=== PATIENT | male | born 1955 | race Caucasian/White ===

== ENCOUNTER 2017-02-26 03:13 | Inpatient (IN) | payer MEDICARE ==
[2017-02-26] VITALS (17 sets, daily range): BP systolic 105–153; BP diastolic 67–83; PULSE 65–83; RESP 16–42; TEMP 97.5–98.9; O2SAT 90–100
[~2017-02-26] VITALS: Ht 172.7 cm; Wt 62.6 kg
[~2017-02-26 03:13] MED LIST: ALBU0.086 INH; COMBAER INH; LEVA750T PO; PRED20 PO; VENTAER INH
[2017-02-26] MEDS ORDERED: AZITHROMYCIN INJ 500 MG in SODIUM CHLOR 0.9% 250 ML INJ 250 ML IV ONE (03:30)
[2017-02-26] MEDS ORDERED: SODIUM CHLOR 0.9% 1000 ML INJ 1,000 ML IV ONE (03:30)
[2017-02-26] MEDS ORDERED: SODIUM CHLORIDE 0.9% FLUSH 10 ML FLUSH IVF PRN (03:30)
[2017-02-26] MEDS ORDERED: LORazepam 2 MG/ML VIAL IV PUSH ONE (03:30)
--- NOTE | 2017-02-26 03:34 | PD ---
HPI Chief Complaint: Respiratory Distress Time Seen by Provider: 03:21 Travel History International Travel<30 days: No Contact w/Intl Traveler<30days: No Traveled to known affect area: No History of Present Illness HPI This 61-year-old man who presents to the emergency department complaining of increased shortness of breath. He has a history of COPD. Worse for the past couple days. He reports significant functional limitations at baseline from generalized debility and shortness of breath. He has some increased cough and congestion. No chest pain. No abdominal pain. Symptoms been constant for the past 2 days. He took some treatments at home that didn't really help. He received more treatments as well as IV Solu-Medrol in route. History Past Medical History Narrative Medical COPD Anxiety Influenza Vaccination: Yes Past Surgical History Surgical History: No Previous Surgery Social History Alcohol Use: Yes Tobacco Use: Yes (3 cigars per day) Allergies-Medications (Allergen,Severity, Reaction): Coded Allergies: No Known Allergies (Verified , 10/05/14) Reported Meds & Prescriptions Reported Meds & Active Scripts Active Levaquin 750 Mg Tab (Levofloxacin) 750 Mg Tab 750 Mg PO DAILY Deltasone 20 Mg Tab (Prednisone) 20 Mg Tab 20 Mg PO DIRECTED Take 2 tabs twice daily x5 days, then take 2 tabs daily x4 days Reported Combivent (Albuterol/Ipratropium) 14.7 Gm Aer 2 Puff INH Q4HPRN FOR WHEEZING Deltasone (Prednisone) Unknown Strength Tab Unknown Dose PO DAILY Proventil Ud 0.083% (2.5 Mg/3 Ml) (Albuterol Sulfate) 2.5 Mg/3 Ml Inha 2.5 Mg INH PRN Ventolin Hfa (Albuterol Sulfate) 18 Gm Aero 2 Puff INH Q4HPRN * SHAKE WELL BEFORE USE * Review of Systems Except as stated in HPI: all other systems reviewed are Neg Physical Exam Narrative GENERAL: Well-appearing 61-year-old man, no acute distress. SKIN: Focused skin assessment warm/dry. NECK: Trachea midline. No JVD. CARDIOVASCULAR: Regular rate and rhythm. No murmur appreciated. RESPIRATORY: Moderate respiratory distress. Able to speak in short sentences. Diminished breath sounds in the posterior lung bliss with prolonged expiratory phase and expiratory wheezing. GASTROINTESTINAL: Abdomen soft, non-tender, nondistended. Hepatic and splenic margins not palpable. MUSCULOSKELETAL: No obvious deformities. No edema. NEUROLOGICAL: Awake and alert. No obvious cranial nerve deficits. Motor grossly within normal limits. Normal speech. PSYCHIATRIC: Appropriate mood and affect; insight and judgment normal. Data Data Last Documented VS Vital Signs Date Time Temp Pulse Resp B/P Pulse Ox O2 Delivery O2 Flow Rate FiO2 02/26/17 04:40 99 40 02/26/17 04:19 Venturi Mask 6.00 02/26/17 03:41 28 02/26/17 03:21 77 02/26/17 03:19 98.9 108/82 Orders Complete Blood Count With Diff (02/26/17 03:21) Comprehensive Metabolic Panel (02/26/17 03:21) Magnesium (Mg) (02/26/17 03:21) Iv Access Insert/Monitor (02/26/17 03:21) Electrocardiogram (02/26/17 03:21) Ecg Monitoring (02/26/17 03:21) Oximetry (02/26/17 03:21) Oxygen Administration (02/26/17 03:21) Chest, Single Ap (02/26/17 03:21) Sodium Chloride 0.9% Flush (Ns Flush) (02/26/17 03:30) Albuterol-Ipratropium Neb (Duoneb Neb) (02/26/17 03:30) Lorazepam Inj (Ativan Inj) (02/26/17 03:30) Azithromycin Inj (Zithromax Inj) (02/26/17 03:30) Sodium Chlor 0.9% 1000 Ml Inj (Ns 1000 M (02/26/17 03:30) Resp Bipap / Cpap Non Invas Vt (02/26/17 ) Arterial Blood Gas (Abg) (02/26/17 ) Admit Order (Ed Use Only) (02/26/17 ) Labs Laboratory Tests Test 02/26/17 03:40 White Blood Count 9.0 TH/MM3 Red Blood Count 4.20 MIL/MM3 Hemoglobin 14.7 GM/DL Hematocrit 41.2 % Mean Corpuscular Volume 98.1 FL Mean Corpuscular Hemoglobin 35.1 PG Mean Corpuscular Hemoglobin 35.7 % Concent Red Cell Distribution Width 12.8 % Platelet Count 152 TH/MM3 Mean Platelet Volume 8.1 FL Neutrophils (%) (Auto) 86.2 % Lymphocytes (%) (Auto) 7.6 % Monocytes (%) (Auto) 5.6 % Eosinophils (%) (Auto) 0.2 % Basophils (%) (Auto) 0.4 % Neutrophils # (Auto) 7.8 TH/MM3 Lymphocytes # (Auto) 0.7 TH/MM3 Monocytes # (Auto) 0.5 TH/MM3 Eosinophils # (Auto) 0.0 TH/MM3 Basophils # (Auto) 0.0 TH/MM3 CBC Comment DIFF FINAL Differential Comment Sodium Level 118 MEQ/L Potassium Level 4.9 MEQ/L Chloride Level 83 MEQ/L Carbon Dioxide Level 22.9 MEQ/L Anion Gap 12 MEQ/L Blood Urea Nitrogen 7 MG/DL Creatinine 1.00 MG/DL Estimat Glomerular Filtration 76 ML/MIN Rate Random Glucose 110 MG/DL Calcium Level 9.0 MG/DL Magnesium Level 1.6 MG/DL Total Bilirubin 1.5 MG/DL Aspartate Amino Transf 44 U/L (AST/SGOT) Alanine Aminotransferase 25 U/L (ALT/SGPT) Alkaline Phosphatase 88 U/L Total Protein 8.1 GM/DL Albumin 3.4 GM/DL [facility] Medical Decision Making Medical Screen Exam Complete: Yes Emergency Medical Condition: Yes Interpretation(s) LABS: CBC unremarkable. CMP remarkable for sodium of 118. Chest x-ray: Small pleural effusion. Questionable hairline fracture right seventh rib. Differential Diagnosis COPD exacerbation, pneumonia, URI, ACS, PE other Narrative Course Medical decision making INITIAL: This is a 61-year-old man who presents to the emergency department complaining of increased shortness of breath. He was hypoxic on EMS arrival. He still appears pretty labored. We'll check labs, EKG, chest x-ray, reassess. FINAL: 61 year-old woman, daily alcohol drinker, hyponatremia with COPD exacerbation. Hypernatremia likely chronic. Placed on BiPAP for worsening respiratory distress despite initial treatment for COPD exacerbation. Patient will be admitted to the ICU. Critical Care Narrative Aggregate critical care time was 25 minutes. Time to perform other separately billable procedures was not included in the critical care time. My time did not include minutes spent treating any other patients simultaneously or on activities that did not directly contribute to the patient's treatment. The services I provided to this patient were to treat and/or prevent clinically significant deterioration that could result in: , disability, worsening respiratory disease, unrecognized hyponatremia. I provided critical care services requiring my management, as noted below: Chart data review, documentation time, medication orders and management, vital sign assessments/reviewing monitor data, ordering and reviewing lab tests, ordering and interpreting/reviewing x-rays and diagnostic studies, care of the patient and discussion of the patient with the admitting physicians. Diagnosis Primary Impression: COPD exacerbation Additional Impressions: Hyponatremia Alcohol abuse Admitting Information Admitting Physician Requests: Admit Suhail Murphy MD Feb 26, 2017 03:34
[2017-02-26 03:54] LABS: AUTOMATED NEUTROPHIL # 7.8 TH/MM3 (1.8-7.7); BASOPHIL % 0.4 % (0.0-2.0); EOSINOPHIL % 0.2 % (0.0-4.0); HEMATOCRIT 41.2 % (39.0-51.0); HEMO FLAGS DIFF FINAL; LYMPH % 7.6 % (9.0-44.0); LYMPHOCYTE # 0.7 TH/MM3 (1.0-4.8); MEAN CELL VOLUME 98.1 FL (80.0-100.0); MEAN CORPUSCULAR HEMOGLOBIN 35.1 PG (27.0-34.0); MEAN CORPUSCULAR HGB CONC 35.7 % (32.0-36.0); MONO % 5.6 % (0.0-8.0); NEUT % 86.2 % (16.0-70.0); PLATELET COUNT 152 TH/MM3 (150-450); RED CELL DISTRIBUTION WIDTH 12.8 % (11.6-17.2)
[2017-02-26] MEDS: RESP: ALBUTEROL 2.5 MG/IPRATROPIUM 0.5 MG NEB (SCH) INH ×4 (03:57→21:10)
[2017-02-26 04:18] LABS: ALKALINE PHOSPHATASE 88 U/L (45-117); ALT (GPT) 25 U/L (12-78); ANION GAP 12 MEQ/L (5-15); AST (GOT) 44 U/L (15-37); BICARBONATE 22.9 MEQ/L (21.0-32.0); BLOOD UREA NITROGEN 7 MG/DL (7-18); CHLORIDE 83 MEQ/L (98-107); GLOMERULAR FILTRATION RATE 76 ML/MIN (>89); MAGNESIUM 1.6 MG/DL (1.5-2.5); TOTAL BILIRUBIN ADULT 1.5 MG/DL (0.2-1.0)
[2017-02-26 04:20] LABS: POTASSIUM 4.9 MEQ/L (3.5-5.1)
[2017-02-26 04:24] LABS: SODIUM (NA) 118 MEQ/L (136-145)
--- NOTE | 2017-02-26 04:38 | RADRPT ---
EXAM DATE/TIME: 02/26/2017 04:07 [facility] COMPARISON: CHEST SINGLE AP, November 04, 2010, 19:30. INDICATIONS : Shortness of breath. MEDICAL HISTORY : None. SURGICAL HISTORY : None. ENCOUNTER: Initial ACUITY: 1 day PAIN SCORE: 0/10 LOCATION: Bilateral chest FINDINGS: A single view of the chest demonstrates the lungs to be symmetrically aerated without evidence of mas s, or infiltrate. Blunting of the left lateral costophrenic angle suspicious for small pleural effus ion The cardiomediastinal contours are unremarkable. Questionable hairline fracture of the right sev enth rib. Wedging throughout the mid thoracic spine similar to 2011 CONCLUSION: Small left pleural effusion. Questionable hairline fracture right seventh rib. Suhail Banerjee MD on February 26, 2017 at 4:36 Board Certified Radiologist. This report was verified electronically.
[2017-02-26] MEDS ORDERED: LACTULOSE SYRUP 20 GM/30 ML CUP PO PRN (05:15)
[2017-02-26] MEDS ORDERED: MISCELLANEOUS NURSING INFORMATION XX SCH (05:15)
[2017-02-26] MEDS ORDERED: SODIUM CHLORIDE 0.9% FLUSH 10 ML FLUSH PRN (05:15)
[2017-02-26] MEDS ORDERED: SENNOSIDES 8.6 MG TAB PO PRN (05:15)
[2017-02-26] MEDS ORDERED: RESP: ALBUTEROL 2.5 MG/IPRATROPIUM 0.5 MG NEB (PRN) INH (05:15)
[2017-02-26] MEDS ORDERED: ACETAMINOPHEN 325 MG TAB PO PRN (05:15)
[2017-02-26] MEDS ORDERED: ONDANSETRON HCL 4 MG/2 ML VIAL IV PRN (05:15)
[2017-02-26] MEDS ORDERED: MORPHINE SULFATE 4 MG/ML INJ IV PRN (05:15)
[2017-02-26] MEDS ORDERED: LORazepam 2 MG/ML VIAL IV PRN (05:15)
[2017-02-26] MEDS ORDERED: CHLORHEXIDINE GLUCONATE 2 % 1 PACK (2 CLOTHS) TOP PRN (05:15)
[2017-02-26] MEDS ORDERED: BISACODYL 10 MG SUPP RECTAL PRN (05:15)
--- NOTE | 2017-02-26 05:15 | HHI.HP ---
HPI Service Critical Care Medicine Primary Care Physician Agata Sullivan MD Admission Diagnosis hyponatremia, COPD exacerbation Diagnosis: Travel History International Travel<30 Days: No Contact w/Intl Traveler <30 Da: No Traveled to Known Affected Are: No History of Present Illness 61-year-old man presents complaining of increased shortness of breath. He has a history of COPD. Worse for the past couple days. He reports significant functional limitations at baseline from generalized debility and shortness of breath. He has some increased cough and congestion. No chest pain. No abdominal pain. Symptoms been constant for the past 2 days. He took some treatments at home that didn't really help. Review of Systems ROS Unobtainable patient on facemask BiPAP in respiratory distress Past Family Social History Allergies: Coded Allergies: No Known Allergies (Verified , 10/05/14) Past Medical History COPD Tobacco Use Alcohol Abuse Past Surgical History Denies Reported Medications Reported Meds & Active Scripts Active Levaquin 750 Mg Tab (Levofloxacin) 750 Mg Tab 750 Mg PO DAILY Deltasone 20 Mg Tab (Prednisone) 20 Mg Tab 20 Mg PO DIRECTED Take 2 tabs twice daily x5 days, then take 2 tabs daily x4 days Reported Combivent (Albuterol/Ipratropium) 14.7 Gm Aer 2 Puff INH Q4HPRN FOR WHEEZING Deltasone (Prednisone) Unknown Strength Tab Unknown Dose PO DAILY Proventil Ud 0.083% (2.5 Mg/3 Ml) (Albuterol Sulfate) 2.5 Mg/3 Ml Inha 2.5 Mg INH PRN Ventolin Hfa (Albuterol Sulfate) 18 Gm Aero 2 Puff INH Q4HPRN * SHAKE WELL BEFORE USE * Active Ordered Medications Current Medications Medications (Trade) Dose Ordered Sig/Mala Route PRN Reason Start Time Stop Time Status Last Admin Dose Admin Sodium Chloride (NS Flush) 2 ml UNSCH PRN IVF FLUSH AFTER USING IV ACCESS 02/26/17 03:30 02/26/17 03:41 Family History Reported Medications Combivent (Albuterol/Ipratropium) 14.7 Gm Aer 2 Puff INH Q4H PRN Deltasone (Prednisone) Unknown Strength Tab Unknown Dose PO DAILY Proventil Ud 0.083% (2.5 Mg/3 Ml) (Albuterol Sulfate) 2.5 Mg/3 Ml Inha 2.5 Mg INH PRN Ventolin Hfa (Albuterol Sulfate) 18 Gm Aero 2 Puff INH Q4H PRN Allergies: Coded Allergies: No Known Allergies (Verified , 10/05/14) Father - unknown Mother - unknown 11 Siblings - 1 of cancer of unknown cause Children - denies Social History Lives in [place] with a roommate EtOH - 6 beers per day Tobacco - quit smoking cigarettes 2009. Still smoking 7 cigars daily. Illicit Drugs - denies Physical Exam Vital Signs Vital Signs Date Time Temp Pulse Resp B/P Pulse Ox O2 Delivery O2 Flow Rate FiO2 02/26/17 04:40 99 40 02/26/17 04:19 92 Venturi Mask 6.00 50 02/26/17 03:59 92 Nasal Cannula 5.00 02/26/17 03:41 96 Aerosol Mask 8 02/26/17 03:41 28 96 Aerosol Mask 8 02/26/17 03:21 77 20 95 Aerosol Mask 02/26/17 03:19 98.9 77 20 108/82 95 Physical Exam GENERAL: Elderly appearing man on facemask BiPAP. SKIN: Warm and dry. HEAD: Normocephalic. EYES: No scleral icterus. No injection or drainage. NECK: Supple, trachea midline. No JVD or lymphadenopathy. CARDIOVASCULAR: Regular rate and rhythm without murmurs, gallops, or rubs. RESPIRATORY: Breath sounds decreased bilaterally. Some accessory muscle use. GASTROINTESTINAL: Abdomen soft, non-tender, nondistended. MUSCULOSKELETAL: No cyanosis, or edema. BACK: Nontender without obvious deformity. No CVA tenderness. EXTREMITIES: No clubbing or cyanosis Laboratory Laboratory Tests Test 02/26/17 03:40 White Blood Count 9.0 Red Blood Count 4.20 Hemoglobin 14.7 Hematocrit 41.2 Mean Corpuscular Volume 98.1 Mean Corpuscular Hemoglobin 35.1 Mean Corpuscular Hemoglobin 35.7 Concent Red Cell Distribution Width 12.8 Platelet Count 152 Mean Platelet Volume 8.1 Neutrophils (%) (Auto) 86.2 Lymphocytes (%) (Auto) 7.6 Monocytes (%) (Auto) 5.6 Eosinophils (%) (Auto) 0.2 Basophils (%) (Auto) 0.4 Neutrophils # (Auto) 7.8 Lymphocytes # (Auto) 0.7 Monocytes # (Auto) 0.5 Eosinophils # (Auto) 0.0 Basophils # (Auto) 0.0 CBC Comment DIFF FINAL Differential Comment Sodium Level 118 Potassium Level 4.9 Chloride Level 83 Carbon Dioxide Level 22.9 Anion Gap 12 Blood Urea Nitrogen 7 Creatinine 1.00 Estimat Glomerular Filtration 76 Rate Random Glucose 110 Calcium Level 9.0 Magnesium Level 1.6 Total Bilirubin 1.5 Aspartate Amino Transf 44 (AST/SGOT) Alanine Aminotransferase 25 (ALT/SGPT) Alkaline Phosphatase 88 Total Protein 8.1 Albumin 3.4 Result Diagram: 02/26/1733902/26/17339 Assessment and Plan Assessment and Plan Respiratory failure COPD exacerbation - IV steroids - Empiric antibiotic - BiPAP when necessary - Frequent ABGs - DuoNeb scheduled and when necessary Hyponatremia - Due to alcohol abuse - Continue IV hydration was normal saline - Monitor sodium trend Alcohol abuse - CIWA protocol - Monitor closely for withdrawal Tobacco use disorder - [place] patch when necessary DVT GI prophylaxis - Teds SCDs - Early aggressive mobilization - Pepcid Critical Care: The total critical care time was 35 minutes. Time to perform other separately billable procedures was not included in the critical care time. Dread Hawkins MD Feb 26, 2017 05:15
[2017-02-26 05:22] LABS: BLOOD GAS BASE EXCESS -6.1 mmol/L (-2-2); BLOOD GAS CARBOXYHEMOGLOBIN 1.2 % (0-4); BLOOD GAS HCO3 18 mmol/L (22-26); BLOOD GAS METHEMOGLOBIN 0.6 % (0-2); BLOOD GAS O2 HGB SATURATION 96 % (90-100); BLOOD GAS PCO2 33 mmHg (38-42); BLOOD GAS PO2 104 mmHG (61-120); BLOOD GAS TOTAL HGB 13.3 G/DL (12.0-16.0); CRITICAL VALUE NO; TEMP CORR TO 98.6
[2017-02-26 05:23] LABS: DRAW SITE RT RADIAL; FIO2 40 %; NUMBER OF ARTERIAL PUNCTURES 2; OXYGEN DEVICE BiPAP; STAT YES; ULNAR PULSE PRESENT; VENT SETTINGS IPAP15/EPAP5
[2017-02-26] MEDS ORDERED: LORazepam 2 MG/ML VIAL IV PUSH PRN ×7 (05:30)
[2017-02-26] MEDS ORDERED: FLUMAZENIL 0.5 MG/5 ML VIAL IV PUSH PRN ×2 (05:30)
[2017-02-26] MEDS ORDERED: LORazepam 2 MG TAB PO PRN ×2 (05:30)
[2017-02-26] MEDS ORDERED: LORazepam 1 MG TAB PO PRN ×2 (05:30)
[2017-02-26] MEDS: SODIUM CHLOR 0.9% 1000 ML INJ 1,000 ML IV SCH ×2 (05:47→21:16)
[2017-02-26] MEDS: LEVOFLOXACIN 750 MG PREMIX INJ 150 ML IV SCH (06:47)
[2017-02-26] MEDS: LORazepam 2 MG/ML VIAL IV PUSH PRN ×2 (10:04→13:57)
[2017-02-26] MEDS: methylPREDNISolone SOD SUCC 125 MG/2 ML VIAL IV PUSH SCH ×2 (10:39→21:17)
[2017-02-26] MEDS: FAMOTIDINE 20 MG/2 ML VIAL IV PUSH SCH ×2 (10:39→21:17)
[2017-02-26] MEDS: DOCUSATE SODIUM 50 MG/SENNA 8.6 MG TAB PO SCH ×2 (10:39→21:00)
[2017-02-26] MEDS: SODIUM CHLORIDE 0.9% FLUSH 10 ML FLUSH SCH ×2 (13:58→21:16)
[2017-02-27] VITALS (11 sets, daily range): BP systolic 99–159; BP diastolic 69–93; PULSE 67–95; RESP 18–25; TEMP 96.4–98.4; O2SAT 92–99
--- NOTE | 2017-02-27 02:31 | RADRPT ---
EXAM DATE/TIME: 02/27/2017 01:56 [facility] COMPARISON: CHEST SINGLE AP, February 26, 2017, 4:07. INDICATIONS : Shortness of breath MEDICAL HISTORY : None. SURGICAL HISTORY : None. ENCOUNTER: Subsequent ACUITY: 2 days PAIN SCORE: 8/10 LOCATION: Bilateral chest FINDINGS: A single view of the chest demonstrates the lungs to be symmetrically aerated without evidence of mas s, infiltrate or effusion. The heart size is at the upper limits of normal. There is a questionable nondisplaced fracture involving the right posterior lateral seventh rib again noted. CONCLUSION: 1. No acute cardiopulmonary disease. 2. Questionable fracture of the right posterior lateral seventh rib again noted of indeterminate age. Earl Anguiano MD on February 27, 2017 at 2:28 Board Certified Radiologist. This report was verified electronically.
[2017-02-27] MEDS: RESP: ALBUTEROL 2.5 MG/IPRATROPIUM 0.5 MG NEB (SCH) INH ×4 (03:43→21:28)
[2017-02-27] MEDS: CHLORHEXIDINE GLUCONATE 2 % 1 PACK (2 CLOTHS) TOP SCH ×2 (04:00→18:56)
[2017-02-27 04:38] LABS: AUTOMATED NEUTROPHIL # 4.8 TH/MM3 (1.8-7.7); BASOPHIL % 0.1 % (0.0-2.0); HEMATOCRIT 37.6 % (39.0-51.0); HEMO FLAGS DIFF FINAL; LYMPH % 2.9 % (9.0-44.0); LYMPHOCYTE # 0.1 TH/MM3 (1.0-4.8); MEAN CELL VOLUME 100.7 FL (80.0-100.0); MEAN CORPUSCULAR HEMOGLOBIN 33.9 PG (27.0-34.0); MEAN CORPUSCULAR HGB CONC 33.6 % (32.0-36.0); MONO % 3.2 % (0.0-8.0); NEUT % 93.8 % (16.0-70.0); PLATELET COUNT 111 TH/MM3 (150-450); RED BLOOD COUNT 3.73 MIL/MM3 (4.50-5.90); RED CELL DISTRIBUTION WIDTH 12.9 % (11.6-17.2); WHITE BLOOD COUNT 5.2 TH/MM3 (4.0-11.0)
[2017-02-27 05:04] LABS: ALT (GPT) 23 U/L (12-78); ANION GAP 10 MEQ/L (5-15); AST (GOT) 31 U/L (15-37); BICARBONATE 24.5 MEQ/L (21.0-32.0); BLOOD UREA NITROGEN 8 MG/DL (7-18); CHLORIDE 94 MEQ/L (98-107); GLOMERULAR FILTRATION RATE 104 ML/MIN (>89); MAGNESIUM 1.8 MG/DL (1.5-2.5); POTASSIUM 4.1 MEQ/L (3.5-5.1); SODIUM (NA) 128 MEQ/L (136-145)
[2017-02-27 05:06] LABS: ALKALINE PHOSPHATASE 69 U/L (45-117); TOTAL BILIRUBIN ADULT 0.8 MG/DL (0.2-1.0)
[2017-02-27] MEDS: LEVOFLOXACIN 750 MG PREMIX INJ 150 ML IV SCH (05:16)
[2017-02-27] MEDS: SODIUM CHLOR 0.9% 1000 ML INJ 1,000 ML IV SCH ×3 (05:16→19:12)
[2017-02-27] MEDS: DOCUSATE SODIUM 50 MG/SENNA 8.6 MG TAB PO SCH ×2 (09:00→19:11)
[2017-02-27] MEDS: methylPREDNISolone SOD SUCC 125 MG/2 ML VIAL IV PUSH SCH ×2 (09:24→19:11)
[2017-02-27] MEDS: FAMOTIDINE 20 MG/2 ML VIAL IV PUSH SCH ×2 (09:25→19:11)
[2017-02-27] MEDS: SODIUM CHLORIDE 0.9% FLUSH 10 ML FLUSH SCH ×2 (09:25→19:12)
[2017-02-27] MEDS ORDERED: INFLUENZA VIRUS VACCINE (QUADRIVALENT) 0.5 ML SYR IM ONE (10:00)
--- NOTE | 2017-02-27 10:04 | HHI.PR ---
Subjective Remarks Follow-up for COPD exacerbation Patient stated that breathing has improved. Denies any cough. Patient asking to eat. His nurses is at the bedside. Per patient's nurse they suspected that he aspirated so kept him nothing by mouth. Speech therapist was already consulted pending recommendation. Otherwise patient has no other complaints. Dealt with patient's nurse. Objective Vitals Vital Signs Date Time Temp Pulse Resp B/P Pulse Ox O2 Delivery O2 Flow Rate FiO2 02/27/17 08:28 95 Nasal Cannula 6.00 02/27/17 06:00 81 02/27/17 04:00 98.2 85 25 159/88 93 02/27/17 04:00 78 02/27/17 02:00 78 02/27/17 00:00 98.4 74 18 156/85 96 02/27/17 00:00 74 02/26/17 22:00 83 02/26/17 21:10 96 Nasal Cannula 2.00 02/26/17 20:00 98.0 73 16 134/83 95 02/26/17 20:00 73 02/26/17 16:00 72 18 142/83 91 02/26/17 12:00 73 42 153/77 90 I/O 02/26/17 02/26/17 02/26/17 02/27/17 02/27/17 02/27/17 07:00 15:00 23:00 07:00 15:00 23:00 Intake Total 624 ml 584 ml Output Total 250 ml 500 ml Balance 374 ml 84 ml Intake IV Total 624 ml 584 ml Output Urine Total 250 ml 500 ml # Voids 1 2 Result Diagram: 02/27/17 0402 02/27/17 0402 Imaging Last Impressions Chest X-Ray 02/27/17 0000 Signed Impressions: Service Date/Time: Monday, February 27, 2017 01:56 - CONCLUSION: 1. No acute cardiopulmonary disease. 2. Questionable fracture of the right posterior lateral seventh rib again noted of indeterminate age. Earl Anguiano MD Objective Remarks GENERAL: A chronically ill looking frail male in no acute distress.. CARDIOVASCULAR: Regular rate and rhythm without murmurs, gallops, or rubs. RESPIRATORY: Lung sounds are distant with mild diffuse wheezing. Patient just received nebulizer treatment 40 minutes ago. No accessory muscle use. No cough noted on exam. GASTROINTESTINAL: Abdomen soft, non-tender, nondistended. MUSCULOSKELETAL: No cyanosis, or edema. Medications and IVs Current Medications Sodium Chloride (NS Flush) 2 ml UNSCH PRN IVF FLUSH AFTER USING IV ACCESS Last administered on 02/26/17 03:41; Start 02/26/17 at 03:30; Stop 02/26/17 at 05:40 ; Status DC Albuterol/ Ipratropium (Duoneb Neb) 1 ampule Q15M INH Last administered on 02/26 03:57; Start 02/26/17 at 03:30; Stop 02/26/17 at 03:46; Status DC Lorazepam 1 mg 1 mg ONCE ONCE IV PUSH Last administered on 02/26/17 03:41; Start 02/26/17 at 03:30; Stop 02/26/17 at 03:31; Status DC Azithromycin 500 mg/Sodium Chloride 250 ml @ 250 mls/hr ONCE ONCE IV Last administered on 02/26/17 03:40; Start 02/26/17 at 03:30; Stop 02/26/17 at 04:29 ; Status DC Sodium Chloride 1,000 ml @ 2,000 mls/hr Q30M ONCE IV Last administered on 02/26 03:40; Start 02/26/17 at 03:30; Stop 02/26/17 at 03:59; Status DC Sodium Chloride (NS 1000 ml Inj) 1,000 ml @ 84 mls/hr [id number] IV Last administered on 02/27/17 05:16; Start 02/26/17 at 05:06 Sodium Chloride (NS Flush) 2 ml UNSCH PRN .XX FLUSH AFTER USING IV ACCESS; Start 02/26/17 at 05:15 Sodium Chloride (NS Flush) 2 ml BID .XX Last administered on 02/27/17 09:25; Start 02/26/17 at 09:00 Acetaminophen (Tylenol) 650 mg Q6H PRN PO PAIN 1-5 AND/OR FEVER >101F; Start at 05:15 Morphine Sulfate (Morphine Inj) 2 mg Q2H PRN IV PAIN SCALE 6 TO 10; Start 02/26 at 05:15 Famotidine (Pepcid Inj) 20 mg Q12HR IV PUSH Last administered on 02/27/17 09: 25; Start 02/26/17 at 09:00 Lorazepam (Ativan Inj) 1 mg Q1H PRN IV Agitation/Sedation; Start 02/26/17 at 05 :15 Ondansetron HCl (Zofran Inj) 4 mg Q6H PRN IV NAUSEA OR VOMITING; Start at 05:15 Albuterol/ Ipratropium (Duoneb Neb) 1 ampule Q6HR NEB INH Last administered on 02/27/17 08:27; Start 02/26/17 at 10:00 Albuterol/ Ipratropium (Duoneb Neb) 1 ampule Q2HR NEB PRN INH WHEEZING Last administered on 02/26/17 05:44; Start 02/26/17 at 05:15; Stop 02/26/17 at 16:45 ; Status DC Miscellaneous Information 1 [id number] Last administered on 02/26/17 05:15; Start 02/26/17 at 05:15 Chlorhexidine Gluconate (Chlorhexidine 2% Cloth) 3 pack Taper DAILY@04 TOP Last administered on 02/27/17 04:00; Start 02/27/17 at 04:00; Stop 02/23/18 at 03:59 Chlorhexidine Gluconate (Chlorhexidine 2% Cloth) 3 pack UNSCH PRN TOP HYGIENIC CARE; Start 02/26/17 at 05:15 Senna/Docusate Sodium (Anay-Colace) 1 tab BID PO Last administered on 10:39; Start 02/26/17 at 09:00 Magnesium Hydroxide (Milk Of Magnesia Liq) 30 ml Q12H PRN PO MILD - MODERATE CONSTIPATION; Start 02/26/17 at 05:15 Sennosides (Senokot) 17.2 mg Q12H PRN PO MODERATE - SEVERE CONSTIPATION; Start 02/26/17 at 05:15 Bisacodyl (Dulcolax Supp) 10 mg DAILY PRN RECTAL SEVERE CONSITIPATION; Start at 05:15 Lactulose 30 ml 30 ml DAILY PRN PO SEVERE CONSITIPATION; Start 02/26/17 at 05: 15 Levofloxacin/ Dextrose (Levaquin 750 Mg Premix Inj) 150 ml @ 100 mls/hr Q24H IV Last administered on 02/27/17 05:16; Start 02/26/17 at 06:00 Methylprednisolone Sodium Succinate (SoluMEDROL INJ) 60 mg Q12HR IV PUSH Last administered on 02/27/17 09:24; Start 02/26/17 at 09:00 Flumazenil (Romazicon Inj) 0.2 mg Q1M PRN IV PUSH SEE LABEL COMMENTS; Start at 05:30 Lorazepam (Ativan) 1 mg Q4H PRN PO CIWA 8 - 10; Start 02/26/17 at 05:30; Stop 02/26/17 at 05:38; Status DC Lorazepam (Ativan Inj) 1 mg Q4H PRN IV PUSH CIWA 8 - 10; Start 02/26/17 at 05: 30; Stop 02/26/17 at 05:39; Status DC Lorazepam (Ativan) 2 mg Q2H PRN PO CIWA 11-14; Start 02/26/17 at 05:30; Stop at 05:38; Status DC Lorazepam (Ativan Inj) 2 mg Q2H PRN IV PUSH CIWA 11-14; Start 02/26/17 at 05:30 ; Stop 02/26/17 at 05:39; Status DC Lorazepam (Ativan Inj) 2 mg Q1H PRN IV PUSH CIWA 15-20; Start 02/26/17 at 05:30 ; Stop 02/26/17 at 05:39; Status DC Lorazepam (Ativan Inj) 2 mg Q15M PRN IV PUSH CIWA > 20; Start 02/26/17 at 05:30 ; Stop 02/26/17 at 05:39; Status DC Flumazenil (Romazicon Inj) 0.2 mg Q1M PRN IV PUSH SEE LABEL COMMENTS; Start at 05:30; Stop 02/26/17 at 05:39; Status DC Lorazepam (Ativan) 1 mg Q4H PRN PO CIWA 8 - 10; Start 02/26/17 at 05:30 Lorazepam (Ativan Inj) 1 mg Q4H PRN IV PUSH CIWA 8 - 10; Start 02/26/17 at 05: 30 Lorazepam (Ativan) 2 mg Q2H PRN PO CIWA 11-14; Start 02/26/17 at 05:30 Lorazepam (Ativan Inj) 2 mg Q2H PRN IV PUSH CIWA 11-14 Last administered on t 13:57; Start 02/26/17 at 05:30 Lorazepam (Ativan Inj) 2 mg Q1H PRN IV PUSH CIWA 15-20; Start 02/26/17 at 05:30 Lorazepam (Ativan Inj) 2 mg Q15M PRN IV PUSH CIWA > 20; Start 02/26/17 at 05:30 Influenza Virus Vaccine (Flu (Quadrivalent) Vaccine Inj) 0.5 ml ONCE ONCE IM ; Start 02/27/17 at 10:00; Stop 02/27/17 at 10:00; Status DC Albuterol/ Ipratropium (Duoneb Neb) 1 ampule Q2HR NEB PRN NEB wheezing/ SOB; Start 02/26/17 at 17:00 A/P Assessment and Plan Acute Respiratory failure -Secondary to COPD exacerbation. -See treatment as below. COPD exacerbation -Patient is on IV Levaquin, Solu-Medrol, scheduled DuoNeb's and albuterol when necessary. -Respiratory status is improving with treatment. -Continue with current treatment. Hyponatremia, asymptomatic. - Due to alcohol abuse - Improving with IV fluids. -Continue to monitor. Alcohol abuse - [facility] protocol - Monitor closely for withdrawal but at the moment patient has no signs of withdrawals. Tobacco use disorder - Nicotine patch when necessary DVT GI prophylaxis - Teds SCDs - Early aggressive mobilization - Pepcid Discharge Planning Patient is medically stable to be transferred out of the ICU. Pat Paulson MD Feb 27, 2017 10:04
[2017-02-27] MEDS: RESP: ALBUTEROL 2.5 MG/IPRATROPIUM 0.5 MG NEB (PRN) NEB (18:30)
[2017-02-27] MEDS: MAGNESIUM HYDROXIDE SUSP 30 ML CUP PO PRN (19:10)
[2017-02-28] VITALS (10 sets, daily range): BP systolic 108–147; BP diastolic 65–90; PULSE 62–153; RESP 17–19; TEMP 95.9–97.1; O2SAT 93–98
[2017-02-28] MEDS: RESP: ALBUTEROL 2.5 MG/IPRATROPIUM 0.5 MG NEB (SCH) INH ×4 (02:51→19:35)
[2017-02-28] MEDS: LEVOFLOXACIN 750 MG PREMIX INJ 150 ML IV SCH (05:28)
[2017-02-28 08:07] LABS: HEMATOCRIT 37.5 % (39.0-51.0); MEAN CELL VOLUME 101.4 FL (80.0-100.0); MEAN CORPUSCULAR HEMOGLOBIN 34.2 PG (27.0-34.0); MEAN CORPUSCULAR HGB CONC 33.7 % (32.0-36.0); PLATELET COUNT 100 TH/MM3 (150-450); RED CELL DISTRIBUTION WIDTH 12.9 % (11.6-17.2); REVIEW FLAG FINAL; WHITE BLOOD COUNT 7.7 TH/MM3 (4.0-11.0)
[2017-02-28 08:10] LABS: BICARBONATE 24.4 MEQ/L (21.0-32.0)
[2017-02-28] MEDS: DOCUSATE SODIUM 50 MG/SENNA 8.6 MG TAB PO SCH ×2 (08:43→19:59)
[2017-02-28] MEDS: methylPREDNISolone SOD SUCC 125 MG/2 ML VIAL IV PUSH SCH (08:43)
[2017-02-28] MEDS: MAGNESIUM HYDROXIDE SUSP 30 ML CUP PO PRN (08:43)
[2017-02-28] MEDS: FAMOTIDINE 20 MG/2 ML VIAL IV PUSH SCH ×2 (08:44→19:59)
[2017-02-28] MEDS: SODIUM CHLORIDE 0.9% FLUSH 10 ML FLUSH SCH ×2 (08:44→19:59)
--- NOTE | 2017-02-28 15:53 | HHI.PR ---
Subjective Remarks sob improving wants to go home denies cp on 4 liters nasal canula Objective Vitals Vital Signs Date Time Temp Pulse Resp B/P Pulse Ox O2 Delivery O2 Flow Rate FiO2 02/28/17 12:00 95.9 85 19 121/65 95 02/28/17 09:26 96 Nasal Cannula 3.00 02/28/17 07:45 97.1 82 18 143/83 96 02/28/17 04:28 96.7 89 18 128/77 94 02/27/17 23:12 96.7 95 19 130/93 92 02/27/17 19:28 96.4 89 18 99/69 98 02/27/17 19:10 98 Nasal Cannula 4.00 02/27/17 16:07 99 Nasal Cannula 6.00 I/O 02/27/17 02/27/17 02/27/17 02/28/17 02/28/17 02/28/17 07:00 15:00 23:00 07:00 15:00 23:00 Intake Total 584 ml 1261 ml 1378 ml 758 ml Output Total 500 ml 160 ml 100 ml Balance 84 ml -160 ml 1261 ml 1278 ml 758 ml Intake Oral 360 ml 480 ml IV Total 584 ml 901 ml 898 ml 758 ml Output Urine Total 500 ml 160 ml 100 ml # Voids 2 1 1 2 # Bowel Movements 0 0 Result Diagram: 02/28/17 0700 02/28/17 0700 Imaging Last Impressions Chest X-Ray 02/27/17 0000 Signed Impressions: Service Date/Time: Monday, February 27, 2017 01:56 - CONCLUSION: 1. No acute cardiopulmonary disease. 2. Questionable fracture of the right posterior lateral seventh rib again noted of indeterminate age. Earl Anguiano MD Objective Remarks AAOx3 Decreased air entry BL, no wheezing, rales or rhonchi Medications and IVs Current Medications Medications (Trade) Dose Ordered Sig/Mala Route Start Time Stop Time Status Last Admin (NS Flush) 2 ml UNSCH PRN .XX 02/26/17 05:15 (NS Flush) 2 ml BID .XX 02/26/17 09:00 02/28/17 19:59 (Tylenol) 650 mg Q6H PRN PO 02/26/17 05:15 (Morphine Inj) 2 mg Q2H PRN IV 02/26/17 05:15 (Pepcid Inj) 20 mg Q12HR IV PUSH 02/26/17 09:00 02/28/17 19:59 (Ativan Inj) 1 mg Q1H PRN IV 02/26/17 05:15 02/28/17 20:03 (Zofran Inj) 4 mg Q6H PRN IV 02/26/17 05:15 Miscellaneous Information 1 Q361D XX 02/26/17 05:15 02/26/17 05:15 (Chlorhexidine 2% Cloth) 3 pack Taper DAILY@04 TOP 02/27/17 04:00 02/23/18 03:59 02/27/17 04:00 (Chlorhexidine 2% Cloth) 3 pack UNSCH PRN TOP 02/26/17 05:15 (Anay-Colace) 1 tab BID PO 02/26/17 09:00 02/28/17 08:43 (Milk Of Magnesia Liq) 30 ml Q12H PRN PO 02/26/17 05:15 02/28/17 08:43 (Senokot) 17.2 mg Q12H PRN PO 02/26/17 05:15 (Dulcolax Supp) 10 mg DAILY PRN RECTAL 02/26/17 05:15 (Lactulose Liq) 30 ml DAILY PRN PO 02/26/17 05:15 (Romazicon Inj) 0.2 mg Q1M PRN IV PUSH 02/26/17 05:30 (Ativan) 1 mg Q4H PRN PO 02/26/17 05:30 (Ativan Inj) 1 mg Q4H PRN IV PUSH 02/26/17 05:30 (Ativan) 2 mg Q2H PRN PO 02/26/17 05:30 (Ativan Inj) 2 mg Q2H PRN IV PUSH 02/26/17 05:30 02/26/17 13:57 (Ativan Inj) 2 mg Q1H PRN IV PUSH 02/26/17 05:30 (Ativan Inj) 2 mg Q15M PRN IV PUSH 02/26/17 05:30 (Levaquin) 750 mg DAILY PO 03/01/17 09:00 Prednisone 20 mg 20 mg BID PO 02/28/17 21:00 02/28/17 19:58 (NS 1000 ml Inj) 1,000 ml @ 84 mls/hr [id number] IV 02/28/17 21:15 02/28/17 21:15 A/P Problem List: (1) COPD exacerbation ICD Code: J44.1 Status: Acute Plan: Start oral prednisone DC IV Levaquin - start oral Levaquin continue supplemental o2 will order walk test (2) Acute respiratory failure ICD Code: J96.00 Status: Acute Plan: Still on 4 liters nasal canula check home walk test continue supplemental o2 (3) Hyponatremia ICD Code: E87.1 Status: Acute Plan: likely hypovolemic hyponatremia trending up Patient eating and drinking fluids - Will Dc IV fluids (4) Alcohol abuse ICD Code: F10.10 Status: Acute Plan: Continue CIWA protocol, no evidence of withdrawal Continue to monitor on telemetry. (5) Hyperglycemia ICD Code: R73.9 Status: Acute Plan: Likely steroid induced. Hemoglobin A1c 5.5. Place on SSI with insulin Novolog and monitor accuchecks. (6) Tobacco use ICD Code: Z72.0 Status: Acute Plan: advised smoking cessation. Eber Soler MD Feb 28, 2017 15:53
[2017-02-28] MEDS: predniSONE 20 MG TAB PO SCH (19:58)
[2017-02-28] MEDS ORDERED: LORazepam 2 MG/ML VIAL IV PUSH ONE (21:00)
[2017-02-28] MEDS: SODIUM CHLOR 0.9% 1000 ML INJ 1,000 ML IV SCH (21:15)
[2017-02-28] MEDS ORDERED: SODIUM CHLOR 0.9% 250 ML INJ 250 ML IV ONE (21:15)
[2017-02-28 22:27] LABS: HEMOGLOBIN A1b 1.3 %; HEMOGLOBIN Ao 85.6 %; HEMOGLOBIN F 0.3 %; HEMOGLOBIN LA1C 2.2 %; HEMOGLOBIN P3 3.8 %
[2017-02-28] MEDS ORDERED: GLUCAGON 1 MG/ML VIAL OTHER PRN (23:45)
[2017-02-28] MEDS ORDERED: DEXTROSE 50% IN WATER 50 ML VIAL(D50) IV PRN (23:45)
[2017-03-01] VITALS (19 sets, daily range): BP systolic 94–155; BP diastolic 65–101; PULSE 81–166; RESP 17–19; TEMP 95.7–98.4; O2SAT 95–99
[2017-03-01] MEDS: CHLORHEXIDINE GLUCONATE 2 % 1 PACK (2 CLOTHS) TOP SCH (03:06)
[2017-03-01] MEDS: RESP: ALBUTEROL 2.5 MG/IPRATROPIUM 0.5 MG NEB (SCH) INH ×4 (04:43→23:19)
[2017-03-01] MEDS: INSULIN ASPART SUPPLEMENTAL SCALE SQ SCH ×4 (06:03→21:00)
[2017-03-01] MEDS: SODIUM CHLOR 0.9% 1000 ML INJ 1,000 ML IV SCH (06:04)
[2017-03-01 08:14] LABS: BICARBONATE 31.8 MEQ/L (21.0-32.0); POTASSIUM 3.2 MEQ/L (3.5-5.1)
--- NOTE | 2017-03-01 09:16 | EKG ---
Date Performed: 02/28/2017 Time Performed: 20:47:04 PTAGE: 61 years EKG: ATRIAL FLUTTER/TACHYCARDIA WITH RAPID VENTRICULAR RESPONSE INCOMPLETE RIGHT BUNDLE BRANCH B LOCK LEFT ANTERIOR FASCICULAR BLOCK NONSPECIFIC ST & T-WAVE ABNORMALITY ABNORMAL ECG PREVIOUS TRACING : 10/05/2014 17.58 DOCTOR: Suhail Gonzalez Interpretating Date/Time 03/01/2017 09:14:30
[2017-03-01] MEDS: LEVOFLOXACIN 750 MG TAB PO SCH (09:18)
[2017-03-01] MEDS: DOCUSATE SODIUM 50 MG/SENNA 8.6 MG TAB PO SCH ×2 (09:18→20:20)
[2017-03-01] MEDS: predniSONE 20 MG TAB PO SCH (09:19)
[2017-03-01] MEDS: SODIUM CHLORIDE 0.9% FLUSH 10 ML FLUSH SCH ×2 (09:21→20:20)
[2017-03-01] MEDS: FAMOTIDINE 20 MG/2 ML VIAL IV PUSH SCH ×2 (09:22→20:20)
[2017-03-01] MEDS: MAGNESIUM HYDROXIDE SUSP 30 ML CUP PO PRN (09:24)
[2017-03-01] MEDS ORDERED: POTASSIUM CHLORIDE 10 MEQ CONTROLLED RELEASE TAB PO ONE (13:00)
--- NOTE | 2017-03-01 18:36 | HHI.PR ---
Subjective Remarks late entry - patient seen at 12:30 pm Patient states breathing is at baseline wants to go home had episode of tachycardia last night denies cp/sob Objective Vitals Vital Signs Date Time Temp Pulse Resp B/P Pulse Ox O2 Delivery O2 Flow Rate FiO2 03/01/17 18:22 155 03/01/17 16:00 95.7 85 19 133/76 97 03/01/17 15:54 99 Nasal Cannula 4.00 03/01/17 12:22 87 03/01/17 12:00 95.7 96 17 126/70 97 03/01/17 10:57 97 Nasal Cannula 4.00 03/01/17 08:00 96.4 82 17 139/78 97 03/01/17 07:27 Nasal Cannula 4.00 03/01/17 04:45 98 Nasal Cannula 3.00 03/01/17 03:00 96.7 89 18 155/91 95 02/28/17 23:26 96.4 84 18 147/86 97 02/28/17 20:40 88 02/28/17 20:00 Nasal Cannula 4.00 02/28/17 19:35 98 Nasal Cannula 4.00 02/28/17 19:09 96.7 153 18 124/82 98 I/O 02/28/17 02/28/17 02/28/17 03/01/17 03/01/17 03/01/17 07:00 15:00 23:00 07:00 15:00 23:00 Intake Total 1378 ml 1478 ml 907 ml 980 ml 1428 ml Output Total 100 ml 1000 ml 400 ml 1800 ml 1950 ml Balance 1278 ml 478 ml 507 ml -820 ml -522 ml Intake Oral 480 ml 720 ml 480 ml 980 ml 840 ml IV Total 898 ml 758 ml 427 ml 588 ml Output Urine Total 100 ml 1000 ml 400 ml 1800 ml 1950 ml # Voids 2 2 1 # Bowel Movements 0 0 1 0 0 Result Diagram: 02/28/17 0700 03/01/17 0707 Imaging Last Impressions Chest X-Ray 02/27/17 0000 Signed Impressions: Service Date/Time: Monday, February 27, 2017 01:56 - CONCLUSION: 1. No acute cardiopulmonary disease. 2. Questionable fracture of the right posterior lateral seventh rib again noted of indeterminate age. Earl Anguiano MD Objective Remarks AAOx3 Decreased air entry BL, mild diffuse wheezing BL, rales or rhonchi S1S2 RRR Medications and IVs Current Medications Medications (Trade) Dose Ordered Sig/Mala Route Start Time Stop Time Status Last Admin (NS Flush) 2 ml UNSCH PRN .XX 02/26/17 05:15 (NS Flush) 2 ml BID .XX 02/26/17 09:00 03/01/17 09:21 (Tylenol) 650 mg Q6H PRN PO 02/26/17 05:15 (Morphine Inj) 2 mg Q2H PRN IV 02/26/17 05:15 (Pepcid Inj) 20 mg Q12HR IV PUSH 02/26/17 09:00 03/01/17 09:22 (Ativan Inj) 1 mg Q1H PRN IV 02/26/17 05:15 02/28/17 20:03 (Zofran Inj) 4 mg Q6H PRN IV 02/26/17 05:15 03/01/17 14:15 Miscellaneous Information 1 Q361D XX 02/26/17 05:15 02/26/17 05:15 (Chlorhexidine 2% Cloth) 3 pack Taper DAILY@04 TOP 02/27/17 04:00 02/23/18 03:59 02/27/17 04:00 (Chlorhexidine 2% Cloth) 3 pack UNSCH PRN TOP 02/26/17 05:15 (Anay-Colace) 1 tab BID PO 02/26/17 09:00 03/01/17 09:18 (Milk Of Magnesia Liq) 30 ml Q12H PRN PO 02/26/17 05:15 03/01/17 09:24 (Senokot) 17.2 mg Q12H PRN PO 02/26/17 05:15 (Dulcolax Supp) 10 mg DAILY PRN RECTAL 02/26/17 05:15 (Lactulose Liq) 30 ml DAILY PRN PO 02/26/17 05:15 (Romazicon Inj) 0.2 mg Q1M PRN IV PUSH 02/26/17 05:30 (Ativan) 1 mg Q4H PRN PO 02/26/17 05:30 (Ativan Inj) 1 mg Q4H PRN IV PUSH 02/26/17 05:30 (Ativan) 2 mg Q2H PRN PO 02/26/17 05:30 (Ativan Inj) 2 mg Q2H PRN IV PUSH 02/26/17 05:30 02/26/17 13:57 (Ativan Inj) 2 mg Q1H PRN IV PUSH 02/26/17 05:30 (Ativan Inj) 2 mg Q15M PRN IV PUSH 02/26/17 05:30 (Levaquin) 750 mg DAILY PO 03/01/17 09:00 03/01/17 09:18 Prednisone 20 mg 20 mg BID PO 02/28/17 21:00 03/01/17 09:19 (NS 1000 ml Inj) 1,000 ml @ 84 mls/hr [id number] IV 02/28/17 21:15 03/01/17 06:04 (D50w (Vial) Inj) 50 ml UNSCH PRN IV 02/28/17 23:45 (Glucagon Inj) 1 mg UNSCH PRN OTHER 02/28/17 23:45 Urinary Catheter: No Vascular Central Line Catheter: No A/P Problem List: (1) COPD exacerbation ICD Code: J44.1 Status: Acute Plan: DC IV Levaquin - start oral Levaquin continue supplemental o2 will order walk test 03/01 DC oral prednisone - will start IV Solumedrol (2) Acute respiratory failure ICD Code: J96.00 Status: Acute Plan: Still on 4 liters nasal canula check home walk test continue supplemental o2 (3) Hyponatremia ICD Code: E87.1 Status: Acute Plan: likely hypovolemic hyponatremia trending up Patient eating and drinking fluids - Will Dc IV fluids 03/01 sodium improving, now 130. continue to monitor (4) Alcohol abuse ICD Code: F10.10 Status: Acute Plan: Continue CIWA protocol, no evidence of withdrawal Continue to monitor on telemetry. (5) Hyperglycemia ICD Code: R73.9 Status: Acute Plan: Likely steroid induced. Hemoglobin A1c 5.5. Place on SSI with insulin Novolog and monitor accuchecks. Bs stable. (6) Tobacco use ICD Code: Z72.0 Status: Acute Plan: advised smoking cessation. (7) Atrial flutter ICD Code: I48.92 Status: Acute Plan: EKG reviewed by me on 02/28 showed atrial flutter - patient now on sinus rythm. will check 2 D echo cardiogram and consult cardiology. Eber Soler MD Mar 01, 2017 18:36
[2017-03-01] MEDS ORDERED: methylPREDNISolone SOD SUCC 125 MG/2 ML VIAL IV PUSH ONE (19:00)
[2017-03-01] MEDS ORDERED: DILTIAZEM HCL 25 MG/5 ML VIAL IV PUSH ONE (19:00)
[2017-03-01] MEDS ORDERED: DILTIAZEM 125 MG/NS 100 ML IV SCH ×2 (19:30)
[2017-03-01 22:09] LABS: BICARBONATE 28.6 MEQ/L (21.0-32.0); MAGNESIUM 1.8 MG/DL (1.5-2.5); POTASSIUM 4.2 MEQ/L (3.5-5.1)
[2017-03-02] VITALS (13 sets, daily range): BP systolic 107–134; BP diastolic 60–77; PULSE 72–101; RESP 17–30; TEMP 97.4–98.4; O2SAT 92–97
[2017-03-02] MEDS: CHLORHEXIDINE GLUCONATE 2 % 1 PACK (2 CLOTHS) TOP SCH (01:34)
[2017-03-02] MEDS: methylPREDNISolone SOD SUCC 40 MG/1 ML VIAL IV PUSH SCH ×4 (02:19→17:35)
[2017-03-02] MEDS: SODIUM CHLOR 0.9% 1000 ML INJ 1,000 ML IV SCH ×2 (02:19→09:27)
[2017-03-02] MEDS: RESP: ALBUTEROL 2.5 MG/IPRATROPIUM 0.5 MG NEB (SCH) INH ×2 (03:17→07:53)
[2017-03-02] MEDS: INSULIN ASPART SUPPLEMENTAL SCALE SQ SCH ×4 (05:59→21:34)
[2017-03-02] MEDS: SODIUM CHLORIDE 0.9% FLUSH 10 ML FLUSH SCH ×2 (09:00→21:23)
[2017-03-02] MEDS: LEVOFLOXACIN 750 MG TAB PO SCH (09:26)
[2017-03-02] MEDS: DOCUSATE SODIUM 50 MG/SENNA 8.6 MG TAB PO SCH ×2 (09:26→21:23)
[2017-03-02] MEDS: FAMOTIDINE 20 MG/2 ML VIAL IV PUSH SCH ×2 (09:27→21:23)
--- NOTE | 2017-03-02 10:58 | PD.CONS ---
HPI Consult Requested By Primary Care Physician Agata Sullivan MD History of Present Illness 61-year-old man admitted with COPD exacerbation with an episode of asymptomatic Afib with RVR during admission consulted for further evaluation and management. No previous CV history. Review of Systems Consitutional: DENIES: Fatigue, Fever, Chills, Weight gain, Weight loss Eyes: DENIES: Amaurosis Fugax, Change in vision HEENT: DENIES: Lightheadedness, Change in hearing Respiratory: COMPLAINS OF: Shortness of breath Cardiovascular: DENIES: See HPI, Chest pain, Palpitations, Syncope, Tachycardia Gastrointestinal: DENIES: Nausea, Vomiting, Change in bowel habits, Reflux, Bloody stools, Melena Genitourinary: DENIES: Urinary incontinence, Difficulty voiding Integumentary: DENIES: Rash Neurologic: DENIES: Tingling or numbness, Memory problems, Poor Balance, Stroke symptoms Musculoskeletal: DENIES: Joint pain, Muscle pain, Limited range of motion, Back pain Psychiatric: DENIES: Anxiety, Depression, Sleep disturbances Hematologic: DENIES: Bruising tendencies, Bleeding tendencies Endocrine: DENIES: Weight gain, Weight loss, Thyroid disease Past Family Social History Allergies: Coded Allergies: No Known Allergies (Verified , 10/05/14) Past Medical History COPD Tobacco Use Alcohol Abuse Past Surgical History None Reported Medications Reported Meds & Active Scripts Active Levaquin 750 Mg Tab (Levofloxacin) 750 Mg Tab 750 Mg PO DAILY Deltasone 20 Mg Tab (Prednisone) 20 Mg Tab 20 Mg PO DIRECTED Take 2 tabs twice daily x5 days, then take 2 tabs daily x4 days Reported Combivent (Albuterol/Ipratropium) 14.7 Gm Aer 2 Puff INH Q4HPRN FOR WHEEZING Deltasone (Prednisone) Unknown Strength Tab Unknown Dose PO DAILY Proventil Ud 0.083% (2.5 Mg/3 Ml) (Albuterol Sulfate) 2.5 Mg/3 Ml Inha 2.5 Mg INH PRN Ventolin Hfa (Albuterol Sulfate) 18 Gm Aero 2 Puff INH Q4HPRN * SHAKE WELL BEFORE USE * Active Ordered Medications Current Medications Medications (Trade) Dose Ordered Sig/Mala Route Start Time Stop Time Status Last Admin (NS Flush) 2 ml UNSCH PRN .XX 02/26/17 05:15 (NS Flush) 2 ml BID .XX 02/26/17 09:00 03/02/17 09:00 (Tylenol) 650 mg Q6H PRN PO 02/26/17 05:15 (Morphine Inj) 2 mg Q2H PRN IV 02/26/17 05:15 (Pepcid Inj) 20 mg Q12HR IV PUSH 02/26/17 09:00 03/02/17 09:27 (Ativan Inj) 1 mg Q1H PRN IV 02/26/17 05:15 02/28/17 20:03 (Zofran Inj) 4 mg Q6H PRN IV 02/26/17 05:15 03/01/17 14:15 Miscellaneous Information 1 Q361D XX 02/26/17 05:15 02/26/17 05:15 (Chlorhexidine 2% Cloth) 3 pack Taper DAILY@04 TOP 02/27/17 04:00 02/23/18 03:59 03/02/17 01:34 (Chlorhexidine 2% Cloth) 3 pack UNSCH PRN TOP 02/26/17 05:15 (Anay-Colace) 1 tab BID PO 02/26/17 09:00 03/02/17 09:26 (Milk Of Magnesia Liq) 30 ml Q12H PRN PO 02/26/17 05:15 03/01/17 09:24 (Senokot) 17.2 mg Q12H PRN PO 02/26/17 05:15 (Dulcolax Supp) 10 mg DAILY PRN RECTAL 02/26/17 05:15 (Lactulose Liq) 30 ml DAILY PRN PO 02/26/17 05:15 (Romazicon Inj) 0.2 mg Q1M PRN IV PUSH 02/26/17 05:30 (Ativan) 1 mg Q4H PRN PO 02/26/17 05:30 (Ativan Inj) 1 mg Q4H PRN IV PUSH 02/26/17 05:30 (Ativan) 2 mg Q2H PRN PO 02/26/17 05:30 (Ativan Inj) 2 mg Q2H PRN IV PUSH 02/26/17 05:30 02/26/17 13:57 (Ativan Inj) 2 mg Q1H PRN IV PUSH 02/26/17 05:30 (Ativan Inj) 2 mg Q15M PRN IV PUSH 02/26/17 05:30 (Levaquin) 750 mg DAILY PO 03/01/17 09:00 03/02/17 09:26 (D50w (Vial) Inj) 50 ml UNSCH PRN IV 02/28/17 23:45 (Glucagon Inj) 1 mg UNSCH PRN OTHER 02/28/17 23:45 Methylprednisolone Sodium Succinate 40 mg 40 mg Q6HR IV PUSH 03/02/17 00:00 03/02/17 05:00 (Cardizem Inj/NS Inj) 125 ml @ 0 mls/hr TITRATE IV 03/01/17 19:30 03/02/17 05:01 Social History Tobacco Use Alcohol Abuse Physical Exam Vital Signs Vital Signs Date Time Temp Pulse Resp B/P Pulse Ox O2 Delivery O2 Flow Rate FiO2 03/02/17 08:00 98.3 84 28 132/77 03/02/17 07:53 95 Nasal Cannula 3.00 03/02/17 07:00 96 Nasal Cannula 4.00 03/02/17 07:00 101 03/02/17 04:00 97.7 95 17 107/60 97 03/02/17 03:18 95 Nasal Cannula 3.00 03/02/17 00:00 97.4 98 29 113/66 97 03/01/17 23:23 97 Nasal Cannula 3.00 03/01/17 23:00 81 03/01/17 22:00 120 03/01/17 21:00 117 03/01/17 20:00 Nasal Cannula 4.00 03/01/17 20:00 137 03/01/17 20:00 98.4 137 19 94/65 95 03/01/17 18:59 99/75 03/01/17 18:50 86 03/01/17 18:37 128 03/01/17 18:33 166 140/101 03/01/17 18:32 163 03/01/17 18:22 155 03/01/17 16:00 95.7 85 19 133/76 97 03/01/17 15:54 99 Nasal Cannula 4.00 03/01/17 12:22 87 03/01/17 12:00 95.7 96 17 126/70 97 03/01/17 10:57 97 Nasal Cannula 4.00 Physical Exam GENERAL: Well-nourished, well-developed patient. SKIN: Warm and dry. HEAD: Normocephalic. EYES: No scleral icterus. No injection or drainage. NECK: Supple, trachea midline. No JVD or lymphadenopathy. CARDIOVASCULAR: Regular rate and rhythm without murmurs, gallops, or rubs. RESPIRATORY: Breath sounds equal bilaterally. No accessory muscle use. GASTROINTESTINAL: Abdomen soft, non-tender, nondistended. EXTREMITIES: No cyanosis, or edema. NEUROLOGICAL: Awake, alert, and oriented x 3. Non-focal. Laboratory Laboratory Tests Test 03/01/17 20:44 Sodium Level 127 Potassium Level 4.2 Chloride Level 89 Carbon Dioxide Level 28.6 Anion Gap 9 Blood Urea Nitrogen 14 Creatinine 0.67 Estimat Glomerular Filtration 120 Rate Random Glucose 116 Calcium Level 8.2 Magnesium Level 1.8 Date/Time Procedure Status Source Growth 02/26/17 05:40 Aerobic Blood Culture - Preliminary Resulted Blood Peripheral NO GROWTH IN 3 DAYS 02/26/17 05:40 Anaerobic Blood Culture - Preliminary Resulted Blood Peripheral NO GROWTH IN 3 DAYS Result Diagram: 02/28/17 0700 03/01/172043 Imaging Last Impressions Chest X-Ray 02/27/17 0000 Signed Impressions: Service Date/Time: Monday, February 27, 2017 01:56 - CONCLUSION: 1. No acute cardiopulmonary disease. 2. Questionable fracture of the right posterior lateral seventh rib again noted of indeterminate age. Earl Anguiano MD Assessment and Plan Problem List: (1) Atrial flutter Assessment and Plan: Afib with RVR in hte setting o COPD exacerbation. No CV complaints. Rate controlled in Cardizem drip. CHADS2=1. Recommendations: 1. 2Decho 2. Start Cardizem 30mg PO QID and wean drip as tolerated 3. Start ASA 325mg PO daily (2) Alcohol abuse (3) Hyperglycemia (4) Hyponatremia (5) COPD exacerbation Norberto Hogan MD Mar 02, 2017 10:58
[2017-03-02] MEDS: RESP: ALBUTEROL 2.5 MG/IPRATROPIUM 0.5 MG NEB (PRN) NEB ×2 (11:15→15:19)
[2017-03-02] MEDS: DILTIAZEM HCL 30 MG TAB PO SCH ×3 (12:01→21:23)
[2017-03-02 12:02] LABS: AUTOMATED NEUTROPHIL # 6.3 TH/MM3 (1.8-7.7); HEMATOCRIT 36.2 % (39.0-51.0); HEMO FLAGS DIFF FINAL; LYMPH % 3.7 % (9.0-44.0); LYMPHOCYTE # 0.3 TH/MM3 (1.0-4.8); MEAN CELL VOLUME 101.2 FL (80.0-100.0); MEAN CORPUSCULAR HEMOGLOBIN 34.1 PG (27.0-34.0); MEAN CORPUSCULAR HGB CONC 33.7 % (32.0-36.0); MONO % 4.8 % (0.0-8.0); NEUT % 91.5 % (16.0-70.0); PLATELET COUNT 110 TH/MM3 (150-450); RED BLOOD COUNT 3.58 MIL/MM3 (4.50-5.90); WHITE BLOOD COUNT 6.9 TH/MM3 (4.0-11.0)
[2017-03-02] MEDS: ASPIRIN 325 MG TAB PO SCH (12:02)
[2017-03-02 12:16] LABS: ALT (GPT) 94 U/L (12-78); ANION GAP 9 MEQ/L (5-15); AST (GOT) 107 U/L (15-37); BICARBONATE 29.9 MEQ/L (21.0-32.0); BLOOD UREA NITROGEN 11 MG/DL (7-18); CHLORIDE 90 MEQ/L (98-107); GLOMERULAR FILTRATION RATE 97 ML/MIN (>89); POTASSIUM 4.7 MEQ/L (3.5-5.1); SODIUM (NA) 129 MEQ/L (136-145)
[2017-03-02 12:20] LABS: ALKALINE PHOSPHATASE 60 U/L (45-117); TOTAL BILIRUBIN ADULT 0.7 MG/DL (0.2-1.0)
--- NOTE | 2017-03-02 16:15 | ECHRPT ---
Indication: Cardiomyopathy, unspecified CONCLUSIONS The left ventricle is not well visualized. Normal left ventricular size. Mild concentric left ventricular hypertrophy. The left ventricular systolic function is low normal with an estimated ejection fraction in the rang e of 50- 55%. The right ventricle is mildly dilated. The right ventricular systoilc function is mildly decreased. The right atrial size is mildly dilated. Mild mitral valve regurgitation. There is severe tricuspid regurgitation. The estimated pulmonary arterial pressure is 72 mmHg. BP: 141 / 90 HR: 119 Rhythm: Sinus MEASUREMENTS (Male / Female) Normal Values Technical Quality:Good 2D ECHO LV Diastolic Diameter PLAX 4.3 cm 4.2 - 5.9 / 3.9 - 5.3 cm LV Systolic Diameter PLAX 3.4 cm IVS Diastolic Thickness 1.0 cm 0.6 - 1.0 / 0.6 - 0.9 cm LVPW Diastolic Thickness 1.0 cm 0.6 - 1.0 / 0.6 - 0.9 cm LV Relative Wall Thickness 0.5 LVOT Diameter 2.0 cm M-MODE Aortic Root Diameter MM 3.1 cm LA Systolic Diameter MM 3.8 cm LA Ao Ratio MM 1.2 AV Cusp Separation MM 2.0 cm DOPPLER AV Peak Velocity 118.0 cm/s AV Peak Gradient 5.6 mmHg LVOT Peak Velocity 76.0 cm/s LVOT Peak Gradient 2.3 mmHg AV Area Cont Eq pk 2.0 cm MR Peak Velocity 367.0 cm/s MR Peak Gradient 53.9 mmHg Mitral E Point Velocity 104.0 cm/s Mitral A Point Velocity 47.4 cm/s Mitral E to A Ratio 2.2 TR Peak Velocity 394.0 cm/s TR Peak Gradient 62.1 mmHg PV Peak Velocity 93.7 cm/s PV Peak Gradient 3.5 mmHg FINDINGS LEFT VENTRICLE The left ventricle is not well visualized. Normal left ventricular size. Mild concentric left ventricular hypertrophy. The left ventricular systolic function is low normal with an estimated ejection fraction in the rang e of 50- 55%. RIGHT VENTRICLE The right ventricle is mildly dilated. The right ventricular systoilc function is mildly decreased. LEFT ATRIUM The left atrial size is normal. RIGHT ATRIUM The right atrial size is mildly dilated. ATRIAL SEPTUM Normal atrial septal thickness without atrial level shunting by limited color doppler interrogation. AORTA The aortic root and proximal ascending aorta are normal in size on limited imaging. MITRAL VALVE Mild mitral valve regurgitation. AORTIC VALVE Trileaflet aortic valve. No aortic valve stenosis or regurgitation. TRICUSPID VALVE There is severe tricuspid regurgitation. The estimated pulmonary arterial pressure is 72 mmHg. PULMONARY VALVE The pulmonary valve is not well visualized. VESSELS The inferior vena cava is normal in size. PERICARDIUM No pericardial effusion. Suhail Gonzalez MD, FACC (Electronically Signed) Final Date:02 March 2017 16:15
--- NOTE | 2017-03-02 17:15 | HHI.PR ---
Subjective Remarks Written by Chery Ratliff, acting as scribe for Dr. Decker on 03/02/17 at 16:56. Patient seen in ICU telemetry shows SR in the 70's Patient asking for more inhalers as he is getting shortness of breath in between duo neb treatments Appears short of breath with conversation with minimal exertion such as rolling or sitting up in bed Offers no other complaints at this time. Objective Vitals Vital Signs Date Time Temp Pulse Resp B/P Pulse Ox O2 Delivery O2 Flow Rate FiO2 03/02/17 16:00 98.0 72 30 126/72 96 03/02/17 15:00 78 03/02/17 12:00 98.4 74 22 124/73 94 03/02/17 08:00 98.3 84 28 132/77 03/02/17 07:53 95 Nasal Cannula 3.00 03/02/17 07:00 96 Nasal Cannula 4.00 03/02/17 07:00 101 03/02/17 04:00 97.7 95 17 107/60 97 03/02/17 03:18 95 Nasal Cannula 3.00 03/02/17 00:00 97.4 98 29 113/66 97 03/01/17 23:23 97 Nasal Cannula 3.00 03/01/17 23:00 81 03/01/17 22:00 120 03/01/17 21:00 117 03/01/17 20:00 Nasal Cannula 4.00 03/01/17 20:00 137 03/01/17 20:00 98.4 137 19 94/65 95 03/01/17 18:59 99/75 03/01/17 18:50 86 03/01/17 18:37 128 03/01/17 18:33 166 140/101 03/01/17 18:32 163 03/01/17 18:22 155 I/O 03/01/17 03/01/17 03/01/17 03/02/17 03/02/17 03/02/17 07:00 15:00 23:00 07:00 15:00 23:00 Intake Total 980 ml 1428 ml 923 ml 895 ml 688 ml Output Total 1800 ml 1950 ml 200 ml 750 ml 800 ml Balance -820 ml -522 ml 723 ml 145 ml -112 ml Intake Oral 980 ml 840 ml 240 ml 240 ml 400 ml IV Total 588 ml 683 ml 655 ml 288 ml Output Urine Total 1800 ml 1950 ml 200 ml 750 ml 800 ml # Bowel Movements 0 0 0 0 0 Result Diagram: 03/02/17 1127 03/02/17 1127 Imaging Last Impressions Chest X-Ray 02/27/17 0000 Signed Impressions: Service Date/Time: Monday, February 27, 2017 01:56 - CONCLUSION: 1. No acute cardiopulmonary disease. 2. Questionable fracture of the right posterior lateral seventh rib again noted of indeterminate age. Earl Anguiano MD Objective Remarks GENERAL: A chronically ill looking frail male in no acute distress. CARDIOVASCULAR: Regular rate and rhythm without murmurs, gallops, or rubs. RESPIRATORY: Lung sounds diminished throughout with minimal air entry. Visibly short of breath with conversation or minimal exertion such as sitting up in bed or rolling GASTROINTESTINAL: Abdomen soft, non-tender, nondistended. MUSCULOSKELETAL: No cyanosis, or edema. NEURO: Alert & Oriented x4 to person, place, time, situation. Moves all ext x4 A/P Problem List: (1) COPD exacerbation ICD Code: J44.1 Status: Acute Plan: Continue Levaquin PO continue supplemental o2 increase Solumedrol to 60 mg Q6H order DuoNeb Q4H scheduled and ipratropium nebulizers every 2 hours as needed for shortness of breath/wheezing (2) Acute respiratory failure ICD Code: J96.00 Status: Acute Plan: Still on 4 liters nasal canula continue supplemental o2 See above (3) Hyponatremia ICD Code: E87.1 Status: Acute Plan: appears to to be chronic exacerbated by hypovolemic hyponatremia stable 118 --> 121--> 120--> 128 --> 129--> 130 --> 127 --> 129 Patient eating and drinking fluids continue to monitor (4) Alcohol abuse ICD Code: F10.10 Status: Chronic Plan: Continue CIWA protocol, no evidence of withdrawal Continue to monitor on telemetry. (5) Hyperglycemia ICD Code: R73.9 Status: Acute Plan: Likely steroid induced. Hemoglobin A1c 5.5. Place on SSI with insulin Novolog and monitor accuchecks. Bs stable. (6) Tobacco use ICD Code: Z72.0 Status: Acute Plan: advised smoking cessation. (7) Atrial fibrillation with RVR ICD Code: I48.91 Status: Acute Plan: Patient had had a 03/01/2017 A. fib RVR in the setting of COPD exacerbation. Patient now back in sinus rhythm Cardiology consulted, appreciate their input and assistance 2Decho pending Cardizem drip weaned and patient started on Cardizem 30mg PO QID per cardiology CHADS2=1. Continue ASA 325mg PO daily Attending Statement This note was transcribed by kamla Ratliff. I, Dr. Eber Gilbert personally performed the history, physical exam, and medical decision making; and confirmed the accuracy of the information in the transcribed note. Authenticated by Dr. Eber Gilbert on 03/02/17 at 16:56. Chery Ratliff Mar 02, 2017 17:15 Eber Soler MD Mar 05, 2017 11:56
[2017-03-02] MEDS ORDERED: RESP: IPRATROPIUM 0.5 MG/2.5 ML NEB NEB PRN (18:00)
--- NOTE | 2017-03-02 18:29 | EKG ---
Date Performed: 03/01/2017 Time Performed: 21:20:20 PTAGE: 61 years EKG: Atrial fibrillation with rapid ventricular response. Left axis deviation Incomplete RBBB Ex tensive ST-T changes are nonspecific When compared to previous tracing, the patient is again in atria l Fibrillation. Abnormal ECG PREVIOUS TRACING : 02/28/2017 20.47.16 DOCTOR: Valeria Grigsby Interpretating Date/Time 03/02/2017 18:28:38
--- NOTE | 2017-03-02 18:29 | EKG ---
Date Performed: 02/28/2017 Time Performed: 20:47:16 PTAGE: 61 years EKG: Sinus rhythm WITH OCCASIONAL SUPRAVENTRICULAR PREMATURE COMPLEXES MARKED LEFT AXIS DEVIATION INCOMPLETE RIGHT BUN DLE BRANCH BLOCK NONSPECIFIC ST & T-WAVE ABNORMALITY When compared to previous tracing, the patient i s no longer in Atrial flutter. ABNORMAL ECG PREVIOUS TRACING : 02/28/2017 20.47 DOCTOR: Valeria Grigsby Interpretating Date/Time 03/02/2017 18:27:03
[2017-03-02] MEDS: RESP: ALBUTEROL 2.5 MG/IPRATROPIUM 0.5 MG NEB (SCH) NEB ×2 (20:31→23:08)
[2017-03-02 22:59] LABS: MAGNESIUM 1.8 MG/DL (1.5-2.5)
[2017-03-02 23:07] LABS: FREE T3 1.87 PG/ML (2.18-3.98); FREE T4 0.82 NG/DL (0.76-1.46)
[2017-03-03] VITALS (20 sets, daily range): BP systolic 125–155; BP diastolic 62–80; PULSE 65–102; RESP 21–48; TEMP 96.4–98.2; O2SAT 84–100
[2017-03-03] MEDS: methylPREDNISolone SOD SUCC 40 MG/1 ML VIAL IV PUSH SCH ×4 (00:18→17:58)
[2017-03-03] MEDS: RESP: ALBUTEROL 2.5 MG/IPRATROPIUM 0.5 MG NEB (SCH) NEB ×5 (04:00→21:06)
[2017-03-03] MEDS: CHLORHEXIDINE GLUCONATE 2 % 1 PACK (2 CLOTHS) TOP SCH (04:00)
[2017-03-03 04:55] LABS: BLOOD GAS BASE EXCESS 6.6 mmol/L (-2-2); BLOOD GAS CARBOXYHEMOGLOBIN 1.4 % (0-4); BLOOD GAS HCO3 31 mmol/L (22-26); BLOOD GAS O2 HGB SATURATION 96 % (90-100); BLOOD GAS PCO2 48 mmHg (38-42); BLOOD GAS PO2 107 mmHg (61-120); BLOOD GAS TOTAL HGB 11.8 G/DL (12.0-16.0); TEMP CORR TO 98.6
[2017-03-03 04:56] LABS: CRITICAL VALUE NO; DRAW SITE RT RADIAL; NUMBER OF ARTERIAL PUNCTURES 1; STAT NO; ULNAR PULSE PRESENT
[2017-03-03] MEDS: INSULIN ASPART SUPPLEMENTAL SCALE SQ SCH ×4 (06:10→21:27)
[2017-03-03 07:00] LABS: AUTOMATED NEUTROPHIL # 3.7 TH/MM3 (1.8-7.7); BASOPHIL % 0.1 % (0.0-2.0); HEMATOCRIT 33.9 % (39.0-51.0); LYMPH % 5.3 % (9.0-44.0); LYMPHOCYTE # 0.2 TH/MM3 (1.0-4.8); MEAN CORPUSCULAR HEMOGLOBIN 34.6 PG (27.0-34.0); MEAN CORPUSCULAR HGB CONC 34.9 % (32.0-36.0); MONO % 4.4 % (0.0-8.0); NEUT % 90.2 % (16.0-70.0); PLATELET COUNT 84 TH/MM3 (150-450); RED BLOOD COUNT 3.42 MIL/MM3 (4.50-5.90); WHITE BLOOD COUNT 4.1 TH/MM3 (4.0-11.0)
[2017-03-03 07:04] LABS: HEMO FLAGS AUTO DIFF
[2017-03-03 07:32] LABS: ALKALINE PHOSPHATASE 60 U/L (45-117); TOTAL BILIRUBIN ADULT 0.6 MG/DL (0.2-1.0)
[2017-03-03 07:33] LABS: ALT (GPT) 92 U/L (12-78); ANION GAP 7 MEQ/L (5-15); BICARBONATE 31.8 MEQ/L (21.0-32.0); BLOOD UREA NITROGEN 14 MG/DL (7-18); CHLORIDE 89 MEQ/L (98-107); GLOMERULAR FILTRATION RATE 124 ML/MIN (>89); SODIUM (NA) 128 MEQ/L (136-145)
[2017-03-03 07:36] LABS: AST (GOT) 98 U/L (15-37); POTASSIUM 4.1 MEQ/L (3.5-5.1)
[2017-03-03 07:42] LABS: PLATELET ESTIMATE SMEAR LOW (NORMAL); PLATELET MORPHOLOGY NORMAL (NORMAL); SCAN/DIFF AUTO DIFF CONFIRMED
[2017-03-03 07:44] LABS: ACANTHOCYTES OCC (NORMAL); KERATOCYTES OCC (NORMAL)
[2017-03-03] MEDS: DILTIAZEM HCL 30 MG TAB PO SCH ×4 (07:51→21:26)
[2017-03-03] MEDS: LEVOFLOXACIN 750 MG TAB PO SCH (07:51)
[2017-03-03] MEDS: ASPIRIN 325 MG TAB PO SCH (07:51)
[2017-03-03] MEDS: FAMOTIDINE 20 MG/2 ML VIAL IV PUSH SCH (07:52)
[2017-03-03] MEDS: DOCUSATE SODIUM 50 MG/SENNA 8.6 MG TAB PO SCH ×2 (07:52→21:26)
[2017-03-03] MEDS: SODIUM CHLORIDE 0.9% FLUSH 10 ML FLUSH SCH ×2 (07:53→21:27)
--- NOTE | 2017-03-03 09:41 | PD.CARD.PN ---
Subjective Subjective Remarks no CV complaints Off Cardizem drip Afib rate controlled Objective Medications Current Medications Medications (Trade) Dose Ordered Sig/Mala Route Start Time Stop Time Status Last Admin (NS Flush) 2 ml UNSCH PRN .XX 02/26/17 05:15 03/03/17 06:09 (NS Flush) 2 ml BID .XX 02/26/17 09:00 03/03/17 07:53 (Tylenol) 650 mg Q6H PRN PO 02/26/17 05:15 (Morphine Inj) 2 mg Q2H PRN IV 02/26/17 05:15 (Pepcid Inj) 20 mg Q12HR IV PUSH 02/26/17 09:00 03/03/17 07:52 (Ativan Inj) 1 mg Q1H PRN IV 02/26/17 05:15 02/28/17 20:03 (Zofran Inj) 4 mg Q6H PRN IV 02/26/17 05:15 03/01/17 14:15 Miscellaneous Information 1 Q361D XX 02/26/17 05:15 02/26/17 05:15 (Chlorhexidine 2% Cloth) 3 pack Taper DAILY@04 TOP 02/27/17 04:00 02/23/18 03:59 03/03/17 04:00 (Chlorhexidine 2% Cloth) 3 pack UNSCH PRN TOP 02/26/17 05:15 (Anay-Colace) 1 tab BID PO 02/26/17 09:00 03/03/17 07:52 (Milk Of Magnesia Liq) 30 ml Q12H PRN PO 02/26/17 05:15 03/01/17 09:24 (Senokot) 17.2 mg Q12H PRN PO 02/26/17 05:15 (Dulcolax Supp) 10 mg DAILY PRN RECTAL 02/26/17 05:15 (Lactulose Liq) 30 ml DAILY PRN PO 02/26/17 05:15 (Romazicon Inj) 0.2 mg Q1M PRN IV PUSH 02/26/17 05:30 (Ativan) 1 mg Q4H PRN PO 02/26/17 05:30 (Ativan Inj) 1 mg Q4H PRN IV PUSH 02/26/17 05:30 (Ativan) 2 mg Q2H PRN PO 02/26/17 05:30 03/02/17 21:22 (Ativan Inj) 2 mg Q2H PRN IV PUSH 02/26/17 05:30 02/26/17 13:57 (Ativan Inj) 2 mg Q1H PRN IV PUSH 02/26/17 05:30 (Ativan Inj) 2 mg Q15M PRN IV PUSH 02/26/17 05:30 (Levaquin) 750 mg DAILY PO 03/01/17 09:00 03/03/17 07:51 (D50w (Vial) Inj) 50 ml UNSCH PRN IV 02/28/17 23:45 Glucagon 1 mg 1 mg UNSCH PRN OTHER 02/28/17 23:45 (Cardizem Inj/NS Inj) 125 ml @ 0 mls/hr TITRATE IV 03/01/17 19:30 03/02/17 05:01 (Aspirin) 325 mg DAILY PO 03/02/17 11:30 03/03/17 07:51 (Cardizem) 30 mg QID PO 03/02/17 13:00 03/03/17 07:51 (SoluMEDROL INJ) 60 mg Q6HR IV PUSH 03/02/17 18:00 03/03/17 06:09 Vital Signs / I&O Vital Signs Date Time Temp Pulse Resp B/P Pulse Ox O2 Delivery O2 Flow Rate FiO2 03/03/17 08:24 93 Partial Rebreather 15.00 03/03/17 08:00 96 03/03/17 08:00 98.2 92 48 155/70 94 03/03/17 07:00 100 Partial Non-Rebreather 12.00 Nasal Cannula 03/03/17 06:00 80 03/03/17 04:58 98 Partial Rebreather 03/03/17 04:00 81 03/03/17 04:00 97.1 81 30 150/80 99 03/03/17 02:44 88 Partial Rebreather 03/03/17 02:00 65 03/03/17 00:00 102 03/03/17 00:00 96.4 102 47 133/78 95 03/02/17 23:09 92 Nasal Cannula 4.00 03/02/17 22:00 75 03/02/17 20:32 93 Nasal Cannula 3.00 03/02/17 20:00 97.6 72 22 134/76 95 03/02/17 20:00 72 03/02/17 19:00 94 Nasal Cannula 4.00 03/02/17 16:00 98.0 72 30 126/72 96 03/02/17 15:00 78 03/02/17 12:00 98.4 74 22 124/73 94 I/O 03/02/17 03/02/17 03/02/17 03/03/17 03/03/17 03/03/17 07:00 15:00 23:00 07:00 15:00 23:00 Intake Total 895 ml 688 ml 473 ml 300 ml Output Total 750 ml 800 ml 250 ml 1250 ml Balance 145 ml -112 ml 223 ml -950 ml Intake Oral 240 ml 400 ml 400 ml 300 ml IV Total 655 ml 288 ml 73 ml Output Urine Total 750 ml 800 ml 250 ml 1250 ml # Bowel Movements 0 0 Physical Exam GENERAL: Well-nourished, well-developed patient. SKIN: Warm and dry. HEAD: Normocephalic. EYES: No scleral icterus. No injection or drainage. NECK: Supple, trachea midline. No JVD or lymphadenopathy. CARDIOVASCULAR: Irr Irr without murmurs, gallops, or rubs. RESPIRATORY: Breath sounds equal bilaterally. No accessory muscle use. GASTROINTESTINAL: Abdomen soft, non-tender, nondistended. EXTREMITIES: No cyanosis, or edema. NEUROLOGICAL: Awake, alert, and oriented x 3. Non-focal. Laboratory Laboratory Tests Test 03/02/17 03/02/17 03/03/17 03/03/17 11:15 11:27 04:19 04:56 Urine Osmolality 205 MOSM/KG White Blood Count 6.9 TH/MM3 4.1 TH/MM3 Red Blood Count 3.58 MIL/MM3 3.42 MIL/MM3 Hemoglobin 12.2 GM/DL 11.8 GM/DL Hematocrit 36.2 % 33.9 % Mean Corpuscular Volume 101.2 FL 99.0 FL Mean Corpuscular Hemoglobin 34.1 PG 34.6 PG Mean Corpuscular Hemoglobin 33.7 % 34.9 % Concent Red Cell Distribution Width 13.0 % 13.0 % Platelet Count 110 TH/MM3 84 TH/MM3 Mean Platelet Volume 8.1 FL 8.6 FL Neutrophils (%) (Auto) 91.5 % 90.2 % Lymphocytes (%) (Auto) 3.7 % 5.3 % Monocytes (%) (Auto) 4.8 % 4.4 % Eosinophils (%) (Auto) 0.0 % 0.0 % Basophils (%) (Auto) 0.0 % 0.1 % Neutrophils # (Auto) 6.3 TH/MM3 3.7 TH/MM3 Lymphocytes # (Auto) 0.3 TH/MM3 0.2 TH/MM3 Monocytes # (Auto) 0.3 TH/MM3 0.2 TH/MM3 Eosinophils # (Auto) 0.0 TH/MM3 0.0 TH/MM3 Basophils # (Auto) 0.0 TH/MM3 0.0 TH/MM3 CBC Comment DIFF FINAL AUTO DIFF Differential Comment AUTO DIFF CONFIRMED Sodium Level 129 MEQ/L 128 MEQ/L Potassium Level 4.7 MEQ/L 4.1 MEQ/L Chloride Level 90 MEQ/L 89 MEQ/L Carbon Dioxide Level 29.9 MEQ/L 31.8 MEQ/L Anion Gap 9 MEQ/L 7 MEQ/L Blood Urea Nitrogen 11 MG/DL 14 MG/DL Creatinine 0.81 MG/DL 0.65 MG/DL Estimat Glomerular Filtration 97 ML/MIN 124 ML/MIN Rate Random Glucose 115 MG/DL 114 MG/DL Serum Osmolality 269 MOSM/KG Calcium Level 8.1 MG/DL 8.5 MG/DL Magnesium Level 1.8 MG/DL 2.0 MG/DL Total Bilirubin 0.7 MG/DL 0.6 MG/DL Aspartate Amino Transf 107 U/L 98 U/L (AST/SGOT) Alanine Aminotransferase 94 U/L 92 U/L (ALT/SGPT) Alkaline Phosphatase 60 U/L 60 U/L Total Protein 6.5 GM/DL 6.3 GM/DL Albumin 2.8 GM/DL 2.8 GM/DL Free Thyroxine 0.82 NG/DL Free Triiodothyronine (T3) 1.87 PG/ML pg/dL Blood Gas Puncture Site RT RADIAL Blood Gas Patient Temperature 98.6 Blood Gas HCO3 31 mmol/L Blood Gas Base Excess 6.6 mmol/L Blood Gas Oxygen Saturation 96 % Arterial Blood pH 7.43 Arterial Blood Partial 48 mmHg Pressure CO2 Arterial Blood Partial 107 mmHg Pressure O2 Arterial Blood Oxygen Content 16.0 Vol % Arterial Blood 1.4 % Carboxyhemoglobin Arterial Blood Methemoglobin 1.0 % Blood Gas Hemoglobin 11.8 G/DL Oxygen Delivery Device Partial Rebreather Platelet Estimate LOW Platelet Morphology Comment NORMAL Acanthocytes OCC Keratocytes OCC Phosphorus Level 2.8 MG/DL Assessment and Plan Problem List: (1) Atrial flutter Assessment and Plan: Afib rate controlled. Off Cardizem drip. No CV complaints -Cont rate control with PO Cardizem -Cont ASA 325mg PO daily -Echo EF 60% Sign off (2) Alcohol abuse (3) Hyperglycemia (4) Hyponatremia (5) COPD exacerbation Norberto Hogan MD Mar 03, 2017 09:41
--- NOTE | 2017-03-03 11:39 | HHI.PR ---
Subjective Remarks Written by Chery Ratliff, acting as scribe for Dr. Decker on 03/03/17 at 11:30. Patient seen in ICU telemetry shows SR in the 70's- 80's Patient noted to be using accessory muscle and has increased work to breath, respiratory rate in the 30's Patient endorses shortness of breath and reports, "I just cant get off this oxygen mask." Patient overs no other complaints at this time Objective Vitals Vital Signs Date Time Temp Pulse Resp B/P Pulse Ox O2 Delivery O2 Flow Rate FiO2 03/03/17 10:00 78 03/03/17 08:24 93 Partial Rebreather 15.00 03/03/17 08:00 96 03/03/17 08:00 98.2 92 48 155/70 94 03/03/17 07:00 100 Partial Non-Rebreather 12.00 Nasal Cannula 03/03/17 06:00 80 03/03/17 04:58 98 Partial Rebreather 03/03/17 04:00 81 03/03/17 04:00 97.1 81 30 150/80 99 03/03/17 02:44 88 Partial Rebreather 03/03/17 02:00 65 03/03/17 00:00 102 03/03/17 00:00 96.4 102 47 133/78 95 03/02/17 23:09 92 Nasal Cannula 4.00 03/02/17 22:00 75 03/02/17 20:32 93 Nasal Cannula 3.00 03/02/17 20:00 97.6 72 22 134/76 95 03/02/17 20:00 72 03/02/17 19:00 94 Nasal Cannula 4.00 03/02/17 16:00 98.0 72 30 126/72 96 03/02/17 15:00 78 03/02/17 12:00 98.4 74 22 124/73 94 I/O 03/02/17 03/02/17 03/02/17 03/03/17 03/03/17 03/03/17 07:00 15:00 23:00 07:00 15:00 23:00 Intake Total 895 ml 688 ml 473 ml 300 ml Output Total 750 ml 800 ml 250 ml 1250 ml Balance 145 ml -112 ml 223 ml -950 ml Intake Oral 240 ml 400 ml 400 ml 300 ml IV Total 655 ml 288 ml 73 ml Output Urine Total 750 ml 800 ml 250 ml 1250 ml # Bowel Movements 0 0 Result Diagram: 03/03/17 0456 03/03/17 0456 Imaging Last Impressions Chest X-Ray 02/27/17 0000 Signed Impressions: Service Date/Time: Monday, February 27, 2017 01:56 - CONCLUSION: 1. No acute cardiopulmonary disease. 2. Questionable fracture of the right posterior lateral seventh rib again noted of indeterminate age. Earl Anguiano MD Objective Remarks GENERAL: A chronically ill looking frail male, using accessory muscle and has increased work to breath, respiratory rate in the 30's CARDIOVASCULAR: Regular rate and rhythm without murmurs, gallops, or rubs. RESPIRATORY: Lung sounds diminished throughout with minimal air entry. expiratory wheezing with prolonged expiratory phase. Visibly short of breath and using accessory muscles and tachypneic GASTROINTESTINAL: Abdomen soft, non-tender, nondistended. MUSCULOSKELETAL: No cyanosis, or edema. NEURO: Alert & Oriented x4 to person, place, time, situation. Moves all ext x4 Procedures none Medications and IVs Current Medications Medications (Trade) Dose Ordered Sig/Mala Route Start Time Stop Time Status Last Admin (NS Flush) 2 ml UNSCH PRN .XX 02/26/17 05:15 03/03/17 06:09 (NS Flush) 2 ml BID .XX 02/26/17 09:00 03/03/17 07:53 (Tylenol) 650 mg Q6H PRN PO 02/26/17 05:15 (Morphine Inj) 2 mg Q2H PRN IV 02/26/17 05:15 (Pepcid Inj) 20 mg Q12HR IV PUSH 02/26/17 09:00 03/03/17 07:52 (Ativan Inj) 1 mg Q1H PRN IV 02/26/17 05:15 02/28/17 20:03 (Zofran Inj) 4 mg Q6H PRN IV 02/26/17 05:15 03/01/17 14:15 Miscellaneous Information 1 Q361D XX 02/26/17 05:15 02/26/17 05:15 (Chlorhexidine 2% Cloth) 3 pack Taper DAILY@04 TOP 02/27/17 04:00 02/23/18 03:59 03/03/17 04:00 (Chlorhexidine 2% Cloth) 3 pack UNSCH PRN TOP 02/26/17 05:15 (Anay-Colace) 1 tab BID PO 02/26/17 09:00 03/03/17 07:52 (Milk Of Magnesia Liq) 30 ml Q12H PRN PO 02/26/17 05:15 03/01/17 09:24 (Senokot) 17.2 mg Q12H PRN PO 02/26/17 05:15 (Dulcolax Supp) 10 mg DAILY PRN RECTAL 02/26/17 05:15 (Lactulose Liq) 30 ml DAILY PRN PO 02/26/17 05:15 (Romazicon Inj) 0.2 mg Q1M PRN IV PUSH 02/26/17 05:30 (Ativan) 1 mg Q4H PRN PO 02/26/17 05:30 (Ativan Inj) 1 mg Q4H PRN IV PUSH 02/26/17 05:30 (Ativan) 2 mg Q2H PRN PO 02/26/17 05:30 03/02/17 21:22 (Ativan Inj) 2 mg Q2H PRN IV PUSH 02/26/17 05:30 02/26/17 13:57 (Ativan Inj) 2 mg Q1H PRN IV PUSH 02/26/17 05:30 (Ativan Inj) 2 mg Q15M PRN IV PUSH 02/26/17 05:30 (D50w (Vial) Inj) 50 ml UNSCH PRN IV 02/28/17 23:45 Glucagon 1 mg 1 mg UNSCH PRN OTHER 02/28/17 23:45 (Cardizem Inj/NS Inj) 125 ml @ 0 mls/hr TITRATE IV 03/01/17 19:30 03/02/17 05:01 (Aspirin) 325 mg DAILY PO 03/02/17 11:30 03/03/17 07:51 Diltiazem HCl 60 mg 60 mg QID PO 03/03/17 13:00 Vancomycin HCl 1000 mg/Sodium Chloride 250 ml @ 250 mls/hr Q12H IV 03/03/17 11:30 UNV Levofloxacin/ Dextrose 150 ml @ 100 mls/hr Q24H IV 03/03/17 12:00 (Vancomycin Consult Pharmacy) 0 ml @ 0 mls/hr UNSCH OTHER 03/03/17 11:45 (Symbicort 160-4.5 Inh) 2 puff Q12HR INH 03/03/17 11:45 UNV (SoluMEDROL INJ) 125 mg Q6HR IV PUSH 03/03/17 12:00 UNV (Protonix Inj) 40 mg Q24H IV PUSH 03/03/17 11:45 UNV Urinary Catheter: No Vascular Central Line Catheter: No A/P Problem List: (1) COPD exacerbation ICD Code: J44.1 Status: Acute Plan: Change Levaquin to IV, added vancomycin IV with pharmacy consult STAT ABG, STAT CXR continue supplemental o2 Increase Solumedrol to 125 mg Q6H, start Protonix 40 MG IV daily for GI protection add Symbicort 160-4.5 2 puffs Q12 H continue DuoNeb Q4H scheduled and ipratropium nebulizers every 2 hours as needed for shortness of breath/wheezing Patient may require BiPAP for respiratory distress await ABG results (2) Acute hypercapnic respiratory failure ICD Code: J96.02 Status: Acute Plan: see above Will also Give Bumex 1 mg IV x1 Bipap PRN Discussed with Dr Moreira (3) Hyponatremia ICD Code: E87.1 Status: Acute Plan: appears to to be chronic exacerbated by hypovolemic hyponatremia stable 118 --> 121--> 120--> 128 --> 129--> 130 --> 127 --> 129 --> 128 Patient eating and drinking fluids continue to monitor (4) Alcohol abuse ICD Code: F10.10 Status: Chronic Plan: Continue CIWA protocol, no evidence of withdrawal Continue to monitor on telemetry. (5) Hyperglycemia ICD Code: R73.9 Status: Acute Plan: Likely steroid induced. Hemoglobin A1c 5.5. Place on SSI with insulin Novolog and monitor accuchecks. Bs stable. (6) Atrial fibrillation with RVR ICD Code: I48.91 Status: Acute Plan: Patient had had a 03/01/2017 A. fib RVR in the setting of COPD exacerbation. Patient now back in sinus rhythm Cardiology following, appreciate their input and assistance 2Decho pending Cardizem increased to 60mg PO QID per cardiology CHADS2=1. Continue ASA 325mg PO daily discussed with cardiology the possibility of CCB contributing to respiratory status- per cardiology leave on [facility] at this time and consult pulmonology (7) Tobacco use ICD Code: Z72.0 Status: Acute Plan: advised smoking cessation. Discharge Planning Continue to monitor int he ICU Attending Statement This note was transcribed by kamla Ratliff. I, Dr. Eber Gilbert personally performed the history, physical exam, and medical decision making; and confirmed the accuracy of the information in the transcribed note. Authenticated by Dr. Eber Gilbert on 03/03/17 at 11:56. Chery Ratliff Mar 03, 2017 11:39 Eber Soler MD Mar 03, 2017 11:57
[2017-03-03] MEDS ORDERED: Vancomycin Consult Pharmacy 1 EA OTHER SCH (11:45)
[2017-03-03] MEDS ORDERED: BUMETANIDE INJ 1 MG/4 ML VIAL IV PUSH ONE (12:00)
[2017-03-03] MEDS: PANTOPRAZOLE SODIUM 40 MG VIAL IV PUSH SCH (12:47)
[2017-03-03] MEDS: LEVOFLOXACIN 750 MG PREMIX INJ 150 ML IV SCH (12:48)
--- NOTE | 2017-03-03 13:01 | RADRPT ---
EXAM DATE/TIME: 03/03/2017 11:36 [facility] COMPARISON: CHEST SINGLE AP, February 26, 2017, 4:07. CHEST SINGLE AP, February 27, 2017, 1:56. INDICATIONS : Short of breath MEDICAL HISTORY : None. SURGICAL HISTORY : None. ENCOUNTER: Subsequent ACUITY: 1 week PAIN SCORE: 0/10 LOCATION: chest FINDINGS: The heart is enlarged with coarse interstitial changes in both lungs. There is no pneumothorax. The re is minimal increase in blunting left costophrenic sulcus. Right rib fracture again noted. CONCLUSION: Probable chronic congestive failure with mild progression. Bernard Trevino MD FACR on March 03, 2017 at 12:57 Board Certified Radiologist. This report was verified electronically.
--- NOTE | 2017-03-03 13:04 | MB ---
cc: JULIANO ROJAS DATE OF CONSULTATION 03/03/2017 REASON FOR CONSULTATION Respiratory distress and COPD. HISTORY OF PRESENT ILLNESS This is a 61-year-old man with a history of COPD and a history of chronic smoking who was admitted with a history of dyspnea, cough, wheezing and hypoxemia. The patient states her breathing got much worse over the past three to four days. He has had been coughing, congested and bringing up thick foamy mucus, but denied fevers or chills. Denied any nausea, vomiting or hemoptysis. He did not have any leg swelling. Upon arrival in the emergency room, a chest x-ray was done which showed evidence of basilar atelectasis and a small left effusion and a questionable fracture of the right lateral 7th rib. The patient has been on a non-rebreather mask and is tachypneic and his sats are now 96% on 60% FIO2. He has received IV Levaquin 750 mg and his cardiac rhythm was atrial fibrillation with a rapid ventricular response which is now improved with Cardizem. PAST MEDICAL HISTORY His past history has included: 1. COPD 2. Chronic bronchitis 3. History of COPD with pneumonia in the past. PAST SURGICAL HISTORY Denies previous surgeries. ALLERGIES No allergies are listed. HABITS The patient smoked one pack per day for over 40 years and recently started smoking cigars. Alcohol use, regular. Worked in a bakery. FAMILY HISTORY Noncontributory REVIEW OF SYSTEMS The patient has lost weight over the past few weeks. He has dizziness, postnasal drip, cough, wheezing, epigastric distress and cramping. Denies urinary symptoms. He has had joint pains in his extremities: Denies any skin rash and no leg swelling. PHYSICAL EXAMINATION This is as a thinly built middle-aged white male who looks older than his stated age. VITAL SIGNS: Blood pressure 130/70, pulse is 88, respirations 24-30, temperature 97.5. HEENT: Head normocephalic. Pupils reactive and equal. Tongue is dry. Throat is injected. Nasal mucosae masses. NECK: Supple without venous distension. No lymphadenopathy or thyromegaly. CHEST: Equal movements with an increased AP diameter with diffuse wheezes throughout both lung bliss and occasional crackles over the left base. HEART: Heart sounds are irregular S1 and S2. No murmurs. ABDOMEN: Soft and nontender. Bowel sounds are active, no organomegaly. EXTREMITIES: Muscle wasting, but no edema. Peripheral pulses are diminished. Reflexes are 1+ with no gross motor deficits. NEUROLOGIC: Cranial nerves grossly intact. SKIN: Dry and scaly. IMPRESSION 1. COPD with acute exacerbation 2. Respiratory failure 3. Atrial fibrillation and rapid ventricular response 4. Hyponatremia 5. Ethanolism 6. Nicotine dependency PLAN The patient will be placed on a BiPap mask and a blood gas study done. We will also get a CT scan of the . MD BRYAN Tony/HEVER /12:33 PM /12:50 PM
[2017-03-03 13:24] LABS: BLOOD GAS BASE EXCESS 8.9 mmol/L (-2-2); BLOOD GAS CARBOXYHEMOGLOBIN 1.5 % (0-4); BLOOD GAS HCO3 34 mmol/L (22-26); BLOOD GAS O2 HGB SATURATION 93 % (90-100); BLOOD GAS OXYGEN CONTENT 15.3 Vol % (12.0-20.0); BLOOD GAS PCO2 52 mmHg (38-42); BLOOD GAS PO2 84 mmHg (61-120); BLOOD GAS TOTAL HGB 11.6 G/DL (12.0-16.0); CRITICAL VALUE YES; OXYGEN DEVICE BiPAP; TEMP CORR TO 98.6
[2017-03-03 13:25] LABS: DRAW SITE LT RADIAL; FIO2 40 %; NUMBER OF ARTERIAL PUNCTURES 1; STAT NO; ULNAR PULSE Y
[2017-03-03] MEDS: BUDESONIDE-FORMOTEROL 160/4.5 MCG INHALER INH SCH ×2 (14:00→21:00)
[2017-03-03] MEDS ORDERED: IOHEXOL 350 MG/ML 10 ML VIAL (for RAD DIAG) IV ONE (14:46)
[2017-03-03] MEDS ORDERED: VANCOMYCIN INJ 1,000 MG in SODIUM CHLOR 0.9% 250 ML INJ 250 ML IV SCH (15:00)
--- NOTE | 2017-03-03 15:01 | RADRPT ---
EXAM DATE/TIME: 03/03/2017 14:38 [facility] COMPARISON: No previous studies available for comparison. INDICATIONS : Short of breath- evaluate for pulmonary emoblism IV CONTRAST: 50 cc Omnipaque 350 (iohexol) IV RADIATION DOSE: 9.98 CTDIvol (mGy) MEDICAL HISTORY : Chronic obstructive pulmonary disease. SURGICAL HISTORY : None. ENCOUNTER: Initial ACUITY: 1 day PAIN SCALE: 4/10 LOCATION: chest TECHNIQUE: Volumetric scanning of the chest was performed using a pulmonary embolism protocol MIP images were re constructed. Using automated exposure control and adjustment of the mA and/or kV according to patien t size, radiation dose was kept as low as reasonably achievable to obtain optimal diagnostic quality images. DICOM format image data is available electronically for review and comparison. Follow-up recommendations for incidentally detected pulmonary nodules are based at a minimum on nodul e size and patient risk factors according to Fleischner Society Guidelines. FINDINGS: PULMONARY ARTERIES: No filling defects are seen in the pulmonary arteries through the segmental level. LUNGS: There is no consolidation or pneumothorax . No concerning pulmonary nodule is visualized. PLEURAE: Small left pleural effusion is noted. MEDIASTINUM: There is good visualization of the great vessels of the middle mediastinum. No evidence of mediastin al or hilar adenopathy/mass. MUSCULOSKELETAL: Moderate degenerative changes are noted no rib fractures on the right. MISCELLANEOUS: Small atrophic right kidney. CONCLUSION: 1. Probable mild congestive failure with mild hyperinflation 2. Trace effusion left base without significant consolidation. 3. Negative for central pulmonary emboli. Bernard Trevino MD FACR on March 03, 2017 at 14:58 Board Certified Radiologist. This report was verified electronically.
[2017-03-03 17:18] LABS: BLOOD GAS BASE EXCESS 11.2 mmol/L (-2-2); BLOOD GAS CARBOXYHEMOGLOBIN 1.3 % (0-4); BLOOD GAS HCO3 36 mmol/L (22-26); BLOOD GAS O2 HGB SATURATION 97 % (90-100); BLOOD GAS OXYGEN CONTENT 16.6 Vol % (12.0-20.0); BLOOD GAS PCO2 53 mmHg (38-42); BLOOD GAS PO2 147 mmHg (61-120); BLOOD GAS TOTAL HGB 11.9 G/DL (12.0-16.0); TEMP CORR TO 98.6
[2017-03-03 17:19] LABS: CRITICAL VALUE YES; DRAW SITE RT RADIAL; FIO2 60 %; NUMBER OF ARTERIAL PUNCTURES 1; OXYGEN DEVICE BIPAP; STAT YES; VENT SETTINGS IPAP12/EPAP5
[2017-03-03] MEDS: BUMETANIDE INJ 1 MG/4 ML VIAL IV PUSH SCH (17:56)
[2017-03-04] VITALS (15 sets, daily range): BP systolic 119–149; BP diastolic 55–91; PULSE 62–119; RESP 18–26; TEMP 97.5–98.3; O2SAT 94–100
[2017-03-04] MEDS: methylPREDNISolone SOD SUCC 40 MG/1 ML VIAL IV PUSH SCH ×4 (01:03→18:00)
[2017-03-04] MEDS: CHLORHEXIDINE GLUCONATE 2 % 1 PACK (2 CLOTHS) TOP SCH (04:00)
[2017-03-04] MEDS: INSULIN ASPART SUPPLEMENTAL SCALE SQ SCH ×4 (06:23→21:00)
[2017-03-04 07:07] LABS: HEMATOCRIT 36.5 % (39.0-51.0); MEAN CELL VOLUME 99.2 FL (80.0-100.0); MEAN CORPUSCULAR HEMOGLOBIN 34.5 PG (27.0-34.0); MEAN CORPUSCULAR HGB CONC 34.8 % (32.0-36.0); PLATELET COUNT 101 TH/MM3 (150-450); RED BLOOD COUNT 3.68 MIL/MM3 (4.50-5.90); RED CELL DISTRIBUTION WIDTH 12.9 % (11.6-17.2); REVIEW FLAG FINAL; WHITE BLOOD COUNT 5.3 TH/MM3 (4.0-11.0)
[2017-03-04 07:28] LABS: BICARBONATE 39.1 MEQ/L (21.0-32.0); POTASSIUM 3.2 MEQ/L (3.5-5.1)
[2017-03-04] MEDS: RESP: ALBUTEROL 2.5 MG/IPRATROPIUM 0.5 MG NEB (SCH) NEB ×4 (07:57→19:39)
[2017-03-04] MEDS: SODIUM CHLORIDE 0.9% FLUSH 10 ML FLUSH SCH ×2 (09:00→21:20)
[2017-03-04] MEDS: DILTIAZEM HCL 30 MG TAB PO SCH ×4 (09:00→21:20)
[2017-03-04] MEDS ORDERED: POTASSIUM CHLORIDE 10 MEQ CONTROLLED RELEASE TAB PO ONE (09:00)
[2017-03-04] MEDS: BUDESONIDE-FORMOTEROL 160/4.5 MCG INHALER INH SCH ×2 (09:15→21:00)
[2017-03-04] MEDS: BUMETANIDE INJ 1 MG/4 ML VIAL IV PUSH SCH ×2 (09:15→18:00)
[2017-03-04] MEDS: ASPIRIN 325 MG TAB PO SCH (09:16)
[2017-03-04] MEDS: DOCUSATE SODIUM 50 MG/SENNA 8.6 MG TAB PO SCH ×2 (09:16→21:20)
--- NOTE | 2017-03-04 10:16 | HHI.PR ---
Subjective Remarks Written by Chery Rodríguez, acting as scribe for Dr. Decker on 03/04/17 at 10:08. Patient seen in ICU telemetry shows Atrial fibrillation rate 90's to low 100's Patient breathing appears improved more air movement on auscultation Patient reports he was unable to tolerate the BiPAP any long now on partial rebreather Patient overs no other complaints at this time Objective Vitals Vital Signs Date Time Temp Pulse Resp B/P Pulse Ox O2 Delivery O2 Flow Rate FiO2 03/04/17 08:00 116 03/04/17 08:00 98.0 119 22 149/91 96 03/04/17 07:58 95 Venturi Mask 40 03/04/17 06:00 79 03/04/17 04:35 96 Partial Rebreather 10.00 03/04/17 04:00 62 03/04/17 04:00 98.1 62 18 127/65 96 03/04/17 02:00 63 03/04/17 00:00 63 03/04/17 00:00 98.1 63 26 125/61 98 03/03/17 23:53 97 40 03/03/17 22:00 65 03/03/17 21:10 96 40 03/03/17 21:10 95 Nasal Cannula 8.00 03/03/17 20:00 65 03/03/17 20:00 96.5 65 22 125/62 94 03/03/17 19:13 92 40 03/03/17 19:00 99 Bi-Pap 40 03/03/17 18:00 67 03/03/17 16:00 97.8 76 24 140/75 84 03/03/17 16:00 77 03/03/17 15:32 96 40 03/03/17 14:00 78 03/03/17 12:40 99 40 03/03/17 12:00 77 03/03/17 12:00 97.4 79 21 143/77 100 I/O 03/03/17 03/03/17 03/03/17 03/04/17 03/04/17 03/04/17 07:00 15:00 23:00 07:00 15:00 23:00 Intake Total 300 ml 510 ml 400 ml 300 ml Output Total 1250 ml 600 ml 1550 ml 950 ml Balance -950 ml -90 ml -1150 ml -650 ml Intake Oral 300 ml 360 ml 400 ml 300 ml IV Total 150 ml Output Urine Total 1250 ml 600 ml 1550 ml 950 ml Result Diagram: 03/04/17 0620 03/04/17 [address] Angiography 03/03/17 1235 Signed Impressions: Service Date/Time: Friday, March 03, 2017 14:38 - CONCLUSION: 1. Probable mild congestive failure with mild hyperinflation 2. Trace effusion left base without significant consolidation. 3. Negative for central pulmonary emboli. Bernard Trevino MD FACR Chest X-Ray 03/03/17 0000 Signed Impressions: Service Date/Time: Friday, March 03, 2017 11:36 - CONCLUSION: Probable chronic congestive failure with mild progression. Bernard Trevino MD FACR Objective Remarks GENERAL: A chronically ill looking frail male, appears more stable than yesterday CARDIOVASCULAR: Regular rate and rhythm without murmurs, gallops, or rubs. RESPIRATORY: Lung sounds diminished throughout but with improved air movement from yesterday GASTROINTESTINAL: Abdomen soft, non-tender, nondistended. MUSCULOSKELETAL: No cyanosis, or edema. NEURO: Alert & Oriented x4 to person, place, time, situation. Moves all ext x4 Procedures none A/P Problem List: (1) COPD exacerbation ICD Code: J44.1 Status: Acute Plan: Levaquin to IV continue supplemental o2 decrease Solumedrol to 60 mg Q6H, continue Protonix 40 MG IV daily for GI protection continue Symbicort 160-4.5 2 puffs Q12 H continue DuoNeb Q4H scheduled and ipratropium nebulizers every 2 hours as needed for shortness of breath/wheezing await repeat ABG results, patient now off BiPAP as he reports he can no longer tolerate BiPAP (2) Acute hypercapnic respiratory failure ICD Code: J96.02 Status: Acute Plan: see above Bipap PRN (3) Hyponatremia ICD Code: E87.1 Status: Acute Plan: appears to to be chronic exacerbated by hypovolemic hyponatremia stable 118 --> 121--> 120--> 128 --> 129--> 130 --> 127 --> 129 --> 128 --> 130 Patient eating and drinking fluids continue to monitor (4) Alcohol abuse ICD Code: F10.10 Status: Chronic Plan: Continue CIWA protocol, no evidence of withdrawal Continue to monitor on telemetry. (5) Hyperglycemia ICD Code: R73.9 Status: Acute Plan: Likely steroid induced. Hemoglobin A1c 5.5. Place on SSI with insulin Novolog and monitor accuchecks. Bs stable. (6) Atrial fibrillation with RVR ICD Code: I48.91 Status: Acute Plan: Patient had had a 03/01/2017 A. fib RVR in the setting of COPD exacerbation. Cardiology following, appreciate their input and assistance 2Decho reviewed and reveals EF 50-55%- right ventricle is mildly dilated, right ventricle systolic function is mildly decreased, right atrial size is mildly dilated, mild right valve regurgitation, severe tricuspid regurgitation, estimated pulmonary arterial pressure is 72 mmHg Cardizem 60mg PO QID per cardiology CHADS2=1. Continue ASA 325mg PO daily (7) Tobacco use ICD Code: Z72.0 Status: Acute Plan: advised smoking cessation. (8) Hypokalemia ICD Code: E87.6 Status: Acute Plan: Potassium 3.2 replaced Recheck BMP in a.m. Attending Statement This note was transcribed by kamla rodríguez. I, Dr. Eber Gilbert personally performed the history, physical exam, and medical decision making; and confirmed the accuracy of the information in the transcribed note. Authenticated by Dr. Eber Gilbert on 03/04/17 at 10:08. . Chery Rodríguez Mar 04, 2017 10:16 Eber Soler MD Mar 05, 2017 11:55
[2017-03-04] MEDS: LEVOFLOXACIN 750 MG PREMIX INJ 150 ML IV SCH (13:12)
[2017-03-04] MEDS: PANTOPRAZOLE SODIUM 40 MG VIAL IV PUSH SCH (13:14)
--- NOTE | 2017-03-04 13:54 | HHI.PR ---
Subjective Remarks Has a cough with wheezing . No fever. On a Ventimask 40 %. Sputum is thick.CT chest shows pulmonary edema Objective Vital Signs Date Time Temp Pulse Resp B/P Pulse Ox O2 Delivery O2 Flow Rate FiO2 03/04/17 10:00 116 03/04/17 08:00 116 03/04/17 08:00 98.0 119 22 149/91 96 03/04/17 07:58 95 Venturi Mask 40 03/04/17 06:00 79 03/04/17 04:35 96 Partial Rebreather 10.00 03/04/17 04:00 62 03/04/17 04:00 98.1 62 18 127/65 96 03/04/17 02:00 63 03/04/17 00:00 63 03/04/17 00:00 98.1 63 26 125/61 98 03/03/17 23:53 97 40 03/03/17 22:00 65 03/03/17 21:10 96 40 03/03/17 21:10 95 Nasal Cannula 8.00 03/03/17 20:00 65 03/03/17 20:00 96.5 65 22 125/62 94 03/03/17 19:13 92 40 03/03/17 19:00 99 Bi-Pap 40 03/03/17 18:00 67 03/03/17 16:00 97.8 76 24 140/75 84 03/03/17 16:00 77 03/03/17 15:32 96 40 03/03/17 14:00 78 I/O 03/03/17 03/03/17 03/03/17 03/04/17 03/04/17 03/04/17 06:59 14:59 22:59 06:59 14:59 22:59 Intake Total 300 ml 510 ml 400 ml 300 ml Output Total 1250 ml 600 ml 1550 ml 950 ml Balance -950 ml -90 ml -1150 ml -650 ml Intake Oral 300 ml 360 ml 400 ml 300 ml IV Total 150 ml Output Urine Total 1250 ml 600 ml 1550 ml 950 ml Result Diagram: 03/04/17 0620 03/04/17 0620 Objective Remarks This is as a thinly built middle-aged white male who is dyspneic HEENT: Head normocephalic. Pupils reactive and equal. Tongue is moist. Throat is injected. Nasal mucosae clear. NECK: Supple without venous distension. No lymphadenopathy or thyromegaly. CHEST: Equal movements with an increased AP diameter with diffuse wheezes throughout both lung bliss and occasional crackles over the bases HEART: Heart sounds are irregular S1 and S2. No murmurs. ABDOMEN: Soft and nontender. Bowel sounds are active, no organomegaly. EXTREMITIES: Muscle wasting, but no edema. Peripheral pulses are diminished. Reflexes are 1+ with no gross motor deficits. NEUROLOGIC: Cranial nerves grossly intact. SKIN: Dry and scaly. Assessment and Plan Assessment and Plan IMPRESSION 1. COPD with acute exacerbation 2. Respiratory failure 3. Atrial fibrillation and rapid ventricular response 4. Hyponatremia 5. CHF 6. Nicotine dependency Plan : 1. Continue antibiotics. 2. Taper solumedrol to 60 mg q6h 3. Nebs qid , duoneb. 4. CBC,BMP in am. 5. Continue anticoagulants. 6. PFT when stable. 7. Bipap at HS 12/5 and PRN for Low sats. 8. Continue lasix 40 mg bid Jacqui Frank MD Mar 04, 2017 13:54
[2017-03-05] VITALS (12 sets, daily range): BP systolic 127–169; BP diastolic 60–87; PULSE 65–88; RESP 22–44; TEMP 97.3–99.1; O2SAT 91–100
[2017-03-05] MEDS: methylPREDNISolone SOD SUCC 40 MG/1 ML VIAL IV PUSH SCH ×4 (00:54→18:00)
[2017-03-05] MEDS: CHLORHEXIDINE GLUCONATE 2 % 1 PACK (2 CLOTHS) TOP SCH (04:00)
[2017-03-05] MEDS: INSULIN ASPART SUPPLEMENTAL SCALE SQ SCH ×4 (06:25→21:00)
[2017-03-05 07:08] LABS: HEMATOCRIT 35.8 % (39.0-51.0); MEAN CELL VOLUME 99.7 FL (80.0-100.0); MEAN CORPUSCULAR HEMOGLOBIN 34.1 PG (27.0-34.0); MEAN CORPUSCULAR HGB CONC 34.2 % (32.0-36.0); PLATELET COUNT 98 TH/MM3 (150-450); RED BLOOD COUNT 3.59 MIL/MM3 (4.50-5.90); RED CELL DISTRIBUTION WIDTH 12.9 % (11.6-17.2); WHITE BLOOD COUNT 5.3 TH/MM3 (4.0-11.0)
[2017-03-05 07:17] LABS: REVIEW FLAG FINAL
[2017-03-05 07:26] LABS: ANION GAP 8 MEQ/L (5-15); AST (GOT) 57 U/L (15-37); BICARBONATE 40.5 MEQ/L (21.0-32.0); BLOOD UREA NITROGEN 15 MG/DL (7-18); CHLORIDE 83 MEQ/L (98-107); GLOMERULAR FILTRATION RATE 109 ML/MIN (>89); MAGNESIUM 1.9 MG/DL (1.5-2.5); POTASSIUM 3.2 MEQ/L (3.5-5.1); SODIUM (NA) 131 MEQ/L (136-145)
[2017-03-05 07:29] LABS: ALKALINE PHOSPHATASE 54 U/L (45-117); ALT (GPT) 81 U/L (12-78); TOTAL BILIRUBIN ADULT 0.9 MG/DL (0.2-1.0)
[2017-03-05] MEDS: RESP: ALBUTEROL 2.5 MG/IPRATROPIUM 0.5 MG NEB (SCH) NEB ×4 (07:31→20:15)
[2017-03-05] MEDS: ASPIRIN 325 MG TAB PO SCH (09:43)
[2017-03-05] MEDS: DOCUSATE SODIUM 50 MG/SENNA 8.6 MG TAB PO SCH ×2 (09:43→21:33)
[2017-03-05] MEDS: BUMETANIDE INJ 1 MG/4 ML VIAL IV PUSH SCH (09:43)
[2017-03-05] MEDS: DILTIAZEM HCL 30 MG TAB PO SCH ×4 (09:43→21:32)
--- NOTE | 2017-03-05 11:49 | HHI.PR ---
Subjective Remarks Patient states he has trouble swallowing sob is improving denies fevers or chills down to 4 liters on nasal canula Objective Vitals Vital Signs Date Time Temp Pulse Resp B/P Pulse Ox O2 Delivery O2 Flow Rate FiO2 03/05/17 10:00 71 03/05/17 08:00 98.8 78 44 169/87 100 03/05/17 08:00 71 03/05/17 07:31 95 Nasal Cannula 4.00 03/05/17 07:00 94 Nasal Cannula 4.00 Bi-Pap 03/05/17 06:00 69 03/05/17 04:00 65 03/05/17 04:00 97.3 65 44 138/76 100 03/05/17 02:00 72 03/05/17 00:00 76 03/05/17 00:00 98.1 76 42 137/73 93 03/04/17 22:00 78 03/04/17 20:00 94 Nasal Cannula 6.00 Bi-Pap 03/04/17 20:00 97.5 71 23 128/68 94 03/04/17 20:00 71 03/04/17 19:38 95 Nasal Cannula 5.00 03/04/17 18:00 116 03/04/17 16:00 116 03/04/17 16:00 98.1 75 22 121/55 96 03/04/17 14:00 116 03/04/17 12:00 116 03/04/17 12:00 98.3 110 22 119/63 96 I/O 03/04/17 03/04/17 03/04/17 03/05/17 03/05/17 03/05/17 07:00 15:00 23:00 07:00 15:00 23:00 Intake Total 300 ml 580 ml 240 ml 120 ml Output Total 950 ml 850 ml 750 ml 950 ml Balance -650 ml -270 ml -510 ml -830 ml Intake Oral 300 ml 480 ml 240 ml 120 ml IV Total 100 ml 0 ml Output Urine Total 950 ml 850 ml 750 ml 950 ml Result Diagram: 03/05/17 0537 03/05/17 [address] Angiography 03/03/17 1235 Signed Impressions: Service Date/Time: Friday, March 03, 2017 14:38 - CONCLUSION: 1. Probable mild congestive failure with mild hyperinflation 2. Trace effusion left base without significant consolidation. 3. Negative for central pulmonary emboli. Bernard Trevino MD FACR Chest X-Ray 03/03/17 0000 Signed Impressions: Service Date/Time: Friday, March 03, 2017 11:36 - CONCLUSION: Probable chronic congestive failure with mild progression. Bernard Trevino MD FACR Objective Remarks AAOx3 Decreased air entry BL, mild diffuse wheezing BL, rales or rhonchi S1S2 RRR Procedures none Medications and IVs Current Medications Medications (Trade) Dose Ordered Sig/Mala Route Start Time Stop Time Status Last Admin (NS Flush) 2 ml UNSCH PRN .XX 02/26/17 05:15 03/03/17 06:09 (NS Flush) 2 ml BID .XX 02/26/17 09:00 03/04/17 21:20 (Tylenol) 650 mg Q6H PRN PO 02/26/17 05:15 (Morphine Inj) 2 mg Q2H PRN IV 02/26/17 05:15 (Ativan Inj) 1 mg Q1H PRN IV 02/26/17 05:15 02/28/17 20:03 (Zofran Inj) 4 mg Q6H PRN IV 02/26/17 05:15 03/01/17 14:15 Miscellaneous Information 1 Q361D XX 02/26/17 05:15 02/26/17 05:15 (Chlorhexidine 2% Cloth) Taper DAILY@04 TOP 02/27/17 04:00 02/23/18 03:59 03/04/17 04:00 (Chlorhexidine 2% Cloth) 3 pack UNSCH PRN TOP 02/26/17 05:15 (Anay-Colace) 1 tab BID PO 02/26/17 09:00 03/05/17 09:43 (Milk Of Magnesia Liq) 30 ml Q12H PRN PO 02/26/17 05:15 03/01/17 09:24 (Senokot) 17.2 mg Q12H PRN PO 02/26/17 05:15 (Dulcolax Supp) 10 mg DAILY PRN RECTAL 02/26/17 05:15 (Lactulose Liq) 30 ml DAILY PRN PO 02/26/17 05:15 (Romazicon Inj) 0.2 mg Q1M PRN IV PUSH 02/26/17 05:30 (Ativan) 1 mg Q4H PRN PO 02/26/17 05:30 (Ativan Inj) 1 mg Q4H PRN IV PUSH 02/26/17 05:30 (Ativan) 2 mg Q2H PRN PO 02/26/17 05:30 03/02/17 21:22 (Ativan Inj) 2 mg Q2H PRN IV PUSH 02/26/17 05:30 02/26/17 13:57 (Ativan Inj) 2 mg Q1H PRN IV PUSH 02/26/17 05:30 (Ativan Inj) 2 mg Q15M PRN IV PUSH 02/26/17 05:30 (D50w (Vial) Inj) 50 ml UNSCH PRN IV 02/28/17 23:45 Glucagon 1 mg 1 mg UNSCH PRN OTHER 02/28/17 23:45 (Cardizem Inj/NS Inj) 125 ml @ 0 mls/hr TITRATE IV 03/01/17 19:30 03/02/17 05:01 (Aspirin) 325 mg DAILY PO 03/02/17 11:30 03/05/17 09:43 Diltiazem HCl 60 mg 60 mg QID PO 03/03/17 13:00 03/05/17 09:43 (Levaquin 750 Mg Premix Inj) 150 ml @ 100 mls/hr Q24H IV 03/03/17 12:00 03/04/17 13:12 (Symbicort 160-4.5 Inh) 2 puff Q12HR INH 03/03/17 14:00 03/04/17 21:00 (Protonix Inj) 40 mg Q24H IV PUSH 03/03/17 13:00 03/04/17 13:14 (Bumex Inj) 1 mg BID@09,18 IV PUSH 03/03/17 18:00 03/05/17 09:43 Methylprednisolone Sodium Succinate 60 mg 60 mg Q6HR IV PUSH 03/04/17 18:00 03/05/17 06:00 (KCl 20 Meq Premix Inj) 100 ml @ 50 mls/hr Q2H IV 03/05/17 11:45 03/05/17 15:44 UNV Urinary Catheter: No A/P Problem List: (1) COPD exacerbation ICD Code: J44.1 Status: Acute Plan: The patient presented an exacerbation of COPD for which she had to be transferred to the intensive care unit on 03/03/17 CTA obtained on 03/03 showed probable mild congestive heart failure with mild hyperinflation. Trace effusion left base without significant consolidation. Negative for PE. Continue IV antibiotics, the patient on Levaquin IV. Continue supplemental oxygen keep oxygen saturations more than 92% Continue IV steroids -taper steroids down to 40 mg IV every 6 hours. Continue Symbicort 1604.5 2 puffs every 12 hours. Continue DuoNeb treatments every 2 hours as needed for shortness of breath/ wheezing. Pulmonic consulted on following. Appreciate recommendations. (2) Acute hypercapnic respiratory failure ICD Code: J96.02 Status: Acute Plan: ABG on date of transfer to intensive care unit showed a PCO2 of 48 with a PO2 of 107 and a pH of 7.43. The patient was started on BiPAP which is now off. The patient is currently on nasal cannula 4 L Continue BiPAP when necessary. (3) Hyponatremia ICD Code: E87.1 Status: Acute Plan: Likely due to volume overload. Improving on diuresis and fluid restriction. Continue to monitor BMP (4) Alcohol abuse ICD Code: F10.10 Status: Chronic Plan: Continue CIWA protocol, no evidence of withdrawal Continue to monitor on telemetry. (5) Hyperglycemia ICD Code: R73.9 Status: Acute Plan: Likely steroid induced. Hemoglobin A1c 5.5. Place on SSI with insulin Novolog and monitor accuchecks. Bs stable. (6) Atrial fibrillation with RVR ICD Code: I48.91 Status: Acute Plan: Patient had had a 03/01/2017 A. fib RVR in the setting of COPD exacerbation. Cardiology following, appreciate their input and assistance 2Decho reviewed and reveals EF 50-55%- right ventricle is mildly dilated, right ventricle systolic function is mildly decreased, right atrial size is mildly dilated, mild right valve regurgitation, severe tricuspid regurgitation, estimated pulmonary arterial pressure is 72 mmHg Cardizem 60mg PO QID per cardiology CHADS2=1. Continue ASA 325mg PO daily 03/06 Cardiology signed off will reconsult to comment on the severe tricuspid regurgitation. (7) Tobacco use ICD Code: Z72.0 Status: Acute Plan: advised smoking cessation. (8) Hypokalemia ICD Code: E87.6 Status: Acute Plan: Will replete potassium w IV KCL since patient is having some dysphagia. (9) Dysphagia ICD Code: R13.10 Status: Acute Plan: ST eval. could possibly be secondary to severe tricuspid regurgitation causing right atrial dilatation, constant dysphagia. We'll order speech therapy eval. I will also order a barium swallow. (10) Acute systolic heart failure ICD Code: I50.21 Status: Acute Plan: Patient with mildly decreased EF of 50-55%. The cardiac and findings as detailed above. CTA reports mild congestive heart failure. Continue IV Bumex Continue aspirin. I will start the patient on URSULA inhibitor Discharge Planning Continue to monitor int he ICU Eber Soler MD Mar 05, 2017 11:49
[2017-03-05] MEDS: POTASSIUM CHLOR 20 MEQ PREMIX 100 ML IV SCH ×2 (12:46→14:00)
[2017-03-05] MEDS: LEVOFLOXACIN 750 MG PREMIX INJ 150 ML IV SCH (12:46)
[2017-03-05] MEDS: PANTOPRAZOLE SODIUM 40 MG VIAL IV PUSH SCH (12:46)
--- NOTE | 2017-03-05 13:38 | PD.CARD.PN ---
Subjective Subjective Remarks still dyspneic. Objective Medications Administered Medications Medications (Trade) Dose Ordered Sig/Mala Route PRN Reason Start Time Stop Time Status Last Admin Dose Admin Sodium Chloride (NS Flush) 2 ml UNSCH PRN .XX FLUSH AFTER USING IV ACCESS 02/26/17 05:15 03/03/17 06:09 Sodium Chloride (NS Flush) 2 ml BID .XX 02/26/17 09:00 03/04/17 21:20 Lorazepam (Ativan Inj) 1 mg Q1H PRN IV Agitation/Sedation 02/26/17 05:15 02/28/17 20:03 Ondansetron HCl (Zofran Inj) 4 mg Q6H PRN IV NAUSEA OR VOMITING 02/26/17 05:15 03/01/17 14:15 Miscellaneous Information 1 Q361D XX 02/26/17 05:15 02/26/17 05:15 Chlorhexidine Gluconate (Chlorhexidine 2% Cloth) Taper DAILY@04 TOP 02/27/17 04:00 02/23/18 03:59 03/04/17 04:00 Senna/Docusate Sodium (Anay-Colace) 1 tab BID PO 02/26/17 09:00 03/05/17 09:43 Magnesium Hydroxide (Milk Of Magnesia Liq) 30 ml Q12H PRN PO MILD - MODERATE CONSTIPATION 02/26/17 05:15 03/01/17 09:24 Lorazepam (Ativan) 2 mg Q2H PRN PO CIWA 11-14 02/26/17 05:30 03/02/17 21:22 Lorazepam 2 mg 2 mg Q2H PRN IV PUSH CIWA 11-14 02/26/17 05:30 02/26/17 13:57 Diltiazem HCl/ Sodium Chloride (Cardizem Inj/NS Inj) 125 ml @ 0 mls/hr TITRATE IV 03/01/17 19:30 03/02/17 05:01 Aspirin (Aspirin) 325 mg DAILY PO 03/02/17 11:30 03/05/17 09:43 Diltiazem HCl 60 mg 60 mg QID PO 03/03/17 13:00 03/05/17 12:46 Levofloxacin/ Dextrose (Levaquin 750 Mg Premix Inj) 150 ml @ 100 mls/hr Q24H IV 03/03/17 12:00 03/05/17 12:46 Budesonide/ Formoterol Fumarate (Symbicort 160-4.5 Inh) 2 puff Q12HR INH 03/03/17 14:00 03/04/17 21:00 Pantoprazole Sodium (Protonix Inj) 40 mg Q24H IV PUSH 03/03/17 13:00 03/05/17 12:46 Bumetanide (Bumex Inj) 1 mg BID@,18 IV PUSH 03/03/17 18:00 03/05/17 09:43 Methylprednisolone Sodium Succinate 60 mg 60 mg Q6HR IV PUSH 03/04/17 18:00 03/05/17 12:46 Potassium Chloride (KCl 20 Meq Premix Inj) 100 ml @ 50 mls/hr Q2H IV 03/05/17 12:00 03/05/17 15:59 03/05/17 12:46 Vital Signs / I&O Vital Signs Date Time Temp Pulse Resp B/P Pulse Ox O2 Delivery O2 Flow Rate FiO2 03/05/17 10:00 71 03/05/17 08:00 98.8 78 44 169/87 100 03/05/17 08:00 71 03/05/17 07:31 95 Nasal Cannula 4.00 03/05/17 07:00 94 Nasal Cannula 4.00 Bi-Pap 03/05/17 06:00 69 03/05/17 04:00 65 03/05/17 04:00 97.3 65 44 138/76 100 03/05/17 02:00 72 03/05/17 00:00 76 03/05/17 00:00 98.1 76 42 137/73 93 03/04/17 22:00 78 03/04/17 20:00 94 Nasal Cannula 6.00 Bi-Pap 03/04/17 20:00 97.5 71 23 128/68 94 03/04/17 20:00 71 03/04/17 19:38 95 Nasal Cannula 5.00 03/04/17 18:00 116 03/04/17 16:00 116 03/04/17 16:00 98.1 75 22 121/55 96 03/04/17 14:00 116 I/O 03/04/17 03/04/17 03/04/17 03/05/17 03/05/17 03/05/17 07:00 15:00 23:00 07:00 15:00 23:00 Intake Total 300 ml 580 ml 240 ml 120 ml Output Total 950 ml 850 ml 750 ml 950 ml Balance -650 ml -270 ml -510 ml -830 ml Intake Oral 300 ml 480 ml 240 ml 120 ml IV Total 100 ml 0 ml Output Urine Total 950 ml 850 ml 750 ml 950 ml Physical Exam GENERAL: This is a well-nourished, well-developed patient, in no apparent distress. CARDIOVASCULAR: Regular rate and rhythm without murmurs, gallops, or rubs. RESPIRATORY: very diminished breath sounds GASTROINTESTINAL: Abdomen soft, non-tender, nondistended. Normal active bowel sounds MUSCULOSKELETAL: Extremities without clubbing, cyanosis, or edema. NEURO: Alert & Oriented x4 to person, place, time, situation. Moves all ext x4 Laboratory Laboratory Tests Test 03/05/17 05:37 White Blood Count 5.3 TH/MM3 Red Blood Count 3.59 MIL/MM3 Hemoglobin 12.2 GM/DL Hematocrit 35.8 % Mean Corpuscular Volume 99.7 FL Mean Corpuscular Hemoglobin 34.1 PG Mean Corpuscular Hemoglobin 34.2 % Concent Red Cell Distribution Width 12.9 % Platelet Count 98 TH/MM3 Mean Platelet Volume 8.0 FL Sodium Level 131 MEQ/L Potassium Level 3.2 MEQ/L Chloride Level 83 MEQ/L Carbon Dioxide Level 40.5 MEQ/L Anion Gap 8 MEQ/L Blood Urea Nitrogen 15 MG/DL Creatinine 0.73 MG/DL Estimat Glomerular Filtration 109 ML/MIN Rate Random Glucose 122 MG/DL Calcium Level 8.8 MG/DL Phosphorus Level 2.9 MG/DL Magnesium Level 1.9 MG/DL Total Bilirubin 0.9 MG/DL Aspartate Amino Transf 57 U/L (AST/SGOT) Alanine Aminotransferase 81 U/L (ALT/SGPT) Alkaline Phosphatase 54 U/L Total Protein 6.6 GM/DL Albumin 3.0 GM/DL Imaging Last Impressions CT Angiography 03/03/17 1235 Signed Impressions: Service Date/Time: Friday, March 03, 2017 14:38 - CONCLUSION: 1. Probable mild congestive failure with mild hyperinflation 2. Trace effusion left base without significant consolidation. 3. Negative for central pulmonary emboli. Bernard Trevino MD FACR Chest X-Ray 03/03/17 0000 Signed Impressions: Service Date/Time: Friday, March 03, 2017 11:36 - CONCLUSION: Probable chronic congestive failure with mild progression. Bernard Trevino MD FACR Assessment and Plan Problem List: (1) Atrial flutter Assessment and Plan: Afib rate controlled. Off Cardizem drip. No CV complaints -Cont rate control with PO Cardizem -Cont ASA 325mg PO daily -Echo EF 60% (2) Alcohol abuse (3) Hyperglycemia (4) Hyponatremia (5) COPD exacerbation (6) Tricuspid regurgitation Assessment and Plan: Likely caused by his severe pulmonary HTN; secondary to his lung disease; no overt signs of right heart failure. Continue medical therapy. (7) Pulmonary hypertension Assessment and Plan Dr. Coffman will resume care tomorrow. Manny Oliveira MD Mar 05, 2017 13:38
--- NOTE | 2017-03-05 14:28 | HHI.PR ---
Subjective Remarks Less cough with wheezing . No fever. On a N/C at 3 L Good output .CT chest shows pulmonary edema. Sats 95 Objective Vital Signs Date Time Temp Pulse Resp B/P Pulse Ox O2 Delivery O2 Flow Rate FiO2 03/05/17 10:00 71 03/05/17 08:00 98.8 78 44 169/87 100 03/05/17 08:00 71 03/05/17 07:31 95 Nasal Cannula 4.00 03/05/17 07:00 94 Nasal Cannula 4.00 Bi-Pap 03/05/17 06:00 69 03/05/17 04:00 65 03/05/17 04:00 97.3 65 44 138/76 100 03/05/17 02:00 72 03/05/17 00:00 76 03/05/17 00:00 98.1 76 42 137/73 93 03/04/17 22:00 78 03/04/17 20:00 94 Nasal Cannula 6.00 Bi-Pap 03/04/17 20:00 97.5 71 23 128/68 94 03/04/17 20:00 71 03/04/17 19:38 95 Nasal Cannula 5.00 03/04/17 18:00 116 03/04/17 16:00 116 03/04/17 16:00 98.1 75 22 121/55 96 I/O 03/04/17 03/04/17 03/04/17 03/05/17 03/05/17 03/05/17 07:00 15:00 23:00 07:00 15:00 23:00 Intake Total 300 ml 580 ml 240 ml 120 ml Output Total 950 ml 850 ml 750 ml 950 ml Balance -650 ml -270 ml -510 ml -830 ml Intake Oral 300 ml 480 ml 240 ml 120 ml IV Total 100 ml 0 ml Output Urine Total 950 ml 850 ml 750 ml 950 ml Result Diagram: 03/05/17 0537 03/05/17 0537 Objective Remarks This is as a thinly built middle-aged white male who is alert. HEENT: Head normocephalic. Pupils reactive and equal. Tongue is moist. Throat is clear. Nasal mucosae clear. NECK: Supple without venous distension. No lymphadenopathy or thyromegaly. CHEST: Equal movements with an increased AP diameter with diffuse wheezes over both lung bliss and occasional crackles over the bases HEART: Heart sounds are irregular S1 and S2. No murmurs. ABDOMEN: Soft and nontender. Bowel sounds are active, no organomegaly. EXTREMITIES: Muscle wasting, but no edema. Peripheral pulses are diminished. Reflexes are 1+ with no gross motor deficits. NEUROLOGIC: Cranial nerves grossly intact. SKIN: Dry and scaly. Assessment and Plan Assessment and Plan IMPRESSION 1. COPD with acute exacerbation 2. Respiratory failure 3. Atrial fibrillation and rapid ventricular response 4. Hyponatremia 5. CHF 6. Nicotine dependency Plan : 1. Continue antibiotics. 2. Taper solumedrol to 40 mg q6h 3. Nebs qid , duoneb. 4. CBC,BMP in am. 5. Continue anticoagulants. 6. PFT when stable. 7. Bipap at HS 12/5 and PRN for Low sats. 8. Continue Bumex 1 mg daily. Jacqui Frank MD Mar 05, 2017 14:28
[2017-03-05 16:42] LABS: ALKALINE PHOSPHATASE 54 U/L (45-117); ALT (GPT) 80 U/L (12-78); ANION GAP 11 MEQ/L (5-15); AST (GOT) 57 U/L (15-37); BICARBONATE 37.5 MEQ/L (21.0-32.0); BLOOD UREA NITROGEN 18 MG/DL (7-18); CHLORIDE 81 MEQ/L (98-107); GLOMERULAR FILTRATION RATE 83 ML/MIN (>89); SODIUM (NA) 129 MEQ/L (136-145); TOTAL BILIRUBIN ADULT 0.8 MG/DL (0.2-1.0)
[2017-03-05 16:48] LABS: POTASSIUM 2.8 MEQ/L (3.5-5.1)
--- NOTE | 2017-03-05 17:39 | RADRPT ---
EXAM DATE/TIME: 03/05/2017 17:07 [facility] COMPARISON: No previous studies available for comparison. INDICATIONS : Dysphagia and regurgitation with solid foods. FLUORO TIME: 0.8 minutes IMAGE COUNT: 10 CONTRAST: 1. Liquid E-Z Paque Barium Sulfate (60% w/v, 41% w.w) MEDICAL HISTORY : None. SURGICAL HISTORY : None. ENCOUNTER: Initial ACUITY: 1 day PAIN SCORE: 0/10 LOCATION: Bilateral chest FINDINGS: There is a moderate esophageal motility disorder with poor primary peristaltic wave. No mechanical ob struction is identified. A small amount of aspiration occurred during the exam which was not accompan ied by coughing. There is a subtle mucosal irregularity of esophagus which could indicate esophagitis . Small amount of retained food present distally without obstruction. CONCLUSION: 1. Moderate esophageal motility disorder. Small amount of retained food distal esophagus without obst ruction. 2. Subtle mucosal irregularity suggesting esophagitis. 3. Mild silent aspiration. Jaime Coffman MD on March 05, 2017 at 17:33 Board Certified Radiologist. This report was verified electronically.
[2017-03-05] MEDS: POTASSIUM CHLORIDE 20 MEQ CONTROLLED RELEASE TAB PO SCH (21:32)
[2017-03-05] MEDS: SODIUM CHLORIDE 0.9% FLUSH 10 ML FLUSH SCH ×2 (21:33→23:10)
[2017-03-05] MEDS ORDERED: POTASSIUM CHLOR 20 MEQ PREMIX 100 ML IV SCH (22:30)
[2017-03-06] VITALS (13 sets, daily range): BP systolic 109–165; BP diastolic 8–78; PULSE 65–82; RESP 18–22; TEMP 97.6–98.3; O2SAT 93–96
[2017-03-06] MEDS ORDERED: PILL SPLITTER OTHER PRN (00:15)
[2017-03-06] MEDS: methylPREDNISolone SOD SUCC 40 MG/1 ML VIAL IV PUSH SCH ×3 (00:28→10:26)
[2017-03-06] MEDS: CHLORHEXIDINE GLUCONATE 2 % 1 PACK (2 CLOTHS) TOP SCH (04:00)
--- NOTE | 2017-03-06 04:44 | RADRPT ---
EXAM DATE/TIME: 03/06/2017 02:36 [facility] COMPARISON: CHEST SINGLE AP, March 03, 2017, 11:36. INDICATIONS : Short of breath. MEDICAL HISTORY : None. SURGICAL HISTORY : None. ENCOUNTER: Subsequent ACUITY: 1 week PAIN SCORE: 0/10 LOCATION: Bilateral chest FINDINGS: There is blunting of the left lateral costophrenic angle compatible with a small left effusion. The l ungs are otherwise clear. Cardiomegaly. CONCLUSION: Small left effusion. João Saenz MD on March 06, 2017 at 4:42 Board Certified Radiologist. This report was verified electronically.
[2017-03-06] MEDS: INSULIN ASPART SUPPLEMENTAL SCALE SQ SCH ×4 (07:00→20:51)
[2017-03-06 07:16] LABS: BICARBONATE 40.8 MEQ/L (21.0-32.0); POTASSIUM 3.2 MEQ/L (3.5-5.1)
[2017-03-06] MEDS: LISINOPRIL 5 MG TAB PO SCH (08:03)
[2017-03-06] MEDS: SODIUM CHLORIDE 0.9% FLUSH 10 ML FLUSH SCH ×2 (08:03→20:57)
[2017-03-06] MEDS: DILTIAZEM HCL 30 MG TAB PO SCH ×4 (08:04→20:48)
[2017-03-06] MEDS: DOCUSATE SODIUM 50 MG/SENNA 8.6 MG TAB PO SCH ×2 (08:04→20:48)
[2017-03-06] MEDS: ASPIRIN 325 MG TAB PO SCH (08:04)
[2017-03-06] MEDS: POTASSIUM CHLORIDE 20 MEQ CONTROLLED RELEASE TAB PO SCH (08:04)
[2017-03-06] MEDS: POTASSIUM CHLORIDE 20 MEQ PWD PACKET PO SCH ×2 (09:00→20:48)
[2017-03-06] MEDS ORDERED: BUMETANIDE INJ 1 MG/4 ML VIAL IV PUSH SCH (09:00)
[2017-03-06] MEDS ORDERED: PANTOPRAZOLE SODIUM 40 MG VIAL IV PUSH SCH (09:45)
[2017-03-06] MEDS: RESP: ALBUTEROL 2.5 MG/IPRATROPIUM 0.5 MG NEB (SCH) NEB ×3 (09:57→15:26)
[2017-03-06] MEDS: BUDESONIDE-FORMOTEROL 160/4.5 MCG INHALER INH SCH ×2 (10:26→20:58)
[2017-03-06] MEDS: LEVOFLOXACIN 750 MG PREMIX INJ 150 ML IV SCH (10:29)
[2017-03-06] MEDS: POTASSIUM CHLOR 20 MEQ PREMIX 100 ML IV SCH ×2 (10:29→13:43)
--- NOTE | 2017-03-06 11:55 | HHI.PR ---
Subjective Remarks patient states breathing is same denies cp denies fevers/chills k still low but improving Objective Vitals Vital Signs Date Time Temp Pulse Resp B/P Pulse Ox O2 Delivery O2 Flow Rate FiO2 03/06/17 09:58 94 Nasal Cannula 3.00 03/06/17 06:00 82 03/06/17 04:00 97.8 72 18 165/8 93 03/06/17 04:00 82 03/06/17 02:00 77 03/06/17 00:00 77 03/06/17 00:00 98.3 82 20 138/73 96 03/05/17 22:00 77 03/05/17 20:17 96 Nasal Cannula 3.00 03/05/17 20:00 91 Nasal Cannula 3.00 03/05/17 20:00 79 03/05/17 20:00 99.1 88 22 127/71 91 03/05/17 14:00 71 03/05/17 12:00 98.8 74 44 141/60 100 03/05/17 12:00 71 I/O 03/05/17 03/05/17 03/05/17 03/06/17 03/06/17 03/06/17 06:59 14:59 22:59 06:59 14:59 22:59 Intake Total 120 ml 805 ml 250 ml Output Total 950 ml 1150 ml 400 ml Balance -830 ml -345 ml -150 ml Intake Oral 120 ml 480 ml 100 ml IV Total 0 ml 325 ml 150 ml Output Urine Total 950 ml 1150 ml 400 ml Result Diagram: 03/05/17 0537 03/06/17 0514 Imaging Last Impressions Chest X-Ray 03/06/17 0600 Signed Impressions: Service Date/Time: Monday, March 06, 2017 02:36 - CONCLUSION: Small left effusion. João Saenz MD Barium Swallow X-Ray 03/05/17 0000 Signed Impressions: Service Date/Time: Sunday, March 05, 2017 17:07 - CONCLUSION: 1. Moderate esophageal motility disorder. Small amount of retained food distal esophagus without obstruction. 2. Subtle mucosal irregularity suggesting esophagitis. 3. Mild silent aspiration. Jaime Coffman MD CT Angiography 03/03/17 1235 Signed Impressions: Service Date/Time: Friday, March 03, 2017 14:38 - CONCLUSION: 1. Probable mild congestive failure with mild hyperinflation 2. Trace effusion left base without significant consolidation. 3. Negative for central pulmonary emboli. Bernard Trevino MD FACR Objective Remarks AAOx3, NAD Decreased air entry BL, no wheezing or rhonchi auscultated. S1S2 RRR no edema in lower extremities Procedures none Medications and IVs Current Medications Medications (Trade) Dose Ordered Sig/Mala Route Start Time Stop Time Status Last Admin (NS Flush) 2 ml UNSCH PRN .XX 02/26/17 05:15 03/03/17 06:09 (NS Flush) 2 ml BID .XX 02/26/17 09:00 03/06/17 08:03 (Tylenol) 650 mg Q6H PRN PO 02/26/17 05:15 (Morphine Inj) 2 mg Q2H PRN IV 02/26/17 05:15 (Ativan Inj) 1 mg Q1H PRN IV 02/26/17 05:15 02/28/17 20:03 (Zofran Inj) 4 mg Q6H PRN IV 02/26/17 05:15 03/01/17 14:15 Miscellaneous Information 1 Q361D XX 02/26/17 05:15 02/26/17 05:15 (Chlorhexidine 2% Cloth) Taper DAILY@04 TOP 02/27/17 04:00 02/23/18 03:59 03/04/17 04:00 (Chlorhexidine 2% Cloth) 3 pack UNSCH PRN TOP 02/26/17 05:15 (Anay-Colace) 1 tab BID PO 02/26/17 09:00 03/06/17 08:04 (Milk Of Magnesia Liq) 30 ml Q12H PRN PO 02/26/17 05:15 03/01/17 09:24 (Senokot) 17.2 mg Q12H PRN PO 02/26/17 05:15 (Dulcolax Supp) 10 mg DAILY PRN RECTAL 02/26/17 05:15 (Lactulose Liq) 30 ml DAILY PRN PO 02/26/17 05:15 (Romazicon Inj) 0.2 mg Q1M PRN IV PUSH 02/26/17 05:30 (Ativan) 1 mg Q4H PRN PO 02/26/17 05:30 (Ativan Inj) 1 mg Q4H PRN IV PUSH 02/26/17 05:30 (Ativan) 2 mg Q2H PRN PO 02/26/17 05:30 03/02/17 21:22 (Ativan Inj) 2 mg Q2H PRN IV PUSH 02/26/17 05:30 02/26/17 13:57 (Ativan Inj) 2 mg Q1H PRN IV PUSH 02/26/17 05:30 (Ativan Inj) 2 mg Q15M PRN IV PUSH 02/26/17 05:30 (D50w (Vial) Inj) 50 ml UNSCH PRN IV 02/28/17 23:45 Glucagon 1 mg 1 mg UNSCH PRN OTHER 02/28/17 23:45 (Cardizem Inj/NS Inj) 125 ml @ 0 mls/hr TITRATE IV 03/01/17 19:30 03/02/17 05:01 (Aspirin) 325 mg DAILY PO 03/02/17 11:30 03/06/17 08:04 Diltiazem HCl 60 mg 60 mg QID PO 03/03/17 13:00 03/06/17 08:04 (Levaquin 750 Mg Premix Inj) 150 ml @ 100 mls/hr Q24H IV 03/03/17 12:00 03/06/17 10:29 (Symbicort 160-4.5 Inh) 2 puff Q12HR INH 03/03/17 14:00 03/06/17 10:26 (Protonix Inj) 40 mg Q24H IV PUSH 03/03/17 13:00 03/05/17 12:46 (SoluMEDROL INJ) 40 mg Q6HR IV PUSH 03/05/17 18:00 03/06/17 10:26 (Bumex Inj) 1 mg DAILY IV PUSH 03/06/17 09:00 03/06/17 08:02 (Prinivil) 2.5 mg DAILY PO 03/06/17 09:00 03/06/17 08:03 (Pill Splitter) 1 ea UNSCH PRN OTHER 03/06/17 00:15 Potassium Chloride 20 meq 20 meq BID PO 03/06/17 09:00 03/06/17 09:00 (KCl 20 Meq Premix Inj) 100 ml @ 50 mls/hr Q2H IV 03/06/17 11:00 03/06/17 14:59 03/06/17 10:29 Urinary Catheter: No Vascular Central Line Catheter: No A/P Problem List: (1) COPD exacerbation ICD Code: J44.1 Status: Acute (2) Acute hypercapnic respiratory failure ICD Code: J96.02 Status: Acute (3) Hyponatremia ICD Code: E87.1 Status: Acute (4) Alcohol abuse ICD Code: F10.10 Status: Chronic (5) Hyperglycemia ICD Code: R73.9 Status: Acute (6) Atrial fibrillation with RVR ICD Code: I48.91 Status: Acute (7) Tobacco use ICD Code: Z72.0 Status: Acute (8) Hypokalemia ICD Code: E87.6 Status: Acute (9) Dysphagia ICD Code: R13.10 Status: Acute (10) Acute systolic heart failure ICD Code: I50.21 Status: Acute (11) Pulmonary hypertension ICD Code: I27.2 Status: Acute Plan: On diuretics, oxygen. Likely Cor pulmonale from COPD and tricuspid regurgitation. Pulmonary and cardiology following continue Lisinopril (12) Tricuspid regurgitation ICD Code: I07.1 Status: Acute Plan: Continue IV Bumex once a day. Cardiology following. Assessment and Plan (1) COPD exacerbation Plan: The patient presented an exacerbation of COPD for which she had to be transferred to the intensive care unit on 03/03/17 CTA obtained on 03/03 showed probable mild congestive heart failure with mild hyperinflation. Trace effusion left base without significant consolidation. Negative for PE. Continue IV antibiotics, the patient on Levaquin IV. Continue supplemental oxygen keep oxygen saturations more than 92% Continue Symbicort 1604.5 2 puffs every 12 hours. Continue DuoNeb treatments every 2 hours as needed for shortness of breath/ wheezing. Pulmonic consulted on following. Appreciate recommendations. 03/06 Decrease Solumedrol dose to 40 mg IV Q 8 hrs. Continue Bipap PRN for oxygen desaturation and at night. Will need PFT when stable. Defer to pulmonary. (2) Acute hypercapnic respiratory failure Plan: ABG on date of transfer to intensive care unit showed a PCO2 of 48 with a PO2 of 107 and a pH of 7.43. The patient was started on BiPAP which is now off. The patient is currently on nasal cannula 4 L Continue BiPAP when necessary. 03/06 Improving slowly, now on 3 liters nasal canula. Likely worsenid by severe pulmonary HTN due to Cor pulmonale due to COPD. (3) Hyponatremia Plan: Likely due to volume overload. Improving on diuresis and fluid restriction. Continue to monitor BMP 03/06 stable at 129. (4) Alcohol abuse Plan: Continue CIWA protocol, no evidence of withdrawal Continue to monitor on telemetry. (5) Hyperglycemia Plan: Likely steroid induced. Hemoglobin A1c 5.5. Place on SSI with insulin Novolog and monitor accuchecks. Bs stable. (6) Atrial fibrillation with RVR Plan: Patient had had a 03/01/2017 A. fib RVR in the setting of COPD exacerbation. Cardiology following, appreciate their input and assistance 2Decho reviewed and reveals EF 50-55%- right ventricle is mildly dilated, right ventricle systolic function is mildly decreased, right atrial size is mildly dilated, mild right valve regurgitation, severe tricuspid regurgitation, estimated pulmonary arterial pressure is 72 mmHg Cardizem 60mg PO QID per cardiology CHADS2=1. Continue ASA 325mg PO daily 03/06 appreciate cardiology recommendations. Rate is controlled. (7) Tobacco use Plan: advised smoking cessation. (8) Hypokalemia Plan: 03/06 Being replaced agressively IV and orally. Improved at 3.2 today. continue schedule oral potassium - will give 40 meq IV of KCL. Continue to monitor on telemetry. (9) Dysphagia Plan: ST eval. could possibly be secondary to severe tricuspid regurgitation causing right atrial dilatation, constant dysphagia. We'll order speech therapy eval. 03/06 Barium swallow showed moderate esophageal motility disorder, esophagitis and retained food in distal esophagus. I will start IV PPI since patient having some dysphagia issues and consult GI for further advise. (10) Acute systolic heart failure Plan: Patient with mildly decreased EF of 50-55%. The cardiac and findings as detailed above. CTA reports mild congestive heart failure. Continue IV Bumex Continue aspirin. resumed lisinopril 03/05 Discharge Planning Continue to monitor int he ICU Problem Qualifiers (1) Tricuspid regurgitation: Qualified Code: I07.1 - Tricuspid valve insufficiency, unspecified etiology Eber Soler MD Mar 06, 2017 11:54
--- NOTE | 2017-03-06 12:37 | HHI.PR ---
Subjective Remarks Has some wheezing . No fever. On a N/C at [address] chest shows pulmonary edema. Sats 95 Objective Vital Signs Date Time Temp Pulse Resp B/P Pulse Ox O2 Delivery O2 Flow Rate FiO2 03/06/17 12:00 96 Nasal Cannula 4.00 03/06/17 09:58 94 Nasal Cannula 3.00 03/06/17 08:00 94 Nasal Cannula 4.00 03/06/17 06:00 82 03/06/17 04:00 97.8 72 18 165/8 93 03/06/17 04:00 82 03/06/17 02:00 77 03/06/17 00:00 77 03/06/17 00:00 98.3 82 20 138/73 96 03/05/17 22:00 77 03/05/17 20:17 96 Nasal Cannula 3.00 03/05/17 20:00 91 Nasal Cannula 3.00 03/05/17 20:00 79 03/05/17 20:00 99.1 88 22 127/71 91 03/05/17 14:00 71 I/O 03/05/17 03/05/17 03/05/17 03/06/17 03/06/17 03/06/17 06:59 14:59 22:59 06:59 14:59 22:59 Intake Total 120 ml 805 ml 250 ml Output Total 950 ml 1150 ml 400 ml Balance -830 ml -345 ml -150 ml Intake Oral 120 ml 480 ml 100 ml IV Total 0 ml 325 ml 150 ml Output Urine Total 950 ml 1150 ml 400 ml Result Diagram: 03/05/17 0537 03/06/17 0514 Objective Remarks This is as a thinly built middle-aged white male who is alert. HEENT: Head normocephalic. Pupils reactive and equal. Tongue is moist. Throat is clear. Nasal mucosae clear. NECK: Supple without venous distension. No lymphadenopathy or thyromegaly. CHEST: Equal movements with an increased AP diameter with diffuse wheezes over both lung bliss . HEART: Heart sounds are irregular S1 and S2. No murmurs. ABDOMEN: Soft and nontender. Bowel sounds are active, no organomegaly. EXTREMITIES: Muscle wasting, but no edema. Peripheral pulses are diminished. Reflexes are 1+ with no gross motor deficits. NEUROLOGIC: Cranial nerves grossly intact. SKIN: Dry and scaly. Assessment and Plan Assessment and Plan IMPRESSION 1. COPD with acute exacerbation 2. Respiratory failure 3. Atrial fibrillation and rapid ventricular response 4. Hyponatremia 5. CHF 6. Nicotine dependency Plan : 1. Continue antibiotics. and switch to PO 2. Taper solumedrol to 40 mg q8h 3. Nebs qid , duoneb. 4. BMP in am. 5. Continue anticoagulants. 6. PFT when stable. 7. Transfer to tele 8. Continue Bumex 1 mg daily. Jacqui Frank MD Mar 06, 2017 12:37
[2017-03-06] MEDS: PANTOPRAZOLE SODIUM 40 MG VIAL IV PUSH SCH (13:44)
--- NOTE | 2017-03-06 14:03 | PD.CONS ---
HPI History of Present Illness This is a 61 year old male with hx COPD, ETOH abuse, who presented for worsening shortness of breath. GI has been consulted for dysphagia. he admits trouble swallowing "always." He feels like food won't go down and gets stuck in the "middle." When asked if it hurts when he swallows he says "I don't know b /c I can't swallow." Denies n/v, but says he can't vomit. Admits constipation unless given a suppository. Pt is poor historian and is difficult to illicit a history. never had EGD or colonoscopy. PFSH Past Medical History pt non contributory Past Surgical History none Coded Allergies: No Known Allergies (Verified , 10/05/14) Family History unk Social History drinks beer, cannot say how much smokes cigars but he doesnt inhale; 20 cigarillos daily no illicit drug use Review of Systems Constitutional: DENIES: Fever Eyes: DENIES: Blurred vision Ears, nose, mouth, throat: DENIES: Hearing loss Respiratory: DENIES: Hemoptysis Cardiovascular: DENIES: Chest pain Gastrointestinal: COMPLAINS OF: Constipation, DENIES: Abdominal pain, Black stools, Bloody stools, Diarrhea, Nausea, Vomiting Genitourinary: DENIES: Hematuria Musculoskeletal: DENIES: Joint Swelling Integumentary: DENIES: Jaundice Neurologic: DENIES: Abnormal gait Psychiatric: DENIES: Confusion GI Exam Vitals I&O Vital Signs Date Time Temp Pulse Resp B/P Pulse Ox O2 Delivery O2 Flow Rate FiO2 03/06/17 12:00 98.1 75 22 109/62 96 03/06/17 12:00 96 Nasal Cannula 4.00 03/06/17 12:00 75 03/06/17 10:00 66 03/06/17 09:58 94 Nasal Cannula 3.00 03/06/17 08:00 97.9 81 22 159/78 94 03/06/17 08:00 94 Nasal Cannula 4.00 03/06/17 08:00 81 03/06/17 06:00 82 03/06/17 04:00 97.8 72 18 165/8 93 03/06/17 04:00 82 03/06/17 02:00 77 03/06/17 00:00 77 03/06/17 00:00 98.3 82 20 138/73 96 03/05/17 22:00 77 03/05/17 20:17 96 Nasal Cannula 3.00 03/05/17 20:00 91 Nasal Cannula 3.00 03/05/17 20:00 79 03/05/17 20:00 99.1 88 22 127/71 91 03/05/17 14:00 71 I/O 03/05/17 03/05/17 03/05/17 03/06/17 03/06/17 03/06/17 07:00 15:00 23:00 07:00 15:00 23:00 Intake Total 120 ml 805 ml 250 ml Output Total 950 ml 1150 ml 400 ml Balance -830 ml -345 ml -150 ml Intake Oral 120 ml 480 ml 100 ml IV Total 0 ml 325 ml 150 ml Output Urine Total 950 ml 1150 ml 400 ml Imaging Last Impressions Chest X-Ray 03/06/17 0600 Signed Impressions: Service Date/Time: Monday, March 06, 2017 02:36 - CONCLUSION: Small left effusion. João Saenz MD Barium Swallow X-Ray 03/05/17 0000 Signed Impressions: Service Date/Time: Sunday, March 05, 2017 17:07 - CONCLUSION: 1. Moderate esophageal motility disorder. Small amount of retained food distal esophagus without obstruction. 2. Subtle mucosal irregularity suggesting esophagitis. 3. Mild silent aspiration. Jaime Coffman MD CT Angiography 03/03/17 1235 Signed Impressions: Service Date/Time: Friday, March 03, 2017 14:38 - CONCLUSION: 1. Probable mild congestive failure with mild hyperinflation 2. Trace effusion left base without significant consolidation. 3. Negative for central pulmonary emboli. Bernard Trevino MD FACR Laboratory Test 03/05/17 03/05/17 03/06/17 15:53 20:52 05:14 Sodium Level 129 MEQ/L 129 MEQ/L Potassium Level 2.8 MEQ/L 2.9 MEQ/L 3.2 MEQ/L Chloride Level 81 MEQ/L 80 MEQ/L Carbon Dioxide Level 37.5 MEQ/L 40.8 MEQ/L Anion Gap 11 MEQ/L 8 MEQ/L Blood Urea Nitrogen 18 MG/DL 17 MG/DL Creatinine 0.92 MG/DL 0.67 MG/DL Estimat Glomerular Filtration 83 ML/MIN 120 ML/MIN Rate Random Glucose 153 MG/DL 109 MG/DL Calcium Level 8.5 MG/DL 8.8 MG/DL Total Bilirubin 0.8 MG/DL Aspartate Amino Transf 57 U/L (AST/SGOT) Alanine Aminotransferase 80 U/L (ALT/SGPT) Alkaline Phosphatase 54 U/L Total Protein 6.2 GM/DL Albumin 2.8 GM/DL Physical Examination HEENT: PERRL; normocephalic; atraumatic; no jaundice. CHEST: wheezes CARDIAC: RRR ABDOMEN: Soft, nondistended, nontender; no hepatosplenomegaly; bowel sounds are present in all four quadrants. EXTREMITIES: No clubbing, cyanosis, or edema. SKIN: Normal; no rash; no jaundice. ROUTE CLERK: alert Assessment and Plan Plan ASSESSMENT - dysphagia - bolus sensation. Denies n/v, says he is unable to vomit. had Barium swallow --> 1. Moderate esophageal motility disorder, small amount of retained food distal esophagus without obstruction, suggestive of esophagitis, Mild silent aspiration. Pt's sats dropped during ST session , Per ST MBS recommended to r/o aspiration. - COPD exacerbation, hypokalemis, AF with RVR cardiology following - per [facility] PLAN - MBS - EGD vs EGD with PEG placement depending on results MBS - diet per ST - further recs to follow This pt seen by Dr Martinez and myself and this note is written on his behalf Emma Rosenberg Mar 06, 2017 14:03
[2017-03-06] MEDS ORDERED: methylPREDNISolone SOD SUCC 40 MG/1 ML VIAL IV PUSH SCH (20:00)
[2017-03-06 23:20] LABS: BICARBONATE 38.2 MEQ/L (21.0-32.0)
[2017-03-07] VITALS (10 sets, daily range): BP systolic 106–151; BP diastolic 59–79; PULSE 62–85; RESP 18–22; TEMP 97–98.1; O2SAT 92–98
[2017-03-07] MEDS: CHLORHEXIDINE GLUCONATE 2 % 1 PACK (2 CLOTHS) TOP SCH (04:00)
[2017-03-07] MEDS: INSULIN ASPART SUPPLEMENTAL SCALE SQ SCH ×4 (05:44→19:57)
[2017-03-07] MEDS: RESP: ALBUTEROL 2.5 MG/IPRATROPIUM 0.5 MG NEB (SCH) NEB ×4 (08:00→21:11)
[2017-03-07] MEDS: POTASSIUM CHLORIDE 20 MEQ PWD PACKET PO SCH ×2 (09:00→19:48)
[2017-03-07] MEDS: BUDESONIDE-FORMOTEROL 160/4.5 MCG INHALER INH SCH ×2 (10:28→19:49)
[2017-03-07] MEDS: DOCUSATE SODIUM 50 MG/SENNA 8.6 MG TAB PO SCH ×2 (10:29→19:47)
[2017-03-07] MEDS: LISINOPRIL 5 MG TAB PO SCH (10:29)
[2017-03-07] MEDS: DILTIAZEM HCL 30 MG TAB PO SCH ×4 (10:29→19:56)
[2017-03-07] MEDS: ASPIRIN 325 MG TAB PO SCH (10:29)
[2017-03-07] MEDS: BUMETANIDE 1 MG TAB PO SCH (10:29)
[2017-03-07] MEDS: SODIUM CHLORIDE 0.9% FLUSH 10 ML FLUSH SCH ×2 (10:30→19:49)
--- NOTE | 2017-03-07 10:35 | RADRPT ---
EXAM DATE/TIME: 03/07/2017 09:19 [place] COMPARISON: No previous studies available for comparison. INDICATIONS : Dysphagia. FLUORO TIME: 1.6 minutes IMAGE COUNT: 1 CONTRAST: Dose as prescribed by speech pathologist. MEDICAL HISTORY : Chronic obstructive pulmonary disease. SURGICAL HISTORY : None. ENCOUNTER: Initial ACUITY: 2 weeks PAIN SCORE: 0/10 LOCATION: Bilateral neck FINDINGS: A modified barium swallow was performed with speech pathology. Patient was given a variety of liquids to swallow. No evidence of penetration or aspiration was identified. For a full detailed report, see report by the speech pathologist. CONCLUSION: No penetration or aspiration was demonstrated. Paul Juarez MD on March 07, 2017 at 10:33 Board Certified Radiologist. This report was verified electronically.
[2017-03-07] MEDS: LEVOFLOXACIN 750 MG PREMIX INJ 150 ML IV SCH (11:29)
[2017-03-07] MEDS: PANTOPRAZOLE SODIUM 40 MG VIAL IV PUSH SCH (11:30)
[2017-03-07 12:02] LABS: BICARBONATE 37.8 MEQ/L (21.0-32.0); POTASSIUM 3.9 MEQ/L (3.5-5.1)
[2017-03-07] MEDS ORDERED: DILTIAZEM INJ 125 MG in SODIUM CHLORIDE 0.9% INJ 100 ML IV PRN (14:45)
--- NOTE | 2017-03-07 14:55 | HHI.PR ---
Subjective Remarks DRAFT pt not seen Objective Vitals Vital Signs Date Time Temp Pulse Resp B/P Pulse Ox O2 Delivery O2 Flow Rate FiO2 03/07/17 14:00 Room Air 03/07/17 12:44 98 Nasal Cannula 3.00 03/07/17 12:00 Nasal Cannula 3.00 03/07/17 09:00 75 03/07/17 08:00 98.1 75 22 121/79 97 03/07/17 08:00 Nasal Cannula 3.00 03/07/17 08:00 Nasal Cannula 3.00 03/07/17 05:25 97.9 76 18 150/79 95 03/07/17 00:00 98.0 68 18 109/66 95 03/06/17 20:45 Nasal Cannula 4.00 03/06/17 20:41 66 03/06/17 20:32 97.6 65 18 131/72 95 03/06/17 18:00 67 03/06/17 16:00 98.3 69 21 128/63 95 03/06/17 16:00 70 I/O 03/06/17 03/06/17 03/06/17 03/07/17 03/07/17 03/07/17 07:00 15:00 23:00 07:00 15:00 23:00 Intake Total 606 ml 480 ml 0 ml Output Total 550 ml 400 ml Balance 56 ml 480 ml -400 ml Intake Oral 480 ml 480 ml 0 ml IV Total 126 ml Output Urine Total 550 ml 400 ml # Voids 1 # Bowel Movements 0 0 Result Diagram: 03/05/17 0537 03/07/17 1045 Imaging Last Impressions Modified Barium Swallow 03/07/17 0000 Signed Impressions: Service Date/Time: Tuesday, March 07, 2017 09:19 - CONCLUSION: No penetration or aspiration was demonstrated. Paul Juarez MD Chest X-Ray 03/06/17 0600 Signed Impressions: Service Date/Time: Monday, March 06, 2017 02:36 - CONCLUSION: Small left effusion. João Saenz MD Barium Swallow X-Ray 03/05/17 0000 Signed Impressions: Service Date/Time: Sunday, March 05, 2017 17:07 - CONCLUSION: 1. Moderate esophageal motility disorder. Small amount of retained food distal esophagus without obstruction. 2. Subtle mucosal irregularity suggesting esophagitis. 3. Mild silent aspiration. Jaime Coffman MD CT Angiography 03/03/17 1235 Signed Impressions: Service Date/Time: Friday, March 03, 2017 14:38 - CONCLUSION: 1. Probable mild congestive failure with mild hyperinflation 2. Trace effusion left base without significant consolidation. 3. Negative for central pulmonary emboli. Bernard Trevino MD FACR Procedures none A/P Problem List: (1) COPD exacerbation ICD Code: J44.1 Status: Acute (2) Acute hypercapnic respiratory failure ICD Code: J96.02 Status: Acute (3) Hyponatremia ICD Code: E87.1 Status: Acute (4) Alcohol abuse ICD Code: F10.10 Status: Chronic (5) Hyperglycemia ICD Code: R73.9 Status: Resolved (6) Atrial fibrillation with RVR ICD Code: I48.91 Status: Resolved (7) Tobacco use ICD Code: Z72.0 Status: Chronic (8) Hypokalemia ICD Code: E87.6 Status: Resolved (9) Dysphagia ICD Code: R13.10 Status: Acute (10) Pulmonary hypertension ICD Code: I27.2 Status: Acute (11) Tricuspid regurgitation ICD Code: I07.1 Status: Acute Assessment and Plan Pulmonary hypertension On diuretics, oxygen. Likely Cor pulmonale from COPD and tricuspid regurgitation. Pulmonary and cardiology following continue Lisinopril Tricuspid regurgitation Continue Bumex once a day. Cardiology following. COPD exacerbation The patient presented an exacerbation of COPD for which she had to be transferred to the intensive care unit on 03/03/17 CTA obtained on 03/03 showed probable mild congestive heart failure with mild hyperinflation. Trace effusion left base without significant consolidation. Negative for PE. Continue IV Levaquin. Continue supplemental oxygen keep oxygen saturations more than 92% Continue Symbicort 1604.5 2 puffs every 12 hours. Continue DuoNeb treatments every 2 hours as needed for shortness of breath/ wheezing. Pulmonic consulted on following. Appreciate recommendations. S/p Solumedrol . Continue Bipap PRN for oxygen desaturation and at night. Will need PFT when stable. Defer to pulmonary. Acute hypercapnic respiratory failure Plan: ABG on date of transfer to intensive care unit showed a PCO2 of 48 with a PO2 of 107 and a pH of 7.43. The patient was started on BiPAP which is now off. The patient is currently on nasal cannula 4 L Continue BiPAP when necessary. 03/06 Improving slowly, now on 3 liters nasal canula. Likely worsened by severe pulmonary HTN due to Cor pulmonale due to COPD. Hyponatremia Plan: Likely due to volume overload. Improving on diuresis and fluid restriction. Continue to monitor BMP 03/06 stable at 129. Alcohol abuse Continue CIWA protocol, no evidence of withdrawal Continue to monitor on telemetry. Hyperglycemia Likely steroid induced. Hemoglobin A1c 5.5. Place on SSI with insulin Novolog and monitor accuchecks. Bs stable. Atrial fibrillation with RVR Patient had had a 03/01/2017 A. fib RVR in the setting of COPD exacerbation. 2Decho reviewed and reveals EF 50-55%- right ventricle is mildly dilated, right ventricle systolic function is mildly decreased, right atrial size is mildly dilated, mild right valve regurgitation, severe tricuspid regurgitation, estimated pulmonary arterial pressure is 72 mmHg Cardizem 60mg PO QID per cardiology CHADS2=1. Continue ASA 325mg PO daily Tobacco use advised smoking cessation. Hypokalemia Plan: 03/06 Being replaced agressively IV and orally. Improved at 3.2 today. continue schedule oral potassium - will give 40 meq IV of KCL. Continue to monitor on telemetry. Dysphagia Plan: ST eval. could possibly be secondary to severe tricuspid regurgitation causing right atrial dilatation, constant dysphagia. We'll order speech therapy eval. 03/06 Barium swallow showed moderate esophageal motility disorder, esophagitis and retained food in distal esophagus. I will start IV PPI since patient having some dysphagia issues and consult GI for further advise. Problem Qualifiers (1) Tricuspid regurgitation: Qualified Code: I07.1 - Tricuspid valve insufficiency, unspecified etiology Shabbir Pham MD Mar 07, 2017 14:55 Continue Bumex Continue aspirin. resumed lisinopril 03/05 Problem Qualifiers (1) Tricuspid regurgitation: Qualified Code: I07.1 - Tricuspid valve insufficiency, unspecified etiology Shabbir Pham MD Mar 07, 2017 14:55
[2017-03-07] MEDS ORDERED: POLYETHYLENE GLYCOL 17 GM PKG PO ONE (15:00)
[2017-03-07] MEDS ORDERED: BISACODYL 10 MG SUPP RECTAL PRN (15:00)
--- NOTE | 2017-03-07 17:25 | HHI.GIFU ---
Subjective Remarks Resting in bed. Still feels like food is getting caught in his esophagus, can't tell if this is up higher or lower. He c/o constipation, states he has not had a bowel movement in several days and is requesting an enema- as he reports that he has tried everything else. Objective Vitals I&O Vital Signs Date Time Temp Pulse Resp B/P Pulse Ox O2 Delivery O2 Flow Rate FiO2 03/07/17 14:00 Room Air 03/07/17 12:44 98 Nasal Cannula 3.00 03/07/17 12:00 Nasal Cannula 3.00 03/07/17 12:00 97.2 85 20 113/75 92 03/07/17 09:00 75 03/07/17 08:00 98.1 75 22 121/79 97 03/07/17 08:00 Nasal Cannula 3.00 03/07/17 08:00 Nasal Cannula 3.00 03/07/17 05:25 97.9 76 18 150/79 95 03/07/17 00:00 98.0 68 18 109/66 95 03/06/17 20:45 Nasal Cannula 4.00 03/06/17 20:41 66 03/06/17 20:32 97.6 65 18 131/72 95 03/06/17 18:00 67 I/O 03/06/17 03/06/17 03/06/17 03/07/17 03/07/17 03/07/17 06:59 14:59 22:59 06:59 14:59 22:59 Intake Total 606 ml 480 ml 0 ml Output Total 550 ml 400 ml Balance 56 ml 480 ml -400 ml Intake Oral 480 ml 480 ml 0 ml IV Total 126 ml Output Urine Total 550 ml 400 ml # Voids 1 # Bowel Movements 0 0 Laboratory Laboratory Tests Test 03/06/17 03/07/17 22:06 10:45 Sodium Level 128 129 Potassium Level 4.0 3.9 Chloride Level 81 83 Carbon Dioxide Level 38.2 37.8 Anion Gap 9 8 Blood Urea Nitrogen 19 20 Creatinine 0.78 0.72 Estimat Glomerular Filtration 101 111 Rate Random Glucose 137 95 Calcium Level 8.7 9.3 Imaging Last Impressions Modified Barium Swallow 03/07/17 0000 Signed Impressions: Service Date/Time: Tuesday, March 07, 2017 09:19 - CONCLUSION: No penetration or aspiration was demonstrated. Paul Juarez MD Chest X-Ray 03/06/17 0600 Signed Impressions: Service Date/Time: Monday, March 06, 2017 02:36 - CONCLUSION: Small left effusion. João Saenz MD Barium Swallow X-Ray 03/05/17 0000 Signed Impressions: Service Date/Time: Sunday, March 05, 2017 17:07 - CONCLUSION: 1. Moderate esophageal motility disorder. Small amount of retained food distal esophagus without obstruction. 2. Subtle mucosal irregularity suggesting esophagitis. 3. Mild silent aspiration. Jaime Coffman MD CT Angiography 03/03/17 1235 Signed Impressions: Service Date/Time: Friday, March 03, 2017 14:38 - CONCLUSION: 1. Probable mild congestive failure with mild hyperinflation 2. Trace effusion left base without significant consolidation. 3. Negative for central pulmonary emboli. Bernard Trevino MD FACR Physical Exam HEENT: Normocephalic; atraumatic; no jaundice. CHEST: Resp. even/unlabored. Diminished. Simple mask CARDIAC: RRR ABDOMEN: Soft, mildly distended, nontender; no hepatosplenomegaly; bowel sounds are present in all four quadrants. EXTREMITIES: No clubbing, cyanosis, or edema. SKIN: Multiple ecchymotic areas TAXI CAB DRIVER: No focal deficits; alert and oriented times three. Assessment and Plan Plan ASSESSMENT - Dysphagia, Globus sensation. Barium Swallow X-Ray (03/05/17)---> 1. Moderate esophageal motility disorder. Small amount of retained food distal esophagus without obstruction. 2. Subtle mucosal irregularity suggesting esophagitis. 3. Mild silent aspiration. Denies n/v, says he is unable to vomit. S/P MBS ()---> Oral pharyngeal phase was within functional limits. No aspiration was viewed at any time during this study even with large continuous straw sips of thin liquids and they have recommended soft diet. He is eating some, but still having issues with food "not going down" but he cannot tell if this is up higher or lower. He is okay with EGD +/- Dilatation. - Constipation. States no bm for several days despite laxatives and is requesting enemas. Miralax daily, SSE x 2 today. - COPD exacerbation. CT Angiography (8/4/17)---> 1. Probable mild congestive failure with mild hyperinflation 2. Trace effusion left base without significant consolidation. 3. Negative for central pulmonary emboli. On Simple mask, diminished breath sounds. - Atrial fibrillation with RVR. Cardizem, rate 80's. - Pulmonary htn, Tricuspid regurgitation, S/P cardiology evaluation. Bumex - Anemia. HH 12.2/35.8 PLAN - Plan for EGD +/- Dilatation in am if stable - Obtain consents - Soft diet - NPO after MN - ST - Protonix 40mg IV BID - Miralax 17gram po daily - SSE x 2 - Further recommendations to follow based on results of above - Pt seen and examined by Dr. Martinez and myself and this note is written on his behalf Teresa Perdomo Mar 07, 2017 17:25
[2017-03-07] MEDS: POLYETHYLENE GLYCOL 17 GM PKG PO SCH (18:21)
--- NOTE | 2017-03-07 18:27 | HHI.PR ---
Subjective Remarks patient c/o abdominal pain - difusely denies nausea or vomiting byut states had not had a BM records indicate last BM 02/28 on 3 liters nasal canula sob improving Objective Vitals Vital Signs Date Time Temp Pulse Resp B/P Pulse Ox O2 Delivery O2 Flow Rate FiO2 03/07/17 16:00 Simple Mask 5.00 03/07/17 14:00 Room Air 03/07/17 12:44 98 Nasal Cannula 3.00 03/07/17 12:00 Nasal Cannula 3.00 03/07/17 12:00 97.2 85 20 113/75 92 03/07/17 09:00 75 03/07/17 08:00 98.1 75 22 121/79 97 03/07/17 08:00 Nasal Cannula 3.00 03/07/17 08:00 Nasal Cannula 3.00 03/07/17 05:25 97.9 76 18 150/79 95 03/07/17 00:00 98.0 68 18 109/66 95 03/06/17 20:45 Nasal Cannula 4.00 03/06/17 20:41 66 03/06/17 20:32 97.6 65 18 131/72 95 I/O 03/06/17 03/06/17 03/06/17 03/07/17 03/07/17 03/07/17 07:00 15:00 23:00 07:00 15:00 23:00 Intake Total 606 ml 480 ml 0 ml 148 ml Output Total 550 ml 400 ml Balance 56 ml 480 ml -400 ml 148 ml Intake Oral 480 ml 480 ml 0 ml IV Total 126 ml 148 ml Output Urine Total 550 ml 400 ml # Voids 1 # Bowel Movements 0 0 Result Diagram: 03/05/17 0537 03/07/17 1045 Imaging Last 72 hours Impressions Modified Barium Swallow 03/07/17 0000 Signed Impressions: Service Date/Time: Tuesday, March 07, 2017 09:19 - CONCLUSION: No penetration or aspiration was demonstrated. Paul Juarez MD Chest X-Ray 03/06/17 0600 Signed Impressions: Service Date/Time: Monday, March 06, 2017 02:36 - CONCLUSION: Small left effusion. João Saenz MD Barium Swallow X-Ray 03/05/17 0000 Signed Impressions: Service Date/Time: Sunday, March 05, 2017 17:07 - CONCLUSION: 1. Moderate esophageal motility disorder. Small amount of retained food distal esophagus without obstruction. 2. Subtle mucosal irregularity suggesting esophagitis. 3. Mild silent aspiration. Jaime Coffman MD Objective Remarks AAOx3, NAD Decreased air entry BL, no wheezing or rhonchi auscultated. S1S2 RRR no edema in lower extremities Diffuse abdominal pain on palpation, bowel sounds present Procedures none Medications and IVs Current Medications Medications (Trade) Dose Ordered Sig/Mala Route Start Time Stop Time Status Last Admin (NS Flush) 2 ml UNSCH PRN .XX 02/26/17 05:15 03/03/17 06:09 (NS Flush) 2 ml BID .XX 02/26/17 09:00 03/07/17 10:30 (Tylenol) 650 mg Q6H PRN PO 02/26/17 05:15 (Morphine Inj) 2 mg Q2H PRN IV 02/26/17 05:15 (Ativan Inj) 1 mg Q1H PRN IV 02/26/17 05:15 02/28/17 20:03 (Zofran Inj) 4 mg Q6H PRN IV 02/26/17 05:15 03/01/17 14:15 Miscellaneous Information 1 Q361D XX 02/26/17 05:15 02/26/17 05:15 (Chlorhexidine 2% Cloth) Taper DAILY@04 TOP 02/27/17 04:00 02/23/18 03:59 03/04/17 04:00 (Chlorhexidine 2% Cloth) 3 pack UNSCH PRN TOP 02/26/17 05:15 (Anay-Colace) 1 tab BID PO 02/26/17 09:00 03/07/17 10:29 (Milk Of Magnesia Liq) 30 ml Q12H PRN PO 02/26/17 05:15 03/01/17 09:24 (Senokot) 17.2 mg Q12H PRN PO 02/26/17 05:15 (Dulcolax Supp) 10 mg DAILY PRN RECTAL 02/26/17 05:15 03/07/17 14:57 (Lactulose Liq) 30 ml DAILY PRN PO 02/26/17 05:15 03/07/17 10:29 (Romazicon Inj) 0.2 mg Q1M PRN IV PUSH 02/26/17 05:30 (Ativan) 1 mg Q4H PRN PO 02/26/17 05:30 (Ativan Inj) 1 mg Q4H PRN IV PUSH 02/26/17 05:30 (Ativan) 2 mg Q2H PRN PO 02/26/17 05:30 03/02/17 21:22 (Ativan Inj) 2 mg Q2H PRN IV PUSH 02/26/17 05:30 02/26/17 13:57 (Ativan Inj) 2 mg Q1H PRN IV PUSH 02/26/17 05:30 (Ativan Inj) 2 mg Q15M PRN IV PUSH 02/26/17 05:30 (D50w (Vial) Inj) 50 ml UNSCH PRN IV 02/28/17 23:45 (Glucagon Inj) 1 mg UNSCH PRN OTHER 02/28/17 23:45 (Aspirin) 325 mg DAILY PO 03/02/17 11:30 03/07/17 10:29 (Cardizem) 60 mg QID PO 03/03/17 13:00 03/07/17 18:21 (Symbicort 160-4.5 Inh) 2 puff Q12HR INH 03/03/17 14:00 03/07/17 10:28 (Protonix Inj) 40 mg Q24H IV PUSH 03/03/17 13:00 03/07/17 11:30 (Prinivil) 2.5 mg DAILY PO 03/06/17 09:00 03/07/17 10:29 (Pill Splitter) 1 ea UNSCH PRN OTHER 03/06/17 00:15 (KCl Powder) 20 meq BID PO 03/06/17 09:00 03/07/17 09:00 Bumetanide 1 mg 1 mg DAILY PO 03/07/17 09:00 03/07/17 10:29 (Cardizem Inj/NS Inj) 125 ml @ 0 mls/hr TITRATE PRN IV 03/07/17 14:45 (Miralax) 17 gm DAILY PO 03/07/17 17:15 03/07/17 18:21 (Levaquin) 750 mg DAILY PO 03/08/17 09:00 03/10/17 08:59 UNV (Deltasone) 20 mg BID PO 03/07/17 21:00 UNV Urinary Catheter: No Vascular Central Line Catheter: No A/P Problem List: (1) COPD exacerbation ICD Code: J44.1 Status: Acute (2) Acute hypercapnic respiratory failure ICD Code: J96.02 Status: Acute (3) Hyponatremia ICD Code: E87.1 Status: Acute (4) Alcohol abuse ICD Code: F10.10 Status: Chronic (5) Hyperglycemia ICD Code: R73.9 Status: Resolved (6) Atrial fibrillation with RVR ICD Code: I48.91 Status: Resolved (7) Tobacco use ICD Code: Z72.0 Status: Chronic (8) Hypokalemia ICD Code: E87.6 Status: Resolved (9) Dysphagia ICD Code: R13.10 Status: Acute (10) Pulmonary hypertension ICD Code: I27.2 Status: Acute (11) Tricuspid regurgitation ICD Code: I07.1 Status: Acute (12) Abdominal pain ICD Code: R10.9 Status: Acute Plan: Likely due to constipation. Will check abdominal KUB and will give MiraLAX and Dulcolax suppositories as needed. Assessment and Plan (1) COPD exacerbation Plan: The patient presented an exacerbation of COPD for which she had to be transferred to the intensive care unit on 03/03/17 CTA obtained on 03/03 showed probable mild congestive heart failure with mild hyperinflation. Trace effusion left base without significant consolidation. Negative for PE. Continue IV antibiotics, the patient on Levaquin IV. Continue supplemental oxygen keep oxygen saturations more than 92% Continue Symbicort 1604.5 2 puffs every 12 hours. Continue DuoNeb treatments every 2 hours as needed for shortness of breath/ wheezing. Pulmonic consulted on following. Appreciate recommendations. 03/06 Decrease Solumedrol dose to 40 mg IV Q 8 hrs. Continue Bipap PRN for oxygen desaturation and at night. Will need PFT when stable. Defer to pulmonary. 03/07 DC solumedrol. start prednisone taper as per pulmonary. Continue supplemental oxygen menstruation to keep oxygen saturation more than 92%. Continue Levaquin. (2) Acute hypercapnic respiratory failure Plan: ABG on date of transfer to intensive care unit showed a PCO2 of 48 with a PO2 of 107 and a pH of 7.43. The patient was started on BiPAP which is now off. The patient is currently on nasal cannula 4 L Continue BiPAP when necessary. Improving slowly, now on 3 liters nasal canula. Likely worsenid by severe pulmonary HTN due to Cor pulmonale due to COPD. (3) Hyponatremia Plan: Likely due to volume overload. Improving on diuresis and fluid restriction. Continue to monitor BMP stable at 129. (4) Alcohol abuse Plan: Continue CIWA protocol, no evidence of withdrawal Continue to monitor on telemetry. (5) Hyperglycemia Plan: Likely steroid induced. Hemoglobin A1c 5.5. Place on SSI with insulin Novolog and monitor accuchecks. Bs stable. (6) Atrial fibrillation with RVR Plan: Patient had had a 03/01/2017 A. fib RVR in the setting of COPD exacerbation. Cardiology following, appreciate their input and assistance 2Decho reviewed and reveals EF 50-55%- right ventricle is mildly dilated, right ventricle systolic function is mildly decreased, right atrial size is mildly dilated, mild right valve regurgitation, severe tricuspid regurgitation, estimated pulmonary arterial pressure is 72 mmHg Cardizem 60mg PO QID per cardiology CHADS2=1. Continue ASA 325mg PO daily 03/06 appreciate cardiology recommendations. Rate is controlled. (7) Tobacco use Plan: advised smoking cessation. (8) Hypokalemia Plan: 03/06 Being replaced agressively IV and orally. Improved at 3.2 today. continue schedule oral potassium - will give 40 meq IV of KCL. Continue to monitor on telemetry. 03/07 Resolved after repletion - continue to monitor BMP (9) Dysphagia Plan: ST eval. could possibly be secondary to severe tricuspid regurgitation causing right atrial dilatation, constant dysphagia. We'll order speech therapy eval. 03/06 Barium swallow showed moderate esophageal motility disorder, esophagitis and retained food in distal esophagus. I will start IV PPI since patient having some dysphagia issues and consult GI for further advise. 03/07 appreciate GI recommendations. Plan is for EGD +/-dilatation in a.m. if stable. (10) Acute systolic heart failure Plan: Patient with mildly decreased EF of 50-55%. The cardiac and findings as detailed above. CTA reports mild congestive heart failure. Continue IV Bumex Continue aspirin. resumed lisinopril 03/05 Discharge Planning Continue to monitor in the medical floor. Patient for EGD in a.m. Problem Qualifiers (1) Tricuspid regurgitation: Qualified Code: I07.1 - Tricuspid valve insufficiency, unspecified etiology Eber Soler MD Mar 07, 2017 18:27
--- NOTE | 2017-03-07 19:38 | HHI.PR ---
Subjective Remarks Keeps O2 off No fever. On a N/C at 4 L. Able to sit up . Objective Vital Signs Date Time Temp Pulse Resp B/P Pulse Ox O2 Delivery O2 Flow Rate FiO2 03/07/17 16:00 97.0 62 22 151/78 93 03/07/17 16:00 Simple Mask 5.00 03/07/17 14:00 Room Air 03/07/17 12:44 98 Nasal Cannula 3.00 03/07/17 12:00 Nasal Cannula 3.00 03/07/17 12:00 97.2 85 20 113/75 92 03/07/17 09:00 75 03/07/17 08:00 98.1 75 22 121/79 97 03/07/17 08:00 Nasal Cannula 3.00 03/07/17 08:00 Nasal Cannula 3.00 03/07/17 05:25 97.9 76 18 150/79 95 03/07/17 00:00 98.0 68 18 109/66 95 03/06/17 20:45 Nasal Cannula 4.00 03/06/17 20:41 66 03/06/17 20:32 97.6 65 18 131/72 95 I/O 03/06/17 03/06/17 03/06/17 03/07/17 03/07/17 03/07/17 07:00 15:00 23:00 07:00 15:00 23:00 Intake Total 606 ml 480 ml 0 ml 148 ml Output Total 550 ml 400 ml Balance 56 ml 480 ml -400 ml 148 ml Intake Oral 480 ml 480 ml 0 ml IV Total 126 ml 148 ml Output Urine Total 550 ml 400 ml # Voids 1 # Bowel Movements 0 0 Result Diagram: 03/05/17 0537 03/07/17 1045 Objective Remarks This is as a thinly built middle-aged white male who is alert. HEENT: Head normocephalic. Pupils reactive and equal. Tongue is moist. Throat is clear. Nasal mucosae clear. NECK: Supple without venous distension. No lymphadenopathy or thyromegaly. CHEST: Equal movements with an increased AP diameter with diffuse wheezes over both lung bliss .Occ Basal Crackles HEART: Heart sounds are irregular S1 and S2. No murmurs. ABDOMEN: Soft and nontender. Bowel sounds are active, no organomegaly. EXTREMITIES: Muscle wasting, but no edema. Peripheral pulses are diminished. Reflexes are 1+ with no gross motor deficits. NEUROLOGIC: No deficit. SKIN: Dry and scaly. Assessment and Plan Assessment and Plan IMPRESSION 1. COPD with acute exacerbation 2. Respiratory failure 3. Atrial fibrillation and rapid ventricular response 4. Hyponatremia 5. CHF 6. Nicotine dependency Plan : 1. Continue antibiotics. and switch to PO Levaquin 2. D/C solumedrol and Add prednisone 20 mg bid 3. Nebs qid , duoneb. 4. CXR in am. 5. Continue anticoagulants. 6. EGD in am for Dysphagia 7. CBC,BMP 8. Continue Bumex 1 mg daily. Jacqui Frank MD Mar 07, 2017 19:38
--- NOTE | 2017-03-07 21:07 | RADRPT ---
EXAM DATE/TIME: 03/07/2017 20:07 [facility] COMPARISON: No previous studies available for comparison. INDICATIONS : Abdominal pain. MEDICAL HISTORY : Chronic obstructive pulmonary disease. SURGICAL HISTORY : None. ENCOUNTER: Initial ACUITY: 1 day PAIN SCORE: 10/10 LOCATION: abdomen. FINDINGS: There is residual contrast in large bowel which is mildly dilated on the right side. No free air. No evidence for bowel obstruction. Bones intact. CONCLUSION: 1. Constipation with mild dilatation of large bowel, especially on the right. No free air. Jaime Coffman MD on March 07, 2017 at 21:05 Board Certified Radiologist. This report was verified electronically.
[2017-03-07] MEDS: predniSONE 20 MG TAB PO SCH (23:58)
[2017-03-08] VITALS (8 sets, daily range): BP systolic 95–108; BP diastolic 56–96; PULSE 77–97; RESP 18–22; TEMP 97.3–98.9; O2SAT 92–98
[2017-03-08] MEDS: CHLORHEXIDINE GLUCONATE 2 % 1 PACK (2 CLOTHS) TOP SCH (03:51)
[2017-03-08] MEDS: INSULIN ASPART SUPPLEMENTAL SCALE SQ SCH ×2 (06:03→11:00)
[2017-03-08] MEDS: LISINOPRIL 5 MG TAB PO SCH (09:00)
[2017-03-08] MEDS: BUDESONIDE-FORMOTEROL 160/4.5 MCG INHALER INH SCH ×2 (09:00→19:53)
[2017-03-08] MEDS: POLYETHYLENE GLYCOL 17 GM PKG PO SCH (09:00)
[2017-03-08] MEDS ORDERED: DO NOT ADM ANY ANTICOAGULANT DRUGS PRN (09:03)
[2017-03-08] MEDS ORDERED: KETAMINE HCL 500 MG/5 ML VIAL ONE (09:07)
[2017-03-08] MEDS ORDERED: PROPOFOL 200 MG/20 ML AMP IV PUSH ONE (09:28)
--- NOTE | 2017-03-08 09:52 | HHI.GIFU ---
Subjective Remarks EGD with dilatation performed. Pt tolerated well. Proximal and distal esophageal strictures seen. Oozing blood from dilatation sites but minor. Self limited. OK for full liquid diet now and advance to regular food this evening. Objective Vitals I&O Vital Signs Date Time Temp Pulse Resp B/P Pulse Ox O2 Delivery O2 Flow Rate FiO2 03/08/17 04:00 98.9 79 20 100/96 95 03/08/17 00:00 97.3 96 22 108/65 97 03/07/17 21:14 98 Simple Mask 5.00 03/07/17 20:07 68 03/07/17 20:05 Simple Mask 3.00 03/07/17 19:56 97.9 72 20 106/59 96 03/07/17 16:00 97.0 62 22 151/78 93 03/07/17 16:00 Simple Mask 5.00 03/07/17 14:00 Room Air 03/07/17 12:44 98 Nasal Cannula 3.00 03/07/17 12:00 Nasal Cannula 3.00 03/07/17 12:00 97.2 85 20 113/75 92 I/O 03/07/17 03/07/17 03/07/17 03/08/17 03/08/17 03/08/17 06:59 14:59 22:59 06:59 14:59 22:59 Intake Total 0 ml 148 ml 240 ml 0 ml Output Total 400 ml 500 ml 600 ml Balance -400 ml 148 ml -260 ml -600 ml Intake Oral 0 ml 240 ml 0 ml IV Total 148 ml Output Urine Total 400 ml 500 ml 600 ml # Bowel Movements 0 1 4 Laboratory Laboratory Tests Test 03/07/17 10:45 Sodium Level 129 Potassium Level 3.9 Chloride Level 83 Carbon Dioxide Level 37.8 Anion Gap 8 Blood Urea Nitrogen 20 Creatinine 0.72 Estimat Glomerular Filtration 111 Rate Random Glucose 95 Calcium Level 9.3 Physical Exam HEENT: Normocephalic; atraumatic; no jaundice. CHEST: Resp. even/unlabored. Diminished. Simple mask CARDIAC: RRR ABDOMEN: Soft, mildly distended, nontender; no hepatosplenomegaly; bowel sounds are present in all four quadrants. EXTREMITIES: No clubbing, cyanosis, or edema. SKIN: Multiple ecchymotic areas FRAUD MANAGER: No focal deficits; alert and oriented times three. Assessment and Plan Plan ASSESSMENT - Dysphagia, Globus sensation. Barium Swallow X-Ray (03/05/17)---> 1. Moderate esophageal motility disorder. Small amount of retained food distal esophagus without obstruction. 2. Subtle mucosal irregularity suggesting esophagitis. 3. Mild silent aspiration. Denies n/v, says he is unable to vomit. S/P MBS ()---> Oral pharyngeal phase was within functional limits. No aspiration was viewed at any time during this study even with large continuous straw sips of thin liquids and they have recommended soft diet. He is eating some, but still having issues with food "not going down" but he cannot tell if this is up higher or lower. He is okay with EGD +/- Dilatation. - Constipation. States no bm for several days despite laxatives and is requesting enemas. Miralax daily, SSE x 2 today. - COPD exacerbation. CT Angiography (03/03/17)---> 1. Probable mild congestive failure with mild hyperinflation 2. Trace effusion left base without significant consolidation. 3. Negative for central pulmonary emboli. On Simple mask, diminished breath sounds. - Atrial fibrillation with RVR. Cardizem, rate 80's. - Pulmonary htn, Tricuspid regurgitation, S/P cardiology evaluation. Bumex - Anemia. HH 12.2/35.8 EGD with dilatation performed. Proximal and distal esophageal strictures seen. OK for full liquids now and advance to soft food at dinner. PLAN -Full liquid diet - Protonix 40mg IV BID - Miralax 17gram po daily - SSE x 2 Selvin Martinez MD Mar 08, 2017 09:52
[2017-03-08] MEDS ORDERED: SODIUM CHLOR 0.9% 250 ML INJ 250 ML IV ONE (10:00)
[2017-03-08] MEDS: RESP: ALBUTEROL 2.5 MG/IPRATROPIUM 0.5 MG NEB (SCH) NEB ×3 (11:28→19:49)
[2017-03-08] MEDS: LEVOFLOXACIN 750 MG TAB PO SCH (12:00)
[2017-03-08] MEDS: BUMETANIDE 1 MG TAB PO SCH (12:00)
[2017-03-08] MEDS: DOCUSATE SODIUM 50 MG/SENNA 8.6 MG TAB PO SCH ×2 (12:00→19:53)
[2017-03-08] MEDS: predniSONE 20 MG TAB PO SCH ×2 (12:01→19:52)
[2017-03-08] MEDS: POTASSIUM CHLORIDE 20 MEQ PWD PACKET PO SCH ×2 (12:01→19:53)
[2017-03-08] MEDS: ASPIRIN 325 MG TAB PO SCH (12:02)
[2017-03-08] MEDS: DILTIAZEM HCL 30 MG TAB PO SCH ×4 (12:03→19:52)
[2017-03-08] MEDS: PANTOPRAZOLE SODIUM 40 MG VIAL IV PUSH SCH (12:08)
[2017-03-08] MEDS: SODIUM CHLORIDE 0.9% FLUSH 10 ML FLUSH SCH ×2 (12:14→19:53)
--- NOTE | 2017-03-08 17:26 | HHI.PR ---
Subjective Remarks F/U CP. Resolved CP post EGD. On 4L dw RN Objective Vitals Vital Signs Date Time Temp Pulse Resp B/P Pulse Ox O2 Delivery O2 Flow Rate FiO2 03/08/17 12:00 97.5 88 18 104/60 95 03/08/17 11:32 95 Nasal Cannula 4.00 03/08/17 10:15 98.4 72 16 104/62 100 Nasal Cannula 2 03/08/17 10:10 72 16 104/59 100 Nasal Cannula 2 03/08/17 10:00 79 16 100/61 97 Nasal Cannula 2 03/08/17 09:57 73 16 102/61 99 Nasal Cannula 2 03/08/17 09:52 79 16 95/60 98 Nasal Cannula 2 03/08/17 09:46 79 16 80/52 98 Nasal Cannula 2 03/08/17 09:45 78 16 75/51 96 Nasal Cannula 2 03/08/17 09:37 98.2 73 16 92/54 99 Nasal Cannula 2 03/08/17 08:00 98.3 97 20 102/61 98 03/08/17 04:00 98.9 79 20 100/96 95 03/08/17 00:00 97.3 96 22 108/65 97 03/07/17 21:14 98 Simple Mask 5.00 03/07/17 20:07 68 03/07/17 20:05 Simple Mask 3.00 03/07/17 19:56 97.9 72 20 106/59 96 I/O 03/07/17 03/07/17 03/07/17 03/08/17 03/08/17 03/08/17 06:59 14:59 22:59 06:59 14:59 22:59 Intake Total 0 ml 148 ml 240 ml 0 ml 650 ml Output Total 400 ml 500 ml 600 ml Balance -400 ml 148 ml -260 ml -600 ml 650 ml Intake Oral 0 ml 240 ml 0 ml IV Total 148 ml 300 ml Other 350 ml Output Urine Total 400 ml 500 ml 600 ml # Bowel Movements 0 1 4 Result Diagram: 03/05/17 0537 03/07/17 1045 Imaging Last Impressions Modified Barium Swallow 03/07/17 0000 Signed Impressions: Service Date/Time: Tuesday, March 07, 2017 09:19 - CONCLUSION: No penetration or aspiration was demonstrated. Paul Juarez MD Abdomen X-Ray 03/07/17 0000 Signed Impressions: Service Date/Time: Tuesday, March 07, 2017 20:07 - CONCLUSION: 1. Constipation with mild dilatation of large bowel, especially on the right. No free air. Jaime Coffman MD Chest X-Ray 03/06/17 0600 Signed Impressions: Service Date/Time: Monday, March 06, 2017 02:36 - CONCLUSION: Small left effusion. João Saenz MD Barium Swallow X-Ray 03/05/17 0000 Signed Impressions: Service Date/Time: Sunday, March 05, 2017 17:07 - CONCLUSION: 1. Moderate esophageal motility disorder. Small amount of retained food distal esophagus without obstruction. 2. Subtle mucosal irregularity suggesting esophagitis. 3. Mild silent aspiration. Jaime Coffman MD CT Angiography 03/03/17 1235 Signed Impressions: Service Date/Time: Friday, March 03, 2017 14:38 - CONCLUSION: 1. Probable mild congestive failure with mild hyperinflation 2. Trace effusion left base without significant consolidation. 3. Negative for central pulmonary emboli. Bernard Trevino MD FACR Objective Remarks GENERAL: WD WN on 4L NC CARDIOVASCULAR: Regular rate and rhythm. RESPIRATORY: No accessory muscle use. Clear to auscultation. Breath sounds equal bilaterally. GASTROINTESTINAL: Abdomen soft, slightly tender epigastric, nondistended. MUSCULOSKELETAL: Extremities without clubbing, cyanosis, or edema. No obvious deformities. NEUROLOGICAL: Awake and alert. No obvious cranial nerve deficits. Motor grossly within normal limits. Five out of 5 muscle strength in the arms and legs. Normal speech. Procedures EGD with dilatation A/P Problem List: (1) COPD exacerbation ICD Code: J44.1 Status: Acute (2) Acute hypercapnic respiratory failure ICD Code: J96.02 Status: Acute (3) Hyponatremia ICD Code: E87.1 Status: Acute (4) Alcohol abuse ICD Code: F10.10 Status: Chronic (5) Hyperglycemia ICD Code: R73.9 Status: Resolved (6) Atrial fibrillation with RVR ICD Code: I48.91 Status: Resolved (7) Tobacco use ICD Code: Z72.0 Status: Chronic (8) Hypokalemia ICD Code: E87.6 Status: Resolved (9) Dysphagia ICD Code: R13.10 Status: Acute (10) Pulmonary hypertension ICD Code: I27.2 Status: Acute (11) Tricuspid regurgitation ICD Code: I07.1 Status: Acute (12) Abdominal pain ICD Code: R10.9 Status: Acute Assessment and Plan Pulmonary hypertension On diuretics, oxygen. Likely Cor pulmonale from COPD and tricuspid regurgitation. Pulmonary and cardiology following continue Lisinopril Tricuspid regurgitation Continue Bumex once a day. Cardiology following. COPD exacerbation The patient presented with exacerbation of COPD for which he had to be transferred to the intensive care unit on 03/03/17 CTA obtained on 03/03 showed probable mild congestive heart failure with mild hyperinflation. Trace effusion left base without significant consolidation. Negative for PE. Continue Levaquin til 03/10. Continue supplemental oxygen keep oxygen saturations more than 92% Continue Symbicort 1604.5 2 puffs every 12 hours. Continue DuoNeb treatments every 2 hours as needed for shortness of breath/ wheezing. Pulmonic consulted on following. Appreciate recommendations. S/p Solumedrol, taper prednisone . Continue Bipap PRN for oxygen desaturation and at night. Will need PFT when stable. Defer to pulmonary. Acute hypercapnic respiratory failure ABG on date of transfer to intensive care unit showed a PCO2 of 48 with a PO2 of 107 and a pH of 7.43. The patient was started on BiPAP which is now off. The patient is currently on nasal cannula 4 L rpt CXR Continue BiPAP when necessary. Likely worsened by severe pulmonary HTN due to Cor pulmonale due to COPD. Hyponatremia Likely due to volume overload. Improving on diuresis and fluid restriction. Continue to monitor BMP Alcohol abuse Continue CIWA protocol, no evidence of withdrawal Continue to monitor on telemetry. Hyperglycemia Likely steroid induced. Hemoglobin A1c 5.5. Dc SSI . Atrial fibrillation with RVR Patient had had a 03/01/2017 A. fib RVR in the setting of COPD exacerbation. 2Decho reviewed and reveals EF 50-55%- right ventricle is mildly dilated, right ventricle systolic function is mildly decreased, right atrial size is mildly dilated, mild right valve regurgitation, severe tricuspid regurgitation, estimated pulmonary arterial pressure is 72 mmHg Cardizem 60mg PO QID per cardiology CHADS2=1. Continue ASA 325mg PO daily Tobacco use advised smoking cessation. Hypokalemia Improved s/p replacement. Dysphagia Improved s/p dilatation. Monor bleeding from site GI wants liquid diet tonite then advance as tolerated Discharge Planning dc to snf in am if stable Problem Qualifiers (1) Tricuspid regurgitation: Qualified Code: I07.1 - Tricuspid valve insufficiency, unspecified etiology Shabbir Pham MD Mar 08, 2017 17:26 Plan: ST eval. could possibly be secondary to severe tricuspid regurgitation causing right atrial dilatation, constant dysphagia. We'll order speech therapy eval. 03/06 Barium swallow showed moderate esophageal motility disorder, esophagitis and retained food in distal esophagus. I will start IV PPI since patient having some dysphagia issues and consult GI for further advise. Problem Qualifiers (1) Tricuspid regurgitation: Qualified Code: I07.1 - Tricuspid valve insufficiency, unspecified etiology Shabbir Pham MD Mar 08, 2017 17:26
--- NOTE | 2017-03-08 17:42 | RADRPT ---
EXAM DATE/TIME: 03/08/2017 17:34 [facility] COMPARISON: CHEST SINGLE AP, March 06, 2017, 2:36. INDICATIONS : Short of breath. MEDICAL HISTORY : None. SURGICAL HISTORY : None. ENCOUNTER: Initial ACUITY: 1 week PAIN SCORE: 0/10 LOCATION: Bilateral chest FINDINGS: A single view of the chest demonstrates the lungs to be symmetrically aerated without evidence of mas s, infiltrate or effusion. The cardiomediastinal contours are unremarkable. Osseous structures are intact. CONCLUSION: No acute disease. Gordo Moreira MD on March 08, 2017 at 17:39 Board Certified Radiologist. This report was verified electronically.
[2017-03-08] MEDS ORDERED: PANT40TA3 PO (17:47)
[2017-03-08] MEDS ORDERED: BUME1TAB PO (17:47)
[2017-03-08] MEDS ORDERED: POLY17S PO (17:47)
[2017-03-08] MEDS ORDERED: POTA10PO PO (17:47)
[2017-03-08] MEDS ORDERED: LEVA750T9 PO (17:47)
[2017-03-08] MEDS ORDERED: CARD240C6 PO (17:47)
[2017-03-08] MEDS ORDERED: IPRA0.02 NEB (17:47)
[2017-03-08] MEDS ORDERED: ASPI325T PO (17:47)
[2017-03-08] MEDS ORDERED: SYMB160A INH (17:47)
[2017-03-08] MEDS ORDERED: LISI-519 PO (17:47)
[2017-03-08] MEDS ORDERED: IPRASOL NEB (17:47)
[2017-03-08] MEDS ORDERED: SENN1TAB PO (17:47)
--- NOTE | 2017-03-08 17:48 | HHI.DCPOC ---
Discharge Care Plan Diagnosis: (1) COPD exacerbation Your Health Problems Are: Difficulty with ADL Exercise Tolerance Goals to Promote Your Health * To prevent worsening of your condition and complications * To maintain your health at the optimal level Directions to Meet Your Goals Take your medications as prescribed Follow your dietary instruction Follow activity as directed Keep your appointments as scheduled Take your immunizations and boosters as scheduled If your symptoms worsen call your PCP, if no PCP go to Urgent Care Center or Emergency Room Smoking is Dangerous to Your Health. Avoid second hand smoke Call the 24-hour hour crisis hotline for domestic abuse at Shabbir Pham MD Mar 08, 2017 17:48
--- NOTE | 2017-03-08 19:05 | HHI.PR ---
Subjective Remarks Keeps O2 off No fever. On a N/C at 4 L. CXR is clear. No cough or wheezing. Objective Vital Signs Date Time Temp Pulse Resp B/P Pulse Ox O2 Delivery O2 Flow Rate FiO2 03/08/17 16:00 97.4 88 20 95/56 97 03/08/17 12:00 97.5 88 18 104/60 95 03/08/17 11:32 95 Nasal Cannula 4.00 03/08/17 10:15 98.4 72 16 104/62 100 Nasal Cannula 2 03/08/17 10:10 72 16 104/59 100 Nasal Cannula 2 03/08/17 10:00 79 16 100/61 97 Nasal Cannula 2 03/08/17 09:57 73 16 102/61 99 Nasal Cannula 2 03/08/17 09:52 79 16 95/60 98 Nasal Cannula 2 03/08/17 09:46 79 16 80/52 98 Nasal Cannula 2 03/08/17 09:45 78 16 75/51 96 Nasal Cannula 2 03/08/17 09:37 98.2 73 16 92/54 99 Nasal Cannula 2 03/08/17 08:00 98.3 97 20 102/61 98 03/08/17 08:00 77 03/08/17 04:00 98.9 79 20 100/96 95 03/08/17 00:00 97.3 96 22 108/65 97 03/07/17 21:14 98 Simple Mask 5.00 03/07/17 20:07 68 03/07/17 20:05 Simple Mask 3.00 03/07/17 19:56 97.9 72 20 106/59 96 I/O 03/07/17 03/07/17 03/07/17 03/08/17 03/08/17 03/08/17 07:00 15:00 23:00 07:00 15:00 23:00 Intake Total 0 ml 148 ml 240 ml 0 ml 1370 ml Output Total 400 ml 500 ml 600 ml 675 ml Balance -400 ml 148 ml -260 ml -600 ml 695 ml Intake Oral 0 ml 240 ml 0 ml 720 ml IV Total 148 ml 300 ml Other 350 ml Output Urine Total 400 ml 500 ml 600 ml 675 ml # Bowel Movements 0 1 4 0 Result Diagram: 03/05/17 0537 03/07/17 1045 Objective Remarks This is as a thinly built middle-aged white male who is alert. HEENT: Head normocephalic. Pupils reactive and equal. Tongue is moist. Throat is clear. NECK: Supple without venous distension. No lymphadenopathy or thyromegaly. CHEST: Equal movements with an increased AP diameter with diffuse wheezes over both lung bliss . HEART: Heart sounds are irregular S1 and S2. No murmurs. ABDOMEN: Soft and nontender. Bowel sounds are active, no organomegaly. EXTREMITIES: no edema. Peripheral pulses are diminished. Reflexes are 1+ with no gross motor deficits. NEUROLOGIC: No deficit. SKIN: Dry and scaly. Assessment and Plan Assessment and Plan IMPRESSION 1. COPD with acute exacerbation 2. Respiratory failure 3. Atrial fibrillation and rapid ventricular response 4. Hyponatremia 5. CHF 6. Nicotine dependency Plan : 1. Continue PO Levaquin for 5 days 2. prednisone 20 mg bid and taper over 3 weeks 3. Nebs qid , duoneb. 4. Symbicort 160/4.5 mcg , 2 puffs bid 5. Continue anticoagulants. 6. Home per DR Pham 7. Will F/U as OP in 3 weeks 8. Continue Bumex 1 mg daily. Jacqui Frank MD Mar 08, 2017 19:05
[2017-03-09] VITALS: BP 103/55; PULSE 77; RESP 16; TEMP 98.5; O2SAT 91
[2017-03-09 02:55] VITALS: O2SAT 95
[2017-03-09] MEDS: CHLORHEXIDINE GLUCONATE 2 % 1 PACK (2 CLOTHS) TOP SCH (03:04)
[2017-03-09 04:00] VITALS: BP 113/65; PULSE 88; RESP 18; TEMP 97.8; O2SAT 92
[2017-03-09] MEDS: RESP: ALBUTEROL 2.5 MG/IPRATROPIUM 0.5 MG NEB (SCH) NEB ×2 (07:59→10:52)
[2017-03-09 08:00] VITALS: BP 131/62; PULSE 81; RESP 20; TEMP 98.4; O2SAT 95
[2017-03-09 08:52] LABS: AUTOMATED NEUTROPHIL # 9.9 TH/MM3 (1.8-7.7); BASOPHIL % 0.1 % (0.0-2.0); EOSINOPHIL % 0.4 % (0.0-4.0); HEMATOCRIT 32.9 % (39.0-51.0); LYMPHOCYTE # 0.4 TH/MM3 (1.0-4.8); MEAN CELL VOLUME 98.4 FL (80.0-100.0); MEAN CORPUSCULAR HEMOGLOBIN 34.2 PG (27.0-34.0); MEAN CORPUSCULAR HGB CONC 34.7 % (32.0-36.0); MONO % 6.6 % (0.0-8.0); NEUT % 88.9 % (16.0-70.0); PLATELET COUNT 58 TH/MM3 (150-450); RED BLOOD COUNT 3.34 MIL/MM3 (4.50-5.90); RED CELL DISTRIBUTION WIDTH 12.7 % (11.6-17.2); WHITE BLOOD COUNT 11.1 TH/MM3 (4.0-11.0)
[2017-03-09 08:54] LABS: HEMO FLAGS AUTO DIFF
[2017-03-09] MEDS ORDERED: PANTOPRAZOLE SOD 40 MG DELAYED RELEASE TAB PO SCH (09:00)
[2017-03-09] MEDS: SODIUM CHLORIDE 0.9% FLUSH 10 ML FLUSH SCH (09:00)
[2017-03-09] MEDS: BUDESONIDE-FORMOTEROL 160/4.5 MCG INHALER INH SCH (09:00)
[2017-03-09 09:26] LABS: BICARBONATE 34.7 MEQ/L (21.0-32.0); POTASSIUM 3.9 MEQ/L (3.5-5.1)
[2017-03-09 09:38] LABS: PLATELET ESTIMATE SMEAR LOW (NORMAL); PLATELET MORPHOLOGY NORMAL (NORMAL); SCAN/DIFF AUTO DIFF CONFIRMED
[2017-03-09] MEDS ORDERED: PRED20 PO (09:44)
--- NOTE | 2017-03-09 09:47 | HHI.DS ---
Discharge Summary Admission Date Feb 26, 2017 at 04:56 Discharge Date: Mar 09, 2017 Admitting Diagnosis hyponatremia, COPD exacerbation (1) COPD exacerbation ICD Code: J44.1 Diagnosis: Principal (2) Acute hypercapnic respiratory failure ICD Code: J96.02 Diagnosis: Principal (3) Hyponatremia ICD Code: E87.1 Diagnosis: Principal (4) Alcohol abuse ICD Code: F10.10 Diagnosis: Principal (5) Hyperglycemia ICD Code: R73.9 Diagnosis: Principal (6) Atrial fibrillation with RVR ICD Code: I48.91 Diagnosis: Principal (7) Tobacco use ICD Code: Z72.0 Diagnosis: Principal (8) Hypokalemia ICD Code: E87.6 Diagnosis: Principal (9) Dysphagia ICD Code: R13.10 Diagnosis: Principal (10) Pulmonary hypertension ICD Code: I27.2 Diagnosis: Principal (11) Tricuspid regurgitation ICD Code: I07.1 Diagnosis: Principal (12) Abdominal pain ICD Code: R10.9 Diagnosis: Principal Procedures EGD with dilatation Brief History - From Admission 61-year-old man presents complaining of increased shortness of breath. He has a history of COPD. Worse for the past couple days. He reports significant functional limitations at baseline from generalized debility and shortness of breath. He has some increased cough and congestion. No chest pain. No abdominal pain. Symptoms been constant for the past 2 days. He took some treatments at home that didn't really help. CBC/BMP: 03/09/17 0723 03/09/17 0723 Significant Findings Laboratory Tests Test 03/06/17 03/07/17 03/09/17 22:06 10:45 07:23 Sodium Level 128 MEQ/L 129 MEQ/L 129 MEQ/L (136-145) (136-145) (136-145) Chloride Level 81 MEQ/L 83 MEQ/L 87 MEQ/L (98-107) (98-107) (98-107) Carbon Dioxide Level 38.2 MEQ/L 37.8 MEQ/L 34.7 MEQ/L (21.0-32.0) (21.0-32.0) (21.0-32.0) Blood Urea Nitrogen 19 MG/DL (7-18) 20 MG/DL (7-18) 30 MG/DL (7-18) Random Glucose 137 MG/DL (74-106) White Blood Count 11.1 TH/MM3 (4.0-11.0) Red Blood Count 3.34 MIL/MM3 (4.50-5.90) Hemoglobin 11.4 GM/DL (13.0-17.0) Hematocrit 32.9 % (39.0-51.0) Mean Corpuscular Hemoglobin 34.2 PG (27.0-34.0) Platelet Count 58 TH/MM3 (150-450) Neutrophils (%) (Auto) 88.9 % (16.0-70.0) Lymphocytes (%) (Auto) 4.0 % (9.0-44.0) Neutrophils # (Auto) 9.9 TH/MM3 (1.8-7.7) Lymphocytes # (Auto) 0.4 TH/MM3 (1.0-4.8) Platelet Estimate LOW (NORMAL) Calcium Level 8.4 MG/DL (8.5-10.1) Imaging Last Impressions Chest X-Ray 03/08/17 0000 Signed Impressions: Service Date/Time: Wednesday, March 08, 2017 17:34 - CONCLUSION: No acute disease. Gordo Moreira MD Modified Barium Swallow 03/07/17 0000 Signed Impressions: Service Date/Time: Tuesday, March 07, 2017 09:19 - CONCLUSION: No penetration or aspiration was demonstrated. Paul Juarez MD Abdomen X-Ray 03/07/17 0000 Signed Impressions: Service Date/Time: Tuesday, March 07, 2017 20:07 - CONCLUSION: 1. Constipation with mild dilatation of large bowel, especially on the right. No free air. Jaime Coffman MD Barium Swallow X-Ray 03/05/17 0000 Signed Impressions: Service Date/Time: Sunday, March 05, 2017 17:07 - CONCLUSION: 1. Moderate esophageal motility disorder. Small amount of retained food distal esophagus without obstruction. 2. Subtle mucosal irregularity suggesting esophagitis. 3. Mild silent aspiration. Jaime Coffman MD CT Angiography 03/03/17 1235 Signed Impressions: Service Date/Time: Friday, March 03, 2017 14:38 - CONCLUSION: 1. Probable mild congestive failure with mild hyperinflation 2. Trace effusion left base without significant consolidation. 3. Negative for central pulmonary emboli. Bernard Trevino MD FACR PE at Discharge GENERAL: WD WN on 3L NC CARDIOVASCULAR: Regular rate and rhythm. RESPIRATORY: No accessory muscle use. Clear to auscultation. Breath sounds equal bilaterally. GASTROINTESTINAL: Abdomen soft, slightly tender epigastric, nondistended. MUSCULOSKELETAL: Extremities without clubbing, cyanosis, or edema. No obvious deformities. NEUROLOGICAL: Awake and alert. No obvious cranial nerve deficits. Motor grossly within normal limits. Five out of 5 muscle strength in the arms and legs. Normal speech. Hospital Course Pulmonary hypertension On diuretics, oxygen. Likely Cor pulmonale from COPD and tricuspid regurgitation. Pulmonary and cardiology following continue Lisinopril Tricuspid regurgitation Continue Bumex once a day. Cardiology following. COPD exacerbation The patient presented with exacerbation of COPD for which he had to be transferred to the intensive care unit on 03/03/17 CTA obtained on 03/03 showed probable mild congestive heart failure with mild hyperinflation. Trace effusion left base without significant consolidation. Negative for PE. Continue Levaquin til 03/10. Continue supplemental oxygen keep oxygen saturations more than 92% Continue Symbicort 1604.5 2 puffs every 12 hours. Continue DuoNeb treatments every 2 hours as needed for shortness of breath/ wheezing. Pulmonic consulted on following. Appreciate recommendations. S/p Solumedrol, taper prednisone over 3 weeks. Continue Bipap PRN for oxygen desaturation and at night. Will need PFT when stable. Acute hypercapnic respiratory failure ABG on date of transfer to intensive care unit showed a PCO2 of 48 with a PO2 of 107 and a pH of 7.43. The patient was started on BiPAP which is now off. The patient is currently on nasal cannula 4 L rpt CXR Continue BiPAP when necessary. Likely worsened by severe pulmonary HTN due to Cor pulmonale due to COPD. Hyponatremia Likely due to volume overload. Improving on diuresis and fluid restriction. Continue to monitor BMP Alcohol abuse Continue CIWA protocol, no evidence of withdrawal Continue to monitor on telemetry. Hyperglycemia Likely steroid induced. Hemoglobin A1c 5.5. Dc SSI . Atrial fibrillation with RVR Patient had had a 03/01/2017 A. fib RVR in the setting of COPD exacerbation. 2Decho reviewed and reveals EF 50-55%- right ventricle is mildly dilated, right ventricle systolic function is mildly decreased, right atrial size is mildly dilated, mild right valve regurgitation, severe tricuspid regurgitation, estimated pulmonary arterial pressure is 72 mmHg Cardizem 60mg PO QID per cardiology CHADS2=1. Continue ASA 325mg PO daily Tobacco use advised smoking cessation. Hypokalemia Improved s/p replacement. Dysphagia Improved s/p dilatation. Ct PPI Pt Condition on Discharge: Stable Discharge Disposition: Discharge to SNF Discharge Time: > 30 minutes Discharge Instructions DIET: Follow Instructions for: Heart Healthy Diet Activities you can perform: Regular-No Restrictions Activities to Avoid: Driving Follow up Referrals: Cardiology - 1 Week Gastroenterology - 1 Week PCP Follow-up - 1 Week Pulmonology - 1 Week New Medications: Diltiazem CD 24 HR (Cardizem CD 24 HR) 240 Mg Caper 240 MG PO DAILY Regulate Heart Beat #30 Ref 0 CAP Aspirin (Aspirin) 325 Mg Tab 325 MG PO DAILY Blood Clot Prevention #31 TAB Budesonide-Formoterol Inh (Symbicort Inh) 160-4.5 Mcg/Act Aero 2 PUFF INH Q12HR Breathing Treatment #1 INHALER Bumetanide (Bumetanide) 1 Mg Tab 1 MG PO DAILY Prevent Heart Failure #30 TAB Ipratropium Neb (Ipratropium Neb) 0.5 Mg/2.5 Ml Amp 0.5 MG NEB Q2HR NEB PRN SOB/WHEEZING #120 ML Ipratropium-Albuterol Neb (Duoneb) 0.5-2.5 Mg/3 Ml Neb 1 AMPULE NEB QID NEB Breathing Treatment #120 ML Levofloxacin (Levaquin) 750 Mg Tablet 750 MG PO DAILY Infection #1 TAB Lisinopril (Lisinopril) 5 Mg Tab 2.5 MG PO DAILY Blood Pressure Management #30 TAB Pantoprazole (Pantoprazole) 40 Mg Tab 40 MG PO DAILY Manage Heartburn #30 TAB Polyethylene Glycol 3350 Powder (Polyethylene Glycol 3350 Powder) 17 Gm Pow 17 GM PO DAILY Prevent Constipation #60 GM Potassium Chloride Powder (Potassium Chloride Powder) 20 Meq Powderpack 20 MEQ PO BID Electrolyte Replacement #60 MEQ Prednisone (Prednisone) 20 Mg Tab 20 MG PO BID 20 mg BID for 1 week then 10 mg BID for 1 week the 10 mg QD for one week then dc Control Inflammation #25 TAB Sennosides-Docusate Sodium (Senna Plus 8.6-50 mg) 1 Tab Tab 1 TAB PO BID Prevent Constipation #60 TAB Discontinued Medications: Albuterol Sulfate (Ventolin Hfa) 18 Gm Aero 2 PUFF INH Q4HPRN * SHAKE WELL BEFORE USE * #1 Albuterol Sulfate (Proventil Ud 0.083% (2.5 Mg/3 Ml)) 2.5 Mg/3 Ml Inha 2.5 MG INH PRN Ipratropium-Albuterol (Combivent) 14.7 Gm Aer 2 PUFF INH Q4HPRN FOR WHEEZING #1 Levofloxacin (Levaquin 750 Mg Tab) 750 Mg Tab 750 MG PO DAILY #6 TAB Prednisone (Deltasone) Unknown Strength Tab Unknown Dose PO DAILY Prednisone (Deltasone 20 Mg Tab) 20 Mg Tab 20 MG PO DIRECTED Take 2 tabs twice daily x5 days, then take 2 tabs daily x4 days #28 TAB Shabbir Pham MD Mar 09, 2017 09:47
[2017-03-09] MEDS: DOCUSATE SODIUM 50 MG/SENNA 8.6 MG TAB PO SCH (09:48)
[2017-03-09] MEDS: ASPIRIN 325 MG TAB PO SCH (09:49)
[2017-03-09] MEDS: LISINOPRIL 5 MG TAB PO SCH (09:52)
[2017-03-09] MEDS: DILTIAZEM HCL 30 MG TAB PO SCH (09:53)
[2017-03-09] MEDS: LEVOFLOXACIN 750 MG TAB PO SCH (09:54)
[2017-03-09] MEDS: predniSONE 20 MG TAB PO SCH (09:56)
[2017-03-09] MEDS: BUMETANIDE 1 MG TAB PO SCH (09:56)
[2017-03-09] MEDS: POLYETHYLENE GLYCOL 17 GM PKG PO SCH (10:00)
[2017-03-09] MEDS: POTASSIUM CHLORIDE 20 MEQ PWD PACKET PO SCH (10:00)
[2017-03-09 10:54] VITALS: O2SAT 98
== END 2017-03-09 11:39 | DRG 190 ==
LOC: NEPC 03:13 → NEDA 04:56 → HIMN 06:01 → N06B 02-27 11:41 → HIMW 03-01 19:30 → N04A 03-06 18:53
PROVIDERS: ADMIT Internal Medicine; ATTEND Internal Medicine
PROC: 5A09357 Assistance with Respiratory Ventilation, Less than 24 Consecutive Hours, Continuous Positive Airway Pressure (ICD-10-PCS; principal; 2017-03-03)
PROC: 0DB68ZX Excision of Stomach, Via Natural or Artificial Opening Endoscopic, Diagnostic (ICD-10-PCS; 2017-03-08)
PROC: 0D758ZZ Dilation of Esophagus, Via Natural or Artificial Opening Endoscopic (ICD-10-PCS; 2017-03-08)
DX: J44.1 Chronic obstructive pulmonary disease with (acute) exacerbation (principal); J96.02 Acute respiratory failure with hypercapnia; I50.21 Acute systolic (congestive) heart failure; I27.2 Other secondary pulmonary hypertension; E87.1 Hypo-osmolality and hyponatremia; K22.2 Esophageal obstruction; I27.81 Cor pulmonale (chronic); I07.1 Rheumatic tricuspid insufficiency; I48.91 Unspecified atrial fibrillation; R13.10 Dysphagia, unspecified; F41.9 Anxiety disorder, unspecified; F17.210 Nicotine dependence, cigarettes, uncomplicated; F10.10 Alcohol abuse, uncomplicated; R73.9 Hyperglycemia, unspecified; E87.6 Hypokalemia; T38.0X5A Adverse effect of glucocorticoids and synthetic analogues, initial encounter; K59.00 Constipation, unspecified; K76.1 Chronic passive congestion of liver; E07.81 Sick-euthyroid syndrome; K22.4 Dyskinesia of esophagus; D64.9 Anemia, unspecified; K29.50 Unspecified chronic gastritis without bleeding; K21.9 Gastro-esophageal reflux disease without esophagitis; I11.0 Hypertensive heart disease with heart failure
CPT/HCPCS: 36600; 71010; 71275; 74000; 74230; 80048; 80053; 82140; 82805; 82948; 83036; 83735; 83930; 83935; 84100; 84132; 84295; 84439; 84443; 84481; 85025; 85027; 87040; 87641; 88305; 88312; 93005; 93306; 94002; 94003; 94620; 94640; 94664; 96374; 96375; C1769; C9113; J0456; J1815; J1956; J2060; J2405; J2920; J2930; J3480; J7030; J7050; J7512; J7644; Q9967

== ENCOUNTER 2017-03-13 17:34 | Emergency (ER) | payer MEDICARE, OTHER ==
[~2017-03-13] VITALS: Ht 167.6 cm; Wt 70.0 kg
[~2017-03-13 17:34] MED LIST changes: -ALBU0.086 INH; +ASPI325T PO; +BUME1TAB PO; +CARD240C6 PO; -COMBAER INH; +IPRA0.02 NEB; +IPRASOL NEB; -LEVA750T PO; +LEVA750T9 PO; +LISI-519 PO; +PANT40TA3 PO; +POLY17S PO; +POTA10PO PO; +SENN1TAB PO; +SYMB160A INH; -VENTAER INH
[2017-03-13 18:36] VITALS: RESP 20; O2SAT 90
[2017-03-13 18:41] LABS: AUTOMATED NEUTROPHIL # 15.5 TH/MM3 (1.8-7.7); BASOPHIL # 0.1 TH/MM3 (0-0.2); BASOPHIL % 0.5 % (0.0-2.0); EOSINOPHIL % 0.1 % (0.0-4.0); HEMATOCRIT 35.7 % (39.0-51.0); HEMO FLAGS DIFF FINAL; LYMPH % 2.2 % (9.0-44.0); LYMPHOCYTE # 0.4 TH/MM3 (1.0-4.8); MEAN CELL VOLUME 98.4 FL (80.0-100.0); MEAN CORPUSCULAR HEMOGLOBIN 33.2 PG (27.0-34.0); MEAN CORPUSCULAR HGB CONC 33.7 % (32.0-36.0); MONO % 5.6 % (0.0-8.0); NEUT % 91.6 % (16.0-70.0); PLATELET COUNT 137 TH/MM3 (150-450); RED BLOOD COUNT 3.63 MIL/MM3 (4.50-5.90); RED CELL DISTRIBUTION WIDTH 12.7 % (11.6-17.2); WHITE BLOOD COUNT 16.9 TH/MM3 (4.0-11.0)
[2017-03-13 18:52] LABS: ANION GAP 7 MEQ/L (5-15); AST (GOT) 28 U/L (15-37); BICARBONATE 26.7 MEQ/L (21.0-32.0); BLOOD UREA NITROGEN 33 MG/DL (7-18); CHLORIDE 93 MEQ/L (98-107); GLOMERULAR FILTRATION RATE 68 ML/MIN (>89); SODIUM (NA) 127 MEQ/L (136-145)
[2017-03-13 18:53] LABS: ALT (GPT) 42 U/L (12-78)
[2017-03-13 18:56] LABS: ALKALINE PHOSPHATASE 64 U/L (45-117); TOTAL BILIRUBIN ADULT 0.7 MG/DL (0.2-1.0)
[2017-03-13 19:04] LABS: ALCOHOL LESS THAN 3 MG/DL (0-5)
--- NOTE | 2017-03-13 19:13 | PD ---
HPI Chief Complaint: Psychiatric Symptoms Time Seen by Provider: 19:07 Travel History International Travel<30 days: No Contact w/Intl Traveler<30days: No Traveled to known affect area: No History of Present Illness HPI 61-year-old male that presents to the ED for evaluation of psychiatric illness. Patient has a history of COPD and apparently is living at an assisted living facility. Patient apparently wanted to go home and wants to take care of himself but per patient that we'll let him sober the Huntley acted him. Per Huntley act patient is felt to be unsafe to take care of himself. He was Huntley acted for his own safety. He denies any psychiatric illness. He has been here multiple times for COPD exacerbations but denies any acute disease. He denies any medical issues. No chest pain. No shortness of breath. He has no allergies to medication. He denies any history of suicidal or homicidal ideation. No allergies to medication. PFSH Past Medical History Asthma: No Atrial Fibrillation: Yes (PER PAPERWORK) Blood Disorders: No Anxiety: Yes Depression: No Cancer: No Cardiovascular Problems: No COPD: Yes Diminished Hearing: No Endocrine: No GERD: Yes (PER PAPERWORK) Genitourinary: No Hypertension: Yes (PER PAPERWORK) Immune Disorder: No Musculoskeletal: No Neurologic: No Psychiatric: No Reproductive: No Respiratory: Yes (COPD) Immunizations Current: Yes Sleep Apnea: No Past Surgical History AICD: No Arteriovenous Shunt: No Insulin Pump: No Joint Replacement: No Pacemaker: No Social History Alcohol Use: Yes Tobacco Use: Yes (3 cigars per day) Substance Use: No Allergies-Medications (Allergen,Severity, Reaction): Coded Allergies: No Known Allergies (Verified , 10/05/14) Reported Meds & Prescriptions Reported Meds & Active Scripts Active Prednisone 20 Mg Tab 20 Mg PO BID 20 mg BID for 1 week then 10 mg BID for 1 week the 10 mg QD for one week then dc Senna Plus 8.6-50 mg (Sennosides-Docusate Sodium) 1 Tab Tab 1 Tab PO BID Potassium Chloride Powder (Potassium Chloride) 20 Meq Powderpack 20 Meq PO BID Polyethylene Glycol 3350 Powder (Polyethylene Glycol) 17 Gm Pow 17 Gm PO DAILY Pantoprazole (Pantoprazole Sodium) 40 Mg Tab 40 Mg PO DAILY Lisinopril 5 Mg Tab 2.5 Mg PO DAILY Levaquin (Levofloxacin) 750 Mg Tablet 750 Mg PO DAILY Duoneb (Ipratropium-Albuterol Neb) 0.5-2.5 Mg/3 Ml Neb 1 Ampule NEB QID NEB Ipratropium Neb (Ipratropium [place]) 0.5 Mg/2.5 Ml Amp 0.5 Mg NEB Q2HR NEB PRN Cardizem CD 24 HR (Diltiazem CD 24 HR) 240 Mg Caper 240 Mg PO DAILY Bumetanide 1 Mg Tab 1 Mg PO DAILY Symbicort Inh (Budesonide/Formoterol Fumarate) 160-4.5 Mcg/Act Aero 2 Puff INH Q12HR Aspirin 325 Mg Tab 325 Mg PO DAILY Review of Systems Except as stated in HPI: all other systems reviewed are Neg Physical Exam Narrative GENERAL: SKIN: Warm and dry. HEAD: Atraumatic. Normocephalic. EYES: Pupils equal and round 4mms reactive to light and accomodation. No scleral icterus. No injection or drainage. ENT: No nasal bleeding or discharge. Mucous membranes pink and moist. Tongue is midline. No uvula deviation. NECK: Trachea midline. No JVD. CARDIOVASCULAR: Regular rate and rhythm. No murmurs, S3, S4. RESPIRATORY: No accessory muscle use. Clear to auscultation. Breath sounds equal bilaterally. GASTROINTESTINAL: Abdomen soft, non-tender, nondistended. Hepatic and splenic margins not palpable. MUSCULOSKELETAL: Extremities without clubbing, cyanosis, or edema. No obvious deformities. Full range of motion of the upper and lower extremities bilaterally. 2+ pulses bilaterally. NEUROLOGICAL: Awake and alert. No obvious cranial nerve deficits. Motor grossly within normal limits. Five out of 5 muscle strength in the arms and legs. Normal speech. PSYCHIATRIC: Appropriate mood and affect; insight and judgment normal. Data Data Last Documented VS Vital Signs Date Time Temp Pulse Resp B/P Pulse Ox O2 Delivery O2 Flow Rate FiO2 03/13/17 18:36 20 90 Nasal Cannula 2 Orders Complete Blood Count With Diff (03/13/17 17:59) Comprehensive Metabolic Panel (03/13/17 17:59) Psych Screen (03/13/17 17:59) Drug Screen, Random Urine (03/13/17 17:59) Alcohol (Ethanol) (03/13/17 17:59) Labs Laboratory Tests Test 03/13/17 18:05 White Blood Count 16.9 TH/MM3 Red Blood Count 3.63 MIL/MM3 Hemoglobin 12.0 GM/DL Hematocrit 35.7 % Mean Corpuscular Volume 98.4 FL Mean Corpuscular Hemoglobin 33.2 PG Mean Corpuscular Hemoglobin 33.7 % Concent Red Cell Distribution Width 12.7 % Platelet Count 137 TH/MM3 Mean Platelet Volume 8.2 FL Neutrophils (%) (Auto) 91.6 % Lymphocytes (%) (Auto) 2.2 % Monocytes (%) (Auto) 5.6 % Eosinophils (%) (Auto) 0.1 % Basophils (%) (Auto) 0.5 % Neutrophils # (Auto) 15.5 TH/MM3 Lymphocytes # (Auto) 0.4 TH/MM3 Monocytes # (Auto) 0.9 TH/MM3 Eosinophils # (Auto) 0.0 TH/MM3 Basophils # (Auto) 0.1 TH/MM3 CBC Comment DIFF FINAL Differential Comment Sodium Level 127 MEQ/L Potassium Level 5.0 MEQ/L Chloride Level 93 MEQ/L Carbon Dioxide Level 26.7 MEQ/L Anion Gap 7 MEQ/L Blood Urea Nitrogen 33 MG/DL Creatinine 1.10 MG/DL Estimat Glomerular Filtration 68 ML/MIN Rate Random Glucose 111 MG/DL Calcium Level 8.0 MG/DL Total Bilirubin 0.7 MG/DL Aspartate Amino Transf 28 U/L (AST/SGOT) Alanine Aminotransferase 42 U/L (ALT/SGPT) Alkaline Phosphatase 64 U/L Total Protein 6.0 GM/DL Albumin 2.8 GM/DL Ethyl Alcohol Level LESS THAN 3 MG/DL MDM Medical Decision Making Medical Screen Exam Complete: Yes Emergency Medical Condition: Yes Medical Record Reviewed: Yes Interpretation(s) CBC & BMP Diagram 03/13/17 18:05 Differential Diagnosis depression vs failure to thrive vs normal exam vs COPD vs alcohol abuse Narrative Course 61-year-old male that presents to the ED for evaluation of BA. No sign of acute medical distress. Labs were done. Patient was medically cleared. Okay to be seen by psych. Mental health screening was discussed with the patient. Diagnosis Primary Impression: Mood disorder Spencer Valentin Mar 13, 2017 19:13
[2017-03-13 20:20] VITALS: BP 92/56; PULSE 68; RESP 20; O2SAT 97
[2017-03-13 22:10] VITALS: PULSE 60; RESP 18; O2SAT 94
[2017-03-14 02:17] VITALS: BP 102/59; PULSE 62; RESP 17; O2SAT 98
[2017-03-14 06:27] VITALS: BP 131/68; PULSE 71; RESP 17; O2SAT 97
--- NOTE | 2017-03-14 08:27 | PD ---
History of Present Illness Chief Complaint: Psychiatric Symptoms Time Seen by Provider: 07:30 Travel History International Travel<30 Days: No Contact w/Intl Traveler<30days: No Known affected area: No Legal Status Legal Status: Involuntary Huntley Act Signed By: Arturo ONEILL PHD ABPD Huntley Act Comment: AGUILAR OF PROF ALVARENGA 03-13-17@4PM History of Present Illness: History of Present Illness HPI 61-year-old male with no reported history of psychiatric illness, reported hx of alcohol abuse that presents to the ED under a PC initiated by psychologist at facility where patient is residing. Patient has a history of COPD and apparently is living at an assisted living facility and has been requesting to go home Per Huntley act patient is felt to be unsafe to take care of himself. The facility is requesting " a psychological evaluation to assess appropriateness for an involuntary hospitalization for psychiatric reasons". Patient was most recently admitted to [facility] on February 16, 2017 for treatment of COPD exacerbation with functional limitations at baseline from generalized debility and shortness of breath. EMR is reviewed. No contact with [facility] psychiatry departments. MMSE completed and scored 24/30. He refused to perform the attention and calculation section giving up with little effort. Completed draw a clock without difficulty. . Patient is seen in J pod. Awake, alert and oriented x 4. Patient in hospital gown and maintaining basic hygiene. Mood is irritable. There is no evidence of any hallucinations, no delusions or paranoia. He denies feeling depressed. Denies any suicdal or homicidal ideation. No previous suicidal attempts have been reported. His main concern is being able to go home. He states that he has a basement apartment and that the landlord Paul has no problems with him returning there. [facility] Past Medical History Asthma: No Atrial Fibrillation: Yes (PER PAPERWORK) Blood Disorders: No Anxiety: Yes Depression: No Cancer: No Cardiovascular Problems: No COPD: Yes Diminished Hearing: No Endocrine: No GERD: Yes (PER PAPERWORK) Genitourinary: No Hypertension: Yes (PER PAPERWORK) Immune Disorder: No Musculoskeletal: No Neurologic: No Psychiatric: No Reproductive: No Respiratory: Yes (COPD) Immunizations Current: Yes Sleep Apnea: No Past Surgical History AICD: No Arteriovenous Shunt: No Insulin Pump: No Joint Replacement: No Pacemaker: No Psychiatric History Psychiatric History Hx Psychiatric Treatment: DENIES any previous History of Inpatient Treatment: No Guns or firearms in home: No Social History Sing[place] male. 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 Has several nieces and nephews in other states. Hx Alcohol Use: Yes Hx Tobacco Use: Yes (3 cigars per day) Hx Substance Use: Yes Substance Use Type: Alcohol, Marijuana, LSD-Mescaline Other Substances Used: HX OF POT/LSD Hx of Substance Use Treatment: Yes Family Psychiatric History Unknown Allergies-Medications (Allergen,Severity, Reaction): Coded Allergies: No Known Allergies (Verified , 10/05/14) Reported Meds & Prescriptions Reported Meds & Active Scripts Active Prednisone 20 Mg Tab 20 Mg PO BID 20 mg BID for 1 week then 10 mg BID for 1 week the 10 mg QD for one week then dc Senna Plus 8.6-50 mg (Sennosides-Docusate Sodium) 1 Tab Tab 1 Tab PO BID Potassium Chloride Powder (Potassium Chloride) 20 Meq Powderpack 20 Meq PO BID Polyethylene Glycol 3350 Powder (Polyethylene Glycol) 17 Gm Pow 17 Gm PO DAILY Pantoprazole (Pantoprazole Sodium) 40 Mg Tab 40 Mg PO DAILY Lisinopril 5 Mg Tab 2.5 Mg PO DAILY Levaquin (Levofloxacin) 750 Mg Tablet 750 Mg PO DAILY Duoneb (Ipratropium-Albuterol Neb) 0.5-2.5 Mg/3 Ml Neb 1 Ampule NEB QID NEB Ipratropium Neb (Ipratropium [place]) 0.5 Mg/2.5 Ml Amp 0.5 Mg NEB Q2HR NEB PRN Cardizem CD 24 HR (Diltiazem CD 24 HR) 240 Mg Caper 240 Mg PO DAILY Bumetanide 1 Mg Tab 1 Mg PO DAILY Symbicort Inh (Budesonide/Formoterol Fumarate) 160-4.5 Mcg/Act Aero 2 Puff INH Q12HR Aspirin 325 Mg Tab 325 Mg PO DAILY Review of Systems Except as stated in HPI: all other systems reviewed are Neg Constitutional: COMPLAINS OF: Fatigue Respiratory: COMPLAINS OF: Cough, Shortness of breath Integumentary: COMPLAINS OF: Abnormal pigmentation Neurologic: COMPLAINS OF: Poor Balance Psychiatric: DENIES: Anxiety, Confusion, Mood changes, Depression, Hallucinations, Agitation, Suicidal Ideation, Homicidal Ideation, Delusions Exam Alert: Yes [place]: Person (ox4) Mood: Angry Affect: Appropriate Speech: Clear, Logical Eye Contact: Normal Memory Intact: Comment (no gross abnormality MMSE 24) Hallucinations: Other (negative) Delusions: No Suicidal: Ideation (deneis any) Homicidal: Ideation (deneis any) Insight/Judgement poor. Poor MDM Medical Decision Making Medical Record Reviewed: Yes Assessment/Plan 61-year-old male with no reported history of psychiatric illness, reported hx of alcohol abuse that presents to the ED under a PC initiated by psychologist at facility where patient is residing. Patient has a history of COPD and apparently is living at an assisted living facility and has been requesting to go home Per Huntley act patient is felt to be unsafe to take care of himself. The facility is requesting " a psychological evaluation to assess appropriateness for an involuntary hospitalization for psychiatric reasons". Patient does not meet BA criteria. he presents no hx of psychiatric illness and presents no acute psychiatric symptoms. He is not psychotic and not suicidal or homicidal. He performed on MMSE 24/ 30. He insist that he can go home and take care of himself. This may not be appropriate due to physical limitations but not for psychiatric reasons. Case is consulted with Dr. Murphy , It is my recommendation that patient be evaluated for ability to care for self including PT evaluation. BA is lifted. Orders Complete Blood Count With Diff (03/13/17 17:59) Comprehensive Metabolic Panel (03/13/17 17:59) Psych Screen (03/13/17 17:59) Drug Screen, Random Urine (03/13/17 17:59) Alcohol (Ethanol) (03/13/17 17:59) Diet Regular Basic (03/14/17 Breakfast) Albuterol-Ipratropium Neb (Duoneb Neb) (03/14/17 12:00) Results Vital Signs Date Time Temp Pulse Resp B/P Pulse Ox O2 Delivery O2 Flow Rate FiO2 03/14/17 06:27 71 17 131/68 97 Nasal Cannula 03/14/17 04:56 Nasal Cannula 03/14/17 02:17 62 17 102/59 98 Room Air 03/13/17 22:10 60 18 94 Room Air 03/13/17 20:20 68 20 92/56 97 Nasal Cannula 2 03/13/17 18:36 20 90 Nasal Cannula 2 Laboratory Tests Test 03/13/17 03/13/17 18:05 20:19 White Blood Count 16.9 Red Blood Count 3.63 Hemoglobin 12.0 Hematocrit 35.7 Mean Corpuscular Volume 98.4 Mean Corpuscular Hemoglobin 33.2 Mean Corpuscular Hemoglobin 33.7 Concent Red Cell Distribution Width 12.7 Platelet Count 137 Mean Platelet Volume 8.2 Neutrophils (%) (Auto) 91.6 Lymphocytes (%) (Auto) 2.2 Monocytes (%) (Auto) 5.6 Eosinophils (%) (Auto) 0.1 Basophils (%) (Auto) 0.5 Neutrophils # (Auto) 15.5 Lymphocytes # (Auto) 0.4 Monocytes # (Auto) 0.9 Eosinophils # (Auto) 0.0 Basophils # (Auto) 0.1 CBC Comment DIFF FINAL Differential Comment Sodium Level 127 Potassium Level 5.0 Chloride Level 93 Carbon Dioxide Level 26.7 Anion Gap 7 Blood Urea Nitrogen 33 Creatinine 1.10 Estimat Glomerular Filtration 68 Rate Random Glucose 111 Calcium Level 8.0 Total Bilirubin 0.7 Aspartate Amino Transf 28 (AST/SGOT) Alanine Aminotransferase 42 (ALT/SGPT) Alkaline Phosphatase 64 Total Protein 6.0 Albumin 2.8 Ethyl Alcohol Level LESS THAN 3 Urine Opiates Screen NEG Urine Barbiturates Screen NEG Urine Amphetamines Screen NEG Urine Benzodiazepines Screen NEG Urine Cocaine Screen NEG Urine Cannabinoids Screen NEG Diagnosis Primary Impression: Mood disorder Additional Impression: Adjustment disorder Psychiatrically Cleared: Yes Prescriptions Prednisone 10 Mg Tab10 Mg PO DIRECTED #25 TAB Take 2 tablets daily for 1 week Didn't take 1 tablet daily for 1 week And take 1/2 tablet daily for 1 week Prov:Suhail Murphy MD 03/14/17 Potassium Chloride Powder 20 Meq [id number] Meq PO BID #60 MEQ Prov:Suhail Murphy MD 03/14/17 Lisinopril 5 Mg Tab2.5 Mg PO DAILY #30 TAB Prov:Suhail Murphy MD 03/14/17 Levofloxacin (Levaquin)750 Mg [id number] Mg PO DAILY 7 Days Prov:Suhail Murphy MD 03/14/17 Ipratropium-Albuterol Neb (Duoneb)0.5-2.5 Mg/3 Ml Neb1 Ampule NEB QID NEB #120 ML Prov:Suhail Murphy MD 03/14/17 Diltiazem CD 24 HR (Cardizem CD 24 HR)240 Mg [id number] Mg PO DAILY #30 CAP Ref 0 Prov:Suhail Murphy MD 03/14/17 Bumetanide 1 Mg Tab1 Mg PO DAILY #30 TAB Prov:Suhail Murphy MD 03/14/17 Budesonide-Formoterol Inh (Symbicort Inh)160-4.5 Mcg/Act Aero2 Puff INH Q12HR # 1 INHALER Prov:Suhail Murphy MD 03/14/17 Aspirin 325 Mg [id number] Mg PO DAILY #31 TAB Prov:Suhail Murphy MD 03/14/17 Condition: Stable Problem Qualifiers Additional Impression: Adjustment disorder Qualified Code: F43.22 - Adjustment disorder with anxious mood Amy Dixon Mar 14, 2017 08:27
[2017-03-14 08:31] VITALS: BP 127/64; PULSE 72; RESP 18; TEMP 96.7; O2SAT 99
[2017-03-14] MEDS ORDERED: BUMETANIDE 1 MG TAB PO ONE ×2 (08:45)
[2017-03-14] MEDS ORDERED: LEVOFLOXACIN 750 MG TAB PO ONE (08:45)
[2017-03-14] MEDS ORDERED: LISINOPRIL 5 MG TAB PO ONE ×2 (08:45)
[2017-03-14] MEDS ORDERED: DILTIAZEM-CD 240 MG CAP ER PO ONE ×2 (08:45)
[2017-03-14] MEDS ORDERED: BUDESONIDE-FORMOTEROL 160/4.5 MCG INHALER INH ONE (08:45)
[2017-03-14] MEDS ORDERED: predniSONE 10 MG TAB PO ONE ×2 (08:45)
[2017-03-14] MEDS ORDERED: RESP: ALBUTEROL 2.5 MG/IPRATROPIUM 0.5 MG NEB (SCH) NEB ONE (08:45)
[2017-03-14 08:47] VITALS: O2SAT 99
[2017-03-14] MEDS ORDERED: ASPI325T PO (08:51)
[2017-03-14] MEDS ORDERED: CARD240C6 PO (08:51)
[2017-03-14] MEDS ORDERED: SYMB160A INH (08:51)
[2017-03-14] MEDS ORDERED: BUME1TAB PO (08:51)
[2017-03-14] MEDS ORDERED: PRED10 PO (08:51)
[2017-03-14] MEDS ORDERED: LEVA750T9 PO (08:51)
[2017-03-14] MEDS ORDERED: IPRASOL NEB (08:51)
[2017-03-14] MEDS ORDERED: LISI-519 PO (08:51)
[2017-03-14] MEDS ORDERED: POTA10PO PO (08:51)
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
[2017-03-14] MEDS ORDERED: ASPIRIN 81 MG CHEW TAB CHEW SCH ×2 (09:00)
[2017-03-14] MEDS ORDERED: RESP: ALBUTEROL 2.5 MG/IPRATROPIUM 0.5 MG NEB (SCH) NEB (12:00)
== END 2017-03-14 13:40 | disposition home or self-care (01) ==
LOC: NEDAMB 17:34 → NEPC 03-14 13:40
DX: F43.22 Adjustment disorder with anxiety (principal); J44.9 Chronic obstructive pulmonary disease, unspecified; I48.91 Unspecified atrial fibrillation; I10 Essential (primary) hypertension; Z72.0 Tobacco use; Z79.899 Other long term (current) drug therapy; Z79.82 Long term (current) use of aspirin
CPT/HCPCS: 80053; 80307; 85025; 94640; 94664; 99284; J7512

== ENCOUNTER 2017-03-17 13:13 | Inpatient (IN) | payer MEDICARE, OTHER ==
[~2017-03-17] VITALS: Ht 172.7 cm; Wt 63.2 kg
[2017-03-17] VITALS (10 sets, daily range): BP systolic 96–122; BP diastolic 56–66; PULSE 69–99; RESP 14–18; TEMP 97.7–99; O2SAT 90–98
[~2017-03-17 13:13] MED LIST changes: +PRED10 PO
--- NOTE | 2017-03-17 13:51 | PD ---
HPI Chief Complaint: abdominal pain Time Seen by Provider: 13:48 Travel History International Travel<30 days: No Contact w/Intl Traveler<30days: No History of Present Illness HPI 61-year-old male with history of COPD presents the emergency department via EMS with urinary retention which has developed over the last 24 hours. Patient is complaining of lower abdominal pain of an 8 out of 10 and cramping. Patient is only able to pass small amounts of urine. He denies pain with urination, nausea, vomiting, or flank pain. Fever or chills. He denies previous urinary issues. Patient was recently hospitalized for COPD flare and discharged home. Patient was noted to be somewhat hypoxic with improvement with nasal cannula 2 L O2. Patient has no other complaints. He denies shortness of breath or chest pain. He has no known drug allergies. Patient was just seen on March 13, and treated for a COPD flare with prednisone , Levaquin, and various inhalers. Patient reports that he never filled the prescriptions he was given on the . [facility] Past Medical History Asthma: No Atrial Fibrillation: Yes (PER PAPERWORK) Blood Disorders: No Anxiety: Yes Depression: No Cancer: No Cardiovascular Problems: No COPD: Yes Diminished Hearing: No Endocrine: No GERD: Yes (PER PAPERWORK) Genitourinary: No Hypertension: Yes (PER PAPERWORK) Immune Disorder: No Musculoskeletal: No Neurologic: No Psychiatric: No Reproductive: No Respiratory: Yes (COPD) Immunizations Current: Yes Sleep Apnea: No Past Surgical History AICD: No Arteriovenous Shunt: No Insulin Pump: No Joint Replacement: No Pacemaker: No Social History Alcohol Use: Yes Tobacco Use: Yes (3 cigars per day) Substance Use: Yes Allergies-Medications (Allergen,Severity, Reaction): Coded Allergies: No Known Allergies (Verified , 10/05/14) Reported Meds & Prescriptions Reported Meds & Active Scripts Active Potassium Chloride Powder (Potassium Chloride) 20 Meq Powderpack 20 Meq PO BID Lisinopril 5 Mg Tab 2.5 Mg PO DAILY Duoneb (Ipratropium-Albuterol Neb) 0.5-2.5 Mg/3 Ml Neb 1 Ampule NEB QID NEB Cardizem CD 24 HR (Diltiazem CD 24 HR) 240 Mg Caper 240 Mg PO DAILY Bumetanide 1 Mg Tab 1 Mg PO DAILY Symbicort Inh (Budesonide/Formoterol Fumarate) 160-4.5 Mcg/Act Aero 2 Puff INH Q12HR Aspirin 325 Mg Tab 325 Mg PO DAILY Senna Plus 8.6-50 mg (Sennosides-Docusate Sodium) 1 Tab Tab 1 Tab PO BID Polyethylene Glycol 3350 Powder (Polyethylene Glycol) 17 Gm Pow 17 Gm PO DAILY Pantoprazole (Pantoprazole Sodium) 40 Mg Tab 40 Mg PO DAILY Ipratropium Neb (Ipratropium [place]) 0.5 Mg/2.5 Ml Amp 0.5 Mg NEB Q2HR NEB PRN Review of Systems Except as stated in HPI: all other systems reviewed are Neg General / Constitutional: No: Fever, Chills Eyes: No: Visual changes HENT: No: Headaches Cardiovascular: No: Chest Pain or Discomfort Respiratory: No: Shortness of Breath Gastrointestinal: Positive: Abdominal Pain (see history present illness), No: Nausea, Vomiting, Diarrhea Genitourinary: Positive: Decreased Urinary Output, No: Dysuria, Pelvic Pain, Flank Pain Musculoskeletal: No: Pain Skin: No Rash Neurologic: No: Weakness Psychiatric: No: Depression Endocrine: No: Polydipsia Hematologic/Lymphatic: No: Easy Bruising Physical Exam Narrative GENERAL: Patient appears alert and in no acute distress. SKIN: Warm and dry. Normal color. Normal turgor. HEAD: Atraumatic. Normocephalic. EYES: Pupils equal and round. No scleral icterus. No injection or drainage. ENT: No nasal bleeding or discharge. Mucous membranes pink and moist. Pharynx is clear. Airway is patent. NECK: Trachea midline. Supple and nontender. CARDIOVASCULAR: Regular rate and rhythm. RESPIRATORY: No accessory muscle use. Clear to auscultation. Breath sounds equal bilaterally. GASTROINTESTINAL: Abdomen soft, moderate lower abdominal tenderness, moderate distention in the lower abdomen consistent with bladder retention. Upper border of the bladder is noted to be at the umbilicus. Hepatic and splenic margins not palpable. No CVA tenderness. MUSCULOSKELETAL: Extremities without clubbing, cyanosis, or edema. No obvious deformities. NEUROLOGICAL: Awake and alert. No obvious cranial nerve deficits. Motor grossly within normal limits. Five out of 5 muscle strength in the arms and legs. Normal speech. PSYCHIATRIC: Appropriate mood and affect; insight and judgment normal. Data Data Last Documented VS Vital Signs Date Time Temp Pulse Resp B/P Pulse Ox O2 Delivery O2 Flow Rate FiO2 8/18/17 14:14 99 16 03/17/17 13:40 99.0 116/66 90 Orders Complete Blood Count With Diff (03/17/17 13:46) Comprehensive Metabolic Panel (03/17/17 13:46) Urinalysis - C+S If Indicated (03/17/17 13:46) Iv Access Insert/Monitor (03/17/17 13:46) Cath For Specimen (03/17/17 13:46) Sodium Chloride 0.9% Flush (Ns Flush) (03/17/17 14:00) Urinary Catheter Insert/Apply (03/17/17 13:46) Electrocardiogram (03/17/17 13:56) Chest, Single Ap (03/17/17 13:56) Labs Laboratory Tests Test 03/17/17 14:00 White Blood Count 19.7 TH/MM3 Red Blood Count 3.69 MIL/MM3 Hemoglobin 12.4 GM/DL Hematocrit 36.3 % Mean Corpuscular Volume 98.3 FL Mean Corpuscular Hemoglobin 33.5 PG Mean Corpuscular Hemoglobin 34.0 % Concent Red Cell Distribution Width 12.9 % Platelet Count 168 TH/MM3 Mean Platelet Volume 8.0 FL Neutrophils (%) (Auto) 89.8 % Lymphocytes (%) (Auto) 5.8 % Monocytes (%) (Auto) 3.8 % Eosinophils (%) (Auto) 0.4 % Basophils (%) (Auto) 0.2 % Neutrophils # (Auto) 17.7 TH/MM3 Lymphocytes # (Auto) 1.1 TH/MM3 Monocytes # (Auto) 0.7 TH/MM3 Eosinophils # (Auto) 0.1 TH/MM3 Basophils # (Auto) 0.0 TH/MM3 CBC Comment DIFF FINAL Differential Comment Urine Color YELLOW Urine Turbidity CLEAR Urine pH 6.0 Urine Specific [place] 1.016 Urine Protein NEG mg/dL Urine Glucose (UA) NEG mg/dL Urine Ketones NEG mg/dL Urine Occult Blood NEG Urine Nitrite NEG Urine Bilirubin NEG Urine Urobilinogen LESS THAN 2.0 MG/DL Urine Leukocyte Esterase TRACE Urine Mucus FEW /lpf Urine Yeast (Budding) Microscopic Urinalysis Comment CULT NOT INDICATED Sodium Level 123 MEQ/L Potassium Level 4.4 MEQ/L Chloride Level 89 MEQ/L Carbon Dioxide Level 25.9 MEQ/L Anion Gap 8 MEQ/L Blood Urea Nitrogen 22 MG/DL Creatinine 0.86 MG/DL Estimat Glomerular Filtration 90 ML/MIN Rate Random Glucose 99 MG/DL Calcium Level 8.2 MG/DL Total Bilirubin 1.1 MG/DL Aspartate Amino Transf 41 U/L (AST/SGOT) Alanine Aminotransferase 58 U/L (ALT/SGPT) Alkaline Phosphatase 89 U/L Total Protein 7.2 GM/DL Albumin 2.9 GM/DL [facility] Medical Decision Making Medical Screen Exam Complete: Yes Emergency Medical Condition: Yes Medical Record Reviewed: Yes Differential Diagnosis Urinary retention. BPH. Prostatitis. Prostate Cancer. Narrative Course Patient appears in discomfort but otherwise medically stable. Multani catheter is ordered as well as CBC, CMP, and urinalysis. EKG and chest x-ray is ordered considering the patient's past medical history. Multani catheter is placed by nursing staff at 1800 mL urine is expressed with improved symptomatology. EKG shows nonspecific changes compared to previous. Chest x-ray shows no acute process. CBC shows a psychosis of 19.7. CMP significant for sodium of 123, chloride of 89, BUN of 22 calcium is 8.2 and AST slightly elevated at 41, albumin is 2.9. Urinalysis is still pending however the hospitalist was called due to the patient's hyponatremia and leukocytosis. Patient was given prednisone 4 days ago but infection is still a possibility. Patient will be given Rocephin 1 g IV. Call was placed to the hospitalist at 1500 hrs. Diagnosis Primary Impression: Hyponatremia Additional Impression: Acute urinary retention Admitting Information Admitting Physician Requests: Admit Condition: Stable Fran Triana Mar 17, 2017 13:51
[2017-03-17] MEDS ORDERED: SODIUM CHLORIDE 0.9% FLUSH 10 ML FLUSH IVF PRN (14:00)
--- NOTE | 2017-03-17 14:32 | RADRPT ---
EXAM DATE/TIME: 03/17/2017 14:02 [place] COMPARISON: CHEST SINGLE AP, March 08, 2017, 17:34. INDICATIONS : Cough. MEDICAL HISTORY : None. SURGICAL HISTORY : None. ENCOUNTER: Initial ACUITY: 1 day PAIN SCORE: 0/10 LOCATION: Bilateral chest FINDINGS: A single view of the chest demonstrates the lungs to be symmetrically aerated without evidence of mas s, infiltrate or effusion. There is mild stable scarring. There is mild motion artifact. Overlying re trocardiac region present. The cardiomediastinal contours are unremarkable. Osseous structures are i ntact. CONCLUSION: No acute disease. Earl Anguiano MD on March 17, 2017 at 14:30 Board Certified Radiologist. This report was verified electronically.
[2017-03-17 14:43] LABS: AUTOMATED NEUTROPHIL # 17.7 TH/MM3 (1.8-7.7); BASOPHIL % 0.2 % (0.0-2.0); EOSINOPHIL # 0.1 TH/MM3 (0-0.4); EOSINOPHIL % 0.4 % (0.0-4.0); HEMATOCRIT 36.3 % (39.0-51.0); HEMO FLAGS DIFF FINAL; LYMPH % 5.8 % (9.0-44.0); LYMPHOCYTE # 1.1 TH/MM3 (1.0-4.8); MEAN CELL VOLUME 98.3 FL (80.0-100.0); MEAN CORPUSCULAR HEMOGLOBIN 33.5 PG (27.0-34.0); MONO % 3.8 % (0.0-8.0); NEUT % 89.8 % (16.0-70.0); PLATELET COUNT 168 TH/MM3 (150-450); RED BLOOD COUNT 3.69 MIL/MM3 (4.50-5.90); RED CELL DISTRIBUTION WIDTH 12.9 % (11.6-17.2); WHITE BLOOD COUNT 19.7 TH/MM3 (4.0-11.0)
[2017-03-17 14:56] LABS: BLOOD, URINE NEG (NEG); COMMENT (UR) CULT NOT INDICATED; CULTURE IF INDICATED CULT NOT INDICATED; GLUCOSE,URINE NEG (NEG); KETONE, URINE NEG (NEG); MUCUS URINE FEW /lpf (OCC); NITRITE,URINE NEG (NEG); URINE COLOR YELLOW (YELLW/STRAW)
[2017-03-17 14:58] LABS: ALT (GPT) 58 U/L (12-78); ANION GAP 8 MEQ/L (5-15); AST (GOT) 41 U/L (15-37); BICARBONATE 25.9 MEQ/L (21.0-32.0); BLOOD UREA NITROGEN 22 MG/DL (7-18); CHLORIDE 89 MEQ/L (98-107); GLOMERULAR FILTRATION RATE 90 ML/MIN (>89); POTASSIUM 4.4 MEQ/L (3.5-5.1)
[2017-03-17 15:01] LABS: SODIUM (NA) 123 MEQ/L (136-145)
[2017-03-17 15:03] LABS: ALKALINE PHOSPHATASE 89 U/L (45-117); TOTAL BILIRUBIN ADULT 1.1 MG/DL (0.2-1.0)
[2017-03-17] MEDS ORDERED: LACTULOSE SYRUP 20 GM/30 ML CUP PO PRN (15:45)
[2017-03-17] MEDS ORDERED: MAGNESIUM HYDROXIDE SUSP 30 ML CUP PO PRN (15:45)
[2017-03-17] MEDS ORDERED: HALOPERIDOL LACTATE 5 MG/ML AMP IM PRN (15:45)
[2017-03-17] MEDS ORDERED: IBUPROFEN 400 MG TAB PO PRN (15:45)
[2017-03-17] MEDS ORDERED: BISACODYL 10 MG SUPP RECTAL PRN (15:45)
[2017-03-17] MEDS ORDERED: SENNOSIDES 8.6 MG TAB PO PRN (15:45)
[2017-03-17] MEDS ORDERED: NALOXONE HCL 0.4 MG/ML AMP IV PRN (15:45)
[2017-03-17] MEDS ORDERED: LORazepam 1 MG TAB PO PRN (15:45)
[2017-03-17] MEDS ORDERED: ONDANSETRON HCL 4 MG/2 ML VIAL IVP PRN (15:45)
[2017-03-17] MEDS ORDERED: SODIUM CHLORIDE 0.9% FLUSH 10 ML FLUSH IV FLUSH PRN ×2 (15:45)
[2017-03-17] MEDS ORDERED: MORPHINE SULFATE 4 MG/ML INJ IV PRN ×2 (15:45)
[2017-03-17] MEDS ORDERED: PROCHLORPERAZINE 25 MG SUPP RECTAL PRN (15:45)
[2017-03-17] MEDS ORDERED: LORazepam 2 MG/ML VIAL IV PUSH PRN ×4 (15:45)
[2017-03-17] MEDS ORDERED: LORazepam 2 MG TAB PO PRN (15:45)
[2017-03-17] MEDS ORDERED: cloNIDine HCL 0.1 MG TAB PO PRN (15:45)
[2017-03-17] MEDS ORDERED: ACETAMINOPHEN 325 MG TAB PO PRN (15:45)
[2017-03-17] MEDS ORDERED: FLUMAZENIL 0.5 MG/5 ML VIAL IV PUSH PRN (15:45)
[2017-03-17] MEDS: SODIUM CHLOR 0.9% 1000 ML INJ 1,000 ML IV SCH (16:08)
[2017-03-17] MEDS: ASPIRIN 325 MG TAB PO SCH (16:32)
[2017-03-17] MEDS: THIAMINE HCL 100 MG TAB PO SCH (16:32)
[2017-03-17] MEDS: PANTOPRAZOLE SOD 40 MG DELAYED RELEASE TAB PO SCH (16:33)
[2017-03-17] MEDS: FOLIC ACID 1 MG TAB PO SCH (16:33)
[2017-03-17] MEDS: RESP: ALBUTEROL 2.5 MG/IPRATROPIUM 0.5 MG NEB (SCH) NEB ×2 (16:33→22:12)
[2017-03-17] MEDS: BUMETANIDE 1 MG TAB PO SCH (16:33)
[2017-03-17] MEDS: DILTIAZEM-CD 240 MG CAP ER PO SCH (16:33)
[2017-03-17] MEDS: ENOXAPARIN SODIUM 40 MG/0.4 ML SYRINGE SQ SCH (16:34)
--- NOTE | 2017-03-17 16:45 | HHI.HP ---
HPI Service [facility] Hospitalists Primary Care Physician Unknown Admission Diagnosis Hyponatremia/Urinary Retention Diagnoses: (1) Tobacco use (2) COPD exacerbation (3) Alcohol abuse (4) Acute systolic heart failure (5) Abdominal pain (6) Atrial fibrillation with RVR (7) Acute urinary retention (8) Hyponatremia Chief Complaint: Urinary retention Travel History International Travel<30 Days: No Contact w/Intl Traveler <30 Da: No Traveled to Known Affected Are: No History of Present Illness This is a 61 yo male with a PMHX of COPD with ongoing tobacco use and alcohol abuse who presents to [facility] ED with complaints of urinary retention. Patient states he has been unable to void in 3 days. He denies constipation and reports last BM was yesterday. Patient was recently hospitalized at the end of January for COPD exacerbation and was diagnosed with pulmonary HTN and severe tricuspid regurgitation. CTA showed mild congestive heart failure. He developed atrial fibrillation with RVR and was started on Cardizem and ASA 325mg for CHADS2 score of 1. Patient was also started on Bumex and Lisinopril. He underwent an EGD with dilatation for dysphagia. At the time of his discharge, he was to continue these medications as well as tapering dose of steroids and Symbicort. Patient failed to greens picker any of his medications following his discharge. He was seen back in the ED on Mar 13 for COPD exacerbation and treated with prednisone, Levaquin, and various inhalers. He never filled these prescriptions. Patient denies any increased shortness of breath. He denies any fever or chills. He denies any nausea, vomiting or abdominal pain. He denies any chest pain. In the ED, patient was noted to be somewhat hypoxic with improvement with nasal cannula 2 L O2. Multani catheter was placed and 1800ml of urine was expressed. CBC shows leukocytosis with white count of 19.7. Sodium level low at 123. Patient has been totally noncompliant. Patient never filled any of his medications. Had a Multani catheter placed and had almost 2 L out right away Drinks daily Smokes daily Review of Systems Constitutional: COMPLAINS OF: Diaphoretic episodes, DENIES: Fatigue, Fever, Weight gain, Weight loss, Chills, Dizziness, Change in appetite Endocrine: DENIES: Heat/cold intolerance, Polydipsia, Polyuria, Polyphagia Eyes: DENIES: Blurred vision, Diplopia, Eye inflammation, Eye pain, Vision loss , Photosensitivity Ears, nose, mouth, throat: DENIES: Tinnitus, Hearing loss, Nasal discharge Respiratory: COMPLAINS OF: Cough, Wheezing, Sputum production, Shortness of breath, DENIES: Apneas, Snoring, Hemoptysis Cardiovascular: COMPLAINS OF: Palpitations, DENIES: Chest pain, Syncope, Dyspnea on Exertion, PND, Lower Extremity Edema Gastrointestinal: DENIES: Abdominal pain, Black stools, Bloody stools, Constipation, Diarrhea, Nausea Genitourinary: COMPLAINS OF: Urinary frequency, Urgency, Dysuria, DENIES: Sexual dysfunction Musculoskeletal: DENIES: Joint pain, Muscle aches, Stiffness, Joint Swelling, Back pain Integumentary: DENIES: Abnormal pigmentation Hematologic/lymphatic: DENIES: Bruising, Lymphadenopathy Immunologic/allergic: DENIES: Eczema, Urticaria Neurologic: COMPLAINS OF: Localized weakness, Poor Balance, DENIES: Abnormal gait, Headache, Paresthesias, Seizures Psychiatric: COMPLAINS OF: Anxiety, Confusion, Depression, DENIES: Mood changes Except as stated in HPI: all other systems reviewed are Neg Past Family Social History Past Medical History COPD with recent hospitalization 02/26/17 for acute exacerbation Atrial fibrillation Pulmonary HTN Severe tricuspid regurgitation Recent EGD with dilatation for dysphagia Alcohol abuse Tobacco use Past Surgical History Patient denies any previous surgical history Reported Medications Patient denies taking any medications at home Allergies: Coded Allergies: No Known Allergies (Verified , 10/05/14) Active Ordered Medications Active Medications Acetaminophen (Tylenol) 650 mg Q4H PRN PO; Start 03/17/17 at 15:45; Status UNV Aspirin (Aspirin) 325 mg DAILY PO; Start 03/17/17 at 15:30; Status UNV Bisacodyl (Dulcolax Supp) 10 mg DAILY PRN RECTAL; Start 03/17/17 at 15:45; Status UNV Budesonide/ Formoterol Fumarate (Symbicort 160-4.5 Inh) 2 puff Q12HR INH; Start 03/17/17 at 21:00; Status UNV Bumetanide (Bumetanide) 1 mg DAILY PO; Start 03/17/17 at 15:30; Status UNV Ceftriaxone Sodium/Sodium Chloride (Rocephin Inj/NS Inj) 50 ml @ 100 mls/hr DAILY IV; Start 03/18/17 at 09:00; Status UNV Clonidine (Catapres) 0.1 mg Q6H PRN PO; Start 03/17/17 at 15:45; Status UNV Diltiazem HCl (Cardizem Cd) 240 mg DAILY PO; Start 03/17/17 at 15:30; Status UNV Enoxaparin Sodium (Lovenox Inj) 40 mg Q24H SQ; Start 03/17/17 at 15:45; Status UNV Flumazenil (Romazicon Inj) 0.2 mg Q1M PRN IV PUSH; Start 03/17/17 at 15:45; Status UNV Folic Acid (Folate) 1 mg DAILY PO; Start 03/17/17 at 15:45; Stop 03/22/17 at 15: 44; Status UNV Guaifenesin 600 mg 600 mg BID PO; Start 03/17/17 at 21:00; Status UNV Haloperidol Lactate (Haldol Inj) 2 mg Q15M PRN IM; Start 03/17/17 at 15:45; Status UNV Ibuprofen (Motrin) 400 mg Q6H PRN PO; Start 03/17/17 at 15:45; Status UNV Lactulose (Lactulose Liq) 30 ml DAILY PRN PO; Start 03/17/17 at 15:45; Status UNV Lorazepam (Ativan Inj) 1 mg Q4H PRN IV PUSH; Start 03/17/17 at 15:45; Status UNV Lorazepam (Ativan Inj) 2 mg Q15M PRN IV PUSH; Start 03/17/17 at 15:45; Status UNV Lorazepam (Ativan Inj) 2 mg Q1H PRN IV PUSH; Start 03/17/17 at 15:45; Status UNV Lorazepam (Ativan Inj) 2 mg Q2H PRN IV PUSH; Start 03/17/17 at 15:45; Status UNV Lorazepam (Ativan) 1 mg Q4H PRN PO; Start 03/17/17 at 15:45; Status UNV Lorazepam (Ativan) 2 mg Q2H PRN PO; Start 03/17/17 at 15:45; Status UNV Magnesium Hydroxide (Milk Of Magnesia Liq) 30 ml Q12H PRN PO; Start 03/17/17 at 15:45; Status UNV Miscellaneous Information 1 DAILY T-DERMAL; Start 03/18/17 at 09:00; Status UNV Morphine Sulfate (Morphine Inj) 2 mg Q3H PRN IV; Start 03/17/17 at 15:45; Status UNV Morphine Sulfate (Morphine Inj) 4 mg Q3H PRN IV; Start 03/17/17 at 15:45; Status UNV Multivitamins/ Minerals Therapeutic (Theragran M Tab) 1 tab DAILY PO; Start at 15:45; Stop 03/22/17 at 15:44; Status UNV Naloxone HCl (Narcan Inj) 0.4 mg UNSCH PRN IV; Start 03/17/17 at 15:45; Status UNV Nicotine (Habitrol 14 Mg Patch.24 Hr) 1 patch DAILY T-DERMAL; Start 03/18/17 at 09:00; Status UNV Nicotine (Habitrol 14 Mg Patch.24 Hr) 1 patch ONCE ONCE T-DERMAL; Start at 15:45; Stop 03/17/17 at 15:46; Status UNV Ondansetron HCl (Zofran Inj) 4 mg Q6H PRN IVP; Start 03/17/17 at 15:45; Status UNV Oxycodone HCl (Roxicodone) 5 mg Q4H PRN PO; Start 03/17/17 at 15:45; Status UNV Oxycodone HCl (Roxicodone) 10 mg Q4H PRN PO; Start 03/17/17 at 15:45; Status UNV Pantoprazole Sodium (Protonix) 40 mg DAILY PO; Start 03/17/17 at 15:30; Status UNV Polyethylene Glycol (Miralax) 17 gm DAILY PO; Start 03/17/17 at 15:30; Status UNV Potassium Chloride (KCl Powder) 20 meq BID PO; Start 03/17/17 at 21:00; Status UNV Prednisone (Deltasone) 20 mg BID PO; Start 03/17/17 at 21:00; Status UNV Prochlorperazine (Compazine Supp) 25 mg Q12H PRN [place]; Start 03/17/17 at 15:45; Status UNV Senna/Docusate Sodium (Anay-Colace) 1 tab BID PO; Start 03/17/17 at 21:00; Status UNV Senna/Docusate Sodium 1 tab 1 tab BID PO; Start 03/17/17 at 21:00; Status UNV Sennosides (Senokot) 17.2 mg Q12H PRN PO; Start 03/17/17 at 15:45; Status UNV Sodium Chloride (NS 1000 ml Inj) 1,000 ml @ 100 mls/hr Q10H IV; Start 03/17/17 at 15:31; Status UNV Sodium Chloride (NS Flush) 2 ml BID IV FLUSH; Start 03/17/17 at 21:00; Status UNV Sodium Chloride (NS Flush) 2 ml BID IV FLUSH; Start 03/17/17 at 21:00; Status UNV Sodium Chloride (NS Flush) 2 ml UNSCH PRN IV FLUSH; Start 03/17/17 at 15:45; Status UNV Sodium Chloride (NS Flush) 2 ml UNSCH PRN IV FLUSH; Start 03/17/17 at 15:45; Status UNV Sodium Chloride (NS Flush) 2 ml UNSCH PRN IVF; Start 03/17/17 at 14:00 Tamsulosin HCl (Flomax) 0.4 mg Q12HR PO; Start 03/17/17 at 21:00; Status UNV Thiamine HCl (Vitamin B1) 100 mg DAILY PO; Start 03/17/17 at 15:45; Status UNV Family History Mother, unknown Father, unknown 11 Siblings - 1 of cancer of unknown cause Social History Patient reports long history of tobacco use starting as a teenager but reports quitting cigarettes in 2009 and now smokes 2 - 3 cigars daily. He reports alcohol use of 4 12oz beers daily. He denies any illicit drug use. Physical Exam Vital Signs Vital Signs Date Time Temp Pulse Resp B/P Pulse Ox O2 Delivery O2 Flow Rate FiO2 03/17/17 15:00 91 14 114/63 96 Room Air 03/17/17 14:14 99 16 03/17/17 13:40 99.0 99 16 116/66 90 Physical Exam GENERAL: This is a thin, disheveled patient who appears older than his stated age, in no apparent distress. Awake and alert. Talkative and somewhat cooperative SKIN: No rashes, ecchymoses or lesions. Cool and dry. HEAD: Atraumatic. Normocephalic. No temporal or scalp tenderness. EYES: Pupils equal round and reactive. Extraocular motions intact. No scleral icterus. No injection or drainage. ENT: Nose without bleeding or purulent drainage. Throat without erythema, tonsillar hypertrophy or exudate. Uvula midline. Airway patent. NECK: Trachea midline. No lymphadenopathy. Supple, nontender, no meningeal signs. CARDIOVASCULAR: Regular rate and rhythm without murmurs, gallops, or rubs. RESPIRATORY: Clear to auscultation but significantly diminished breath sounds t/ o. No wheezes, rales, or rhonchi. GASTROINTESTINAL: Abdomen soft, non-tender, nondistended. No hepato-splenomegaly , or palpable masses. No guarding. GENITOURINARY: Multani in place with clear urine in the bag. MUSCULOSKELETAL: Extremities without clubbing or cyanosis. No joint tenderness, effusion, or edema noted. No calf tenderness. 1+ edema bilateral feet. Trace edema noted in bilateral lower legs. NEUROLOGICAL: Awake and alert. Able to move all extremities. Normal speech. Insight and judgment is poor mood and behaviors appropriate Laboratory Laboratory Tests Test 03/17/17 14:00 White Blood Count 19.7 Red Blood Count 3.69 Hemoglobin 12.4 Hematocrit 36.3 Mean Corpuscular Volume 98.3 Mean Corpuscular Hemoglobin 33.5 Mean Corpuscular Hemoglobin 34.0 Concent Red Cell Distribution Width 12.9 Platelet Count 168 Mean Platelet Volume 8.0 Neutrophils (%) (Auto) 89.8 Lymphocytes (%) (Auto) 5.8 Monocytes (%) (Auto) 3.8 Eosinophils (%) (Auto) 0.4 Basophils (%) (Auto) 0.2 Neutrophils # (Auto) 17.7 Lymphocytes # (Auto) 1.1 Monocytes # (Auto) 0.7 Eosinophils # (Auto) 0.1 Basophils # (Auto) 0.0 CBC Comment DIFF FINAL Differential Comment Urine Color YELLOW Urine Turbidity CLEAR Urine pH 6.0 Urine Specific [place] 1.016 Urine Protein NEG Urine Glucose (UA) NEG Urine Ketones NEG Urine Occult Blood NEG Urine Nitrite NEG Urine Bilirubin NEG Urine Urobilinogen LESS THAN 2.0 Urine Leukocyte Esterase TRACE Urine Mucus FEW Urine Yeast (Budding) Microscopic Urinalysis Comment CULT NOT INDICATED Sodium Level 123 Potassium Level 4.4 Chloride Level 89 Carbon Dioxide Level 25.9 Anion Gap 8 Blood Urea Nitrogen 22 Creatinine 0.86 Estimat Glomerular Filtration 90 Rate Random Glucose 99 Calcium Level 8.2 Total Bilirubin 1.1 Aspartate Amino Transf 41 (AST/SGOT) Alanine Aminotransferase 58 (ALT/SGPT) Alkaline Phosphatase 89 Total Protein 7.2 Albumin 2.9 Result Diagram: 03/17/17 1400 03/17/17 1400 Imaging Last Impressions Chest X-Ray 03/17/17 1356 Signed Impressions: Service Date/Time: Friday, March 17, 2017 14:02 - CONCLUSION: No acute disease. Earl Anguiano MD Course The services are ordered in accordance with Medicare regulations or non- Medicare payer requirements, as applicable. In the case of services not specified as inpatient-only, they are appropriately provided as inpatient services in accordance with the 2-midnight benchmark. 3 days is the estimated time the patient will need to remain in the hospital, assuming treatment plan goals are met and no additional complications.The services are ordered in accordance with Medicare regulations or non-Medicare payer requirements, as applicable. In the case of services not specified as inpatient-only, they are appropriately provided as inpatient services in accordance with the 2-midnight benchmark. Assessment and Plan Problem List: (1) Tobacco use ICD Code: Z72.0 Status: Chronic (2) Hyponatremia ICD Code: E87.1 Status: Acute (3) Acute urinary retention ICD Code: R33.8 Status: Acute (4) Adjustment disorder ICD Code: F43.20 Status: Acute (5) COPD exacerbation ICD Code: J44.1 Status: Acute (6) Debility ICD Code: R53.81 Status: Acute (7) Mood disorder ICD Code: F39 Status: Acute (8) Atrial fibrillation with RVR ICD Code: I48.91 Status: Resolved (9) Hyperglycemia ICD Code: R73.9 Status: Resolved (10) Dysphagia ICD Code: R13.10 Status: Acute (11) Alcohol abuse ICD Code: F10.10 Status: Chronic Assessment and Plan 61 yo male with a PMHX of COPD with ongoing tobacco use and alcohol abuse who presents to [facility] ED with complaints of urinary retention. Hyponatremia - Due to alcohol abuse - chronic - IV hydration was normal saline - Monitor sodium trend Urinary retention - Multani in place - Trial Flomax 0.4mg BID - UA not indicative of infection COPD Medication noncompliance - recent hospitalization for acute hypercapnic respiratory failure secondary to COPD exacerbation discharged 03/09/17 - patient did not get his medication filled at the time of his discharge on or 03/13 - Prednisone 20mg BID - Guaifenesin ER 600mg BID - Resume Symbicort 160/4.5 2 puffs every 12 hours - Duonebs prn - supplemental oxygen Leukocytosis - likely due to recent steroid use. patient does not look septic. - CXR personally reviewed shows no e/o active disease - UA unremarkable - temp 99.0 - IV Rocephin - IVF - am labs to monitor trend Atrial fibrillation, rate controlled Pulmonary HTN Tricuspid regurgitation - echocardiogram done 03/02/17 showed mild concentric left ventricular hypertrophy , low normal systolic fxn with EF 50-55%, mildly dilated right ventricle , mild mitral valve regurgitation and severe tricuspid regurgitation. Estimated pulmonary arterial pressure was 72mmhg. - CHADS2 score 2 - Resume Cardizem, Bumex and ASA 325mg - Hold Lisinopril for now due to low BP Alcohol abuse - CIWA protocol - Monitor closely for withdrawal - seizure precautions - multivitamin, folic acid and thiamine daily Tobacco use disorder - Nicotine patch when necessary DVT/GI prophylaxis - Lovenox 40mg - Early aggressive mobilization - Pantoprazole 40mg daily Discussed with patient and Dr. Pollock The exam, history, and the medical decision-making described in the above note were completed with the assistance of the mid-level provider. I reviewed and agree with the findings presented. I attest that I had a [id number] encounter with the patient on the same day, and personally performed and documented my assessment and findings in the medical record. Code Status Full code Discussed Condition With Case discussed with nurse practitioner discussed with ER discussed with RN and discussed with patient Violet Parker Mar 17, 2017 16:44 Bernard Pollock DO Mar 17, 2017 17:22
[2017-03-17] MEDS: MULTIVITAMINS/MINERALS THERAPEUTIC TAB PO SCH (16:55)
[2017-03-17] MEDS: POLYETHYLENE GLYCOL 17 GM PKG PO SCH (16:55)
[2017-03-17] MEDS ORDERED: NICOTINE 14 MG/24 HR PATCH T-DERMAL ONE (17:00)
[2017-03-17 17:49] LABS: MAGNESIUM 1.9 MG/DL (1.5-2.5)
[2017-03-17] MEDS ORDERED: DOCUSATE SODIUM 50 MG/SENNA 8.6 MG TAB PO SCH (21:00)
[2017-03-17] MEDS ORDERED: SODIUM CHLORIDE 0.9% FLUSH 10 ML FLUSH IV FLUSH SCH (21:00)
[2017-03-17] MEDS: BUDESONIDE-FORMOTEROL 160/4.5 MCG INHALER INH SCH (21:50)
[2017-03-17] MEDS: POTASSIUM CHLORIDE 20 MEQ PWD PACKET PO SCH (21:53)
[2017-03-17] MEDS: predniSONE 20 MG TAB PO SCH (21:54)
[2017-03-17] MEDS: DOCUSATE SODIUM 50 MG/SENNA 8.6 MG TAB PO SCH (21:54)
[2017-03-17] MEDS: TAMSULOSIN HCL 0.4 MG CAP PO SCH (21:54)
[2017-03-17] MEDS: guaiFENesin E.R. 600 MG TAB PO SCH (21:54)
[2017-03-17] MEDS: SODIUM CHLORIDE 0.9% FLUSH 10 ML FLUSH IV FLUSH SCH (21:54)
[2017-03-18] VITALS (9 sets, daily range): BP systolic 88–113; BP diastolic 52–69; PULSE 52–75; RESP 17–21; TEMP 96.1–98.6; O2SAT 94–98
[2017-03-18] MEDS: SODIUM CHLOR 0.9% 1000 ML INJ 1,000 ML IV SCH ×2 (03:04→20:51)
[2017-03-18] MEDS: RESP: ALBUTEROL 2.5 MG/IPRATROPIUM 0.5 MG NEB (SCH) NEB ×3 (08:00→20:05)
[2017-03-18] MEDS: NICOTINE 14 MG/24 HR PATCH T-DERMAL SCH (09:00)
[2017-03-18] MEDS: POTASSIUM CHLORIDE 20 MEQ PWD PACKET PO SCH ×2 (09:00→20:54)
[2017-03-18] MEDS: BUDESONIDE-FORMOTEROL 160/4.5 MCG INHALER INH SCH ×2 (09:00→20:47)
[2017-03-18] MEDS: REMOVE OLD PATCH T-DERMAL SCH (09:00)
--- NOTE | 2017-03-18 09:10 | HHI.PR ---
Subjective Remarks This is a 61 yo male with a PMHX of COPD with ongoing tobacco use and alcohol abuse who presents to [facility] ED with complaints of urinary retention. Patient states he has been unable to void in 3 days. He denies constipation and reports last BM was yesterday. Patient was recently hospitalized at the end of January for COPD exacerbation and was diagnosed with pulmonary HTN and severe tricuspid regurgitation. CTA showed mild congestive heart failure. He developed atrial fibrillation with RVR and was started on Cardizem and ASA 325mg for CHADS2 score of 1. Patient was also started on Bumex and Lisinopril. He underwent an EGD with dilatation for dysphagia. At the time of his discharge, he was to continue these medications as well as tapering dose of steroids and Symbicort. Patient failed to picker feeder any of his medications following his discharge. He was seen back in the ED on Mar 13 for COPD exacerbation and treated with prednisone, Levaquin, and various inhalers. He never filled these prescriptions. Patient denies any increased shortness of breath. He denies any fever or chills. He denies any nausea, vomiting or abdominal pain. He denies any chest pain. In the ED, patient was noted to be somewhat hypoxic with improvement with nasal cannula 2 L O2. Alfaro catheter was placed and 1800ml of urine was expressed. CBC shows leukocytosis with white count of 19.7. Sodium level low at 123. Patient has been totally noncompliant. Patient never filled any of his medications. Had a Alfaro catheter placed and had almost 2 L out right away Drinks daily Smokes daily 8- STATES HE IS BREATHING BETTER TODAY LABS NOT AVAILABLE YET NEEDS ALFARO TRAINING PRIO TO DC O Objective Vitals Vital Signs Date Time Temp Pulse Resp B/P Pulse Ox O2 Delivery O2 Flow Rate FiO2 03/18/17 04:05 52 03/18/17 04:00 97.0 61 18 88/53 94 03/18/17 00:03 58 03/18/17 00:00 96.2 57 17 91/52 95 03/17/17 22:17 91 Nasal Cannula 3.00 03/17/17 20:14 69 03/17/17 20:00 97.7 86 18 96/56 94 03/17/17 19:34 82 03/17/17 18:19 88 16 109/63 95 Nasal Cannula 2 03/17/17 17:28 87 16 122/57 96 Nasal Cannula 2 03/17/17 16:33 96 Nasal Cannula 2.00 03/17/17 16:30 98 14 111/62 98 Nasal Cannula 2 03/17/17 15:00 91 14 114/63 96 Nasal Cannula 2 03/17/17 14:14 99 16 03/17/17 13:40 99.0 99 16 116/66 90 I/O 03/17/17 03/17/17 03/17/17 03/18/17 03/18/17 03/18/17 07:00 15:00 23:00 07:00 15:00 23:00 Intake Total 480 ml 240 ml Output Total 1800 ml 300 ml 300 ml Balance -1800 ml 180 ml -60 ml Intake Oral 480 ml 240 ml Output Urine Total 1800 ml 300 ml 300 ml # Voids 0 Result Diagram: 03/17/17 1400 03/17/17 1400 Other Results Laboratory Tests Test 03/17/17 14:00 White Blood Count 19.7 TH/MM3 Red Blood Count 3.69 MIL/MM3 Hemoglobin 12.4 GM/DL Hematocrit 36.3 % Mean Corpuscular Volume 98.3 FL Mean Corpuscular Hemoglobin 33.5 PG Mean Corpuscular Hemoglobin 34.0 % Concent Red Cell Distribution Width 12.9 % Platelet Count 168 TH/MM3 Mean Platelet Volume 8.0 FL Neutrophils (%) (Auto) 89.8 % Lymphocytes (%) (Auto) 5.8 % Monocytes (%) (Auto) 3.8 % Eosinophils (%) (Auto) 0.4 % Basophils (%) (Auto) 0.2 % Neutrophils # (Auto) 17.7 TH/MM3 Lymphocytes # (Auto) 1.1 TH/MM3 Monocytes # (Auto) 0.7 TH/MM3 Eosinophils # (Auto) 0.1 TH/MM3 Basophils # (Auto) 0.0 TH/MM3 CBC Comment DIFF FINAL Differential Comment Urine Color YELLOW Urine Turbidity CLEAR Urine pH 6.0 Urine Specific [place] 1.016 Urine Protein NEG mg/dL Urine Glucose (UA) NEG mg/dL Urine Ketones NEG mg/dL Urine Occult Blood NEG Urine Nitrite NEG Urine Bilirubin NEG Urine Urobilinogen LESS THAN 2.0 MG/DL Urine Leukocyte Esterase TRACE Urine Mucus FEW /lpf Urine Yeast (Budding) Microscopic Urinalysis Comment CULT NOT INDICATED Sodium Level 123 MEQ/L Potassium Level 4.4 MEQ/L Chloride Level 89 MEQ/L Carbon Dioxide Level 25.9 MEQ/L Anion Gap 8 MEQ/L Blood Urea Nitrogen 22 MG/DL Creatinine 0.86 MG/DL Estimat Glomerular Filtration 90 ML/MIN Rate Random Glucose 99 MG/DL Calcium Level 8.2 MG/DL Phosphorus Level 2.7 MG/DL Magnesium Level 1.9 MG/DL Total Bilirubin 1.1 MG/DL Aspartate Amino Transf 41 U/L (AST/SGOT) Alanine Aminotransferase 58 U/L (ALT/SGPT) Alkaline Phosphatase 89 U/L Total Protein 7.2 GM/DL Albumin 2.9 GM/DL Imaging Last Impressions Chest X-Ray 03/17/17 3506 Signed Impressions: Service Date/Time: Friday, March 17, 2017 14:02 - CONCLUSION: No acute disease. Earl Anguiano MD Objective Remarks GENERAL: This is a thin, disheveled patient who appears older than his stated age, in no apparent distress. Awake and alert. Talkative and somewhat cooperative SKIN: No rashes, ecchymoses or lesions. Cool and dry. HEAD: Atraumatic. Normocephalic. No temporal or scalp tenderness. EYES: Pupils equal round and reactive. Extraocular motions intact. No scleral icterus. No injection or drainage. ENT: Nose without bleeding or purulent drainage. Throat without erythema, tonsillar hypertrophy or exudate. Uvula midline. Airway patent. NECK: Trachea midline. No lymphadenopathy. Supple, nontender, no meningeal signs. CARDIOVASCULAR: Regular rate and rhythm without murmurs, gallops, or rubs. RESPIRATORY: Clear to auscultation but significantly diminished breath sounds t/ o. No wheezes, rales, or rhonchi. GASTROINTESTINAL: Abdomen soft, non-tender, nondistended. No hepato-splenomegaly , or palpable masses. No guarding. GENITOURINARY: Alfaro in place with clear urine in the bag. MUSCULOSKELETAL: Extremities without clubbing or cyanosis. No joint tenderness, effusion, or edema noted. No calf tenderness. 1+ edema bilateral feet. Trace edema noted in bilateral lower legs. NEUROLOGICAL: Awake and alert. Able to move all extremities. Normal speech. Insight and judgment is poor mood and behaviors appropriate Medications and IVs Current Medications Sodium Chloride (NS Flush) 2 ml UNSCH PRN IVF FLUSH AFTER USING IV ACCESS; Start 03/17/17 at 14:00 Tamsulosin HCl (Flomax) 0.4 mg Q12HR PO Last administered on 03/17/17 21:54; Start 03/17/17 at 21:00 Aspirin (Aspirin) 325 mg DAILY PO Last administered on 03/17/17 16:32; Start 03/17/17 at 17:00 Budesonide/ Formoterol Fumarate (Symbicort 160-4.5 Inh) 2 puff Q12HR INH Last administered on 03/17/17 21:50; Start 03/17/17 at 21:00 Bumetanide (Bumetanide) 1 mg DAILY PO Last administered on 03/17/17 16:33; Start 03/17/17 at 17:00 Diltiazem HCl (Cardizem Cd) 240 mg DAILY PO Last administered on 03/17/17 16: 33; Start 03/17/17 at 17:00 Albuterol/ Ipratropium (Duoneb Neb) 1 ampule QID NEB NEB Last administered on 03/17/17 22:12; Start 03/17/17 at 17:00 Pantoprazole Sodium (Protonix) 40 mg DAILY PO Last administered on 03/17/17 16 :33; Start 03/17/17 at 17:00 Polyethylene Glycol (Miralax) 17 gm DAILY PO Last administered on 03/17/17 16: 55; Start 03/17/17 at 17:00 Potassium Chloride (KCl Powder) 20 meq BID PO Last administered on 03/17/17 21 :53; Start 03/17/17 at 21:00 Senna/Docusate Sodium 1 tab 1 tab BID PO Last administered on 03/17/17 21:54; Start 03/17/17 at 21:00 Sodium Chloride (NS 1000 ml Inj) 1,000 ml @ 100 mls/hr Q10H IV Last administered on 03/18/17 03:04; Start 03/17/17 at 16:00 Sodium Chloride (NS Flush) 2 ml UNSCH PRN IV FLUSH FLUSH AFTER USING IV ACCESS ; Start 03/17/17 at 15:45 Sodium Chloride (NS Flush) 2 ml BID IV FLUSH Last administered on 03/17/17 21: 54; Start 03/17/17 at 21:00 Acetaminophen (Tylenol) 650 mg Q4H PRN PO TEMP > 100.4; Start 03/17/17 at 15:45 Ondansetron HCl (Zofran Inj) 4 mg Q6H PRN IVP NAUSEA OR VOMITING; Start at 15:45 Prochlorperazine (Compazine Supp) 25 mg Q12H PRN RECTAL NAUSEA OR VOMITING; Start 03/17/17 at 15:45 Enoxaparin Sodium (Lovenox Inj) 40 mg Q24H SQ Last administered on 03/17/17t 16 :34; Start 03/17/17 at 17:00 Ibuprofen (Motrin) 400 mg Q6H PRN PO PAIN SCALE 1 TO 2; Start 03/17/17 at 15:45 Oxycodone HCl (Roxicodone) 10 mg Q4H PRN PO PAIN SCALE 6 TO 10; Start 03/17/17 at 15:45 Morphine Sulfate (Morphine Inj) 2 mg Q3H PRN IV Pain 3-5; if unable to take PO ; Start 03/17/17 at 15:45 Morphine Sulfate (Morphine Inj) 4 mg Q3H PRN IV Pain 6-10;if unable to take PO ; Start 03/17/17 at 15:45 Oxycodone HCl (Roxicodone) 5 mg Q4H PRN PO PAIN SCALE 3 TO 5; Start 03/17/17 at 15:45 Naloxone HCl (Narcan Inj) 0.4 mg UNSCH PRN IV SEE LABEL COMMENTS; Start at 15:45 Senna/Docusate Sodium (Anay-Colace) 1 tab BID PO ; Start 03/17/17 at 21:00; Status UNV Magnesium Hydroxide (Milk Of Magnesia Liq) 30 ml Q12H PRN PO MILD - MODERATE CONSTIPATION; Start 03/17/17 at 15:45 Sennosides (Senokot) 17.2 mg Q12H PRN PO MODERATE - SEVERE CONSTIPATION; Start 03/17/17 at 15:45 Bisacodyl (Dulcolax Supp) 10 mg DAILY PRN RECTAL SEVERE CONSITIPATION; Start at 15:45 Lactulose (Lactulose Liq) 30 ml DAILY PRN PO SEVERE CONSITIPATION; Start at 15:45 Sodium Chloride (NS Flush) 2 ml UNSCH PRN IV FLUSH FLUSH AFTER USING IV ACCESS ; Start 03/17/17 at 15:45; Status UNV Sodium Chloride (NS Flush) 2 ml BID IV FLUSH ; Start 03/17/17 at 21:00; Status UNV Folic Acid (Folate) 1 mg DAILY PO Last administered on 03/17/17 16:33; Start 03/17/17 at 17:00; Stop 03/22/17 at 16:59 Thiamine HCl (Vitamin B1) 100 mg DAILY PO Last administered on 03/17/17 16:32 ; Start 03/17/17 at 16:00 Multivitamins/ Minerals Therapeutic (Theragran M Tab) 1 tab DAILY PO Last administered on 03/17/17 16:55; Start 03/17/17 at 17:00; Stop 03/22/17 at 16:59 Clonidine (Catapres) 0.1 mg Q6H PRN PO SEE LABEL COMMENTS; Start 03/17/17 at 15 :45 Flumazenil (Romazicon Inj) 0.2 mg Q1M PRN IV PUSH SEE LABEL COMMENTS; Start at 15:45 Lorazepam (Ativan) 1 mg Q4H PRN PO CIWA 8 - 10; Start 03/17/17 at 15:45 Lorazepam (Ativan Inj) 1 mg Q4H PRN IV PUSH CIWA 8 - 10; Start 03/17/17 at 15: 45 Lorazepam (Ativan) 2 mg Q2H PRN PO CIWA 11-14; Start 03/17/17 at 15:45 Lorazepam (Ativan Inj) 2 mg Q2H PRN IV PUSH CIWA 11-14; Start 03/17/17 at 15:45 Lorazepam (Ativan Inj) 2 mg Q1H PRN IV PUSH CIWA 15-20; Start 03/17/17 at 15:45 Lorazepam (Ativan Inj) 2 mg Q15M PRN IV PUSH CIWA > 20; Start 03/17/17 at 15:45 Haloperidol Lactate (Haldol Inj) 2 mg Q15M PRN IM SEE LABEL COMMENTS; Start at 15:45 Guaifenesin 600 mg 600 mg BID PO Last administered on 03/17/17 21:54; Start at 21:00 Ceftriaxone Sodium/Sodium Chloride (Rocephin Inj/NS Inj) 100 ml @ 100 mls/hr DAILY IV ; Start 03/18/17 at 09:00 Prednisone (Deltasone) 20 mg BID PO Last administered on 03/17/17t 21:54; Start 03/17/17 at 21:00 Nicotine (Habitrol 14 Mg Patch.24 Hr) 1 patch DAILY T-DERMAL ; Start 03/18/17 at 09:00 Nicotine (Habitrol 14 Mg Patch.24 Hr) 1 patch ONCE ONCE T-DERMAL Last administered on 03/17/17t 16:40; Start 03/17/17 at 17:00; Stop 03/17/17 at 17:01 ; Status DC Miscellaneous Information 1 DAILY T-DERMAL ; Start 03/18/17 at 09:00 Urinary Catheter: Yes Assessment to: Continue Alfaro insert reason: Obstruction/Retention Vascular Central Line Catheter: No A/P Problem List: (1) Tobacco use ICD Code: Z72.0 Status: Chronic (2) Hyponatremia ICD Code: E87.1 Status: Acute (3) Acute urinary retention ICD Code: R33.8 Status: Acute (4) Adjustment disorder ICD Code: F43.20 Status: Acute (5) COPD exacerbation ICD Code: J44.1 Status: Acute (6) Debility ICD Code: R53.81 Status: Acute (7) Mood disorder ICD Code: F39 Status: Acute (8) Atrial fibrillation with RVR ICD Code: I48.91 Status: Resolved (9) Hyperglycemia ICD Code: R73.9 Status: Resolved (10) Dysphagia ICD Code: R13.10 Status: Acute (11) Alcohol abuse ICD Code: F10.10 Status: Chronic Assessment and Plan 61 yo male with a PMHX of COPD with ongoing tobacco use and alcohol abuse who presents to [facility] ED with complaints of urinary retention. Hyponatremia - Due to alcohol abuse - chronic - IV hydration WITH normal saline - Monitor sodium trend Urinary retention - Alfaro in place - Trial Flomax 0.4mg BID - UA not indicative of infection COPD Medication noncompliance - recent hospitalization for acute hypercapnic respiratory failure secondary to COPD exacerbation discharged 03/09/17 - patient did not get his medication filled at the time of his discharge on or 03/13 - Prednisone 20mg BID - Guaifenesin ER 600mg BID - Resume Symbicort 160/4.5 2 puffs every 12 hours - Duonebs prn - supplemental oxygen Leukocytosis - likely due to recent steroid use. patient does not look septic. - CXR personally reviewed shows no e/o active disease - UA unremarkable - temp 99.0 - IV Rocephin - IVF - am labs to monitor trend Atrial fibrillation, rate controlled Pulmonary HTN Tricuspid regurgitation - echocardiogram done 03/02/17 showed mild concentric left ventricular hypertrophy , low normal systolic fxn with EF 50-55%, mildly dilated right ventricle , mild mitral valve regurgitation and severe tricuspid regurgitation. Estimated pulmonary arterial pressure was 72mmhg. - CHADS2 score 2 - Resume Cardizem, Bumex and ASA 325mg - Hold Lisinopril for now due to low BP Alcohol abuse - CIWA protocol - Monitor closely for withdrawal - seizure precautions - multivitamin, folic acid and thiamine daily Tobacco use disorder - Nicotine patch when necessary DVT/GI prophylaxis - Lovenox 40mg - Early aggressive mobilization - Pantoprazole 40mg daily Bernard Pollock DO Mar 18, 2017 09:10
[2017-03-18] MEDS: DILTIAZEM-CD 240 MG CAP ER PO SCH (11:28)
[2017-03-18] MEDS: FOLIC ACID 1 MG TAB PO SCH (11:28)
[2017-03-18] MEDS: TAMSULOSIN HCL 0.4 MG CAP PO SCH ×2 (11:28→20:49)
[2017-03-18] MEDS: predniSONE 20 MG TAB PO SCH ×2 (11:28→20:49)
[2017-03-18] MEDS: ASPIRIN 325 MG TAB PO SCH (11:28)
[2017-03-18] MEDS: THIAMINE HCL 100 MG TAB PO SCH (11:29)
[2017-03-18] MEDS: PANTOPRAZOLE SOD 40 MG DELAYED RELEASE TAB PO SCH (11:29)
[2017-03-18] MEDS: POLYETHYLENE GLYCOL 17 GM PKG PO SCH (11:29)
[2017-03-18] MEDS: guaiFENesin E.R. 600 MG TAB PO SCH ×2 (11:29→20:49)
[2017-03-18] MEDS: DOCUSATE SODIUM 50 MG/SENNA 8.6 MG TAB PO SCH ×2 (11:29→20:49)
[2017-03-18] MEDS: BUMETANIDE 1 MG TAB PO SCH (11:29)
[2017-03-18] MEDS: cefTRIAXone INJ 1,000 MG in SODIUM CHLORIDE 0.9% INJ 100 ML IV SCH (11:30)
[2017-03-18] MEDS: SODIUM CHLORIDE 0.9% FLUSH 10 ML FLUSH IV FLUSH SCH ×2 (11:30→20:53)
[2017-03-18] MEDS: MULTIVITAMINS/MINERALS THERAPEUTIC TAB PO SCH (11:31)
[2017-03-18 13:06] LABS: AUTOMATED NEUTROPHIL # 11.4 TH/MM3 (1.8-7.7); BASOPHIL % 0.1 % (0.0-2.0); EOSINOPHIL % 0.2 % (0.0-4.0); HEMATOCRIT 31.4 % (39.0-51.0); HEMO FLAGS DIFF FINAL; LYMPH % 3.3 % (9.0-44.0); LYMPHOCYTE # 0.4 TH/MM3 (1.0-4.8); MEAN CELL VOLUME 99.1 FL (80.0-100.0); MEAN CORPUSCULAR HEMOGLOBIN 33.8 PG (27.0-34.0); MEAN CORPUSCULAR HGB CONC 34.1 % (32.0-36.0); MONO % 3.3 % (0.0-8.0); NEUT % 93.1 % (16.0-70.0); PLATELET COUNT 111 TH/MM3 (150-450); RED BLOOD COUNT 3.17 MIL/MM3 (4.50-5.90); RED CELL DISTRIBUTION WIDTH 12.6 % (11.6-17.2); WHITE BLOOD COUNT 12.2 TH/MM3 (4.0-11.0)
[2017-03-18 13:35] LABS: ALT (GPT) 40 U/L (12-78); ANION GAP 8 MEQ/L (5-15); AST (GOT) 27 U/L (15-37); BICARBONATE 24.7 MEQ/L (21.0-32.0); BLOOD UREA NITROGEN 18 MG/DL (7-18); CHLORIDE 96 MEQ/L (98-107); GLOMERULAR FILTRATION RATE 90 ML/MIN (>89); POTASSIUM 5.2 MEQ/L (3.5-5.1); SODIUM (NA) 129 MEQ/L (136-145)
[2017-03-18 13:38] LABS: ALKALINE PHOSPHATASE 75 U/L (45-117); TOTAL BILIRUBIN ADULT 0.6 MG/DL (0.2-1.0)
--- NOTE | 2017-03-18 16:10 | EKG ---
Date Performed: 03/17/2017 Time Performed: 14:22:39 PTAGE: 61 years EKG: Sinus rhythm INCOMPLETE RIGHT BUNDLE BRANCH BLOCK NONSPECIFIC ST & T-WAVE ABNORMALITY Borderline left axis deviat ion Compared to previous tracing, there's a rhythm change from atrial fibrillation to sinus rhythm JEANINE RDERLINE ECG PREVIOUS TRACING : 03/01/2017 21.20 DOCTOR: Santi Freed Interpretating Date/Time 03/18/2017 16:10:16
[2017-03-18] MEDS: ENOXAPARIN SODIUM 40 MG/0.4 ML SYRINGE SQ SCH (17:34)
[2017-03-19] VITALS (9 sets, daily range): BP systolic 91–128; BP diastolic 50–60; PULSE 60–77; RESP 17–21; TEMP 96–97; O2SAT 93–98
[2017-03-19 06:48] LABS: AUTOMATED NEUTROPHIL # 10.3 TH/MM3 (1.8-7.7); BASOPHIL % 0.1 % (0.0-2.0); HEMATOCRIT 29.1 % (39.0-51.0); HEMO FLAGS DIFF FINAL; LYMPH % 2.6 % (9.0-44.0); LYMPHOCYTE # 0.3 TH/MM3 (1.0-4.8); MEAN CELL VOLUME 99.3 FL (80.0-100.0); MEAN CORPUSCULAR HEMOGLOBIN 33.8 PG (27.0-34.0); MEAN CORPUSCULAR HGB CONC 34.1 % (32.0-36.0); NEUT % 95.3 % (16.0-70.0); PLATELET COUNT 107 TH/MM3 (150-450); RED BLOOD COUNT 2.94 MIL/MM3 (4.50-5.90); RED CELL DISTRIBUTION WIDTH 12.8 % (11.6-17.2); WHITE BLOOD COUNT 10.8 TH/MM3 (4.0-11.0)
[2017-03-19 06:50] LABS: ALT (GPT) 34 U/L (12-78); ANION GAP 10 MEQ/L (5-15); AST (GOT) 27 U/L (15-37); BICARBONATE 21.2 MEQ/L (21.0-32.0); BLOOD UREA NITROGEN 15 MG/DL (7-18); CHLORIDE 94 MEQ/L (98-107); GLOMERULAR FILTRATION RATE 88 ML/MIN (>89); MAGNESIUM 1.6 MG/DL (1.5-2.5); POTASSIUM 5.2 MEQ/L (3.5-5.1); SODIUM (NA) 125 MEQ/L (136-145)
[2017-03-19 06:59] LABS: ALKALINE PHOSPHATASE 66 U/L (45-117); FREE T4 1.21 NG/DL (0.76-1.46); TOTAL BILIRUBIN ADULT 0.4 MG/DL (0.2-1.0)
[2017-03-19] MEDS: POTASSIUM CHLORIDE 20 MEQ PWD PACKET PO SCH ×2 (07:44→21:00)
[2017-03-19] MEDS: NICOTINE 14 MG/24 HR PATCH T-DERMAL SCH (07:44)
[2017-03-19] MEDS: REMOVE OLD PATCH T-DERMAL SCH (07:44)
[2017-03-19] MEDS: RESP: ALBUTEROL 2.5 MG/IPRATROPIUM 0.5 MG NEB (SCH) NEB ×4 (08:43→20:29)
[2017-03-19] MEDS: DILTIAZEM-CD 240 MG CAP ER PO SCH (08:45)
[2017-03-19] MEDS: MULTIVITAMINS/MINERALS THERAPEUTIC TAB PO SCH (08:45)
[2017-03-19] MEDS: BUMETANIDE 1 MG TAB PO SCH (08:45)
[2017-03-19] MEDS: PANTOPRAZOLE SOD 40 MG DELAYED RELEASE TAB PO SCH (08:45)
[2017-03-19] MEDS: FOLIC ACID 1 MG TAB PO SCH (08:45)
[2017-03-19] MEDS: TAMSULOSIN HCL 0.4 MG CAP PO SCH ×2 (08:45→22:22)
[2017-03-19] MEDS: POLYETHYLENE GLYCOL 17 GM PKG PO SCH (08:45)
[2017-03-19] MEDS: cefTRIAXone INJ 1,000 MG in SODIUM CHLORIDE 0.9% INJ 100 ML IV SCH (08:45)
[2017-03-19] MEDS: predniSONE 20 MG TAB PO SCH ×2 (08:45→22:22)
[2017-03-19] MEDS: ASPIRIN 325 MG TAB PO SCH (08:45)
[2017-03-19] MEDS: guaiFENesin E.R. 600 MG TAB PO SCH ×2 (08:45→22:23)
[2017-03-19] MEDS: THIAMINE HCL 100 MG TAB PO SCH (08:45)
[2017-03-19] MEDS: DOCUSATE SODIUM 50 MG/SENNA 8.6 MG TAB PO SCH ×2 (08:45→22:23)
[2017-03-19] MEDS: BUDESONIDE-FORMOTEROL 160/4.5 MCG INHALER INH SCH ×2 (08:45→22:22)
[2017-03-19] MEDS: SODIUM CHLORIDE 0.9% FLUSH 10 ML FLUSH IV FLUSH SCH ×2 (09:00→22:22)
[2017-03-19] MEDS: SODIUM CHLOR 0.9% 1000 ML INJ 1,000 ML IV SCH ×2 (10:00→22:22)
--- NOTE | 2017-03-19 14:47 | HHI.PR ---
Subjective Remarks This is a 61 yo male with a PMHX of COPD with ongoing tobacco use and alcohol abuse who presents to [facility] ED with complaints of urinary retention. Patient states he has been unable to void in 3 days. He denies constipation and reports last BM was yesterday. Patient was recently hospitalized at the end of January for COPD exacerbation and was diagnosed with pulmonary HTN and severe tricuspid regurgitation. CTA showed mild congestive heart failure. He developed atrial fibrillation with RVR and was started on Cardizem and ASA 325mg for CHADS2 score of 1. Patient was also started on Bumex and Lisinopril. He underwent an EGD with dilatation for dysphagia. At the time of his discharge, he was to continue these medications as well as tapering dose of steroids and Symbicort. 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 He was seen back in the ED on Mar 13 for COPD exacerbation and treated with prednisone, Levaquin, and various inhalers. He never filled these prescriptions. Patient denies any increased shortness of breath. He denies any fever or chills. He denies any nausea, vomiting or abdominal pain. He denies any chest pain. In the ED, patient was noted to be somewhat hypoxic with improvement with nasal cannula 2 L O2. Alfaro catheter was placed and 1800ml of urine was expressed. CBC shows leukocytosis with white count of 19.7. Sodium level low at 123. Patient has been totally noncompliant. Patient never filled any of his medications. Had a Alfaro catheter placed and had almost 2 L out right away Drinks daily Smokes daily 03-18 STATES HE IS BREATHING BETTER TODAY LABS NOT AVAILABLE YET NEEDS ALFARO TRAINING PRIO TO DC 03-[address] BREATHING A LITTLE BETTER NEEDS WALK TEST PRIOR TO DC DW RN AND PT NEEDS PT AND OT Objective Vitals Vital Signs Date Time Temp Pulse Resp B/P (MAP) Pulse Ox O2 Delivery O2 Flow Rate FiO2 03/19/17 12:00 96.6 77 21 115/60 (78) 97 03/19/17 08:43 94 Nasal Cannula 3.00 03/19/17 08:00 97.0 65 20 128/60 (82) 98 03/19/17 04:00 97.0 61 18 94/55 (68) 95 03/19/17 00:00 97.0 60 18 91/50 (64) 96 03/18/17 20:07 94 Nasal Cannula 3.00 03/18/17 20:00 96.1 71 17 100/68 (79) 94 03/18/17 16:05 98.6 74 21 112/69 (83) 94 I/O 03/18/17 03/18/17 03/18/17 03/19/17 03/19/17 03/19/17 06:59 14:59 22:59 06:59 14:59 22:59 Intake Total 240 ml 1307 ml 480 ml 480 ml 200 ml Output Total 300 ml 550 ml 200 ml 725 ml Balance -60 ml 757 ml 280 ml -245 ml 200 ml Intake Oral 240 ml 480 ml 480 ml 480 ml IV Total 827 ml 200 ml Output Urine Total 300 ml 550 ml 200 ml 725 ml Result Diagram: 03/19/17 0615 03/19/17 0615 Other Results Laboratory Tests Test 03/17/17 14:00 03/18/17 12:14 03/19/17 06:15 White Blood Count 19.7 TH/MM3 12.2 TH/MM3 10.8 TH/MM3 Red Blood Count 3.69 MIL/MM3 3.17 MIL/MM3 2.94 MIL/MM3 Hemoglobin 12.4 GM/DL 10.7 GM/DL 9.9 GM/DL Hematocrit 36.3 % 31.4 % 29.1 % Mean Corpuscular Volume 98.3 FL 99.1 FL 99.3 FL Mean Corpuscular Hemoglobin 33.5 PG 33.8 PG 33.8 PG Mean Corpuscular Hemoglobin Concent 34.0 % 34.1 % 34.1 % Red Cell Distribution Width 12.9 % 12.6 % 12.8 % Platelet Count 168 TH/MM3 111 TH/MM3 107 TH/MM3 Mean Platelet Volume 8.0 FL 8.2 FL 7.9 FL Neutrophils (%) (Auto) 89.8 % 93.1 % 95.3 % Lymphocytes (%) (Auto) 5.8 % 3.3 % 2.6 % Monocytes (%) (Auto) 3.8 % 3.3 % 2.0 % Eosinophils (%) (Auto) 0.4 % 0.2 % 0.0 % Basophils (%) (Auto) 0.2 % 0.1 % 0.1 % Neutrophils # (Auto) 17.7 TH/MM3 11.4 TH/MM3 10.3 TH/MM3 Lymphocytes # (Auto) 1.1 TH/MM3 0.4 TH/MM3 0.3 TH/MM3 Monocytes # (Auto) 0.7 TH/MM3 0.4 TH/MM3 0.2 TH/MM3 Eosinophils # (Auto) 0.1 TH/MM3 0.0 TH/MM3 0.0 TH/MM3 Basophils # (Auto) 0.0 TH/MM3 0.0 TH/MM3 0.0 TH/MM3 CBC Comment DIFF FINAL DIFF FINAL DIFF FINAL Differential Comment Urine Color YELLOW Urine Turbidity CLEAR Urine pH 6.0 Urine Specific [place] 1.016 Urine Protein NEG mg/dL Urine Glucose (UA) NEG mg/dL Urine Ketones NEG mg/dL Urine Occult Blood NEG Urine Nitrite NEG Urine Bilirubin NEG Urine Urobilinogen LESS THAN 2.0 MG/DL Urine Leukocyte Esterase TRACE Urine Mucus FEW /lpf Urine Yeast (Budding) Microscopic Urinalysis Comment CULT NOT INDICATED Blood Urea Nitrogen 22 MG/DL 18 MG/DL 15 MG/DL Creatinine 0.86 MG/DL 0.86 MG/DL 0.88 MG/DL Random Glucose 99 MG/DL 114 MG/DL 116 MG/DL Total Protein 7.2 GM/DL 5.9 GM/DL 5.8 GM/DL Albumin 2.9 GM/DL 2.3 GM/DL 2.2 GM/DL Calcium Level 8.2 MG/DL 8.0 MG/DL 7.5 MG/DL Alkaline Phosphatase 89 U/L 75 U/L 66 U/L Aspartate Amino Transf (AST/SGOT) 41 U/L 27 U/L 27 U/L Alanine Aminotransferase (ALT/SGPT) 58 U/L 40 U/L 34 U/L Total Bilirubin 1.1 MG/DL 0.6 MG/DL 0.4 MG/DL Sodium Level 123 MEQ/L 129 MEQ/L 125 MEQ/L Potassium Level 4.4 MEQ/L 5.2 MEQ/L 5.2 MEQ/L Chloride Level 89 MEQ/L 96 MEQ/L 94 MEQ/L Carbon Dioxide Level 25.9 MEQ/L 24.7 MEQ/L 21.2 MEQ/L Anion Gap 8 MEQ/L 8 MEQ/L 10 MEQ/L Estimat Glomerular Filtration Rate 90 ML/MIN 90 ML/MIN 88 ML/MIN Phosphorus Level 2.7 MG/DL 2.4 MG/DL Magnesium Level 1.9 MG/DL 1.6 MG/DL Free Thyroxine 1.21 NG/DL Thyroid Stimulating Hormone 3rd Gen 0.643 uIU/ML Imaging Last Impressions Chest X-Ray 03/17/17 1356 Signed Impressions: Service Date/Time: Friday, March 17, 2017 14:02 - CONCLUSION: No acute disease. Earl Anguiano MD Objective Remarks GENERAL: This is a thin, disheveled patient who appears older than his stated age, in no apparent distress. Awake and alert. Talkative and somewhat cooperative SKIN: No rashes, ecchymoses or lesions. Cool and dry. HEAD: Atraumatic. Normocephalic. No temporal or scalp tenderness. EYES: Pupils equal round and reactive. Extraocular motions intact. No scleral icterus. No injection or drainage. ENT: Nose without bleeding or purulent drainage. Throat without erythema, tonsillar hypertrophy or exudate. Uvula midline. Airway patent. NECK: Trachea midline. No lymphadenopathy. Supple, nontender, no meningeal signs. CARDIOVASCULAR: Regular rate and rhythm without murmurs, gallops, or rubs. RESPIRATORY: Clear to auscultation but significantly diminished breath sounds t/ o. No wheezes, rales, or rhonchi. GASTROINTESTINAL: Abdomen soft, non-tender, nondistended. No hepato-splenomegaly , or palpable masses. No guarding. GENITOURINARY: Alfaro in place with clear urine in the bag. MUSCULOSKELETAL: Extremities without clubbing or cyanosis. No joint tenderness, effusion, or edema noted. No calf tenderness. 1+ edema bilateral feet. Trace edema noted in bilateral lower legs. NEUROLOGICAL: Awake and alert. Able to move all extremities. Normal speech. Insight and judgment is poor mood and behaviors appropriate Procedures NONE Medications and IVs Current Medications Sodium Chloride (NS Flush) 2 ml UNSCH PRN IVF FLUSH AFTER USING IV ACCESS; Start 03/17/17 at 14:00 Tamsulosin HCl (Flomax) 0.4 mg Q12HR PO Last administered on 03/19/17 08:45; Start 03/17/17 at 21:00 Aspirin (Aspirin) 325 mg DAILY PO Last administered on 03/19/17 08:45; Start 03/17/17 at 17:00 Budesonide/ Formoterol Fumarate (Symbicort 160-4.5 Inh) 2 puff Q12HR INH Last administered on 03/19/17 08:45; Start 03/17/17 at 21:00 Bumetanide (Bumetanide) 1 mg DAILY PO Last administered on 03/19/17 08:45; Start 03/17/17 at 17:00 Diltiazem HCl (Cardizem Cd) 240 mg DAILY PO Last administered on 03/19/17 08: 45; Start 03/17/17 at 17:00 Albuterol/ Ipratropium (Duoneb Neb) 1 ampule QID NEB NEB Last administered on 03/19/17 11:40; Start 03/17/17 at 17:00 Pantoprazole Sodium (Protonix) 40 mg DAILY PO Last administered on 03/19/17 08 :45; Start 03/17/17 at 17:00 Polyethylene Glycol (Miralax) 17 gm DAILY PO Last administered on 03/19/17 08: 45; Start 03/17/17 at 17:00 Potassium Chloride (KCl Powder) 20 meq BID PO Last administered on 03/18/17 20 :54; Start 03/17/17 at 21:00 Senna/Docusate Sodium (Anay-Colace) 1 tab BID PO Last administered on 08:45; Start 03/17/17 at 21:00 Sodium Chloride 1,000 ml @ 100 mls/hr Q10H IV Last administered on 03/19/17 10:00; Start 03/17/17 at 16:00 Sodium Chloride (NS Flush) 2 ml UNSCH PRN IV FLUSH FLUSH AFTER USING IV ACCESS ; Start 03/17/17 at 15:45 Sodium Chloride (NS Flush) 2 ml BID IV FLUSH Last administered on 03/18/17 11: 30; Start 03/17/17 at 21:00 Acetaminophen (Tylenol) 650 mg Q4H PRN PO TEMP > 100.4; Start 03/17/17 at 15:45 Ondansetron HCl (Zofran Inj) 4 mg Q6H PRN IVP NAUSEA OR VOMITING; Start at 15:45 Prochlorperazine (Compazine Supp) 25 mg Q12H PRN RECTAL NAUSEA OR VOMITING; Start 03/17/17 at 15:45 Enoxaparin Sodium (Lovenox Inj) 40 mg Q24H SQ Last administered on 03/18/17t 17 :34; Start 03/17/17 at 17:00 Ibuprofen (Motrin) 400 mg Q6H PRN PO PAIN SCALE 1 TO 2; Start 03/17/17 at 15:45 Oxycodone HCl (Roxicodone) 10 mg Q4H PRN PO PAIN SCALE 6 TO 10; Start 03/17/17 at 15:45 Morphine Sulfate (Morphine Inj) 2 mg Q3H PRN IV Pain 3-5; if unable to take PO ; Start 03/17/17 at 15:45 Morphine Sulfate (Morphine Inj) 4 mg Q3H PRN IV Pain 6-10;if unable to take PO ; Start 03/17/17 at 15:45 Oxycodone HCl (Roxicodone) 5 mg Q4H PRN PO PAIN SCALE 3 TO 5; Start 03/17/17 at 15:45 Naloxone HCl (Narcan Inj) 0.4 mg UNSCH PRN IV SEE LABEL COMMENTS; Start at 15:45 Senna/Docusate Sodium (Anay-Colace) 1 tab BID PO ; Start 03/17/17 at 21:00; Status UNV Magnesium Hydroxide (Milk Of Magnesia Liq) 30 ml Q12H PRN PO MILD - MODERATE CONSTIPATION; Start 03/17/17 at 15:45 Sennosides (Senokot) 17.2 mg Q12H PRN PO MODERATE - SEVERE CONSTIPATION; Start 03/17/17 at 15:45 Bisacodyl (Dulcolax Supp) 10 mg DAILY PRN RECTAL SEVERE CONSITIPATION; Start at 15:45 Lactulose (Lactulose Liq) 30 ml DAILY PRN PO SEVERE CONSITIPATION; Start at 15:45 Sodium Chloride (NS Flush) 2 ml UNSCH PRN IV FLUSH FLUSH AFTER USING IV ACCESS ; Start 03/17/17 at 15:45; Status UNV Sodium Chloride (NS Flush) 2 ml BID IV FLUSH ; Start 03/17/17 at 21:00; Status UNV Folic Acid (Folate) 1 mg DAILY PO Last administered on 03/19/17t 08:45; Start 03/17/17 at 17:00; Stop 03/22/17 at 16:59 Thiamine HCl (Vitamin B1) 100 mg DAILY PO Last administered on 03/19/17 08:45 ; Start 03/17/17 at 16:00 Multivitamins/ Minerals Therapeutic (Theragran M Tab) 1 tab DAILY PO Last administered on 03/19/17 08:45; Start 03/17/17 at 17:00; Stop 03/22/17 at 16:59 Clonidine (Catapres) 0.1 mg Q6H PRN PO SEE LABEL COMMENTS; Start 03/17/17 at 15 :45 Flumazenil (Romazicon Inj) 0.2 mg Q1M PRN IV PUSH SEE LABEL COMMENTS; Start at 15:45 Lorazepam (Ativan) 1 mg Q4H PRN PO CIWA 8 - 10; Start 03/17/17 at 15:45 Lorazepam (Ativan Inj) 1 mg Q4H PRN IV PUSH CIWA 8 - 10; Start 03/17/17 at 15: 45 Lorazepam (Ativan) 2 mg Q2H PRN PO CIWA 11-14; Start 03/17/17 at 15:45 Lorazepam (Ativan Inj) 2 mg Q2H PRN IV PUSH CIWA 11-14; Start 03/17/17 at 15:45 Lorazepam (Ativan Inj) 2 mg Q1H PRN IV PUSH CIWA 15-20; Start 03/17/17 at 15:45 Lorazepam (Ativan Inj) 2 mg Q15M PRN IV PUSH CIWA > 20; Start 03/17/17 at 15:45 Haloperidol Lactate (Haldol Inj) 2 mg Q15M PRN IM SEE LABEL COMMENTS; Start at 15:45 Guaifenesin (Mucinex Er) 600 mg BID PO Last administered on 03/19/17 08:45; Start 03/17/17 at 21:00 Ceftriaxone Sodium 1000 mg/ Sodium Chloride 100 ml @ 100 mls/hr DAILY IV Last administered on 03/19/17 08:45; Start 03/18/17 at 09:00 Prednisone (Deltasone) 20 mg BID PO Last administered on 03/19/17 08:45; Start 03/17/17 at 21:00 Nicotine (Habitrol 14 Mg Patch.24 Hr) 1 patch DAILY T-DERMAL ; Start 03/18/17 at 09:00 Nicotine (Habitrol 14 Mg Patch.24 Hr) 1 patch ONCE ONCE T-DERMAL Last administered on 03/17/17t 16:40; Start 03/17/17 at 17:00; Stop 03/17/17 at 17:01 ; Status DC Miscellaneous Information 1 DAILY T-DERMAL ; Start 03/18/17 at 09:00 Urinary Catheter: Yes Assessment to: Continue Vascular Central Line Catheter: No A/P Problem List: (1) Tobacco use ICD Code: Z72.0 - Tobacco use Status: Chronic (2) Hyponatremia ICD Code: E87.1 - Hyponatremia Status: Acute (3) Acute urinary retention ICD Code: R33.8 - Other retention of urine Status: Acute (4) Adjustment disorder ICD Code: F43.20 - Adjustment disorder, unspecified Status: Acute (5) COPD exacerbation ICD Code: J44.1 - COPD exacerbation Status: Acute (6) Debility ICD Code: R53.81 - Other malaise Status: Acute (7) Mood disorder ICD Code: F39 - Unspecified mood [affective] disorder Status: Acute (8) Atrial fibrillation with RVR ICD Code: I48.91 - Unspecified atrial fibrillation Status: Resolved (9) Hyperglycemia ICD Code: R73.9 - Hyperglycemia, unspecified Status: Resolved (10) Dysphagia ICD Code: R13.10 - Dysphagia, unspecified Status: Acute (11) Alcohol abuse ICD Code: F10.10 - Alcohol abuse Status: Chronic Assessment and Plan 61 yo male with a PMHX of COPD with ongoing tobacco use and alcohol abuse who presents to [facility] ED with complaints of urinary retention. Hyponatremia - Due to alcohol abuse - chronic - IV hydration WITH normal saline - Monitor sodium trend Urinary retention - Alfaro in place - Trial Flomax 0.4mg BID - UA not indicative of infection COPD Medication noncompliance - recent hospitalization for acute hypercapnic respiratory failure secondary to COPD exacerbation discharged 03/09/17 - patient did not get his medication filled at the time of his discharge on or 03/13 - Prednisone 20mg BID - Guaifenesin ER 600mg BID - Resume Symbicort 160/4.5 2 puffs every 12 hours - Duonebs prn - supplemental oxygen Leukocytosis - likely due to recent steroid use. patient does not look septic. - CXR personally reviewed shows no e/o active disease - UA unremarkable - temp 99.0 - IV Rocephin - IVF - am labs to monitor trend Atrial fibrillation, rate controlled Pulmonary HTN Tricuspid regurgitation - echocardiogram done 03/02/17 showed mild concentric left ventricular hypertrophy , low normal systolic fxn with EF 50-55%, mildly dilated right ventricle , mild mitral valve regurgitation and severe tricuspid regurgitation. Estimated pulmonary arterial pressure was 72mmhg. - CHADS2 score 2 - Resume Cardizem, Bumex and ASA 325mg - Hold Lisinopril for now due to low BP Alcohol abuse - CIWA protocol - Monitor closely for withdrawal - seizure precautions - multivitamin, folic acid and thiamine daily Tobacco use disorder - Nicotine patch when necessary DVT/GI prophylaxis - Lovenox 40mg - Early aggressive mobilization - Pantoprazole 40mg daily CONTINUE BLADDER TRAINING HYPERKALEMIA AM LABS NEEDS PT AND OT Bernard Pollock DO Mar 19, 2017 14:47
[2017-03-19] MEDS: ENOXAPARIN SODIUM 40 MG/0.4 ML SYRINGE SQ SCH (16:32)
[2017-03-20] VITALS (8 sets, daily range): BP systolic 105–132; BP diastolic 58–72; PULSE 76–94; RESP 16–22; TEMP 95.9–97.4; O2SAT 90–97
[2017-03-20] MEDS: SODIUM CHLOR 0.9% 1000 ML INJ 1,000 ML IV SCH (03:04)
[2017-03-20 08:05] LABS: AUTOMATED NEUTROPHIL # 8.6 TH/MM3 (1.8-7.7); BASOPHIL % 0.1 % (0.0-2.0); HEMATOCRIT 27.7 % (39.0-51.0); HEMO FLAGS DIFF FINAL; LYMPH % 2.2 % (9.0-44.0); LYMPHOCYTE # 0.2 TH/MM3 (1.0-4.8); MEAN CELL VOLUME 99.1 FL (80.0-100.0); MEAN CORPUSCULAR HEMOGLOBIN 34.6 PG (27.0-34.0); MEAN CORPUSCULAR HGB CONC 34.9 % (32.0-36.0); MONO % 4.4 % (0.0-8.0); NEUT % 93.3 % (16.0-70.0); PLATELET COUNT 117 TH/MM3 (150-450); RED BLOOD COUNT 2.79 MIL/MM3 (4.50-5.90); RED CELL DISTRIBUTION WIDTH 12.8 % (11.6-17.2); WHITE BLOOD COUNT 9.2 TH/MM3 (4.0-11.0)
[2017-03-20 08:29] LABS: ANION GAP 5 MEQ/L (5-15); AST (GOT) 27 U/L (15-37); BICARBONATE 24.8 MEQ/L (21.0-32.0); BLOOD UREA NITROGEN 11 MG/DL (7-18); CHLORIDE 97 MEQ/L (98-107); GLOMERULAR FILTRATION RATE 124 ML/MIN (>89); MAGNESIUM 1.6 MG/DL (1.5-2.5); POTASSIUM 5.2 MEQ/L (3.5-5.1); SODIUM (NA) 127 MEQ/L (136-145)
[2017-03-20 08:34] LABS: ALKALINE PHOSPHATASE 64 U/L (45-117); ALT (GPT) 37 U/L (12-78); TOTAL BILIRUBIN ADULT 0.4 MG/DL (0.2-1.0)
[2017-03-20] MEDS: RESP: ALBUTEROL 2.5 MG/IPRATROPIUM 0.5 MG NEB (SCH) NEB ×3 (08:59→15:48)
[2017-03-20] MEDS: DOCUSATE SODIUM 50 MG/SENNA 8.6 MG TAB PO SCH (09:00)
[2017-03-20] MEDS: NICOTINE 14 MG/24 HR PATCH T-DERMAL SCH (09:00)
[2017-03-20] MEDS: POLYETHYLENE GLYCOL 17 GM PKG PO SCH (09:00)
--- NOTE | 2017-03-20 09:47 | HHI.PR ---
Subjective Remarks This is a 61 yo male with a PMHX of COPD with ongoing tobacco use and alcohol abuse who presents to [facility] ED with complaints of urinary retention. Patient states he has been unable to void in 3 days. He denies constipation and reports last BM was yesterday. Patient was recently hospitalized at the end of January for COPD exacerbation and was diagnosed with pulmonary HTN and severe tricuspid regurgitation. CTA showed mild congestive heart failure. He developed atrial fibrillation with RVR and was started on Cardizem and ASA 325mg for CHADS2 score of 1. Patient was also started on Bumex and Lisinopril. He underwent an EGD with dilatation for dysphagia. At the time of his discharge, he was to continue these medications as well as tapering dose of steroids and Symbicort. Patient failed to cone picker any of his medications following his discharge. He was seen back in the ED on Mar 13 for COPD exacerbation and treated with prednisone, Levaquin, and various inhalers. He never filled these prescriptions. Patient denies any increased shortness of breath. He denies any fever or chills. He denies any nausea, vomiting or abdominal pain. He denies any chest pain. In the ED, patient was noted to be somewhat hypoxic with improvement with nasal cannula 2 L O2. Alfaro catheter was placed and 1800ml of urine was expressed. CBC shows leukocytosis with white count of 19.7. Sodium level low at 123. Patient has been totally noncompliant. Patient never filled any of his medications. Had a Alfaro catheter placed and had almost 2 L out right away Drinks daily Smokes daily 8- STATES HE IS BREATHING BETTER TODAY LABS NOT AVAILABLE YET NEEDS ALFARO TRAINING PRIO TO DC 03-[address] BREATHING A LITTLE BETTER NEEDS WALK TEST PRIOR TO DC DW RN AND PT NEEDS PT AND OT 03-20 patient failed walk test will need home oxygen 2 L by nasal cannula. We'll discontinue his Alfaro catheter. Patient uses briefs at home/diapers We'll ask home health care to evaluate him RN and PT and respiratory We will have him follow-up with his primary care and Dr. Nate CASAS'd home Objective Vitals Vital Signs Date Time Temp Pulse Resp B/P (MAP) Pulse Ox O2 Delivery O2 Flow Rate FiO2 03/20/17 08:59 92 Nasal Cannula 3.00 03/20/17 08:00 97.1 94 20 125/69 (87) 90 03/20/17 05:00 89 03/20/17 04:00 96.6 84 17 124/62 (82) 95 03/20/17 00:07 78 03/20/17 00:00 96.1 76 16 105/58 (74) 96 03/19/17 20:31 93 Nasal Cannula 2.00 03/19/17 20:07 71 03/19/17 20:00 96.0 72 17 109/58 (75) 95 03/19/17 16:39 96.7 69 21 107/57 (74) 98 03/19/17 12:00 96.6 77 21 115/60 (78) 97 I/O 03/19/17 03/19/17 03/19/17 03/20/17 03/20/17 03/20/17 07:00 15:00 23:00 07:00 15:00 23:00 Intake Total 480 ml 200 ml 720 ml 480 ml Output Total 725 ml 1000 ml 1450 ml Balance -245 ml 200 ml -280 ml -970 ml Intake Oral 480 ml 720 ml 480 ml IV Total 200 ml Output Urine Total 725 ml 1000 ml 1450 ml Result Diagram: 03/20/17 0619 03/20/17 0619 Other Results Laboratory Tests Test 03/17/17 14:00 03/18/17 12:14 03/19/17 06:15 03/20/17 06:19 White Blood Count 19.7 TH/MM3 12.2 TH/MM3 10.8 TH/MM3 9.2 TH/MM3 Red Blood Count 3.69 MIL/MM3 3.17 MIL/MM3 2.94 MIL/MM3 2.79 MIL/MM3 Hemoglobin 12.4 GM/DL 10.7 GM/DL 9.9 GM/DL 9.7 GM/DL Hematocrit 36.3 % 31.4 % 29.1 % 27.7 % Mean Corpuscular Volume 98.3 FL 99.1 FL 99.3 FL 99.1 FL Mean Corpuscular Hemoglobin 33.5 PG 33.8 PG 33.8 PG 34.6 PG Mean Corpuscular Hemoglobin Concent 34.0 % 34.1 % 34.1 % 34.9 % Red Cell Distribution Width 12.9 % 12.6 % 12.8 % 12.8 % Platelet Count 168 TH/MM3 111 TH/MM3 107 TH/MM3 117 TH/MM3 Mean Platelet Volume 8.0 FL 8.2 FL 7.9 FL 8.1 FL Neutrophils (%) (Auto) 89.8 % 93.1 % 95.3 % 93.3 % Lymphocytes (%) (Auto) 5.8 % 3.3 % 2.6 % 2.2 % Monocytes (%) (Auto) 3.8 % 3.3 % 2.0 % 4.4 % Eosinophils (%) (Auto) 0.4 % 0.2 % 0.0 % 0.0 % Basophils (%) (Auto) 0.2 % 0.1 % 0.1 % 0.1 % Neutrophils # (Auto) 17.7 TH/MM3 11.4 TH/MM3 10.3 TH/MM3 8.6 TH/MM3 Lymphocytes # (Auto) 1.1 TH/MM3 0.4 TH/MM3 0.3 TH/MM3 0.2 TH/MM3 Monocytes # (Auto) 0.7 TH/MM3 0.4 TH/MM3 0.2 TH/MM3 0.4 TH/MM3 Eosinophils # (Auto) 0.1 TH/MM3 0.0 TH/MM3 0.0 TH/MM3 0.0 TH/MM3 Basophils # (Auto) 0.0 TH/MM3 0.0 TH/MM3 0.0 TH/MM3 0.0 TH/MM3 CBC Comment DIFF FINAL DIFF FINAL DIFF FINAL DIFF FINAL Differential Comment Urine Color YELLOW Urine Turbidity CLEAR Urine pH 6.0 Urine Specific [place] 1.016 Urine Protein NEG mg/dL Urine Glucose (UA) NEG mg/dL Urine Ketones NEG mg/dL Urine Occult Blood NEG Urine Nitrite NEG Urine Bilirubin NEG Urine Urobilinogen LESS THAN 2.0 MG/DL Urine Leukocyte Esterase TRACE Urine Mucus FEW /lpf Urine Yeast (Budding) Microscopic Urinalysis Comment CULT NOT INDICATED Blood Urea Nitrogen 22 MG/DL 18 MG/DL 15 MG/DL 11 MG/DL Creatinine 0.86 MG/DL 0.86 MG/DL 0.88 MG/DL 0.65 MG/DL Random Glucose 99 MG/DL 114 MG/DL 116 MG/DL 82 MG/DL Total Protein 7.2 GM/DL 5.9 GM/DL 5.8 GM/DL 5.4 GM/DL Albumin 2.9 GM/DL 2.3 GM/DL 2.2 GM/DL 2.1 GM/DL Calcium Level 8.2 MG/DL 8.0 MG/DL 7.5 MG/DL 7.5 MG/DL Alkaline Phosphatase 89 U/L 75 U/L 66 U/L 64 U/L Aspartate Amino Transf (AST/SGOT) 41 U/L 27 U/L 27 U/L 27 U/L Alanine Aminotransferase (ALT/SGPT) 58 U/L 40 U/L 34 U/L 37 U/L Total Bilirubin 1.1 MG/DL 0.6 MG/DL 0.4 MG/DL 0.4 MG/DL Sodium Level 123 MEQ/L 129 MEQ/L 125 MEQ/L 127 MEQ/L Potassium Level 4.4 MEQ/L 5.2 MEQ/L 5.2 MEQ/L 5.2 MEQ/L Chloride Level 89 MEQ/L 96 MEQ/L 94 MEQ/L 97 MEQ/L Carbon Dioxide Level 25.9 MEQ/L 24.7 MEQ/L 21.2 MEQ/L 24.8 MEQ/L Anion Gap 8 MEQ/L 8 MEQ/L 10 MEQ/L 5 MEQ/L Estimat Glomerular Filtration Rate 90 ML/MIN 90 ML/MIN 88 ML/MIN 124 ML/MIN Phosphorus Level 2.7 MG/DL 2.4 MG/DL 1.9 MG/DL Magnesium Level 1.9 MG/DL 1.6 MG/DL 1.6 MG/DL Free Thyroxine 1.21 NG/DL Thyroid Stimulating Hormone 3rd Gen 0.643 uIU/ML Imaging Last Impressions Chest X-Ray 03/17/17 1356 Signed Impressions: Service Date/Time: Friday, March 17, 2017 14:02 - CONCLUSION: No acute disease. Earl Anguiano MD Objective Remarks GENERAL: This is a thin, disheveled patient who appears older than his stated age, in no apparent distress. Awake and alert. Talkative and somewhat cooperative SKIN: No rashes, ecchymoses or lesions. Cool and dry. HEAD: Atraumatic. Normocephalic. No temporal or scalp tenderness. EYES: Pupils equal round and reactive. Extraocular motions intact. No scleral icterus. No injection or drainage. ENT: Nose without bleeding or purulent drainage. Throat without erythema, tonsillar hypertrophy or exudate. Uvula midline. Airway patent. NECK: Trachea midline. No lymphadenopathy. Supple, nontender, no meningeal signs. CARDIOVASCULAR: Regular rate and rhythm without murmurs, gallops, or rubs. RESPIRATORY: Clear to auscultation but significantly diminished breath sounds t/ o. No wheezes, rales, or rhonchi. GASTROINTESTINAL: Abdomen soft, non-tender, nondistended. No hepato-splenomegaly , or palpable masses. No guarding. GENITOURINARY: Alfaro in place with clear urine in the bag. MUSCULOSKELETAL: Extremities without clubbing or cyanosis. No joint tenderness, effusion, or edema noted. No calf tenderness. 1+ edema bilateral feet. Trace edema noted in bilateral lower legs. NEUROLOGICAL: Awake and alert. Able to move all extremities. Normal speech. Insight and judgment is poor mood and behaviors appropriate Procedures NONE Medications and IVs Current Medications Sodium Chloride (NS Flush) 2 ml UNSCH PRN IVF FLUSH AFTER USING IV ACCESS; Start 03/17/17 at 14:00 Tamsulosin HCl (Flomax) 0.4 mg Q12HR PO Last administered on 03/19/17 22:22; Start 03/17/17 at 21:00 Aspirin (Aspirin) 325 mg DAILY PO Last administered on 03/19/17 08:45; Start 03/17/17 at 17:00 Budesonide/ Formoterol Fumarate (Symbicort 160-4.5 Inh) 2 puff Q12HR INH Last administered on 03/19/17 22:22; Start 03/17/17 at 21:00 Bumetanide (Bumetanide) 1 mg DAILY PO Last administered on 03/19/17 08:45; Start 03/17/17 at 17:00 Diltiazem HCl (Cardizem Cd) 240 mg DAILY PO Last administered on 03/19/17 08: 45; Start 03/17/17 at 17:00 Albuterol/ Ipratropium (Duoneb Neb) 1 ampule QID NEB NEB Last administered on 03/20/17 08:59; Start 03/17/17 at 17:00 Pantoprazole Sodium (Protonix) 40 mg DAILY PO Last administered on 03/19/17 08 :45; Start 03/17/17 at 17:00 Polyethylene Glycol (Miralax) 17 gm DAILY PO Last administered on 03/19/17 08: 45; Start 03/17/17 at 17:00 Potassium Chloride (KCl Powder) 20 meq BID PO Last administered on 03/19/17 21 :00; Start 03/17/17 at 21:00 Senna/Docusate Sodium (Anay-Colace) 1 tab BID PO Last administered on 22:23; Start 03/17/17 at 21:00 Sodium Chloride 1,000 ml @ 100 mls/hr Q10H IV Last administered on 03/19/17 22:22; Start 03/17/17 at 16:00 Sodium Chloride (NS Flush) 2 ml UNSCH PRN IV FLUSH FLUSH AFTER USING IV ACCESS ; Start 03/17/17 at 15:45 Sodium Chloride (NS Flush) 2 ml BID IV FLUSH Last administered on 03/19/17 22: 22; Start 03/17/17 at 21:00 Acetaminophen (Tylenol) 650 mg Q4H PRN PO TEMP > 100.4; Start 03/17/17 at 15:45 Ondansetron HCl (Zofran Inj) 4 mg Q6H PRN IVP NAUSEA OR VOMITING; Start at 15:45 Prochlorperazine (Compazine Supp) 25 mg Q12H PRN RECTAL NAUSEA OR VOMITING; Start 03/17/17 at 15:45 Enoxaparin Sodium (Lovenox Inj) 40 mg Q24H SQ Last administered on 03/19/17 16 :32; Start 03/17/17 at 17:00 Ibuprofen (Motrin) 400 mg Q6H PRN PO PAIN SCALE 1 TO 2; Start 03/17/17 at 15:45 Oxycodone HCl (Roxicodone) 10 mg Q4H PRN PO PAIN SCALE 6 TO 10; Start 03/17/17 at 15:45 Morphine Sulfate (Morphine Inj) 2 mg Q3H PRN IV Pain 3-5; if unable to take PO ; Start 03/17/17 at 15:45 Morphine Sulfate (Morphine Inj) 4 mg Q3H PRN IV Pain 6-10;if unable to take PO ; Start 03/17/17 at 15:45 Oxycodone HCl (Roxicodone) 5 mg Q4H PRN PO PAIN SCALE 3 TO 5; Start 03/17/17 at 15:45 Naloxone HCl (Narcan Inj) 0.4 mg UNSCH PRN IV SEE LABEL COMMENTS; Start at 15:45 Senna/Docusate Sodium (Anay-Colace) 1 tab BID PO ; Start 03/17/17 at 21:00; Status UNV Magnesium Hydroxide (Milk Of Magnesia Liq) 30 ml Q12H PRN PO MILD - MODERATE CONSTIPATION; Start 03/17/17 at 15:45 Sennosides (Senokot) 17.2 mg Q12H PRN PO MODERATE - SEVERE CONSTIPATION; Start 03/17/17 at 15:45 Bisacodyl (Dulcolax Supp) 10 mg DAILY PRN RECTAL SEVERE CONSITIPATION; Start at 15:45 Lactulose (Lactulose Liq) 30 ml DAILY PRN PO SEVERE CONSITIPATION; Start at 15:45 Sodium Chloride (NS Flush) 2 ml UNSCH PRN IV FLUSH FLUSH AFTER USING IV ACCESS ; Start 03/17/17 at 15:45; Status UNV Sodium Chloride (NS Flush) 2 ml BID IV FLUSH ; Start 03/17/17 at 21:00; Status UNV Folic Acid (Folate) 1 mg DAILY PO Last administered on 03/19/17 08:45; Start 03/17/17 at 17:00; Stop 03/22/17 at 16:59 Thiamine HCl (Vitamin B1) 100 mg DAILY PO Last administered on 03/19/17 08:45 ; Start 03/17/17 at 16:00 Multivitamins/ Minerals Therapeutic (Theragran M Tab) 1 tab DAILY PO Last administered on 03/19/17 08:45; Start 03/17/17 at 17:00; Stop 03/22/17 at 16:59 Clonidine (Catapres) 0.1 mg Q6H PRN PO SEE LABEL COMMENTS; Start 03/17/17 at 15 :45 Flumazenil (Romazicon Inj) 0.2 mg Q1M PRN IV PUSH SEE LABEL COMMENTS; Start at 15:45 Lorazepam (Ativan) 1 mg Q4H PRN PO CIWA 8 - 10; Start 03/17/17 at 15:45 Lorazepam (Ativan Inj) 1 mg Q4H PRN IV PUSH CIWA 8 - 10; Start 03/17/17 at 15: 45 Lorazepam (Ativan) 2 mg Q2H PRN PO CIWA 11-14; Start 03/17/17 at 15:45 Lorazepam (Ativan Inj) 2 mg Q2H PRN IV PUSH CIWA 11-14; Start 03/17/17 at 15:45 Lorazepam (Ativan Inj) 2 mg Q1H PRN IV PUSH CIWA 15-20; Start 03/17/17 at 15:45 Lorazepam (Ativan Inj) 2 mg Q15M PRN IV PUSH CIWA > 20; Start 03/17/17 at 15:45 Haloperidol Lactate (Haldol Inj) 2 mg Q15M PRN IM SEE LABEL COMMENTS; Start at 15:45 Guaifenesin (Mucinex Er) 600 mg BID PO Last administered on 03/19/17 22:23; Start 03/17/17 at 21:00 Ceftriaxone Sodium 1000 mg/ Sodium Chloride 100 ml @ 100 mls/hr DAILY IV Last administered on 03/19/17 08:45; Start 03/18/17 at 09:00 Prednisone (Deltasone) 20 mg BID PO Last administered on 03/19/17 22:22; Start 03/17/17 at 21:00 Nicotine (Habitrol 14 Mg Patch.24 Hr) 1 patch DAILY T-DERMAL ; Start 03/18/17 at 09:00 Nicotine (Habitrol 14 Mg Patch.24 Hr) 1 patch ONCE ONCE T-DERMAL Last administered on 03/17/17 16:40; Start 03/17/17 at 17:00; Stop 03/17/17 at 17:01 ; Status DC Miscellaneous Information 1 DAILY T-DERMAL ; Start 03/18/17 at 09:00 Urinary Catheter: Yes Assessment to: Remove A/P Problem List: (1) Tobacco use ICD Code: Z72.0 - Tobacco use Status: Chronic (2) Hyponatremia ICD Code: E87.1 - Hyponatremia Status: Acute (3) Acute urinary retention ICD Code: R33.8 - Other retention of urine Status: Acute (4) Adjustment disorder ICD Code: F43.20 - Adjustment disorder, unspecified Status: Acute (5) COPD exacerbation ICD Code: J44.1 - COPD exacerbation Status: Acute (6) Debility ICD Code: R53.81 - Other malaise Status: Acute (7) Mood disorder ICD Code: F39 - Unspecified mood [affective] disorder Status: Acute (8) Atrial fibrillation with RVR ICD Code: I48.91 - Unspecified atrial fibrillation Status: Resolved (9) Hyperglycemia ICD Code: R73.9 - Hyperglycemia, unspecified Status: Resolved (10) Dysphagia ICD Code: R13.10 - Dysphagia, unspecified Status: Acute (11) Alcohol abuse ICD Code: F10.10 - Alcohol abuse Status: Chronic Assessment and Plan 61 yo male with a PMHX of COPD with ongoing tobacco use and alcohol abuse who presents to [facility] ED with complaints of urinary retention. Hyponatremia - Due to alcohol abuse - chronic - IV hydration WITH normal saline - Monitor sodium trend Urinary retention - Alfaro in place - Trial Flomax 0.4mg BID - UA not indicative of infection DC ALFARO COPD Medication noncompliance - recent hospitalization for acute hypercapnic respiratory failure secondary to COPD exacerbation discharged 03/09/17 - patient did not get his medication filled at the time of his discharge on or 03/13 - Prednisone 20mg BID - Guaifenesin ER 600mg BID - Resume Symbicort 160/4.5 2 puffs every 12 hours - Duonebs prn - supplemental oxygen Leukocytosis - likely due to recent steroid use. patient does not look septic. - CXR personally reviewed shows no e/o active disease - UA unremarkable - temp 99.0 - IV Rocephin - IVF - am labs to monitor trend Atrial fibrillation, rate controlled Pulmonary HTN Tricuspid regurgitation - echocardiogram done 03/02/17 showed mild concentric left ventricular hypertrophy , low normal systolic fxn with EF 50-55%, mildly dilated right ventricle , mild mitral valve regurgitation and severe tricuspid regurgitation. Estimated pulmonary arterial pressure was 72mmhg. - CHADS2 score 2 - Resume Cardizem, Bumex and ASA 325mg - Hold Lisinopril for now due to low BP Alcohol abuse - [facility] protocol - Monitor closely for withdrawal - seizure precautions - multivitamin, folic acid and thiamine daily Tobacco use disorder - Nicotine patch when necessary DVT/GI prophylaxis - Lovenox 40mg - Early aggressive mobilization - Pantoprazole 40mg daily CONTINUE BLADDER TRAINING HYPERKALEMIA DC ALFARO PT AND OT AT HOME [facility] HOME OXYGEN 2 LITERS BY [place] NEBULIZER WITH SOLUTION ANTIBIOTICS DC TO HOME NEEDS PT AND OT Bernard Pollock DO Mar 20, 2017 09:47
[2017-03-20] MEDS ORDERED: TAMS5CAP PO (10:05)
[2017-03-20] MEDS ORDERED: CARD240C6 PO (10:05)
[2017-03-20] MEDS ORDERED: OXYGENDME NAS.CANULA (10:05)
[2017-03-20] MEDS ORDERED: GNP100TA3 PO (10:05)
[2017-03-20] MEDS ORDERED: THERM PO (10:05)
[2017-03-20] MEDS ORDERED: NICO14DI23 T-DERMAL (10:05)
[2017-03-20] MEDS ORDERED: POLY17S PO (10:05)
[2017-03-20] MEDS ORDERED: IPRASOL NEB (10:05)
[2017-03-20] MEDS ORDERED: PANT40TA3 PO (10:05)
[2017-03-20] MEDS ORDERED: FOLI1TAB6 PO (10:05)
[2017-03-20] MEDS ORDERED: Guaifenesin PO (10:05)
[2017-03-20] MEDS ORDERED: SENN1TAB PO (10:05)
[2017-03-20] MEDS ORDERED: PRED20 PO (10:05)
[2017-03-20] MEDS ORDERED: OXYC-392 PO (10:05)
[2017-03-20] MEDS ORDERED: POTA10PO PO (10:05)
[2017-03-20] MEDS ORDERED: BUME1TAB PO (10:05)
[2017-03-20] MEDS ORDERED: NEBULIZER1 MI1 (10:05)
[2017-03-20] MEDS ORDERED: SYMB160A INH (10:05)
[2017-03-20] MEDS ORDERED: CEFD125S PO (10:05)
--- NOTE | 2017-03-20 10:08 | HHI.DCPOC ---
Discharge Care Plan Diagnosis: (1) Tobacco use (2) Constipation, chronic (3) COPD exacerbation (4) Hypertension (5) GERD (gastroesophageal reflux disease) (6) Alcohol abuse (7) Hypokalemia (8) Fluid overload (9) Pulmonary hypertension (10) Acute urinary retention (11) Atrial fibrillation with RVR (12) Acute systolic heart failure (13) Debility (14) Abdominal pain (15) Hyponatremia (16) Hyperglycemia (17) Mood disorder (18) Adjustment disorder (19) Atrial flutter Your Health Problems Are: Fluid/Lung Overload Shortness of Breath Goals to Promote Your Health * To prevent worsening of your condition and complications * To maintain your health at the optimal level Directions to Meet Your Goals Take your medications as prescribed Follow your dietary instruction Follow activity as directed Keep your appointments as scheduled Take your immunizations and boosters as scheduled If your symptoms worsen call your PCP, if no PCP go to Urgent Care Center or Emergency Room Smoking is Dangerous to Your Health. Avoid second hand smoke Call the 24-hour hour crisis hotline for domestic abuse at Bernard Pollock DO Mar 20, 2017 10:08
--- NOTE | 2017-03-20 10:08 | HHI.FF ---
Face to Face Verification Diagnosis: (1) Tobacco use (2) Hypertension (3) Hypokalemia (4) Alcohol abuse (5) GERD (gastroesophageal reflux disease) (6) Constipation, chronic (7) Fluid overload (8) COPD exacerbation (9) Acute urinary retention (10) Atrial fibrillation with RVR (11) Acute systolic heart failure (12) Debility (13) Abdominal pain (14) Hyponatremia (15) Hyperglycemia (16) Mood disorder (17) Dysphagia (18) Adjustment disorder (19) Tricuspid regurgitation (20) Pulmonary hypertension Physical Therapy Order: Evaluate and Treat, Improve ambulation, Strength and gait training Occupational Therapy Order: Evaluate and Treat, Gross motor coordination, Fine motor coordination Home Health Nursing Order: Medical education Oxygen administration education Medication education-adverse effect Nursing assessment with vital signs Home Health Aide Order: To Assist In: Bathing and personal care, interventional radiology technologist and meal prep I have seen patient Yuval Chavarria on 03/20/17. My clinical findings support the need for the requested home health care services because: Patient has SOB Deconditioned w/ increased weakness I certify that my clinical findings support that this patient is homebound because: Hx COPD- exertion dyspnea/weakness Unsteady gait/balance Bernard Pollock DO Mar 20, 2017 10:08
--- NOTE | 2017-03-20 10:10 | HHI.DS ---
Discharge Summary Admission Date Mar 17, 2017 at 16:09 Discharge Date: Mar 20, 2017 Admitting Diagnosis Hyponatremia/Urinary Retention (1) Tobacco use ICD Code: Z72.0 - Tobacco use Diagnosis: Secondary Status: Chronic (2) Hyponatremia ICD Code: E87.1 - Hyponatremia Diagnosis: Principal Status: Acute (3) Acute urinary retention ICD Code: R33.8 - Other retention of urine Diagnosis: Principal Status: Acute (4) Adjustment disorder ICD Code: F43.20 - Adjustment disorder, unspecified Diagnosis: Secondary Status: Acute (5) COPD exacerbation ICD Code: J44.1 - COPD exacerbation Diagnosis: Principal Status: Acute (6) Debility ICD Code: R53.81 - Other malaise Diagnosis: Principal Status: Acute (7) Mood disorder ICD Code: F39 - Unspecified mood [affective] disorder Diagnosis: Secondary Status: Acute (8) Atrial fibrillation with RVR ICD Code: I48.91 - Unspecified atrial fibrillation Diagnosis: Principal Status: Resolved (9) Hyperglycemia ICD Code: R73.9 - Hyperglycemia, unspecified Status: Resolved (10) Dysphagia ICD Code: R13.10 - Dysphagia, unspecified Diagnosis: Principal Status: Acute (11) Alcohol abuse ICD Code: F10.10 - Alcohol abuse Diagnosis: Principal Status: Chronic Procedures NONE Brief History - From Admission This is a 61 yo male with a PMHX of COPD with ongoing tobacco use and alcohol abuse who presents to [facility] ED with complaints of urinary retention. Patient states he has been unable to void in 3 days. He denies constipation and reports last BM was yesterday. Patient was recently hospitalized at the end of January for COPD exacerbation and was diagnosed with pulmonary HTN and severe tricuspid regurgitation. CTA showed mild congestive heart failure. He developed atrial fibrillation with RVR and was started on Cardizem and ASA 325mg for CHADS2 score of 1. Patient was also started on Bumex and Lisinopril. He underwent an EGD with dilatation for dysphagia. At the time of his discharge, he was to continue these medications as well as tapering dose of steroids and Symbicort. Patient failed to pick up man any of his medications following his discharge. He was seen back in the ED on Mar 13 for COPD exacerbation and treated with prednisone, Levaquin, and various inhalers. He never filled these prescriptions. Patient denies any increased shortness of breath. He denies any fever or chills. He denies any nausea, vomiting or abdominal pain. He denies any chest pain. In the ED, patient was noted to be somewhat hypoxic with improvement with nasal cannula 2 L O2. Alfaro catheter was placed and 1800ml of urine was expressed. CBC shows leukocytosis with white count of 19.7. Sodium level low at 123. Patient has been totally noncompliant. Patient never filled any of his medications. Had a Alfaro catheter placed and had almost 2 L out right away Drinks daily Smokes daily CBC/BMP: 03/20/17 0619 03/20/17 0619 Significant Findings Laboratory Tests Test 03/17/17 14:00 03/18/17 12:14 03/19/17 06:15 03/20/17 06:19 White Blood Count 19.7 TH/MM3 (4.0-11.0) 12.2 TH/MM3 (4.0-11.0) Red Blood Count 3.69 MIL/MM3 (4.50-5.90) 3.17 MIL/MM3 (4.50-5.90) 2.94 MIL/MM3 (4.50-5.90) 2.79 MIL/MM3 (4.50-5.90) Hemoglobin 12.4 GM/DL (13.0-17.0) 10.7 GM/DL (13.0-17.0) 9.9 GM/DL (13.0-17.0) 9.7 GM/DL (13.0-17.0) Hematocrit 36.3 % (39.0-51.0) 31.4 % (39.0-51.0) 29.1 % (39.0-51.0) 27.7 % (39.0-51.0) Neutrophils (%) (Auto) 89.8 % (16.0-70.0) 93.1 % (16.0-70.0) 95.3 % (16.0-70.0) 93.3 % (16.0-70.0) Lymphocytes (%) (Auto) 5.8 % (9.0-44.0) 3.3 % (9.0-44.0) 2.6 % (9.0-44.0) 2.2 % (9.0-44.0) Neutrophils # (Auto) 17.7 TH/MM3 (1.8-7.7) 11.4 TH/MM3 (1.8-7.7) 10.3 TH/MM3 (1.8-7.7) 8.6 TH/MM3 (1.8-7.7) Urine Leukocyte Esterase TRACE (NEG) Urine Mucus FEW /lpf (OCC) Blood Urea Nitrogen 22 MG/DL (7-18) Albumin 2.9 GM/DL (3.4-5.0) 2.3 GM/DL (3.4-5.0) 2.2 GM/DL (3.4-5.0) 2.1 GM/DL (3.4-5.0) Calcium Level 8.2 MG/DL (8.5-10.1) 8.0 MG/DL (8.5-10.1) 7.5 MG/DL (8.5-10.1) 7.5 MG/DL (8.5-10.1) Aspartate Amino Transf (AST/SGOT) 41 U/L (15-37) Total Bilirubin 1.1 MG/DL (0.2-1.0) Sodium Level 123 MEQ/L (136-145) 129 MEQ/L (136-145) 125 MEQ/L (136-145) 127 MEQ/L (136-145) Chloride Level 89 MEQ/L (98-107) 96 MEQ/L (98-107) 94 MEQ/L (98-107) 97 MEQ/L (98-107) Platelet Count 111 TH/MM3 (150-450) 107 TH/MM3 (150-450) 117 TH/MM3 (150-450) Lymphocytes # (Auto) 0.4 TH/MM3 (1.0-4.8) 0.3 TH/MM3 (1.0-4.8) 0.2 TH/MM3 (1.0-4.8) Random Glucose 114 MG/DL (74-106) 116 MG/DL (74-106) Total Protein 5.9 GM/DL (6.4-8.2) 5.8 GM/DL (6.4-8.2) 5.4 GM/DL (6.4-8.2) Potassium Level 5.2 MEQ/L (3.5-5.1) 5.2 MEQ/L (3.5-5.1) 5.2 MEQ/L (3.5-5.1) Phosphorus Level 2.4 MG/DL (2.5-4.9) 1.9 MG/DL (2.5-4.9) Estimat Glomerular Filtration Rate 88 ML/MIN (>89) Mean Corpuscular Hemoglobin 34.6 PG (27.0-34.0) Imaging Last Impressions Chest X-Ray 03/17/17 4006 Signed Impressions: Service Date/Time: Friday, March 17, 2017 14:02 - CONCLUSION: No acute disease. Earl Anguiano MD PE at Discharge GENERAL: This is a thin, disheveled patient who appears older than his stated age, in no apparent distress. Awake and alert. Talkative and somewhat cooperative SKIN: No rashes, ecchymoses or lesions. Cool and dry. HEAD: Atraumatic. Normocephalic. No temporal or scalp tenderness. EYES: Pupils equal round and reactive. Extraocular motions intact. No scleral icterus. No injection or drainage. ENT: Nose without bleeding or purulent drainage. Throat without erythema, tonsillar hypertrophy or exudate. Uvula midline. Airway patent. NECK: Trachea midline. No lymphadenopathy. Supple, nontender, no meningeal signs. CARDIOVASCULAR: Regular rate and rhythm without murmurs, gallops, or rubs. RESPIRATORY: Clear to auscultation but significantly diminished breath sounds t/ o. No wheezes, rales, or rhonchi. GASTROINTESTINAL: Abdomen soft, non-tender, nondistended. No hepato-splenomegaly , or palpable masses. No guarding. GENITOURINARY: Alfaro in place with clear urine in the bag. MUSCULOSKELETAL: Extremities without clubbing or cyanosis. No joint tenderness, effusion, or edema noted. No calf tenderness. 1+ edema bilateral feet. Trace edema noted in bilateral lower legs. NEUROLOGICAL: Awake and alert. Able to move all extremities. Normal speech. Insight and judgment is poor mood and behaviors appropriate Hospital Course This is a 61 yo male with a PMHX of COPD with ongoing tobacco use and alcohol abuse who presents to [facility] ED with complaints of urinary retention. Patient states he has been unable to void in 3 days. He denies constipation and reports last BM was yesterday. Patient was recently hospitalized at the end of January for COPD exacerbation and was diagnosed with pulmonary HTN and severe tricuspid regurgitation. CTA showed mild congestive heart failure. He developed atrial fibrillation with RVR and was started on Cardizem and ASA 325mg for CHADS2 score of 1. Patient was also started on Bumex and Lisinopril. He underwent an EGD with dilatation for dysphagia. At the time of his discharge, he was to continue these medications as well as tapering dose of steroids and Symbicort. Patient failed to pick up man any of his medications following his discharge. He was seen back in the ED on Mar 13 for COPD exacerbation and treated with prednisone, Levaquin, and various inhalers. He never filled these prescriptions. Patient denies any increased shortness of breath. He denies any fever or chills. He denies any nausea, vomiting or abdominal pain. He denies any chest pain. In the ED, patient was noted to be somewhat hypoxic with improvement with nasal cannula 2 L O2. Alfaro catheter was placed and 1800ml of urine was expressed. CBC shows leukocytosis with white count of 19.7. Sodium level low at 123. Patient has been totally noncompliant. Patient never filled any of his medications. Had a Alfaro catheter placed and had almost 2 L out right away Drinks daily Smokes daily 8-19 STATES HE IS BREATHING BETTER TODAY LABS NOT AVAILABLE YET NEEDS ALFARO TRAINING PRIO TO DC 8-[address] BREATHING A LITTLE BETTER NEEDS WALK TEST PRIOR TO DC DW RN AND PT NEEDS PT AND OT 8- patient failed walk test will need home oxygen 2 L by nasal cannula. We'll discontinue his Alfaro catheter. Patient uses briefs at home/diapers We'll ask home health care to evaluate him RN and PT and respiratory We will have him follow-up with his primary care and Dr. Nate Dickey home Pt Condition on Discharge: Good Discharge Disposition: Disch w/ Home Health Serv Discharge Time: > 30 minutes Discharge Instructions DIET: Follow Instructions for: Heart Healthy Diet, Diabetic Diet Activities you can perform: Regular-No Restrictions Follow up Referrals: PCP Follow-up - 3-5 Days with Agata Sullivan MD New Medications: Nebulizer (Nebulizer) 1 Mis Mis EA .ROUTE DIRECTED for Breathing Treatment, #1 0 Refills Oxygen (O2) (Oxygen (O2)) Device LITER VINICIO.CANULA CONTINUOUS for Prevent Hypoxemia, #2 Oxygen Concentrator Portable Gaseous 2 L/min via Nasal Canula Continuous For 99 months [Omnicef] () 300 MG PO BID for Infection, #20 Folic Acid (Folic Acid) 1 Mg Tablet 1 MG PO DAILY for Alcohol Detox, #30 TAB Multiple Vitamins W/ Minerals (Thera M Plus) 1 Tab 1 TAB PO DAILY for Alcohol Detox, #30 TAB Nicotine (Eq Nicotine) 14 Mg/24 Hr Dis 1 PATCH T-DERMAL DAILY for Breathing Treatment, #30 PATCH Oxycodone (Oxycodone) 5 Mg Tab 5 MG PO Q4H PRN for PAIN GREATER THAN 5, #30 TAB Prednisone (Prednisone) 20 Mg Tab 20 MG PO BID for Shortness of Breath, #60 TAB Tamsulosin (Flomax) 0.4 Mg Cap 0.4 MG PO Q12HR for Manage Prostate Problems, #60 CAP Thiamine HCl (Gnp Vitamin B-1) 100 Mg Tab 100 MG PO DAILY for Alcohol Detox, #30 TAB [Guaifenesin] () 600 MG TABCR 600 MG PO BID for Shortness of Breath, #60 Changed Medications: Sennosides-Docusate Sodium (Senna Plus 8.6-50 mg) 1 Tab Tab 2 TAB PO BID for Prevent Constipation, #120 TAB (Changed from: 1 TAB; 60) Continued Medications: Aspirin (Aspirin) 325 Mg Tab 325 MG PO DAILY for Blood Clot Prevention, #31 TAB Budesonide-Formoterol Inh (Symbicort Inh) 160-4.5 Mcg/Act Aero 2 PUFF INH Q12HR for Breathing Treatment, #1 INHALER (This prescription has been renewed) Bumetanide (Bumetanide) 1 Mg Tab 1 MG PO DAILY for Prevent Heart Failure, #30 TAB (This prescription has been renewed) Diltiazem CD 24 HR (Cardizem CD 24 HR) 240 Mg Caper 240 MG PO DAILY for Regulate Heart Beat, #30 CAP 0 Refills (This prescription has been renewed) Ipratropium Neb (Ipratropium Neb) 0.5 Mg/2.5 Ml Amp 0.5 MG NEB Q2HR NEB PRN for SOB/WHEEZING, #120 ML Ipratropium-Albuterol Neb (Duoneb) 0.5-2.5 Mg/3 Ml Neb 1 AMPULE NEB QID NEB for Breathing Treatment, #120 ML (This prescription has been renewed) Pantoprazole (Pantoprazole) 40 Mg Tab 40 MG PO DAILY for Manage Heartburn, #30 TAB (This prescription has been renewed ) Polyethylene Glycol 3350 Powder (Polyethylene Glycol 3350 Powder) 17 Gm Pow 17 GM PO DAILY for Prevent Constipation, #60 GM (This prescription has been renewed) Potassium Chloride Powder (Potassium Chloride Powder) 20 Meq Powderpack 20 MEQ PO BID for Electrolyte Replacement, #60 MEQ (This prescription has been renewed) Discontinued Medications: Lisinopril (Lisinopril) 5 Mg Tab 2.5 MG PO DAILY for Blood Pressure Management, #30 TAB Bernard Pollock DO Mar 20, 2017 10:10
[2017-03-20] MEDS: cefTRIAXone INJ 1,000 MG in SODIUM CHLORIDE 0.9% INJ 100 ML IV SCH (10:35)
[2017-03-20] MEDS: MULTIVITAMINS/MINERALS THERAPEUTIC TAB PO SCH (10:35)
[2017-03-20] MEDS: TAMSULOSIN HCL 0.4 MG CAP PO SCH (10:36)
[2017-03-20] MEDS: ASPIRIN 325 MG TAB PO SCH (10:36)
[2017-03-20] MEDS: FOLIC ACID 1 MG TAB PO SCH (10:36)
[2017-03-20] MEDS: BUMETANIDE 1 MG TAB PO SCH (10:36)
[2017-03-20] MEDS: PANTOPRAZOLE SOD 40 MG DELAYED RELEASE TAB PO SCH (10:36)
[2017-03-20] MEDS: THIAMINE HCL 100 MG TAB PO SCH (10:36)
[2017-03-20] MEDS: predniSONE 20 MG TAB PO SCH (10:37)
[2017-03-20] MEDS: SODIUM CHLORIDE 0.9% FLUSH 10 ML FLUSH IV FLUSH SCH (10:38)
[2017-03-20] MEDS: BUDESONIDE-FORMOTEROL 160/4.5 MCG INHALER INH SCH (11:37)
[2017-03-20] MEDS: DILTIAZEM-CD 240 MG CAP ER PO SCH (11:37)
[2017-03-20 16:10] LABS: HEMOGLOBIN A1b 1.5 %; HEMOGLOBIN Ao 85.8 %; HEMOGLOBIN F 0.3 %; HEMOGLOBIN LA1C 1.7 %; HEMOGLOBIN P3 3.7 %
== END 2017-03-20 20:15 | disposition home health service (06) | DRG 696 ==
LOC: NEPD 14:00 → NEDA 15:29 → OBSVTOIN 16:09 → HOCA 19:13 → HOCB 03-20 10:51 → HOCA 03-20 10:54
PROVIDERS: ADMIT Hospitalist; ATTEND Hospitalist
PROC: 0T9B70Z Drainage of Bladder with Drainage Device, Via Natural or Artificial Opening (ICD-10-PCS; principal; 2017-03-17)
DX: R33.9 Retention of urine, unspecified (principal); I27.2 Other secondary pulmonary hypertension; I11.0 Hypertensive heart disease with heart failure; J44.1 Chronic obstructive pulmonary disease with (acute) exacerbation; R13.10 Dysphagia, unspecified; I50.22 Chronic systolic (congestive) heart failure; E87.1 Hypo-osmolality and hyponatremia; E87.5 Hyperkalemia; I48.91 Unspecified atrial fibrillation; F41.9 Anxiety disorder, unspecified; K21.9 Gastro-esophageal reflux disease without esophagitis; F10.10 Alcohol abuse, uncomplicated; Z91.14 Patient's other noncompliance with medication regimen; F17.290 Nicotine dependence, other tobacco product, uncomplicated; F43.20 Adjustment disorder, unspecified; R53.81 Other malaise; F39 Unspecified mood [affective] disorder; R73.9 Hyperglycemia, unspecified; I08.1 Rheumatic disorders of both mitral and tricuspid valves; R09.02 Hypoxemia; Z91.19 Patient's noncompliance with other medical treatment and regimen
CPT/HCPCS: 51702; 71010; 80053; 80307; 81001; 82948; 83036; 83735; 84100; 84439; 84443; 85025; 93005; 94620; 94640; 94664; J0696; J1650; J7030; J7512

== ENCOUNTER 2017-04-04 04:22 | Emergency (ER) | payer MEDICARE ==
[2017-04-04] VITALS (9 sets, daily range): BP systolic 104–140; BP diastolic 58–72; PULSE 60–83; RESP 17–35; TEMP 96.6–96.8; O2SAT 95–100
[~2017-04-04] VITALS: Ht 167.6 cm; Wt 70.0 kg
[~2017-04-04 04:22] MED LIST changes: +CEFD125S PO; +FOLI1TAB6 PO; +GNP100TA3 PO; +Guaifenesin PO; -LEVA750T9 PO; -LISI-519 PO; +NEBULIZER1 MI1; +NICO14DI23 T-DERMAL; +OXYC-392 PO; +OXYGENDME NAS.CANULA; -PRED10 PO; +TAMS5CAP PO; +THERM PO
[2017-04-04] MEDS ORDERED: PROPOFOL 1000 MG/100 ML INJ 100 ML ONE (04:25)
[2017-04-04] MEDS ORDERED: SODIUM CHLOR 0.9% 1000 ML INJ 1,000 ML IV ONE (04:45)
[2017-04-04] MEDS ORDERED: ceFAZolin 2 GM PREMIX 50 ML IV ONE (04:45)
[2017-04-04] MEDS ORDERED: ETOMIDATE 20 MG/10 ML VIAL IVP ONE (04:45)
[2017-04-04] MEDS ORDERED: PROPOFOL 1000 MG/100 ML INJ 100 ML IV PRN (04:45)
[2017-04-04] MEDS ORDERED: DIPHTH/TETANUS/ACEL PERTUSSIS (BOOSTER) 0.5 ML VIAL/PFS IM ONE (04:45)
[2017-04-04] MEDS ORDERED: SUCCINYLCHOLINE CHLORIDE 200 MG/10 ML VIAL IVP ONE (04:45)
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
[2017-04-04] MEDS: RESP: ALBUTEROL 2.5 MG/IPRATROPIUM 0.5 MG NEB (SCH) INH ×2 (04:58→04:59)
--- NOTE | 2017-04-04 04:59 | RADRPT ---
EXAM DATE/TIME: 04/04/2017 04:46 [place] COMPARISON: CHEST SINGLE AP, March 17, 2017, 14:02. INDICATIONS : Short of breath. Post intubation. MEDICAL HISTORY : None. SURGICAL HISTORY : None. ENCOUNTER: Initial ACUITY: 1 day PAIN SCORE: Non-responsive. LOCATION: Bilateral chest FINDINGS: ETT approximately 3 centers above the monique. NGT coiled in the stomach. Elevation of the left hemidi aphragm with minimal left basilar airspace disease, likely atelectasis. Cardiomediastinal contours ar e stable. Bony thorax is intact. CONCLUSION: 1. ETT and suction type NGT, as above. 2. Left lower lobe atelectasis. No pneumothorax. Ignacio Jessica MD on April 04, 2017 at 4:56 Board Certified Radiologist. This report was verified electronically.
[2017-04-04 05:20] LABS: BLOOD GAS BASE EXCESS 1.8 mmol/L (-2-2); BLOOD GAS CARBOXYHEMOGLOBIN 3.5 % (0-4); BLOOD GAS HCO3 27 mmol/L (22-26); BLOOD GAS METHEMOGLOBIN 0.6 % (0-2); BLOOD GAS O2 HGB SATURATION 96 % (90-100); BLOOD GAS OXYGEN CONTENT 14.6 Vol % (12.0-20.0); BLOOD GAS PCO2 54 mmHg (38-42); BLOOD GAS PO2 211 mmHG (61-120); BLOOD GAS TOTAL HGB 10.5 G/DL (12.0-16.0); TEMP CORR TO 98.6
[2017-04-04 05:21] LABS: CRITICAL VALUE YES; DRAW SITE RT BRACHIAL; FIO2 100 %; NUMBER OF ARTERIAL PUNCTURES 1; OXYGEN DEVICE VENTILATOR; STAT YES; VENT SETTINGS AC/18/500/PEEP5
[2017-04-04 05:27] LABS: AUTOMATED NEUTROPHIL # 16.1 TH/MM3 (1.8-7.7); BASOPHIL # 0.2 TH/MM3 (0-0.2); BASOPHIL % 1.2 % (0.0-2.0); EOSINOPHIL % 0.2 % (0.0-4.0); HEMATOCRIT 34.1 % (39.0-51.0); LYMPH % 3.4 % (9.0-44.0); LYMPHOCYTE # 0.6 TH/MM3 (1.0-4.8); MEAN CELL VOLUME 98.1 FL (80.0-100.0); MEAN CORPUSCULAR HEMOGLOBIN 33.3 PG (27.0-34.0); MONO % 4.3 % (0.0-8.0); NEUT % 90.9 % (16.0-70.0); PLATELET COUNT 151 TH/MM3 (150-450); RED BLOOD COUNT 3.48 MIL/MM3 (4.50-5.90); RED CELL DISTRIBUTION WIDTH 13.3 % (11.6-17.2); WHITE BLOOD COUNT 17.7 TH/MM3 (4.0-11.0)
[2017-04-04 05:29] LABS: HEMO FLAGS AUTO DIFF
[2017-04-04 05:46] LABS: ALKALINE PHOSPHATASE 102 U/L (45-117); ALT (GPT) 34 U/L (12-78); ANION GAP 9 MEQ/L (5-15); AST (GOT) 28 U/L (15-37); BICARBONATE 32.3 MEQ/L (21.0-32.0); BLOOD UREA NITROGEN 8 MG/DL (7-18); CHLORIDE 75 MEQ/L (98-107); CREATINE KINASE 55 U/L (39-308); GLOMERULAR FILTRATION RATE 127 ML/MIN (>89); POTASSIUM 4.2 MEQ/L (3.5-5.1); TOTAL BILIRUBIN ADULT 0.9 MG/DL (0.2-1.0)
[2017-04-04 05:47] LABS: SODIUM (NA) 116 MEQ/L (136-145)
[2017-04-04 06:00] LABS: SCAN/DIFF AUTO DIFF CONFIRMED
[2017-04-04 06:01] LABS: BACTERIA, URINE OCC /hpf; BLOOD, URINE SMALL (NEG); GLUCOSE,URINE NEG (NEG); KETONE, URINE NEG (NEG); MUCUS URINE FEW /lpf (OCC); NITRITE,URINE NEG (NEG); URINE COLOR YELLOW (YELLW/STRAW)
--- NOTE | 2017-04-04 14:24 | EKG ---
Date Performed: 04/04/2017 Time Performed: 05:09:32 PTAGE: 61 years EKG: Sinus rhythm INCOMPLETE RIGHT BUNDLE BRANCH BLOCK BORDERLINE ECG PREVIOUS TRACING : 03/17/[address]-T wave changes somewhat improved since prior tracing. DOCTOR: Noel Swartz Interpretating Date/Time 04/04/2017 14:23:24
== END 2017-04-04 07:17 | disposition short-term general hospital (02) ==
LOC: NEPC 04:22
DX: T59.811A Toxic effect of smoke, accidental (unintentional), initial encounter (principal); J96.20 Acute and chronic respiratory failure, unspecified whether with hypoxia or hypercapnia; J44.1 Chronic obstructive pulmonary disease with (acute) exacerbation; X14.0XXA Inhalation of hot air and gases, initial encounter; Y92.009 Unspecified place in unspecified non-institutional (private) residence as the place of occurrence of the external cause; I45.10 Unspecified right bundle-branch block; Z99.81 Dependence on supplemental oxygen; R07.9 Chest pain, unspecified
CPT/HCPCS: 31500; 36600; 71010; 80053; 81001; 82550; 82805; 84484; 85025; 90471; 90715; 93005; 94002; 94640; 94664; 96365; 99291; J0330; J0690; P9612

== ENCOUNTER 2017-04-05 23:00 | Inpatient (IN) | payer MEDICARE ==
[2017-04-05 23:00] VITALS: BP 140/84; PULSE 72; RESP 18; TEMP 98.4; O2SAT 96
[2017-04-05] MEDS ORDERED: NALOXONE HCL 0.4 MG/ML AMP IV PRN (23:45)
[2017-04-05] MEDS ORDERED: ONDANSETRON HCL 4 MG/2 ML VIAL IVP PRN (23:45)
[2017-04-05] MEDS ORDERED: ACETAMINOPHEN 325 MG TAB PO PRN (23:45)
[2017-04-05] MEDS ORDERED: SODIUM CHLORIDE 0.9% FLUSH 10 ML FLUSH IV FLUSH PRN (23:45)
[2017-04-06] VITALS (28 sets, daily range): BP systolic 91–134; BP diastolic 49–77; PULSE 54–84; RESP 18–20; TEMP 97.6–98.3; O2SAT 92–99
[2017-04-06 02:21] LABS: AUTOMATED NEUTROPHIL # 9.5 TH/MM3 (1.8-7.7); BASOPHIL % 0.2 % (0.0-2.0); EOSINOPHIL % 0.2 % (0.0-4.0); HEMATOCRIT 30.5 % (39.0-51.0); LYMPH % 2.1 % (9.0-44.0); LYMPHOCYTE # 0.2 TH/MM3 (1.0-4.8); MEAN CELL VOLUME 98.3 FL (80.0-100.0); MEAN CORPUSCULAR HEMOGLOBIN 33.4 PG (27.0-34.0); MONO % 5.2 % (0.0-8.0); NEUT % 92.3 % (16.0-70.0); PLATELET COUNT 87 TH/MM3 (150-450); RED CELL DISTRIBUTION WIDTH 13.3 % (11.6-17.2); WHITE BLOOD COUNT 10.3 TH/MM3 (4.0-11.0)
[2017-04-06 02:22] LABS: HEMO FLAGS AUTO DIFF
[2017-04-06 02:48] LABS: ALKALINE PHOSPHATASE 81 U/L (45-117); ALT (GPT) 28 U/L (12-78); ANION GAP 6 MEQ/L (5-15); AST (GOT) 24 U/L (15-37); BICARBONATE 32.1 MEQ/L (21.0-32.0); BLOOD UREA NITROGEN 9 MG/DL (7-18); CHLORIDE 87 MEQ/L (98-107); GLOMERULAR FILTRATION RATE 168 ML/MIN (>89); POTASSIUM 3.8 MEQ/L (3.5-5.1); SODIUM (NA) 125 MEQ/L (136-145); TOTAL BILIRUBIN ADULT 0.5 MG/DL (0.2-1.0)
[2017-04-06 02:50] LABS: POLYS (SEG NEUTROPHILS) 86 % (16-70); PROMYELOCYTES 1 % (0-0); WBC DIFF SAMPLE 100
[2017-04-06 02:51] LABS: PLATELET ESTIMATE SMEAR LOW (NORMAL); PLATELET MORPHOLOGY NORMAL (NORMAL); SCAN/DIFF FINAL DIFF MANUAL
[2017-04-06] MEDS ORDERED: RESP: ALBUTEROL 2.5 MG/IPRATROPIUM 0.5 MG NEB (PRN) NEB ×2 (08:00→10:00)
[2017-04-06] MEDS: SODIUM CHLORIDE 0.9% FLUSH 10 ML FLUSH IV FLUSH SCH ×2 (09:00→21:36)
[2017-04-06] MEDS ORDERED: RESP: IPRATROPIUM 0.5 MG/2.5 ML NEB NEB PRN (10:00)
[2017-04-06] MEDS ORDERED: OMNICEF 300 MG PO SCH (10:00)
[2017-04-06] MEDS ORDERED: GUAIFENESIN 600 MG PO SCH (10:00)
[2017-04-06] MEDS ORDERED: GLUCAGON 1 MG/ML VIAL OTHER PRN (10:00)
[2017-04-06] MEDS ORDERED: DEXTROSE 50% IN WATER 50 ML VIAL(D50) IV PRN (10:00)
[2017-04-06] MEDS: MULTIVITAMINS/MINERALS THERAPEUTIC TAB PO SCH (11:00)
[2017-04-06] MEDS: guaiFENesin E.R. 600 MG TAB PO SCH ×2 (11:00→21:34)
[2017-04-06] MEDS: FOLIC ACID 1 MG TAB PO SCH (11:00)
[2017-04-06] MEDS: POLYETHYLENE GLYCOL 17 GM PKG PO SCH (11:00)
[2017-04-06] MEDS: ASPIRIN 325 MG TAB PO SCH (11:00)
[2017-04-06] MEDS: DILTIAZEM-CD 240 MG CAP ER PO SCH (11:00)
[2017-04-06] MEDS: DOCUSATE SODIUM 50 MG/SENNA 8.6 MG TAB PO SCH ×2 (11:00→21:35)
[2017-04-06] MEDS: BUDESONIDE-FORMOTEROL 160/4.5 MCG INHALER INH SCH ×2 (11:00→22:03)
[2017-04-06] MEDS: TAMSULOSIN HCL 0.4 MG CAP PO SCH ×2 (11:00→21:35)
[2017-04-06] MEDS: PANTOPRAZOLE SOD 40 MG DELAYED RELEASE TAB PO SCH (11:00)
[2017-04-06] MEDS ORDERED: methylPREDNISolone SOD SUCC 125 MG/2 ML VIAL IV PUSH ONE (11:00)
[2017-04-06] MEDS: THIAMINE HCL 100 MG TAB PO SCH (11:00)
[2017-04-06] MEDS: NICOTINE 14 MG/24 HR PATCH T-DERMAL SCH (11:00)
[2017-04-06] MEDS: INSULIN ASPART SUPPLEMENTAL SCALE SQ SCH ×3 (11:00→21:38)
[2017-04-06] MEDS: BUMETANIDE 1 MG TAB PO SCH (11:00)
[2017-04-06] MEDS: RESP: ALBUTEROL 2.5 MG/IPRATROPIUM 0.5 MG NEB (SCH) NEB ×3 (11:06→21:52)
[2017-04-06] MEDS ORDERED: ALBUTEROL SULFATE 90 MCG/ACT HFA 8 GM INHALER INH PRN (12:00)
[2017-04-06] MEDS ORDERED: RESP: ALBUTEROL 2.5 MG/IPRATROPIUM 0.5 MG NEB (SCH) NEB (12:00)
[2017-04-06] MEDS: POTASSIUM CHLORIDE 20 MEQ PWD PACKET PO SCH ×2 (14:00→21:00)
[2017-04-06] MEDS: CEFEPIME 1000 MG/NS 100 ML IV SCH ×2 (14:00)
[2017-04-06] MEDS: NYSTATIN 100,000 UNIT/GM CREAM 15 GM TOPICAL SCH ×2 (15:14→21:36)
[2017-04-06] MEDS: NYSTATIN 100,000 U/GM PWD 15 GM BTL TOPICAL SCH ×2 (15:14→21:36)
[2017-04-06] MEDS: methylPREDNISolone SOD SUCC 125 MG/2 ML VIAL IV PUSH SCH (23:12)
[2017-04-07] VITALS (26 sets, daily range): BP systolic 107–130; BP diastolic 49–76; PULSE 62–94; RESP 18–22; TEMP 97.8–98.8; O2SAT 91–100
[2017-04-07] MEDS: CEFEPIME 1000 MG/NS 100 ML IV SCH ×4 (00:09→11:29)
[2017-04-07] MEDS: RESP: ALBUTEROL 2.5 MG/IPRATROPIUM 0.5 MG NEB (SCH) NEB ×5 (02:12→21:38)
[2017-04-07] MEDS: INSULIN ASPART SUPPLEMENTAL SCALE SQ SCH ×4 (06:28→21:40)
[2017-04-07 07:40] LABS: AUTOMATED NEUTROPHIL # 6.5 TH/MM3 (1.8-7.7); HEMATOCRIT 26.7 % (39.0-51.0); LYMPH % 2.7 % (9.0-44.0); LYMPHOCYTE # 0.2 TH/MM3 (1.0-4.8); MEAN CELL VOLUME 97.4 FL (80.0-100.0); MEAN CORPUSCULAR HEMOGLOBIN 34.6 PG (27.0-34.0); MEAN CORPUSCULAR HGB CONC 35.5 % (32.0-36.0); MONO % 3.2 % (0.0-8.0); NEUT % 94.1 % (16.0-70.0); PLATELET COUNT 71 TH/MM3 (150-450); RED BLOOD COUNT 2.74 MIL/MM3 (4.50-5.90); RED CELL DISTRIBUTION WIDTH 13.1 % (11.6-17.2); WHITE BLOOD COUNT 6.9 TH/MM3 (4.0-11.0)
[2017-04-07 07:47] LABS: HEMO FLAGS AUTO DIFF
[2017-04-07 08:09] LABS: ALKALINE PHOSPHATASE 73 U/L (45-117); ALT (GPT) 30 U/L (12-78); ANION GAP 8 MEQ/L (5-15); AST (GOT) 19 U/L (15-37); BICARBONATE 29.6 MEQ/L (21.0-32.0); BLOOD UREA NITROGEN 13 MG/DL (7-18); CHLORIDE 83 MEQ/L (98-107); FREE T4 1.32 NG/DL (0.76-1.46); GLOMERULAR FILTRATION RATE 158 ML/MIN (>89); MAGNESIUM 1.7 MG/DL (1.5-2.5); POTASSIUM 3.9 MEQ/L (3.5-5.1); TOTAL BILIRUBIN ADULT 0.5 MG/DL (0.2-1.0)
[2017-04-07 08:13] LABS: SODIUM (NA) 121 MEQ/L (136-145)
[2017-04-07] MEDS: guaiFENesin E.R. 600 MG TAB PO SCH ×2 (08:54→21:11)
[2017-04-07] MEDS: PANTOPRAZOLE SOD 40 MG DELAYED RELEASE TAB PO SCH (08:55)
[2017-04-07] MEDS: BUMETANIDE 1 MG TAB PO SCH (08:55)
[2017-04-07] MEDS: TAMSULOSIN HCL 0.4 MG CAP PO SCH ×2 (08:55→21:11)
[2017-04-07] MEDS: MULTIVITAMINS/MINERALS THERAPEUTIC TAB PO SCH (08:55)
[2017-04-07] MEDS: DILTIAZEM-CD 240 MG CAP ER PO SCH (08:55)
[2017-04-07] MEDS: DOCUSATE SODIUM 50 MG/SENNA 8.6 MG TAB PO SCH ×2 (08:55→21:11)
[2017-04-07] MEDS: REMOVE OLD PATCH T-DERMAL SCH (08:56)
[2017-04-07] MEDS: ASPIRIN 325 MG TAB PO SCH (08:56)
[2017-04-07] MEDS: POTASSIUM CHLORIDE 20 MEQ PWD PACKET PO SCH ×2 (08:56→21:00)
[2017-04-07] MEDS: NICOTINE 14 MG/24 HR PATCH T-DERMAL SCH (08:56)
[2017-04-07] MEDS: POLYETHYLENE GLYCOL 17 GM PKG PO SCH (08:56)
[2017-04-07] MEDS: THIAMINE HCL 100 MG TAB PO SCH (08:56)
[2017-04-07] MEDS: FOLIC ACID 1 MG TAB PO SCH (08:56)
[2017-04-07] MEDS: BUDESONIDE-FORMOTEROL 160/4.5 MCG INHALER INH SCH ×2 (08:57→21:11)
[2017-04-07] MEDS: SODIUM CHLORIDE 0.9% FLUSH 10 ML FLUSH IV FLUSH SCH ×2 (08:57→21:12)
[2017-04-07] MEDS: NYSTATIN 100,000 UNIT/GM CREAM 15 GM TOPICAL SCH ×2 (08:57→21:12)
[2017-04-07] MEDS: NYSTATIN 100,000 U/GM PWD 15 GM BTL TOPICAL SCH ×2 (08:57→21:11)
[2017-04-07 09:38] LABS: SCAN/DIFF AUTO DIFF CONFIRMED
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
[2017-04-07] MEDS: SODIUM CHLORIDE 1 GRAM TAB PO SCH ×3 (11:29→17:34)
[2017-04-07] MEDS: methylPREDNISolone SOD SUCC 125 MG/2 ML VIAL IV PUSH SCH ×3 (11:30→21:14)
[2017-04-07 16:03] LABS: HEMOGLOBIN A1a 1.1 %; HEMOGLOBIN A1b 1.7 %; HEMOGLOBIN Ao 85.7 %; HEMOGLOBIN P3 3.9 %
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
[2017-04-07] MEDS ORDERED: ALBUTEROL SULFATE 90 MCG/ACT HFA 8 GM INHALER INH PRN (20:15)
--- NOTE | 2017-04-07 20:21 | RADRPT ---
EXAM DATE/TIME: 04/07/2017 20:03 [place] COMPARISON: CHEST SINGLE AP, April 04, 2017, 4:46. INDICATIONS : Difficulty breathing. MEDICAL HISTORY : Chronic obstructive pulmonary disease. SURGICAL HISTORY : None. ENCOUNTER: Initial ACUITY: 1 day PAIN SCORE: 0/10 LOCATION: Bilateral chest FINDINGS: A single view of the chest demonstrates mild basilar atelectasis. Trace pleural fluid. Heart size enl arged. Elevated left hemidiaphragm similar to April 04. Extubation since prior exam. CONCLUSION: 1. Trace pleural fluid. Minimal basilar atelectasis. Jaime Coffman MD on April 07, 2017 at 20:17 Board Certified Radiologist. This report was verified electronically.
[2017-04-07 20:39] LABS: BLOOD GAS BASE EXCESS 5.2 mmol/L (-2-2); BLOOD GAS HCO3 29 mmol/L (22-26); BLOOD GAS METHEMOGLOBIN 0.9 % (0-2); BLOOD GAS O2 HGB SATURATION 95 % (90-100); BLOOD GAS OXYGEN CONTENT 12.4 Vol % (12.0-20.0); BLOOD GAS PCO2 44 mmHg (38-42); BLOOD GAS PO2 88 mmHg (61-120); BLOOD GAS TOTAL HGB 9.2 G/DL (12.0-16.0); CRITICAL VALUE NO; DRAW SITE RT RADIAL; LITER FLOW 5 L/M; NUMBER OF ARTERIAL PUNCTURES 1; OXYGEN DEVICE NASAL CANNULA; STAT NO; TEMP CORR TO 98.6
[2017-04-07] MEDS: AZITHROMYCIN INJ 500 MG in SODIUM CHLOR 0.9% 250 ML INJ 250 ML IV SCH (21:13)
[2017-04-07] MEDS ORDERED: RESP: ALBUTEROL 2.5 MG/IPRATROPIUM 0.5 MG NEB (SCH) ONE (21:53)
[2017-04-08] VITALS (13 sets, daily range): BP systolic 107–150; BP diastolic 62–83; PULSE 69–87; RESP 16–18; TEMP 97.1–98.1; O2SAT 86–99
[2017-04-08] MEDS: CEFEPIME 1000 MG/NS 100 ML IV SCH ×4 (00:16→11:17)
[2017-04-08] MEDS: RESP: ALBUTEROL 2.5 MG/IPRATROPIUM 0.5 MG NEB (SCH) NEB ×6 (00:35→20:56)
[2017-04-08] MEDS: methylPREDNISolone SOD SUCC 125 MG/2 ML VIAL IV PUSH SCH ×4 (06:09→21:06)
[2017-04-08] MEDS: INSULIN ASPART SUPPLEMENTAL SCALE SQ SCH ×4 (06:32→21:00)
[2017-04-08] MEDS: THIAMINE HCL 100 MG TAB PO SCH (08:28)
[2017-04-08] MEDS: DILTIAZEM-CD 240 MG CAP ER PO SCH (08:28)
[2017-04-08] MEDS: MULTIVITAMINS/MINERALS THERAPEUTIC TAB PO SCH (08:28)
[2017-04-08] MEDS: SODIUM CHLORIDE 1 GRAM TAB PO SCH ×3 (08:28→18:06)
[2017-04-08] MEDS: PANTOPRAZOLE SOD 40 MG DELAYED RELEASE TAB PO SCH (08:28)
[2017-04-08] MEDS: guaiFENesin E.R. 600 MG TAB PO SCH ×2 (08:28→21:06)
[2017-04-08] MEDS: FOLIC ACID 1 MG TAB PO SCH (08:29)
[2017-04-08] MEDS: BUMETANIDE 1 MG TAB PO SCH (08:29)
[2017-04-08] MEDS: TAMSULOSIN HCL 0.4 MG CAP PO SCH ×2 (08:29→21:06)
[2017-04-08] MEDS: POTASSIUM CHLORIDE 20 MEQ PWD PACKET PO SCH ×2 (08:30→21:00)
[2017-04-08] MEDS: POLYETHYLENE GLYCOL 17 GM PKG PO SCH (08:30)
[2017-04-08] MEDS: NYSTATIN 100,000 UNIT/GM CREAM 15 GM TOPICAL SCH ×2 (08:31→21:00)
[2017-04-08] MEDS: DOCUSATE SODIUM 50 MG/SENNA 8.6 MG TAB PO SCH ×2 (08:31→21:07)
[2017-04-08] MEDS: NYSTATIN 100,000 U/GM PWD 15 GM BTL TOPICAL SCH ×2 (08:32→21:12)
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
[2017-04-08] MEDS: ASPIRIN 325 MG TAB PO SCH (09:00)
[2017-04-08] MEDS: REMOVE OLD PATCH T-DERMAL SCH (09:00)
[2017-04-08] MEDS: NICOTINE 14 MG/24 HR PATCH T-DERMAL SCH (10:46)
[2017-04-08] MEDS: BUDESONIDE-FORMOTEROL 160/4.5 MCG INHALER INH SCH ×2 (10:47→21:11)
[2017-04-08] MEDS: SODIUM CHLORIDE 0.9% FLUSH 10 ML FLUSH IV FLUSH SCH ×2 (10:47→21:08)
[2017-04-08] MEDS ORDERED: LORazepam 2 MG/ML VIAL IV PUSH ONE (14:15)
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
[2017-04-08 14:30] LABS: AUTOMATED NEUTROPHIL # 8.2 TH/MM3 (1.8-7.7); BASOPHIL % 0.1 % (0.0-2.0); LYMPH % 1.5 % (9.0-44.0); LYMPHOCYTE # 0.1 TH/MM3 (1.0-4.8); MEAN CELL VOLUME 98.6 FL (80.0-100.0); MEAN CORPUSCULAR HEMOGLOBIN 33.2 PG (27.0-34.0); MEAN CORPUSCULAR HGB CONC 33.7 % (32.0-36.0); MONO % 4.5 % (0.0-8.0); NEUT % 93.9 % (16.0-70.0); PLATELET COUNT 94 TH/MM3 (150-450); RED BLOOD COUNT 3.04 MIL/MM3 (4.50-5.90); RED CELL DISTRIBUTION WIDTH 13.3 % (11.6-17.2); WHITE BLOOD COUNT 8.7 TH/MM3 (4.0-11.0)
[2017-04-08 14:32] LABS: HEMO FLAGS AUTO DIFF
[2017-04-08 14:38] LABS: BLOOD GAS BASE EXCESS 9.7 mmol/L (-2-2); BLOOD GAS CARBOXYHEMOGLOBIN 1.8 % (0-4); BLOOD GAS HCO3 34 mmol/L (22-26); BLOOD GAS METHEMOGLOBIN 1.1 % (0-2); BLOOD GAS O2 HGB SATURATION 92 % (90-100); BLOOD GAS OXYGEN CONTENT 12.6 Vol % (12.0-20.0); BLOOD GAS PCO2 53 mmHg (38-42); BLOOD GAS PO2 73 mmHg (61-120); BLOOD GAS TOTAL HGB 9.7 G/DL (12.0-16.0); CRITICAL VALUE YES; TEMP CORR TO 98.6
[2017-04-08 14:39] LABS: DRAW SITE RT RADIAL; FIO2 40 %; NUMBER OF ARTERIAL PUNCTURES 1; OXYGEN DEVICE BIPAP; STAT YES; ULNAR PULSE PRESENT; VENT SETTINGS IPAP+12/EPAP+5
[2017-04-08 14:46] LABS: ALT (GPT) 43 U/L (12-78); ANION GAP 6 MEQ/L (5-15); AST (GOT) 26 U/L (15-37); BICARBONATE 35.9 MEQ/L (21.0-32.0); BLOOD UREA NITROGEN 17 MG/DL (7-18); CHLORIDE 84 MEQ/L (98-107); GLOMERULAR FILTRATION RATE 137 ML/MIN (>89); MAGNESIUM 1.5 MG/DL (1.5-2.5); POTASSIUM 3.5 MEQ/L (3.5-5.1); SODIUM (NA) 126 MEQ/L (136-145)
[2017-04-08 14:48] LABS: ALKALINE PHOSPHATASE 80 U/L (45-117); TOTAL BILIRUBIN ADULT 0.4 MG/DL (0.2-1.0)
[2017-04-08 15:08] LABS: PLATELET ESTIMATE SMEAR LOW (NORMAL); PLATELET MORPHOLOGY NORMAL (NORMAL); SCAN/DIFF AUTO DIFF CONFIRMED
[2017-04-08] MEDS: AZITHROMYCIN INJ 500 MG in SODIUM CHLOR 0.9% 250 ML INJ 250 ML IV SCH (21:32)
[2017-04-08] MEDS ORDERED: LORazepam 2 MG/ML VIAL ONE (23:14)
[2017-04-09] VITALS (16 sets, daily range): BP systolic 127–137; BP diastolic 69–77; PULSE 59–88; RESP 14–26; TEMP 96.8–98.3; O2SAT 89–99
[2017-04-09] MEDS: RESP: ALBUTEROL 2.5 MG/IPRATROPIUM 0.5 MG NEB (SCH) NEB ×6 (00:20→20:57)
[2017-04-09] MEDS: CEFEPIME 1000 MG/NS 100 ML IV SCH ×4 (00:36→11:14)
[2017-04-09 05:40] LABS: AUTOMATED NEUTROPHIL # 11.5 TH/MM3 (1.8-7.7); BASOPHIL % 0.1 % (0.0-2.0); HEMATOCRIT 30.6 % (39.0-51.0); LYMPH % 1.3 % (9.0-44.0); LYMPHOCYTE # 0.2 TH/MM3 (1.0-4.8); MEAN CELL VOLUME 99.1 FL (80.0-100.0); MEAN CORPUSCULAR HEMOGLOBIN 33.3 PG (27.0-34.0); MEAN CORPUSCULAR HGB CONC 33.6 % (32.0-36.0); MONO % 3.5 % (0.0-8.0); NEUT % 95.1 % (16.0-70.0); PLATELET COUNT 85 TH/MM3 (150-450); RED BLOOD COUNT 3.09 MIL/MM3 (4.50-5.90); RED CELL DISTRIBUTION WIDTH 13.3 % (11.6-17.2); WHITE BLOOD COUNT 12.1 TH/MM3 (4.0-11.0)
[2017-04-09 06:05] LABS: HEMO FLAGS AUTO DIFF
[2017-04-09 06:07] LABS: ANION GAP 5 MEQ/L (5-15); AST (GOT) 25 U/L (15-37); BICARBONATE 38.1 MEQ/L (21.0-32.0); BLOOD UREA NITROGEN 17 MG/DL (7-18); CHLORIDE 85 MEQ/L (98-107); GLOMERULAR FILTRATION RATE 186 ML/MIN (>89); MAGNESIUM 1.6 MG/DL (1.5-2.5); POTASSIUM 4.1 MEQ/L (3.5-5.1); SODIUM (NA) 128 MEQ/L (136-145)
[2017-04-09 06:10] LABS: ALKALINE PHOSPHATASE 74 U/L (45-117); ALT (GPT) 45 U/L (12-78); TOTAL BILIRUBIN ADULT 0.4 MG/DL (0.2-1.0)
[2017-04-09] MEDS: INSULIN ASPART SUPPLEMENTAL SCALE SQ SCH ×4 (06:21→21:48)
[2017-04-09] MEDS: methylPREDNISolone SOD SUCC 125 MG/2 ML VIAL IV PUSH SCH ×3 (06:23→21:30)
[2017-04-09] MEDS: FOLIC ACID 1 MG TAB PO SCH (08:13)
[2017-04-09] MEDS: guaiFENesin E.R. 600 MG TAB PO SCH ×2 (08:13→21:00)
[2017-04-09] MEDS: DILTIAZEM-CD 240 MG CAP ER PO SCH (08:13)
[2017-04-09] MEDS: THIAMINE HCL 100 MG TAB PO SCH (08:13)
[2017-04-09] MEDS: PANTOPRAZOLE SOD 40 MG DELAYED RELEASE TAB PO SCH (08:13)
[2017-04-09] MEDS: BUMETANIDE 1 MG TAB PO SCH (08:13)
[2017-04-09] MEDS: MULTIVITAMINS/MINERALS THERAPEUTIC TAB PO SCH (08:13)
[2017-04-09] MEDS: SODIUM CHLORIDE 1 GRAM TAB PO SCH ×3 (08:13→18:00)
[2017-04-09] MEDS: DOCUSATE SODIUM 50 MG/SENNA 8.6 MG TAB PO SCH ×2 (08:14→21:00)
[2017-04-09] MEDS: TAMSULOSIN HCL 0.4 MG CAP PO SCH ×2 (08:14→21:00)
[2017-04-09] MEDS: ASPIRIN 325 MG TAB PO SCH (08:14)
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
[2017-04-09] MEDS: NICOTINE 14 MG/24 HR PATCH T-DERMAL SCH (08:15)
[2017-04-09] MEDS: REMOVE OLD PATCH T-DERMAL SCH (08:15)
[2017-04-09] MEDS: POTASSIUM CHLORIDE 20 MEQ PWD PACKET PO SCH ×2 (08:15→21:00)
[2017-04-09] MEDS: POLYETHYLENE GLYCOL 17 GM PKG PO SCH (08:15)
[2017-04-09] MEDS: NYSTATIN 100,000 UNIT/GM CREAM 15 GM TOPICAL SCH ×2 (08:16→21:30)
[2017-04-09] MEDS: NYSTATIN 100,000 U/GM PWD 15 GM BTL TOPICAL SCH ×2 (08:16→21:30)
[2017-04-09] MEDS: BUDESONIDE-FORMOTEROL 160/4.5 MCG INHALER INH SCH ×2 (08:16→21:31)
[2017-04-09] MEDS: SODIUM CHLORIDE 0.9% FLUSH 10 ML FLUSH IV FLUSH SCH ×2 (08:34→21:32)
[2017-04-09 10:37] LABS: PLATELET ESTIMATE SMEAR LOW (NORMAL); PLATELET MORPHOLOGY NORMAL (NORMAL); SCAN/DIFF AUTO DIFF CONFIRMED
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
[2017-04-09] MEDS ORDERED: LORazepam 2 MG/ML VIAL IV PUSH PRN (12:15)
[2017-04-09] MEDS: LORazepam 2 MG/ML VIAL IV PRN ×2 (12:48→17:10)
[2017-04-09] MEDS: AZITHROMYCIN INJ 500 MG in SODIUM CHLOR 0.9% 250 ML INJ 250 ML IV SCH (21:31)
[2017-04-10] VITALS (13 sets, daily range): BP systolic 121–147; BP diastolic 64–79; PULSE 66–94; RESP 14–28; TEMP 96.1–97.7; O2SAT 89–100
[2017-04-10] MEDS: CEFEPIME 1000 MG/NS 100 ML IV SCH ×6 (00:13→23:59)
[2017-04-10] MEDS: LORazepam 2 MG/ML VIAL IV PRN (00:59)
[2017-04-10] MEDS: RESP: ALBUTEROL 2.5 MG/IPRATROPIUM 0.5 MG NEB (SCH) NEB ×6 (03:16→20:49)
[2017-04-10] MEDS: methylPREDNISolone SOD SUCC 125 MG/2 ML VIAL IV PUSH SCH ×3 (05:01→21:28)
[2017-04-10] MEDS: INSULIN ASPART SUPPLEMENTAL SCALE SQ SCH ×4 (06:14→21:27)
[2017-04-10 07:24] LABS: AUTOMATED NEUTROPHIL # 7.7 TH/MM3 (1.8-7.7); BASOPHIL % 0.1 % (0.0-2.0); HEMATOCRIT 31.6 % (39.0-51.0); LYMPH % 1.2 % (9.0-44.0); LYMPHOCYTE # 0.1 TH/MM3 (1.0-4.8); MEAN CELL VOLUME 100.2 FL (80.0-100.0); MEAN CORPUSCULAR HEMOGLOBIN 33.9 PG (27.0-34.0); MEAN CORPUSCULAR HGB CONC 33.8 % (32.0-36.0); NEUT % 94.7 % (16.0-70.0); PLATELET COUNT 91 TH/MM3 (150-450); RED BLOOD COUNT 3.16 MIL/MM3 (4.50-5.90); RED CELL DISTRIBUTION WIDTH 13.5 % (11.6-17.2); WHITE BLOOD COUNT 8.1 TH/MM3 (4.0-11.0)
[2017-04-10 07:37] LABS: HEMO FLAGS AUTO DIFF
[2017-04-10 07:43] LABS: ALKALINE PHOSPHATASE 74 U/L (45-117); ALT (GPT) 43 U/L (12-78); ANION GAP 6 MEQ/L (5-15); AST (GOT) 23 U/L (15-37); BICARBONATE 34.6 MEQ/L (21.0-32.0); BLOOD UREA NITROGEN 17 MG/DL (7-18); CHLORIDE 92 MEQ/L (98-107); GLOMERULAR FILTRATION RATE 206 ML/MIN (>89); SODIUM (NA) 133 MEQ/L (136-145); TOTAL BILIRUBIN ADULT 0.4 MG/DL (0.2-1.0)
[2017-04-10 07:48] LABS: POTASSIUM 2.4 MEQ/L (3.5-5.1)
[2017-04-10] MEDS: POTASSIUM CHLOR 20 MEQ PREMIX 100 ML IV SCH ×5 (08:51→17:40)
[2017-04-10] MEDS: REMOVE OLD PATCH T-DERMAL SCH (09:00)
[2017-04-10] MEDS: POTASSIUM CHLORIDE 20 MEQ PWD PACKET PO SCH ×2 (09:00→21:00)
[2017-04-10] MEDS: SODIUM CHLORIDE 1 GRAM TAB PO SCH ×3 (09:00→17:36)
[2017-04-10] MEDS: NICOTINE 14 MG/24 HR PATCH T-DERMAL SCH (09:18)
[2017-04-10] MEDS: NYSTATIN 100,000 U/GM PWD 15 GM BTL TOPICAL SCH ×2 (09:19→21:26)
[2017-04-10] MEDS: BUDESONIDE-FORMOTEROL 160/4.5 MCG INHALER INH SCH ×2 (09:19→21:29)
[2017-04-10] MEDS: NYSTATIN 100,000 UNIT/GM CREAM 15 GM TOPICAL SCH ×2 (09:19→21:00)
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
[2017-04-10] MEDS ORDERED: POTASSIUM PHOSPHATE MONOBASIC 500 MG TAB PO PRN (09:45)
[2017-04-10] MEDS ORDERED: POTASSIUM CHLOR 20 MEQ PREMIX 100 ML IV PRN ×2 (09:45)
[2017-04-10] MEDS ORDERED: MAGNESIUM OXIDE 400 MG TAB PO PRN (09:45)
[2017-04-10] MEDS ORDERED: POTASSIUM CHLOR 40 MEQ PREMIX 100 ML IV PRN ×2 (09:45)
[2017-04-10] MEDS ORDERED: MAGNESIUM SULFATE INJ 2 GM in SODIUM CHLORIDE 0.9% INJ 96 ML IV PRN (09:45)
[2017-04-10] MEDS ORDERED: POTASSIUM PHOSPHATE MONOBASIC 500 MG TAB PO/TUBE PRN (09:45)
[2017-04-10] MEDS ORDERED: SODIUM PHOSPHATE INJ 30 MMOL in SODIUM CHLOR 0.9% 250 ML INJ 240 ML IV PRN (09:45)
[2017-04-10] MEDS ORDERED: MAGNESIUM SULFATE INJ 4 GM in SODIUM CHLORIDE 0.9% INJ 92 ML IV PRN (09:45)
[2017-04-10] MEDS ORDERED: POTASSIUM CHLORIDE 25 MEQ EFFERVESCENT TAB PO PRN (09:45)
[2017-04-10] MEDS ORDERED: POTASSIUM PHOSPHATE INJ 30 MMOL in SODIUM CHLOR 0.9% 250 ML INJ 250 ML IV PRN (09:45)
[2017-04-10] MEDS: MULTIVITAMINS/MINERALS THERAPEUTIC TAB PO SCH (10:17)
[2017-04-10] MEDS: DOCUSATE SODIUM 50 MG/SENNA 8.6 MG TAB PO SCH ×2 (10:17→21:26)
[2017-04-10] MEDS: PANTOPRAZOLE SOD 40 MG DELAYED RELEASE TAB PO SCH (10:17)
[2017-04-10] MEDS: guaiFENesin E.R. 600 MG TAB PO SCH ×2 (10:17→21:25)
[2017-04-10] MEDS: FOLIC ACID 1 MG TAB PO SCH (10:17)
[2017-04-10] MEDS: ASPIRIN 325 MG TAB PO SCH (10:17)
[2017-04-10] MEDS: POLYETHYLENE GLYCOL 17 GM PKG PO SCH (10:18)
[2017-04-10] MEDS: DILTIAZEM-CD 240 MG CAP ER PO SCH (10:19)
[2017-04-10] MEDS: SODIUM CHLORIDE 0.9% FLUSH 10 ML FLUSH IV FLUSH SCH ×2 (10:19→21:25)
[2017-04-10] MEDS: THIAMINE HCL 100 MG TAB PO SCH (10:22)
[2017-04-10] MEDS: TAMSULOSIN HCL 0.4 MG CAP PO SCH ×2 (10:22→21:25)
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
[2017-04-10 11:37] LABS: BURR CELLS 1+ (NORMAL)
[2017-04-10 11:38] LABS: PLATELET ESTIMATE SMEAR LOW (NORMAL); PLATELET MORPHOLOGY NORMAL (NORMAL); SCAN/DIFF AUTO DIFF CONFIRMED
[2017-04-10] MEDS: BUMETANIDE INJ 1 MG/4 ML VIAL IV PUSH SCH (15:56)
[2017-04-10] MEDS: AZITHROMYCIN INJ 500 MG in SODIUM CHLOR 0.9% 250 ML INJ 250 ML IV SCH (21:24)
[2017-04-11] VITALS (18 sets, daily range): BP systolic 133–169; BP diastolic 73–99; PULSE 72–108; RESP 17–41; TEMP 96.9–97.8; O2SAT 90–100
[2017-04-11] MEDS: LORazepam 2 MG/ML VIAL IV PRN ×2 (00:32→03:32)
[2017-04-11] MEDS: RESP: ALBUTEROL 2.5 MG/IPRATROPIUM 0.5 MG NEB (SCH) NEB ×7 (01:28→23:30)
[2017-04-11] MEDS: methylPREDNISolone SOD SUCC 125 MG/2 ML VIAL IV PUSH SCH ×3 (05:33→21:43)
[2017-04-11] MEDS: INSULIN ASPART SUPPLEMENTAL SCALE SQ SCH ×4 (06:27→20:33)
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
[2017-04-11 08:39] LABS: BASOPHIL % 0.2 % (0.0-2.0); HEMATOCRIT 35.7 % (39.0-51.0); LYMPH % 1.4 % (9.0-44.0); LYMPHOCYTE # 0.1 TH/MM3 (1.0-4.8); MEAN CELL VOLUME 99.4 FL (80.0-100.0); MEAN CORPUSCULAR HEMOGLOBIN 33.5 PG (27.0-34.0); MEAN CORPUSCULAR HGB CONC 33.7 % (32.0-36.0); MONO % 4.4 % (0.0-8.0); PLATELET COUNT 109 TH/MM3 (150-450); RED BLOOD COUNT 3.59 MIL/MM3 (4.50-5.90); RED CELL DISTRIBUTION WIDTH 13.5 % (11.6-17.2); WHITE BLOOD COUNT 7.5 TH/MM3 (4.0-11.0)
[2017-04-11 08:41] LABS: HEMO FLAGS AUTO DIFF
[2017-04-11] MEDS: POTASSIUM CHLORIDE 20 MEQ PWD PACKET PO SCH ×2 (09:00→20:17)
[2017-04-11] MEDS: REMOVE OLD PATCH T-DERMAL SCH (09:00)
[2017-04-11] MEDS: SODIUM CHLORIDE 0.9% FLUSH 10 ML FLUSH IV FLUSH SCH ×2 (09:00→20:20)
[2017-04-11] MEDS: NYSTATIN 100,000 UNIT/GM CREAM 15 GM TOPICAL SCH ×2 (09:00→20:20)
[2017-04-11] MEDS: PANTOPRAZOLE SOD 40 MG DELAYED RELEASE TAB PO SCH (09:00)
[2017-04-11 09:01] LABS: ALKALINE PHOSPHATASE 82 U/L (45-117); ALT (GPT) 52 U/L (12-78); ANION GAP 5 MEQ/L (5-15); AST (GOT) 25 U/L (15-37); BICARBONATE 34.6 MEQ/L (21.0-32.0); BLOOD UREA NITROGEN 19 MG/DL (7-18); CHLORIDE 97 MEQ/L (98-107); GLOMERULAR FILTRATION RATE 172 ML/MIN (>89); POTASSIUM 3.3 MEQ/L (3.5-5.1); SODIUM (NA) 137 MEQ/L (136-145); TOTAL BILIRUBIN ADULT 0.6 MG/DL (0.2-1.0)
[2017-04-11 09:21] LABS: PLATELET ESTIMATE SMEAR LOW (NORMAL); PLATELET MORPHOLOGY NORMAL (NORMAL); SCAN/DIFF AUTO DIFF CONFIRMED
[2017-04-11] MEDS: POLYETHYLENE GLYCOL 17 GM PKG PO SCH (10:20)
[2017-04-11] MEDS: MULTIVITAMINS/MINERALS THERAPEUTIC TAB PO SCH (10:21)
[2017-04-11] MEDS: SODIUM CHLORIDE 1 GRAM TAB PO SCH ×3 (10:21→17:10)
[2017-04-11] MEDS: TAMSULOSIN HCL 0.4 MG CAP PO SCH ×2 (10:22→20:17)
[2017-04-11] MEDS: THIAMINE HCL 100 MG TAB PO SCH (10:22)
[2017-04-11] MEDS: BUMETANIDE INJ 1 MG/4 ML VIAL IV PUSH SCH (10:22)
[2017-04-11] MEDS: DILTIAZEM-CD 240 MG CAP ER PO SCH (10:23)
[2017-04-11] MEDS: ASPIRIN 325 MG TAB PO SCH (10:23)
[2017-04-11] MEDS: FOLIC ACID 1 MG TAB PO SCH (10:23)
[2017-04-11] MEDS: guaiFENesin E.R. 600 MG TAB PO SCH ×2 (10:23→20:17)
[2017-04-11] MEDS: BUDESONIDE-FORMOTEROL 160/4.5 MCG INHALER INH SCH ×2 (10:24→20:20)
[2017-04-11] MEDS: NYSTATIN 100,000 U/GM PWD 15 GM BTL TOPICAL SCH ×2 (10:25→20:21)
[2017-04-11] MEDS: DOCUSATE SODIUM 50 MG/SENNA 8.6 MG TAB PO SCH ×2 (10:25→20:17)
[2017-04-11] MEDS: CEFEPIME 1000 MG/NS 100 ML IV SCH ×4 (10:47→23:44)
--- NOTE | 2017-04-11 12:07 | PD.CONS ---
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 prompt me to consider important information that might be impacting today's encounter and assessment, information from prior notes written by myself or my colleagues may have been "brought forward" into today's note. My signature on this note, however, is an attestation that I personally performed the exam, history, and/or decision-making noted today, and, unless otherwise indicated, the interactions with patient, family, and staff as well as the review of records all occurred today. I also attest that the listed assessment and stated plan reflect my best clinical judgment today based on the combination of historical information, prior notes, and today's exam/ interactions. When time spent is documented, it refers only to time spent today by the signer, or if indicated, combined time spent today by collaborating physician/nurse practitioner. Kori Phan MD Apr 11, 2017 12:07
[2017-04-11] MEDS: SODIUM CHLOR 0.9% 1000 ML INJ 1,000 ML IV SCH (13:08)
[2017-04-11] MEDS: NICOTINE 14 MG/24 HR PATCH T-DERMAL SCH (13:09)
[2017-04-11] MEDS: AZITHROMYCIN INJ 500 MG in SODIUM CHLOR 0.9% 250 ML INJ 250 ML IV SCH (20:18)
[2017-04-12] VITALS (18 sets, daily range): BP systolic 136–169; BP diastolic 73–89; PULSE 79–98; RESP 22–51; TEMP 96.2–98.3; O2SAT 83–100
[2017-04-12] MEDS: LORazepam 2 MG/ML VIAL IV PRN ×5 (00:01→20:59)
[2017-04-12 05:44] LABS: AUTOMATED NEUTROPHIL # 9.1 TH/MM3 (1.8-7.7); BASOPHIL % 0.2 % (0.0-2.0); HEMATOCRIT 32.9 % (39.0-51.0); LYMPHOCYTE # 0.1 TH/MM3 (1.0-4.8); MEAN CELL VOLUME 99.3 FL (80.0-100.0); MEAN CORPUSCULAR HEMOGLOBIN 33.7 PG (27.0-34.0); MEAN CORPUSCULAR HGB CONC 33.9 % (32.0-36.0); MONO % 4.4 % (0.0-8.0); NEUT % 94.4 % (16.0-70.0); PLATELET COUNT 115 TH/MM3 (150-450); RED BLOOD COUNT 3.31 MIL/MM3 (4.50-5.90); RED CELL DISTRIBUTION WIDTH 13.3 % (11.6-17.2); WHITE BLOOD COUNT 9.6 TH/MM3 (4.0-11.0)
[2017-04-12] MEDS: methylPREDNISolone SOD SUCC 125 MG/2 ML VIAL IV PUSH SCH ×3 (05:45→21:31)
[2017-04-12 05:46] LABS: HEMO FLAGS AUTO DIFF
[2017-04-12 06:08] LABS: ANION GAP 6 MEQ/L (5-15); AST (GOT) 27 U/L (15-37); BICARBONATE 33.8 MEQ/L (21.0-32.0); BLOOD UREA NITROGEN 21 MG/DL (7-18); CHLORIDE 100 MEQ/L (98-107); GLOMERULAR FILTRATION RATE 195 ML/MIN (>89); MAGNESIUM 1.9 MG/DL (1.5-2.5); POTASSIUM 3.9 MEQ/L (3.5-5.1); SODIUM (NA) 140 MEQ/L (136-145)
[2017-04-12 06:13] LABS: ALKALINE PHOSPHATASE 79 U/L (45-117); ALT (GPT) 55 U/L (12-78); TOTAL BILIRUBIN ADULT 0.5 MG/DL (0.2-1.0)
[2017-04-12] MEDS: INSULIN ASPART SUPPLEMENTAL SCALE SQ SCH ×3 (06:26→12:00)
[2017-04-12 08:01] LABS: PLATELET ESTIMATE SMEAR LOW (NORMAL); PLATELET MORPHOLOGY NORMAL (NORMAL); SCAN/DIFF AUTO DIFF CONFIRMED
[2017-04-12] MEDS: ASPIRIN 325 MG TAB PO SCH (08:25)
[2017-04-12] MEDS: guaiFENesin E.R. 600 MG TAB PO SCH (08:25)
[2017-04-12] MEDS: DILTIAZEM-CD 240 MG CAP ER PO SCH (08:25)
[2017-04-12] MEDS: TAMSULOSIN HCL 0.4 MG CAP PO SCH ×2 (08:25→20:55)
[2017-04-12] MEDS: DOCUSATE SODIUM 50 MG/SENNA 8.6 MG TAB PO SCH ×2 (08:25→20:55)
[2017-04-12] MEDS: NICOTINE 14 MG/24 HR PATCH T-DERMAL SCH (08:26)
[2017-04-12] MEDS: MULTIVITAMINS/MINERALS THERAPEUTIC TAB PO SCH (08:26)
[2017-04-12] MEDS: POTASSIUM CHLORIDE 20 MEQ PWD PACKET PO SCH (08:26)
[2017-04-12] MEDS: THIAMINE HCL 100 MG TAB PO SCH (08:26)
[2017-04-12] MEDS: BUMETANIDE INJ 1 MG/4 ML VIAL IV PUSH SCH (08:26)
[2017-04-12] MEDS: FOLIC ACID 1 MG TAB PO SCH (08:26)
[2017-04-12] MEDS: SODIUM CHLORIDE 1 GRAM TAB PO SCH ×2 (08:26→12:08)
[2017-04-12] MEDS: REMOVE OLD PATCH T-DERMAL SCH (08:26)
[2017-04-12] MEDS: POLYETHYLENE GLYCOL 17 GM PKG PO SCH (08:27)
[2017-04-12] MEDS: NYSTATIN 100,000 UNIT/GM CREAM 15 GM TOPICAL SCH ×2 (08:28→20:56)
[2017-04-12] MEDS: SODIUM CHLORIDE 0.9% FLUSH 10 ML FLUSH IV FLUSH SCH ×2 (08:28→20:56)
[2017-04-12] MEDS: NYSTATIN 100,000 U/GM PWD 15 GM BTL TOPICAL SCH ×2 (08:28→20:56)
[2017-04-12] MEDS: BUDESONIDE-FORMOTEROL 160/4.5 MCG INHALER INH SCH (08:28)
[2017-04-12] MEDS: PANTOPRAZOLE SOD 40 MG DELAYED RELEASE TAB PO SCH (08:34)
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
[2017-04-12] MEDS: SODIUM CHLOR 0.9% 1000 ML INJ 1,000 ML IV SCH (11:00)
[2017-04-12] MEDS: CEFEPIME 1000 MG/NS 100 ML IV SCH ×2 (12:07)
[2017-04-12] MEDS ORDERED: MORPHINE SULFATE 2 MG/ML INJ IV PUSH PRN (13:30)
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
[2017-04-12] MEDS: LORazepam 2 MG/ML VIAL IV PUSH SCH ×3 (15:42→23:00)
[2017-04-12] MEDS ORDERED: MORPHINE SULFATE 8 MG/ML INJ ONE (17:50)
[2017-04-12] MEDS: MORPHINE SULFATE 2 MG/ML INJ IV PUSH SCH ×2 (17:52→23:00)
[2017-04-13] VITALS (18 sets, daily range): BP systolic 104–154; BP diastolic 64–78; PULSE 80–103; RESP 18–28; TEMP 97.4–98.1; O2SAT 86–100
[2017-04-13] MEDS: LORazepam 2 MG/ML VIAL IV PUSH SCH ×6 (02:45→23:00)
[2017-04-13] MEDS: MORPHINE SULFATE 4 MG/ML INJ IV PUSH SCH ×6 (03:15→23:00)
[2017-04-13 05:05] LABS: HEMATOCRIT 36.7 % (39.0-51.0); MEAN CELL VOLUME 99.6 FL (80.0-100.0); MEAN CORPUSCULAR HEMOGLOBIN 33.3 PG (27.0-34.0); MEAN CORPUSCULAR HGB CONC 33.5 % (32.0-36.0); PLATELET COUNT 106 TH/MM3 (150-450); RED BLOOD COUNT 3.68 MIL/MM3 (4.50-5.90); RED CELL DISTRIBUTION WIDTH 13.5 % (11.6-17.2); REVIEW FLAG FINAL; WHITE BLOOD COUNT 20.2 TH/MM3 (4.0-11.0)
[2017-04-13 05:34] LABS: BICARBONATE 39.5 MEQ/L (21.0-32.0); POTASSIUM 3.5 MEQ/L (3.5-5.1)
[2017-04-13] MEDS: methylPREDNISolone SOD SUCC 125 MG/2 ML VIAL IV PUSH SCH ×3 (06:18→21:08)
[2017-04-13] MEDS: BUMETANIDE INJ 1 MG/4 ML VIAL IV PUSH SCH (08:45)
[2017-04-13] MEDS: SODIUM CHLORIDE 0.9% FLUSH 10 ML FLUSH IV FLUSH SCH ×2 (08:45→20:43)
[2017-04-13] MEDS: NYSTATIN 100,000 UNIT/GM CREAM 15 GM TOPICAL SCH ×2 (08:46→20:44)
[2017-04-13] MEDS: NICOTINE 14 MG/24 HR PATCH T-DERMAL SCH (08:46)
[2017-04-13] MEDS: DOCUSATE SODIUM 50 MG/SENNA 8.6 MG TAB PO SCH ×2 (09:00→20:44)
[2017-04-13] MEDS: DILTIAZEM-CD 240 MG CAP ER PO SCH (09:00)
[2017-04-13] MEDS: ASPIRIN 325 MG TAB PO SCH (09:00)
[2017-04-13] MEDS: REMOVE OLD PATCH T-DERMAL SCH (09:00)
[2017-04-13] MEDS: TAMSULOSIN HCL 0.4 MG CAP PO SCH ×2 (09:00→21:08)
[2017-04-13] MEDS: NYSTATIN 100,000 U/GM PWD 15 GM BTL TOPICAL SCH ×2 (09:00→20:44)
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
[2017-04-13] MEDS: SODIUM CHLOR 0.9% 1000 ML INJ 1,000 ML IV SCH (14:15)
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
[2017-04-13] MEDS ORDERED: LORazepam 2 MG/ML VIAL IV PUSH ONE (14:45)
[2017-04-14] VITALS (17 sets, daily range): BP systolic 125–172; BP diastolic 74–102; PULSE 86–108; RESP 12–20; TEMP 97.1–98.1; O2SAT 92–99
[2017-04-14] MEDS: LORazepam 2 MG/ML VIAL IV PUSH SCH ×6 (03:00→23:17)
[2017-04-14] MEDS: MORPHINE SULFATE 4 MG/ML INJ IV PUSH SCH ×6 (03:00→23:17)
[2017-04-14] MEDS: SODIUM CHLOR 0.9% 1000 ML INJ 1,000 ML IV SCH ×2 (03:00→10:26)
[2017-04-14 06:33] LABS: HEMATOCRIT 37.2 % (39.0-51.0); MEAN CELL VOLUME 101.1 FL (80.0-100.0); MEAN CORPUSCULAR HGB CONC 32.7 % (32.0-36.0); PLATELET COUNT 87 TH/MM3 (150-450); RED BLOOD COUNT 3.68 MIL/MM3 (4.50-5.90); RED CELL DISTRIBUTION WIDTH 13.8 % (11.6-17.2)
[2017-04-14] MEDS: methylPREDNISolone SOD SUCC 125 MG/2 ML VIAL IV PUSH SCH ×3 (06:39→23:17)
[2017-04-14 06:44] LABS: REVIEW FLAG FINAL
[2017-04-14 06:50] LABS: BICARBONATE 39.5 MEQ/L (21.0-32.0); POTASSIUM 3.7 MEQ/L (3.5-5.1)
[2017-04-14] MEDS: DOCUSATE SODIUM 50 MG/SENNA 8.6 MG TAB PO SCH ×2 (09:00→19:18)
[2017-04-14] MEDS: DILTIAZEM-CD 240 MG CAP ER PO SCH (09:00)
[2017-04-14] MEDS: TAMSULOSIN HCL 0.4 MG CAP PO SCH ×2 (09:00→19:17)
[2017-04-14] MEDS: ASPIRIN 325 MG TAB PO SCH (09:00)
[2017-04-14] MEDS: SODIUM CHLORIDE 0.9% FLUSH 10 ML FLUSH IV FLUSH SCH ×2 (09:45→19:17)
[2017-04-14] MEDS: NICOTINE 14 MG/24 HR PATCH T-DERMAL SCH (09:45)
[2017-04-14] MEDS: REMOVE OLD PATCH T-DERMAL SCH (09:45)
[2017-04-14] MEDS: BUMETANIDE INJ 1 MG/4 ML VIAL IV PUSH SCH (09:45)
[2017-04-14] MEDS: NYSTATIN 100,000 U/GM PWD 15 GM BTL TOPICAL SCH ×2 (09:46→19:17)
[2017-04-14] MEDS: NYSTATIN 100,000 UNIT/GM CREAM 15 GM TOPICAL SCH ×2 (09:46→19:17)
[2017-04-14] MEDS: SODIUM CHLOR 0.45% 1000 ML INJ 1,000 ML IV SCH ×2 (13:11→23:18)
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
[2017-04-15] VITALS: BP 145/88; PULSE 101; RESP 14; TEMP 97.5; O2SAT 95
[2017-04-15] MEDS: MORPHINE SULFATE 4 MG/ML INJ IV PUSH SCH ×4 (03:36→14:36)
[2017-04-15] MEDS: LORazepam 2 MG/ML VIAL IV PUSH SCH ×4 (03:37→14:36)
[2017-04-15 05:00] VITALS: BP 164/99; PULSE 89; RESP 14; TEMP 98.2; O2SAT 88
[2017-04-15 05:36] VITALS: O2SAT 87
[2017-04-15] MEDS: methylPREDNISolone SOD SUCC 125 MG/2 ML VIAL IV PUSH SCH ×2 (06:23→14:37)
[2017-04-15 08:00] VITALS: BP 158/95; PULSE 99; RESP 16; TEMP 96.8; O2SAT 100
[2017-04-15 08:14] VITALS: O2SAT 97
[2017-04-15] MEDS: LORazepam 2 MG/ML VIAL IV PRN (08:24)
[2017-04-15] MEDS: BUMETANIDE INJ 1 MG/4 ML VIAL IV PUSH SCH (08:27)
[2017-04-15] MEDS: REMOVE OLD PATCH T-DERMAL SCH (08:27)
[2017-04-15] MEDS: NICOTINE 14 MG/24 HR PATCH T-DERMAL SCH (08:27)
[2017-04-15] MEDS: DILTIAZEM-CD 240 MG CAP ER PO SCH (08:31)
[2017-04-15] MEDS: ASPIRIN 325 MG TAB PO SCH (08:31)
[2017-04-15] MEDS: SODIUM CHLORIDE 0.9% FLUSH 10 ML FLUSH IV FLUSH SCH (08:31)
[2017-04-15] MEDS: NYSTATIN 100,000 U/GM PWD 15 GM BTL TOPICAL SCH (08:32)
[2017-04-15] MEDS: DOCUSATE SODIUM 50 MG/SENNA 8.6 MG TAB PO SCH (08:32)
[2017-04-15] MEDS: TAMSULOSIN HCL 0.4 MG CAP PO SCH (08:32)
[2017-04-15] MEDS: NYSTATIN 100,000 UNIT/GM CREAM 15 GM TOPICAL SCH (08:32)
[2017-04-15 08:34] LABS: AUTOMATED NEUTROPHIL # 10.4 TH/MM3 (1.8-7.7); BASOPHIL % 0.1 % (0.0-2.0); HEMATOCRIT 35.1 % (39.0-51.0); LYMPH % 2.6 % (9.0-44.0); LYMPHOCYTE # 0.3 TH/MM3 (1.0-4.8); MEAN CELL VOLUME 100.3 FL (80.0-100.0); MEAN CORPUSCULAR HEMOGLOBIN 33.1 PG (27.0-34.0); NEUT % 92.3 % (16.0-70.0); PLATELET COUNT 74 TH/MM3 (150-450); RED CELL DISTRIBUTION WIDTH 13.7 % (11.6-17.2); WHITE BLOOD COUNT 11.2 TH/MM3 (4.0-11.0)
[2017-04-15 08:37] LABS: HEMO FLAGS AUTO DIFF
[2017-04-15 08:59] LABS: ANION GAP 3 MEQ/L (5-15); AST (GOT) 25 U/L (15-37); BICARBONATE 41.7 MEQ/L (21.0-32.0); BLOOD UREA NITROGEN 29 MG/DL (7-18); CHLORIDE 107 MEQ/L (98-107); GLOMERULAR FILTRATION RATE 206 ML/MIN (>89); POTASSIUM 3.2 MEQ/L (3.5-5.1); SODIUM (NA) 152 MEQ/L (136-145)
[2017-04-15 09:03] LABS: ALKALINE PHOSPHATASE 76 U/L (45-117); ALT (GPT) 40 U/L (12-78); TOTAL BILIRUBIN ADULT 0.8 MG/DL (0.2-1.0)
[2017-04-15 09:06] LABS: BANDS 4 % (0-6); MYELOCYTES 1 % (0-0); NEUTROPHIL # MANUAL DIFF 10.8 TH/MM3 (1.8-7.7); POLYS (SEG NEUTROPHILS) 91 % (16-70); WBC DIFF SAMPLE 100
[2017-04-15 09:07] LABS: PLATELET ESTIMATE SMEAR LOW (NORMAL); PLATELET MORPHOLOGY NORMAL (NORMAL); SCAN/DIFF FINAL DIFF MANUAL
[2017-04-15] MEDS: SODIUM CHLOR 0.45% 1000 ML INJ 1,000 ML IV SCH (11:08)
[2017-04-15 12:00] VITALS: BP 140/87; PULSE 101; RESP 16; TEMP 96.3; O2SAT 93
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
== END 2017-04-15 15:44 | disposition hospice, inpatient (51) | DRG 208 ==
LOC: HCIS 23:00 → HCVR 04-07 19:52 → N03A 04-11 08:56 → N06B 04-14 15:01
PROVIDERS: ADMIT Hospitalist; ATTEND Hospitalist
PROC: 5A1935Z Respiratory Ventilation, Less than 24 Consecutive Hours (ICD-10-PCS; principal; 2017-04-04)
PROC: 0BH17EZ Insertion of Endotracheal Airway into Trachea, Via Natural or Artificial Opening (ICD-10-PCS; 2017-04-04)
PROC: 5A09557 Assistance with Respiratory Ventilation, Greater than 96 Consecutive Hours, Continuous Positive Airway Pressure (ICD-10-PCS; 2017-04-08)
DX: J44.1 Chronic obstructive pulmonary disease with (acute) exacerbation (principal); J96.01 Acute respiratory failure with hypoxia; J96.02 Acute respiratory failure with hypercapnia; E87.2 Acidosis; E87.3 Alkalosis; E87.0 Hyperosmolality and hypernatremia; E87.1 Hypo-osmolality and hyponatremia; R13.10 Dysphagia, unspecified; I10 Essential (primary) hypertension; J70.5 Respiratory conditions due to smoke inhalation; I48.91 Unspecified atrial fibrillation; F10.10 Alcohol abuse, uncomplicated; K21.9 Gastro-esophageal reflux disease without esophagitis; F17.210 Nicotine dependence, cigarettes, uncomplicated; G89.29 Other chronic pain; F32.9 Major depressive disorder, single episode, unspecified; F06.4 Anxiety disorder due to known physiological condition; E87.6 Hypokalemia; R53.81 Other malaise; Z51.5 Encounter for palliative care; E78.5 Hyperlipidemia, unspecified; F41.1 Generalized anxiety disorder; R33.8 Other retention of urine; N40.1 Benign prostatic hyperplasia with lower urinary tract symptoms; Z91.19 Patient's noncompliance with other medical treatment and regimen; Z99.81 Dependence on supplemental oxygen; Z85.828 Personal history of other malignant neoplasm of skin; T59.811A Toxic effect of smoke, accidental (unintentional), initial encounter; X14.0XXA Inhalation of hot air and gases, initial encounter; Y92.009 Unspecified place in unspecified non-institutional (private) residence as the place of occurrence of the external cause; I45.10 Unspecified right bundle-branch block; R07.9 Chest pain, unspecified
CPT/HCPCS: 31500; 36600; 71010; 76937; 80048; 80053; 81001; 82550; 82805; 82948; 83036; 83735; 84100; 84439; 84443; 84484; 85007; 85025; 85027; 90471; 90715; 93005; 94002; 94003; 94640; 94664; 96365; J0330; J0456; J0690; J0692; J1120; J1815; J2060; J2270; J2930; J3480; J7030; J7050; P9612